=== PATIENT | male | born 1960 | race Caucasian/White ===

== ENCOUNTER 2024-06-03 08:18 | Outpatient (CLI) | payer OTHER, SELFPAY ==
--- NOTE | ~2024-06-03 | CT_ITS ---
EXAMINATION: CT chest abdomen pelvis w con DATE: 06/03/2024 09:04 INDICATION: Abdominal pain. Suspicion for possible lung cancer and prior outside imaging. TECHNIQUE: Computed tomography (CT) of the chest, abdomen, and pelvis was performed with 100 mL Omnip aque-350 intravenous contrast. Automated exposure control and iterative reconstruction technique were employed. The dose-length product was 509.39 mGy-cm. COMPARISON: None FINDINGS: CHEST CT: Moderate emphysema. Mild discoid atelectasis right middle and left lower lobes. There is a cluster of three, 3-4 mm nodules in the left lower lobe. There are multiple bilateral predominantly tiny keira f issural nodules with a larger 5 mm para fissural nodule along the right minor fissure., Pulmonary jodee ma or pleural effusion. Heart size is normal. Small amount of atherosclerotic coronary artery calcifi cation. No pericardial effusion. Thoracic aorta is normal in caliber with no dissection. There are mu ltiple normal-sized mediastinal lymph nodes which are more notable for number than size. No pathologi priya enlarged thoracic lymphadenopathy. There are however 3 enlarged left jugular chain lymph nodes, the largest measuring 1.9 x 1.8 cm. There are a few healing right-sided rib fractures. There is a di ffuse mottled appearance to the bones which appears to result from a combination of innumerable small lytic and blastic bone lesions suspicious for metastatic disease. ABDOMEN/PELVIS CT: 1.2 cm hypodense lesion along the ligamentum teres which given the classic location is most consisten t with focal fat. No other hepatic lesions identified. The gallbladder, pancreas, bilateral adrenal g lands and kidneys are normal. A few splenic calcifications consistent with old granulomatous disease. There are few scattered clonic diverticula without adjacent inflammatory stranding to suggest divert iculitis. Small bowel and appendix are normal. Bladder is normal. Prostatomegaly measuring 4.1 x 3.8 cm. Small amount of nonspecific ascites in the deep pelvis. There is scattered lymphadenopathy throug hout the abdomen, pelvis and left groin suspicious for metastatic disease or lymphoma. Additional ext ensive mixed lytic and sclerotic bone lesions throughout the lumbar spine, pelvis and proximal femurs . IMPRESSION: 1. Lymphadenopathy left neck, abdomen, pelvis and left groin suspicious for metastatic disease or lym phoma. Would recommend ultrasound-guided biopsy of the left inguinal lymph node. 2. Diffuse mottled appearance to the bones consistent with innumerable mixed lytic and sclerotic bone lesions also suspicious for metastatic disease. 3. A few scattered small pulmonary nodules and numerous keira fissural nodules, the largest measuring up to 5 mm which can be either infectious/inflammatory in etiology or metastatic. No dominant lesion more suspicious for a primary lung cancer. 4. Moderate emphysema. Reviewed, dictated and finalized at location A. CAD OPERATOR IMPRESSION: 1. Lymphadenopathy left neck, abdomen, pelvis and left groin suspicious for met astatic disease or lymphoma. Would recommend ultrasound-guided biopsy of the le ft inguinal lymph node. 2. Diffuse mottled appearance to the bones consistent with innumerable mixed ly tic and sclerotic bone lesions also suspicious for metastatic disease. 3. A few scattered small pulmonary nodules and numerous keira fissural nodules, the largest measuring up to 5 mm which can be either infectious/inflammatory in etiology or metastatic. No dominant lesion more suspicious for a primary lung cancer. 4. Moderate emphysema.
[2024-06-03 09:00] LABS: Estimated Glomerular Filt Rate > 60
--- NOTE | 2024-06-03 14:40 | WPDPFTINT ---
PFT Procedure Performed PFT Procedure Performed Plethysmography (Lung Vol) Diffusing Cap (DLCO) Flow Vol Loop Spirometry w/o Bronchodil PFT Interpretation This is a pulmonary function test with spirometry, plethysmography and diffusing capacity. The test was performed and results interpreted in accordance with the 2019 and 2005 ATS/ERS Task Force guidelines respectively using the Global Lung Function Initiative-2012 reference equations. Patient demonstrated good effort and cooperation. Reproducibility criteria were met. The quality of the spirometry maneuver was Grade A. Findings: Spirometry: There is decreased maximal expiratory airflow at all lung volumes with concave expiratory flow tracing. The contour the inspiratory flow tracing is normal. The FVC is 2.88 L, 66% predicted. The FEV1 is 1.31 L, 39% predicted. The FEV1: FVC ratio is 46%. Plethysmography: The total lung capacity is 6.75 L, 100% predicted. The functional residual capacity is 5.35 L, 152% predicted. The residual volume is 3.87 L, 174% predicted. The residual volume: Total lung capacity ratio is 57%. Diffusing capacity: The diffusing capacity unadjusted for hemoglobin and carboxyhemoglobin is 7.3, 27% predicted. The diffusing capacity adjusted for alveolar volume is 1.71, 40% predicted. Impression: There is a severe obstructive abnormality. The increase in residual volume to total lung volume ratio is consistent with hyperinflation from an obstructive abnormality. The diffusing capacity unadjusted for hemoglobin and carboxyhemoglobin is severely decreased and remains moderately decreased when adjusted for alveolar volume. There are no prior studies for comparison
--- OUTSIDE RECORDS SUMMARY | 2024-06-10 17:28 | XMS_ITS | Data Portability ---
Author Organization [facility] Johnie [facility] [place] Address [address] [place] [address] Care Team Providers Care Hemp Fiber Taker Off Name Role Phone TATYANA CROWELL Primary Care Provider Assessment Encounter Date Assessment Date Assessment LastModified by Organization Details LastModified Time 08/27/2023 08/27/2023 We will obtain some blood work incomplete database we need his old records. He had a large cardiac workup a year or so ago with I believe even a right and a left heart cath did see cardiology there may have been some pulmonary hypertension as well he was supposed I think to have a sleep study again we need old records to get this all figured out and we will request those from previous clinic see me in 3 months he is not interested in any immunizations at this time. He thinks he may have had a Cologuard we will see an old records [email or web address] Not available 08/27/2023 21:05:08 12/08/2023 12/08/2023 he continues to smoke warned of the ill effects of tobacco which were included but not limited to increase tumors of the aerodigestive tract increase incidence of heart attack stroke and cancer that can lead to sudden or chronic medical illness. I would have him try the breasts tree because he does not feel that the trilogy helps him all that much. Needs to follow up with Pulmonary for breathing issues as well as his possible lesion spiculated seen on recent CT scan at the hospital continue with his folic acid and B12 continue with all smoking cessation strategies if he is agreeable continue to follow up with Cardiology by some diastolic dysfunction and diastolic heart failure see me in a month I have told him he needs to finish following up with the urologist I have told him in layman's terms that he had blood in his urine he is a smoker and it is cancer until proven otherwise and he voiced understanding [email or web address] Not available 12/27/2023 16:01:25 03/15/2024 03/15/2024 smoking cessatio n discussed in detail and he is not interested on any pharmacological measures for that he will restart the metoprolol get a blood pressure check in a couple of weeks refuses flu shot and COVID shot I will see him back in a month. He was advised to get the additional testing that was ordered by Pulmonary. He will see me back in a month. Told him I could refer to Dermatology for alopecia he declined. [email or web address] Not available 03/15/2024 22:00:53 05/03/2024 05/03/2024 the leg pain he called the office about his gone we will continue current therapy CT chest abdomen and pelvis his involuntary weight loss is worrisome I told him that he needs to see Urology for blood in his urine. He continues to follow with cardiology he saw the track repair worker in December but has not been back then at that time it looks like he was referred to Interventional Pulmonary and slough patient denies any knowledge of this. further recommendations once I get the results of his test he was advised to stay up-to-date on immunizations. Obtain PFTs. again recommended to get colonoscopies [email or web address] Not available 05/07/2024 16:13:59 Plan of Treatment Reminders Order Date Submit Date Provider Last Modified By Organization Details Last Modified Time Details Appointments ANY 15 2024 02:30P Ligia Crowell MD Not available Not available Not available Lab lipid panel, serum 2023 024 CRISTINE Pandey, [address], [place], [address], 10/01/2023 08:29:33 CMP, serum or plasma 2023 024 CRISTINE Pandey, [address], [place], [address], 10/01/2023 08:29:34 CBC w/ auto diff 2023 024 CRISTINE Pandey, [address], [place], [address], 10/01/2023 08:29:35 pro BNP (pro B-type natriuret ic peptide), serum or plasma 2023 [facility], [address], [place], [address], 01/06/2024 18:04:30 urinalysi s, complete 2023 [facility], [address], [place], [address], 05/04/2024 08:31:03 HbA1c (hemoglob in A1c), blood 2023 [facility], [address], [place], [address], 05/04/2024 08:31:02 lipid panel, serum 2023 [facility], [address], [place], [address], 05/04/2024 08:30:58 CBC w/ auto diff 2023 [facility], [address], [place], [address], 05/04/2024 08:31:05 CMP, serum or plasma 2023 [facility], [address], [place], [address], 05/04/2024 08:31:00 Referral None recorded. Procedures None recorded. Surgeries None recorded. Imaging CT, abdomen + pelvis, w/ contrast - Authoriza tion code #[id number] 12 2023 [facility] (Imaging), [address], [place], [address], 06/05/2024 08:41:14 PFT, complete 2023 [facility] (Cardiology [facility] Em[facility]), [address], [place], [address], 06/03/2024 15:46:10 CT, chest, w/ contrast 2023 [facility] (Im[facility]), [address], [place], [address], 06/10/2024 10:10:09 Medication Orders losartan 25 mg tablet [address] [id number], [address] [place], [place], [id number], 12/08/2023 11:14:27 metoprolo l tartrate 25 mg tablet [address] [facility], [address] [place], [place], [id number], 12/08/2023 11:14:27 folic acid 1 mg tablet [address] [facility]72, [address] [place], [place], [id number], 12/08/2023 11:14:27 Trelegy Ellipta 100 mcg-62.5 mcg-25 mcg powder for inhalatio n 2023 024 [facility]697, [address] [place], [place], [id number], 12/25/2023 12:50:21 cyanocoba winnie (vit B-12) 100 mcg tablet [address] [facility]29, [address] [place], [place], [id number], 12/08/2023 11:14:27 Patient TargetsNo targets recorded. Patient Instructions Encounter Date Encounter Id Patient Instructions Last Modified By Organization Details Last Modified Time 12/08/2023 [id number] A healthy lifestyle: care instructions [email or web address] Not available 12/08/2023 11:14:27 Reason for Referral None Reported. Results Created Date Observation Date Name Description Value Unit Range Abnormal Flag Note LastModifiedBy Organization Detail LastModifiedTime 09/30/19 24 10/01/2023 LIPID PANEL cholesterol, total 151 mg/dL 100-19 9 Not Available [facility] ([facility]) [address] [place], [address], 10/01/2023 08:29:33 09/30/1910/01/2023 LIPID PANEL triglyceride s 53 mg/dL 0-149 Not Available [facility] ([facility]) [address] [place], [address], 10/01/2023 08:29:33 09/30/1910/01/2023 LIPID PANEL HDL cholesterol 65 mg/dL >39 Not Available [facility] ([facility]) [address] [place], [address], 10/01/2023 08:29:33 09/30/1910/01/2023 LIPID PANEL VLDL cholesterol manpreet 11 mg/dL 5-40 Not Available [facility] ([facility]) [address] [place], [address], 10/01/2023 08:29:33 09/30/1910/01/2023 LIPID PANEL LDL chol calc ([facility]) 75 mg/dL 0-99 Not Available [facility] ([facility]) [address] [place], [address], 10/01/2023 08:29:33 09/30/1910/01/2023 CMP14 glucose 89 mg/dL 70-99 Not Availabl e [facility] ([facility]) [address] [place], [address], 10/01/2023 08:29:34 09/30/19 24 10/01/2023 CMP14 BUN 19 mg/dL 8-27 Not Available [facility] ([facility]) [address] [place], [address], 10/01/2023 08:29:34 09/30/19 24 10/01/2023 CMP14 creatinine 0.91 mg/dL 0.76-1 .27 Not Available [facility] ([facility]) [address] [place], [address], 10/01/2023 08:29:34 09/30/19 24 10/01/2023 CMP14 eGFR 96 mL/mi n/1.7 3 >59 Not Available [facility] ([facility]) [address] [place], [address], 10/01/2023 08:29:34 09/30/19 24 10/01/2023 CMP14 sodium 137 mmol/ L 134-14 4 Not Available [facility] ([facility]) [address] [place], [address], 10/01/2023 08:29:34 09/30/19 24 10/01/2023 CMP14 potassium 5.6 mmol/ L 3.5-5. 2 above high normal Not Available [facility] ([facility]) [address] [place], [address], 10/01/2023 08:29:34 09/30/1910/01/2023 CMP14 chloride 98 mmol/ L 96-106 Not Available [facility] ([facility]) [address] [place], [address], 10/01/2023 08:29:34 09/30/19 24 10/01/2023 CMP14 carbon dioxide, total 29 mmol/ L 20-29 Not Available [facility] ([facility]) [address] [place], [address], 10/01/2023 08:29:34 09/30/19 24 10/01/2023 CMP14 calcium 8.8 mg/dL 8.6-10 .2 Not Available [facility] ([facility]) [address] [facility] [place], [address], 10/01/2023 08:29:34 09/30/19 24 10/01/2023 CMP14 protein, total 6.1 g/dL 6.0-8. 5 Not Available [facility] ([facility]) [address] [facility] [place], [address], 10/01/2023 08:29:34 09/30/19 24 10/01/2023 CMP14 albumin 3.2 g/dL 3.9-4. 9 below low normal Not Available [facility] ([facility]) [address] [facility] [place], [address], 10/01/2023 08:29:34 09/30/19 24 10/01/2023 CMP14 globulin, total 2.9 g/dL 1.5-4. 5 Not Available [facility] ([facility]) [address] [facility] [place], [address], 10/01/2023 08:29:34 09/30/19 24 10/01/2023 CMP14 A/G ratio 1.1 1.2-2. 2 below low normal Not Available [facility] ([facility]) [address] [facility] [place], [address], 10/01/2023 08:29:34 09/30/19 24 10/01/2023 CMP14 bilirubin, total 0.4 mg/dL 0.0-1. 2 Not Available [facility] ([facility]) [address] [place], [address], 10/01/2023 08:29:34 09/30/19 24 10/01/2023 CMP14 alkaline phosphatase 130 IU/L 44-121 above high normal Not Available [facility] ([facility]) [address] [place], [address], 10/01/2023 08:29:34 09/30/1910/01/2023 CMP14 AST (SGOT) 18 IU/L 0-40 Not Avail able [facility] ([facility]) [address] [place], [address], 10/01/2023 08:29:34 09/30/19 24 10/01/2023 CMP14 ALT (SGPT) 18 IU/L 0-44 Not Avail able [facility] ([facility]) [address] [place], [address], 10/01/2023 08:29:34 09/30/1910/01/2023 CBC WITH DIFFE RENTI AL/PL ATELE T WBC 7.6 x10e3 /uL 3.4-10 .8 Not Available [facility] ([facility]) [address] [place], [address], 10/01/2023 08:29:35 09/30/1910/01/2023 CBC WITH DIFFE RENTI AL/PL ATELE T RBC 5.19 x10e6 /uL 4.14-5 .80 Not Available [facility] ([facility]) [address] [place], [address], 10/01/2023 08:29:35 09/30/1910/01/2023 CBC WITH DIFFE RENTI AL/PL ATELE T hemoglobin 17.9 g/dL 13.0-1 7.7 above high normal Not Available [facility] ([facility]) [address] [place], [address], 10/01/2023 08:29:35 09/30/1910/01/2023 CBC WITH DIFFE RENTI AL/PL ATELE T hematocrit 52.0 % 37.5-5 1.0 above high normal Not Available [facility] ([facility]) [address] [facility] [place], [address], 10/01/2023 08:29:35 09/30/1910/01/2023 CBC WITH DIFFE RENTI AL/PL ATELE T MCV 100 fL 79-97 above high normal Not Available [facility] ([facility]) [address] [facility], [place], [address], 10/01/2023 08:29:35 09/30/1910/01/2023 CBC WITH DIFFE RENTI AL/PL ATELE T MCH 34.5 pg 26.6-3 3.0 above high normal Not Available [facility] ([facility]) [address] [facility], [place], [address], 10/01/2023 08:29:35 09/30/19 24 10/01/2023 CBC WITH DIFFE RENTI AL/PL ATELE T MCHC 34.4 g/dL 31.5-3 5.7 Not Available [facility] ([facility]) [address] [facility], [place], [address], 10/01/2023 08:29:35 09/30/1910/01/2023 CBC WITH DIFFE RENTI AL/PL ATELE T RDW 12.1 % 11.6-1 5.4 Not Available [facility] ([facility]) [address] [place], [address], 10/01/2023 08:29:35 09/30/1910/01/2023 CBC WITH DIFFE RENTI AL/PL ATELE T platelets 263 x10e3 /uL 150-45 0 Not Available [facility] ([facility]) [address] [place], [address], 10/01/2023 08:29:35 09/30/19 24 10/01/2023 CBC WITH DIFFE RENTI AL/PL ATELE T neutrophils 68 % notest ab. Not Available [facility] ([facility]) [address] [place], [address], 10/01/2023 08:29:35 09/30/19 24 10/01/2023 CBC WITH DIFFE RENTI AL/PL ATELE T lymphs 20 % notest ab. Not Available [facility] ([facility]) [address] [place], [address], 10/01/2023 08:29:35 09/30/19 24 10/01/2023 CBC WITH DIFFE RENTI AL/PL ATELE T monocytes 10 % notest ab. Not Available [facility] ([facility]) [address] [place], [address], 10/01/2023 08:29:35 09/30/19 24 10/01/2023 CBC WITH DIFFE RENTI AL/PL ATELE T eos 1 % notest ab. Not Available [facility] ([facility]) [address] [facility], [place], [address], 10/01/2023 08:29:35 09/30/19 24 10/01/2023 CBC WITH DIFFE RENTI AL/PL ATELE T basos 1 % notest ab. Not Available [facility] ([facility]) [address] [place], [address], 10/01/2023 08:29:35 09/30/19 24 10/01/2023 CBC WITH DIFFE RENTI AL/PL ATELE T neutrophils (absolute) 5.1 x10e3 /uL 1.4-7. 0 Not Available [facility] ([facility]) [address] [place], [address], 10/01/2023 08:29:35 09/30/19 24 10/01/2023 CBC WITH DIFFE RENTI AL/PL ATELE T lymphs (absolute) 1.5 x10e3 /uL 0.7-3. 1 Not Available [facility] ([facility]) [address] [place], [address], 10/01/2023 08:29:35 09/30/19 24 10/01/2023 CBC WITH DIFFE RENTI AL/PL ATELE T monocytes(ab solute) 0.8 x10e3 /uL 0.1-0. 9 Not Available [facility] ([facility]) [address] [facility], [place], [address], 10/01/2023 08:29:35 09/30/19 24 10/01/2023 CBC WITH DIFFE RENTI AL/PL ATELE T eos (absolute) 0.1 x10e3 /uL 0.0-0. 4 Not Available [facility] ([facility]) [address] [facility], [place], [address], 10/01/2023 08:29:35 09/30/19 24 10/01/2023 CBC WITH DIFFE RENTI AL/PL ATELE T baso (absolute) 0.1 x10e3 /uL 0.0-0. 2 Not Available [facility] ([facility]) [address] [facility], [place], [address], 10/01/2023 08:29:35 09/30/19 24 10/01/2023 CBC WITH DIFFE RENTI AL/PL ATELE T immature granulocytes 0 % notest ab. Not Available [facility] ([facility]) [address] [facility], [place], [address], 10/01/2023 08:29:35 09/30/19 24 10/01/2023 CBC WITH DIFFE RENTI AL/PL ATELE T immature grans (abs) 0.0 x10e3 /uL 0.0-0. 1 Not Available [facility] ([facility]) [address] [place], [address], 10/01/2023 08:29:35 05/03/20 24 05/04/2024 LIPID PANEL cholesterol, total 185 mg/dL 100-19 9 Not Available [facility] ([facility]) [address] [place], [address], 05/04/2024 08:30:58 05/03/20 24 05/04/2024 LIPID PANEL triglyceride s 64 mg/dL 0-149 Not Available [facility] ([facility]) [address] [place], [address], 05/04/2024 08:30:58 05/03/20 24 05/04/2024 LIPID PANEL HDL cholesterol 100 mg/dL >39 Not Available [facility] ([facility]) [address] [place], [address], 05/04/2024 08:30:58 05/03/20 24 05/04/2024 LIPID PANEL VLDL cholesterol manpreet 12 mg/dL 5-40 Not Available [facility] ([facility]) [address] [place], [address], 05/04/2024 08:30:58 05/03/20 24 05/04/2024 LIPID PANEL LDL chol calc ([facility]) 73 mg/dL 0-99 Not Available [facility] ([facility]) [address] [place], [address], 05/04/2024 08:30:58 05/03/20 24 05/04/2024 COMP. METAB OLIC PANEL (14) glucose 90 mg/dL 70-99 Not Available [facility] ([facility]) [address] [place], [address], 05/04/2024 08:31:00 05/03/20 24 05/04/2024 COMP. METAB OLIC PANEL (14) BUN 13 mg/dL 8-27 Not Available [facility] ([facility]) [address] [place], [address], 05/04/2024 08:31:00 05/03/20 24 05/04/2024 COMP. METAB OLIC PANEL (14) creatinine 0.73 mg/dL 0.76-1 .27 below low normal Not Available [facility] ([facility]) [address] [facility], [place], [address], 05/04/2024 08:31:00 05/03/20 24 05/04/2024 COMP. METAB OLIC PANEL (14) eGFR 103 mL/mi n/1.7 3 >59 Not Available [facility] ([facility]) [address] [facility], [place], [address], 05/04/2024 08:31:00 05/03/20 24 05/04/2024 COMP. METAB OLIC PANEL (14) BUN/creatini ne ratio 18 10-24 Not Available [facility] ([facility]) [address] [facility], [place], [address], 05/04/2024 08:31:00 05/03/20 24 05/04/2024 COMP. METAB OLIC PANEL (14) sodium 129 mmol/ L 134-14 4 below low normal Not Available [facility] ([facility]) [address] [facility], [place], [address], 05/04/2024 08:31:00 05/03/20 24 05/04/2024 COMP. METAB OLIC PANEL (14) potassium 4.4 mmol/ L 3.5-5. 2 Not Available [facility] ([facility]) [address] [facility], [place], [address], 05/04/2024 08:31:00 05/03/20 24 05/04/2024 COMP. METAB OLIC PANEL (14) chloride 88 mmol/ L 96-106 below low normal Not Available [facility] ([facility]) [address] [facility] [place], [address], 05/04/2024 08:31:00 05/03/20 24 05/04/2024 COMP. METAB OLIC PANEL (14) carbon dioxide, total 27 mmol/ L 20-29 Not Available [facility] ([facility]) [address] [facility] [place], [address], 05/04/2024 08:31:00 05/03/20 24 05/04/2024 COMP. METAB OLIC PANEL (14) calcium 8.9 mg/dL 8.6-10 .2 Not Available [facility] ([facility]) [address] [facility], [place], [address], 05/04/2024 08:31:00 05/03/20 24 05/04/2024 COMP. METAB OLIC PANEL (14) protein, total 6.3 g/dL 6.0-8. 5 Not Available [facility] ([facility]) [address] [facility] [place], [address], 05/04/2024 08:31:00 05/03/20 24 05/04/2024 COMP. METAB OLIC PANEL (14) albumin 4.1 g/dL 3.9-4. 9 Not Available [facility] ([facility]) [address] [facility] [place], [address], 05/04/2024 08:31:00 05/03/20 24 05/04/2024 COMP. METAB OLIC PANEL (14) globulin, total 2.2 g/dL 1.5-4. 5 Not Available [facility] ([facility]) [address] [facility] [place], [address], 05/04/2024 08:31:00 05/03/20 24 05/04/2024 COMP. METAB OLIC PANEL (14) bilirubin, total 0.8 mg/dL 0.0-1. 2 Not Available [facility] ([facility]) [address] [facility] [place], [address], 05/04/2024 08:31:00 05/03/20 24 05/04/2024 COMP. METAB OLIC PANEL (14) alkaline phosphatase 244 IU/L 44-121 above high normal Not Available [facility] ([facility]) [address] [facility] [place], [address], 05/04/2024 08:31:00 05/03/20 24 05/04/2024 COMP. METAB OLIC PANEL (14) AST (SGOT) 28 IU/L 0-40 Not Available [facility] ([facility]) [address] [facility], [place], [address], 05/04/2024 08:31:00 05/03/20 24 05/04/2024 COMP. METAB OLIC PANEL (14) ALT (SGPT) 23 IU/L 0-44 Not Available [facility] ([facility]) [address] [facility], [place], [address], 05/04/2024 08:31:00 05/03/20 24 05/04/2024 MICRO SCOPI C EXAMI NATIO N WBC None seen /hpf 0-5 Not Available [facility] ([facility]) [address] [facility], [place], [address], 05/04/2024 08:31:01 05/03/20 24 05/04/2024 MICRO SCOPI C EXAMI NATIO N RBC 11-30 /hpf 0-2 abnormal Not Available [facility] ([facility]) [address] [facility], [place], [address], 05/04/2024 08:31:01 05/03/20 24 05/04/2024 MICRO SCOPI C EXAMI NATIO N epithelial cells (non renal) 0-10 /hpf 0-10 Not Available [facility] ([facility]) [address] [facility], [place], [address], 05/04/2024 08:31:01 05/03/20 24 05/04/2024 MICRO SCOPI C EXAMI NATIO N casts None seen /lpf nonese en Not Available [facility] ([facility]) [address] [facility], [place], [address], 05/04/2024 08:31:01 05/03/20 24 05/04/2024 MICRO SCOPI C EXAMI NATIO N bacteria None seen nonese en/few Not Available [facility] ([facility]) [address] [facility], [place], [address], 05/04/2024 08:31:01 05/03/2005/04/2024 HEMOG LOBIN A1C hemoglobin A1C 6.3 % 4.8-5. 6 above high normal Predi abete s: 5.7 - 6.4 Diabe jason: >6.4 Glyce reji contr ol for adult s with diabe jason: <7.0 Not Available [facility] ([facility]) [address] [facility], [place], [address], 05/04/2024 08:31:02 05/03/2005/04/2024 URINA LYSIS , COMPL ETE specific gravity 1.017 1.005- 1.030 Not Available [facility] ([facility]) [address] [facility], [place], [address], 05/04/2024 08:31:03 05/03/2005/04/2024 URINA LYSIS , COMPL ETE pH 6.5 5.0-7. 5 Not Available [facility] ([facility]) [address] [facility], [place], [address], 05/04/2024 08:31:03 05/03/20 24 05/04/2024 URINA LYSIS , COMPL ETE urine-color YELLOW yellow Not Available [facility] ([facility]) [address] [place], [address], 05/04/2024 08:31:03 05/03/2005/04/2024 URINA LYSIS , COMPL ETE appearance CLEAR clear Not Available [facility] ([facility]) [address] [place], [address], 05/04/2024 08:31:03 05/03/20 24 05/04/2024 URINA LYSIS , COMPL ETE WBC esterase TRACE negati ve abnormal Not Available [facility] ([facility]) [address] [place], [address], 05/04/2024 08:31:03 05/03/2005/04/2024 URINA LYSIS , COMPL ETE protein 3+ negati ve/tra ce abnormal Not Available [facility] ([facility]) [address] [facility], [place], [address], 05/04/2024 08:31:03 05/03/2005/04/2024 URINA LYSIS , COMPL ETE glucose NEGATI VE negati ve Not Available [facility] ([facility]) [address] [facility], [place], [address], 05/04/2024 08:31:03 05/03/2005/04/2024 URINA LYSIS , COMPL ETE ketones NEGATI VE negati ve Not Available [facility] ([facility]) [address] [place], [address], 05/04/2024 08:31:03 05/03/2005/04/2024 URINA LYSIS , COMPL ETE occult blood 2+ negati ve abnormal Not Available [facility] ([facility]) [address] [place], [address], 05/04/2024 08:31:03 05/03/20 24 05/04/2024 URINA LYSIS , COMPL ETE bilirubin NEGATI VE negati ve Not Available [facility] ([facility]) [address] [place], [address], 05/04/2024 08:31:03 05/03/2005/04/2024 URINA LYSIS , COMPL ETE urobilinogen ,semi-qn 1.0 mg/dL 0.2-1. 0 Not Available [facility] ([facility]) [address] [place], [address], 05/04/2024 08:31:03 05/03/20 24 05/04/2024 URINA LYSIS , COMPL ETE nitrite, urine NEGATI VE negati ve Not Available [facility] ([facility]) [address] [facility], [place], [address], 05/04/2024 08:31:03 05/03/20 24 05/04/2024 URINA LYSIS , COMPL ETE microscopic examination SEE BELOW: Micro scopi c was indic ated and was perfo rmed. Not Available [facility] ([facility]) [address] [facility], [place], [address], 05/04/2024 08:31:03 05/03/20 24 05/04/2024 CBC WITH DIFFE RENTI AL/PL ATELE T WBC 7.3 x10e3 /uL 3.4-10 .8 Eff ectiv e Decem matias 2023 profi arun [id number] WBC will be made* * non-o rdera ble as a stand -adelita e order code. Not Available [facility] ([facility]) [address] [facility], [place], [address], 05/04/2024 08:31:05 05/03/20 24 05/04/2024 CBC WITH DIFFE RENTI AL/PL ATELE T RBC 4.25 x10e6 /uL 4.14-5 .80 Not Available [facility] ([facility]) [address] [facility], [place], [address], 05/04/2024 08:31:05 05/03/20 24 05/04/2024 CBC WITH DIFFE RENTI AL/PL ATELE T hemoglobin 14.7 g/dL 13.0-1 7.7 Not Available [facility] ([facility]) [address] [place], [address], 05/04/2024 08:31:05 05/03/20 24 05/04/2024 CBC WITH DIFFE RENTI AL/PL ATELE T hematocrit 42.7 % 37.5-5 1.0 Not Available [facility] ([facility]) [address] [place], [address], 05/04/2024 08:31:05 05/03/20 24 05/04/2024 CBC WITH DIFFE RENTI AL/PL ATELE T MCV 101 fL 79-97 above high normal Not Available [facility] ([facility]) [address] [facility], [place], [address], 05/04/2024 08:31:05 05/03/20 24 05/04/2024 CBC WITH DIFFE RENTI AL/PL ATELE T MCH 34.6 pg 26.6-3 3.0 above high normal Not Available [facility] ([facility]) [address] [place], [address], 05/04/2024 08:31:05 05/03/20 24 05/04/2024 CBC WITH DIFFE RENTI AL/PL ATELE T MCHC 34.4 g/dL 31.5-3 5.7 Not Available [facility] ([facility]) [address] [place], [address], 05/04/2024 08:31:05 05/03/20 24 05/04/2024 CBC WITH DIFFE RENTI AL/PL ATELE T RDW 13.3 % 11.6-1 5.4 Not Available [facility] ([facility]) [address] [place], [address], 05/04/2024 08:31:05 05/03/20 24 05/04/2024 CBC WITH DIFFE RENTI AL/PL ATELE T platelets 151 x10e3 /uL 150-45 0 Not Available [facility] ([facility]) [address] [place], [address], 05/04/2024 08:31:05 05/03/20 24 05/04/2024 CBC WITH DIFFE RENTI AL/PL ATELE T neutrophils 57 % notest ab. Not Available [facility] ([facility]) [address] [place], [address], 05/04/2024 08:31:05 05/03/20 24 05/04/2024 CBC WITH DIFFE RENTI AL/PL ATELE T lymphs 26 % notest ab. Not Available [facility] ([facility]) [address] [facility], [place], [address], 05/04/2024 08:31:05 05/03/20 24 05/04/2024 CBC WITH DIFFE RENTI AL/PL ATELE T monocytes 9 % notest ab. Not Available [facility] ([facility]) [address] [facility], [place], [address], 05/04/2024 08:31:05 05/03/20 24 05/04/2024 CBC WITH DIFFE RENTI AL/PL ATELE T eos 3 % notest ab. Not Available [facility] ([facility]) [address] [facility], [place], [address], 05/04/2024 08:31:05 05/03/20 24 05/04/2024 CBC WITH DIFFE RENTI AL/PL ATELE T basos 1 % notest ab. Not Available [facility] ([facility]) [address] [facility], [place], [address], 05/04/2024 08:31:05 05/03/20 24 05/04/2024 CBC WITH DIFFE RENTI AL/PL ATELE T neutrophils (absolute) 4.2 x10e3 /uL 1.4-7. 0 Not Available [facility] ([facility]) [address] [facility], [place], [address], 05/04/2024 08:31:05 05/03/20 24 05/04/2024 CBC WITH DIFFE RENTI AL/PL ATELE T lymphs (absolute) 1.9 x10e3 /uL 0.7-3. 1 Not Available [facility] ([facility]) [address] [facility], [place], [address], 05/04/2024 08:31:05 05/03/20 24 05/04/2024 CBC WITH DIFFE RENTI AL/PL ATELE T monocytes(ab solute) 0.7 x10e3 /uL 0.1-0. 9 Not Available [facility] ([facility]) [address] [facility], [place], [address], 05/04/2024 08:31:05 05/03/20 24 05/04/2024 CBC WITH DIFFE RENTI AL/PL ATELE T eos (absolute) 0.2 x10e3 /uL 0.0-0. 4 Not Available [facility] ([facility]) [address] [place], [address], 05/04/2024 08:31:05 05/03/20 24 05/04/2024 CBC WITH DIFFE RENTI AL/PL ATELE T baso (absolute) 0.1 x10e3 /uL 0.0-0. 2 Not Available [facility] ([facility]) [address] [facility], [place], [address], 05/04/2024 08:31:05 05/03/20 24 05/04/2024 CBC WITH DIFFE RENTI AL/PL ATELE T immature granulocytes 4 % notest ab. Not Available [facility] ([facility]) [address] [place], [address], 05/04/2024 08:31:05 05/03/20 24 05/04/2024 CBC WITH DIFFE RENTI AL/PL ATELE T immature grans (abs) 0.3 x10e3 /uL 0.0-0. 1 above high normal (An eleva aaron perce ntage of Immat ure Granu locyt es has not been found to be clini priya signi fican t as a sole clini manpreet predi ctor of disea se. Does NOT inclu de bands or blast cells . Pregn snehal assoc iated physi ologi manpreet leuko cytos is may also show incre ased immat ure granu locyt es witho ut clini manpreet signi fican ce.) Not Available [facility] ([facility]) [address] [facility], [place], [address], 05/04/2024 08:31:05 05/03/20 24 05/04/2024 CBC WITH DIFFE RENTI AL/PL ATELE T NRBC 1 % 0-0 above high normal Not Available [facility] ([facility]) [address] [facility], [place], [address], 05/04/2024 08:31:05 05/18/20 24 05/20/2024 SPECI MEN STATU S REPOR T specimen status report TNP Test not perfo rmed. No urine speci men recei shirin. TEST: [id number] 0 Na U+Cl U+K U [id number] 2 Osmol ality , Urine Not Available [facility] ([facility]) [address] [facility], [place], [address], 05/20/2024 13:10:21 05/18/20 24 05/19/2024 BASIC METAB OLIC PANEL (7) glucose 94 mg/dL 70-99 Not Available [facility] ([facility]) [address] [facility], [place], [address], 05/20/2024 13:10:22 05/18/20 24 05/19/2024 BASIC METAB OLIC PANEL (7) BUN 19 mg/dL 8-27 Not Available [facility] ([facility]) [address] [facility], [place], [address], 05/20/2024 13:10:22 05/18/20 24 05/19/2024 BASIC METAB OLIC PANEL (7) creatinine 1.39 mg/dL 0.76-1 .27 above high normal Not Available [facility] ([facility]) [address] [facility], [place], [address], 05/20/2024 13:10:22 05/18/20 24 05/19/2024 BASIC METAB OLIC PANEL (7) eGFR 57 mL/mi n/1.7 3 >59 below low normal Not Available [facility] ([facility]) [address] [facility], [place], [address], 05/20/2024 13:10:22 05/18/20 24 05/19/2024 BASIC METAB OLIC PANEL (7) BUN/creatini ne ratio 14 -24 Not Available [facility] ([facility]) [address] [facility] [place], [address], 05/20/2024 13:10:22 05/18/20 24 05/19/2024 BASIC METAB OLIC PANEL (7) sodium 133 mmol/ L 134-14 4 below low normal Not Available [facility] ([facility]) [address] [facility] [place], [address], 05/20/2024 13:10:22 05/18/20 24 05/19/2024 BASIC METAB OLIC PANEL (7) potassium 4.4 mmol/ L 3.5-5. 2 Not Available [facility] ([facility]) [address] [facility], [place], [address], 05/20/2024 13:10:22 05/18/20 24 05/19/2024 BASIC METAB OLIC PANEL (7) chloride 92 mmol/ L 96-106 below low normal Not Available [facility] ([facility]) [address] [facility] [place], [address], 05/20/2024 13:10:22 05/18/20 24 05/19/2024 BASIC METAB OLIC PANEL (7) carbon dioxide, total 25 mmol/ L 20-29 Not Available [facility] ([facility]) [address] [facility] [place], [address], 05/20/2024 13:10:22 05/18/20 24 05/19/2024 T4, FREE T4,free(dire ct) 1.54 NG/dL 0.82-1 .77 Not Available [facility] ([facility]) [address] [facility] [place], [address], 05/20/2024 13:10:23 05/18/20 24 05/18/2024 UNABL E TO VOID unable to void Commen t Patie nt unabl e to void. Urine to be colle cted at a later date. Not Available [facility] ([facility]) [address] [place], [address], 05/20/2024 13:10:24 05/18/20 24 05/19/2024 CORTI KRISTEN cortisol 9.2 ug/dL 6.2-19 .4 Pleas e Note: The refer ence inter randa and vale ing for this test is for an AM colle ction . If this is a PM colle ction pleas e use: Corti kristen PM: 2.3-1 1.9 Not Available [facility] ([facility]) [address] [place], [address], 05/20/2024 13:10:25 05/18/20 24 05/19/2024 TSH TSH 5.640 uIU/m L 0.450- 4.500 above high normal Not Available [facility] ([facility]) [address] [place], [address], 05/20/2024 13:10:26 05/18/20 24 05/19/2024 TRIIO DOTHY JACQUES E (T3), FREE triiodothyro nine (T3), free 3.0 pg/mL 2.0-4. 4 Not Available [facility] ([facility]) [address] [place], [address], 05/20/2024 13:10:27 10/22/19 24 10/22/2023 XR, chest No observ ation record ed[facility] [address] [place], [address], 10/26/2023 13:16:21 10/22/19 24 10/22/2023 CT, angio gram, chest , w/ contr ast No observ ation [facility] ed. [facility] [address] [place], [address], 12/08/2023 10:58:10 10/23/19 24 10/23/2023 XR, chest No observ [facility]ion [facility] [address] [place], [address], 10/26/2023 13:23:49 10/26/19 24 10/26/2023 NM, myoca rdial perfu gonzalo scan No observ ation record ed. [facility] [address] [place], [address], 10/26/2023 13:32:59 06/03/20 24 06/03/2024 PFT, compl ete No observ ation record ed. [address] [facility], [place], [address], 06/10/2024 16:43:42 06/05/20 24 06/03/2024 CT, abdom en + pelvi s, w/ contr ast No observ ation record ed. [address], [place], [address], 06/10/2024 17:05:51 06/10/[address], chest , w/ contr ast No observ ation record ed. [address], [place], [address], 06/10/2024 17:05:50 Result Notes None recorded. Problems Name Problem SNOMED Code Status Onset Date Resolution Date Notes Provider Name and Address Organization Details Recorded Time Chronic obstructive pulmonary disease 42545996 Active 2023 COREEN Chan, [place] - [facility] 4 09:18:24 Essential hypertension 61482976 Active 2023 COREEN Chan, [place] - [facility] 4 11:12:58 Serum vitamin B12 below reference range 549066495 Active 2023 COREEN Chan, [place] - [facility] 4 11:12:59 Obesity 455291706 Active 2023 Melony Patterson MA null, [place] - [facility] 4 11:13:01 SARS-CoV-2 vaccination declined 8175531143 Active 2023 Tatyana Crowell MD Attn: Jean garcia,[address] [facility], [place], [address], [facility] - [facility] 4 22:00:35 Administratio n of influenza vaccine Active 2023 Tatyana Crowell MD Attn: Jean g,[address] [facility], [place], [address], [facility] - [facility] 22:00:36 Problem Notes None recorded. Procedures Surgical History Date Name Laterality Status Provider Name and Address Organization Details Recorded Time Tonsillectomy completed Stefanie Penn MA [place] - [facility] 08/27/2023 16:42:41 Imaging Results Imaging Date Name Status [facility]Modified by [facility] Details LastModified Time 10/22/2023 XR, chest completed [facility] [address] [place], [address], 10/26/2023 13:16:21 10/22/2023 CT, angiogram, chest, w/ contrast completed [facility] [address] [place], [address], 12/08/2023 10:58:10 10/23/2023 XR, chest completed [facility] [address] [place], [address], 10/26/2023 13:23:49 10/26/2023 NM, myocardial perfusion scan completed [facility] [address] [place], [address], 10/26/2023 13:32:59 06/03/2024 PFT, complete completed [address], [place], [address], 06/10/2024 16:43:42 06/03/2024 CT, abdomen + pelvis, w/ contrast completed [address], [place], [address], 06/10/2024 17:05:51 06/10/2024 CT, chest, w/ contrast completed [address], [place], [address], 06/10/2024 17:05:50 Procedure Notes None recorded. Medical Equipment None Reported. Allergies No known drug allergies Medications Name Sig Start Date Stop Date Status Note LastModified by Organization Details LastModified Time nicotine 14 mg/24 hr daily transdermal patch APPLY 1 PATCH TOPICALLY TO THE SKIN EVERY DAY active Not Available Not Available No t Available cyanocobala min (vit B-12) 100 mcg tablet TAKE 1 TABLET BY MOUTH ONCE DAILY active Not Available Not Available No t Available tramadol 50 mg tablet TAKE 2 TABLET BY MOUTH BID as needed for severe pain 2023 active Not Available Not Available Not Avai lable levothyroxi ne 25 mcg tablet TAKE 1 TABLET BY MOUTH EVERY DAY 2023 active Not Available Not Available Not Avai lable losartan 25 mg tablet TAKE 1 TABLET BY MOUTH ONCE DAILY active Not Available Not Available No t Available nicotine 21 mg/24 hr daily transdermal patch APPLY 1 PATCH TOPICALLY TO THE SKIN DAILY active Not Available Not Available No t Available folic acid 1 mg tablet TAKE 1 TABLET BY MOUTH EVERY DAY active Not Available Not Available No t Available furosemide 20 mg tablet TAKE 1 TABLET BY MOUTH DAILY 2023 active Not Available Not Available Not Avai lable albuterol sulfate HFA 90 mcg/actuati on aerosol inhaler INHALE 2 PUFFS BY MOUTH EVERY 4 HOURS NEEDED 2024 active Not Available Not Available Not Avai lable nicotine 7 mg/24 hr daily transdermal patch APPLY 1 PATCH TOPICALLY TO THE SKIN EVERY DAY active Not Available Not Available No t Available metoprolol tartrate 25 mg tablet TAKE 1 TABLET BY MOUTH TWICE DAILY active Not Available Not Available No t Available Trelegy Ellipta 100 mcg-62.5 mcg-25 mcg powder for inhalation INHALE 1 PUFF BY MOUTH EVERY DAY 07/19 /2024 completed Not Available Not Available Not Available tramadol 100 mg tablet Take 1 tablet 3 times a day by oral route as needed. 2023 active Not Available Not Available Not Mik kaufman Breztri Aerosphere 160 mcg-9mcg-4. 8mcg/actuat ion HFA aerosol inhaler INHALE 2 PUFFS BY MOUTH TWICE DAILY 2024 active Not Available Not Available Not Mik labarun Vitals Date Recorded Body height Body mass index (BMI) Body weight Heart rate Oxygen saturation Oxygen saturation in Arterial blood by Pulse oximetry Systolic blood pressure Diastolic blood pressure Provider Name and Address Organization Details Last Updated DateTime 4 175.26 cm 28.1 kg/m2 24815.5 5 g 87 /min 84 % 84 % 122 mm[Hg] 78 mm[Hg] Stefanie Penn [place] - [facility] 4 16:44:15 Date Recorded Body height Body mass index (BMI) Body weight Oxygen saturation Oxygen saturation in Arterial blood by Pulse oximetry Heart rate Provider Name and Address Organization Details Last Updated DateTime 4 175.26 cm 27.1 kg/m2 26189.5 6 g 87 % 87 % 81 /min Love Morrison MA [place] - [facility] 4 10:27:51 Date Recorded Body height Body mass index (BMI) Body weight Heart rate Oxygen saturation Oxygen saturation in Arterial blood by Pulse oximetry Systolic blood pressure Diastolic blood pressure Provider Name and Address Organization Details Last Updated DateTime 4 175.26 cm 25.4 kg/m2 38618.1 8 g 87 /min 90 % 90 % 128 mm[Hg] 66 mm[Hg] Alesia Caldwell [place] - [facility] 4 15:57:47 Date Recorded Body height Heart rate Oxygen saturation Oxygen saturation in Arterial blood by Pulse oximetry Systolic blood pressure Diastolic blood pressure Provider Name and Address Organization Details Last Updated DateTime 4 175.26 cm 82 /min 89 % 89 % 104 mm[Hg] 72 mm[Hg] Sofia Hinson MA [place] - [facility] 4 15:46:49 Date Recorded Body height Body mass index (BMI) Body weight Heart rate Oxygen saturation Oxygen saturation in Arterial blood by Pulse oximetry Systolic blood pressure Diastolic blood pressure Provider Name and Address Organization Details Last Updated DateTime 175.26 cm 24.8 kg/m2 68240.8 8 g 92 /min 92 % 92 % 130 mm[Hg] 78 mm[Hg] Sofia Hinson MA [place] - [facility] 15:06:58 Social History Question Answer Notes LastModified by Organizat ion Details LastModified Time Tobacco Smoking Status Current Every Day Smoker Stefanie Penn MA null, [place] - [facility] 08/27/2023 16:42:26 Do You Have An Advance Directive? No Information not available 12/08/2023 What Is Your Level Of Alcohol Consumption? Moderate Information not available 08/27/2023 Are You Blind Or Do You Have Difficulty Seeing? Yes Reading Glasses Information not available 12/08/2023 In The 14 Days Before Symptom Onset, Have You Had Close Contact With A Laboratory-confir med COVID-19 While That Case Was Ill? No Information not available 12/08/2023 In The 14 Days Before Symptom Onset, Have You Had Close Contact With A Person Who Is Under Investigation For COVID-19 While That Person Was Ill? No Information not available 12/08/2023 Have You Been To An Area Known To Be High Risk For COVID-19? No Information not available 12/08/2023 Are You Currently Employed? Yes Information not available 12/08/2023 Are You Deaf Or Do You Have Serious Difficulty Hearing? No Information not available 12/08/2023 What Type Of Diet Are You Following? 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 No Information not available 12/08/2023 What Was The Date Of Your Most Recent Tobacco Screening? 05/03/2024 Information not available 05/03/2024 What Is Your Relationship Status? Single Information not available 12/08/2023 Do You Use Your Seat Belt Or Car Seat Routinely? Yes Information not available 05/03/2024 Do You Have Smoke And Carbon Monoxide Detectors In Your Home? Yes Information not available 12/08/2023 Do You Feel Stressed (tense, Restless, Nervous, Or Anxious, Or Unable To Sleep At Night)? [id number] Not Sleeping At Night. Information not available 12/08/2023 Do You Use Any Illicit Or Recreational Drugs? No Information not available 08/27/2023 Do You Use Sunscreen Routinely? Yes Information not available 12/08/2023 Has Tobacco Cessation Counseling Been Provided? No Information not available 08/27/2023 Sex: Male Functional Status Question Answer Note LastModified by Organization D etails LastModified Time Are you able to care for yourself? Yes Information n ot available 12/08/2023 What is your exercise level? None Information not available 12/08/2023 Mental Status None recorded. Family History Relationship Description Onset Age of this Age Resolved Age Notes LastModified by Organization Details LastModified Time Father Alcohol abuse [email or web address] Not available 2023 16:41:31 Father Heart disease [email or web address] Not available 2023 16:41:42 Medical History Condition Response Coronary Artery Disease N Other N Atrial Fibrillation N High Blood Pressure N Thyroid Problems N Kidney or Bladder Problems N Depression N COPD Y Blood Clots N GI Problems N Skin Problems N Anemia N Heart Attack (MN) N Diabetes N Anxiety Disorder N Muscle, Joint, or Bone Problems N Seizures/Epilepsy N Acid Reflux (GERD) N Cancer N Stroke N Allergies N Asthma N High Cholesterol N Hepatitis N Liver Disease N Headaches N Osteoporosis N Heart Failure N Immunizations Vaccine Type Date Status Note Provider Nam e and Address Organization Details Recorded Time Influenza, MDCK, quadrivalent, PF 0 completed COREEN Chan, [place] - [facility] 12/08/2023 10:42:54 Influenza, split virus, trivalent, preservative 4 completed COREEN Chan, [place] - [facility] 12/08/2023 10:42:54 Influenza, split virus, quadrivalent, PF 1 completed COREEN Chan, [place] - [facility] 12/08/2023 10:42:54 Past Encounters Encounter ID Performer Location Encounter Start Date Encounter Closed Date Diagnosis/Indication Diagnosis SNOMED-CT Code Diagnosis ICD10 Code [id number] MD Holger Choi (Adult Med) [address] [place] [phone] 08/27/2023 16:26:37 08/27/2023 17:28:57 Chronic obstructive pulmonary disease 84560679 J44.9 Screening for cardiovascular system disease 344588570 Z13.6 Long-term drug therapy 106361064 Z79.899 Erythrocytosis 940140784 D75.1 [id number] MD Holger Choi (Adult Med) [address] [place] [phone] 12/08/2023 10:12:56 12/08/2023 11:16:29 Obesity 184436967 E66.8 Chronic ob structive pulmonary disease 63822590 J44.9 Essential hypertension 37839607 I10 Serum marky min B12 below reference range 934108404 R79.89 Dyspnea 588343183 R06.01 [id number] MD Holger Choi (Adult Med) [address] [place] [phone] 03/15/2024 15:25:17 03/15/2024 17:20:29 Chronic obstructive pulmonary disease 13933945 J44.9 Essential hypertension 74770349 I10 Serum marky min B12 below reference range 741661827 R79.89 Administra tion of influenza vaccine 33862637 Z23 SARS-CoV-2 vaccination declined 0057523085 Z28.21 [id number] MD Holger Choi (Adult Med) [address] [place] [phone] 04/05/2024 15:42:28 04/05/2024 16:22:35 [id number] MD Holger Choi (Adult Med) [address] [place] [phone] 05/03/2024 14:46:52 05/03/2024 15:45:45 Body mass index 20-24 - normal 100015951 Z68.24 Essential hypertension 04698949 I10 Prediabetes 783515841 R7 3.03 Abdominal pain 98071111 R10.9 CT of chest abnormal 913 6712968 6766376 R93.89 Chronic ob structive pulmonary disease 22147501 J44.9 Health Concerns Section Related Observation LastModified by Organization Detai ls LastModified Time None Recorded Concern Status LastModified by Organization Details LastModified Time None Recorded Advance Directives Directive N: Payers Encounter Date Sequence Insurance Name Policy Number Policy Spann Covered Member ID Spann Member ID Guarantor Name 08/27/2023 1 [facility] [id number] Robert Maloney [id number] Robert Maloney 12/08/2023 1 [facility] [id number] Robert Maloney [id number] Robert Maloney 03/15/2024 1 [facility] [id number] Robert Mendozaue [id number] Robert Masenaman 04/05/2024 1 [facility] [id number] Robert Masenue [id number] Robert Masenaman 05/03/2024 1 [facility] [id number] Robert Maloney [id number] Robert Maloney Notes Date Note Type Note Provider Name and Address Organization Details Recorded Time 08/27/2023 text/html Breathing is abo ut the same. He still smokes 1 to 2 packs of cigarettes a day other than that nothing new he was supposed to see urology for some blood in his urine he saw him 1 time never went back for follow-up and he is not sure he is going to even though and he understands it could represent cancer Tatyana Crowell MD Attn: Accounting,[address] [place], [address], [facility] 08/27/2023 21:05:29 12/08/2023 text/html obesity needs to lose some weight COPD he is not sure if the Trelegy of the breast who helps him the most hypertension no headache or dizziness low B12 supplementation dyspnea multifactorial recently hospitalized they worked on the premise of some diastolic heart failure and COPD exacerbation there was a question of a spiculated lung nodule hematuria it is not sure if that is ever been fully evaluated Tatyana Crowell MD Attn: [address] [place], [address], [facility] 12/27/2023 16:01:50 03/15/2024 text/html 1. COPD he still struggles with some shortness of breath and continues to smoke a pack of cigarettes a day. 2. Hypertension he has had no headache or dizziness. Blood pressure 128/66 he has stopped his metoprolol in his losartan because he thinks that is contributing to some pain he has been having in his legs at night and some alopecia. 3. Low B12 level he is taking his supplementation. Tatyana Crowell MD Attn: Accounting[address], [place], [address], [facility] 03/15/2024 22:01:12 05/03/2024 text/html several things w shiraz Richey 1. He quit taking a lot of his medications. Just says he feels better off of them he never followed up with Urology for the blood in his urine he needs to get some blood work done states that he has had been having a little bit of abdominal pain but can not be specific and needs a follow up chest CT for some abnormalities continues to smoke a pack of cigarettes a day he is losing weight Tatyana Crowell MD Attn: Accounting, [address], [place], [address], [facility] 05/07/2024 16:14:29
--- OUTSIDE RECORDS SUMMARY | 2024-06-10 17:28 | XMS_ITS | Clinical Summary ---
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 Gender Identity Not on file Sexual Orientation Not on file Plan of Treatment Health Maintenance Due Date Last Done Comments Hepatitis C Virus (HCV) Screening 1962 TdaP Immunization 1962 Colonoscopy 2007 Colorectal Cancer Screening 2007 Cologuard 2012 Immunochemical Fecal Occult Blood 2012 Zoster Immunization (1 of 2) 2012 PSA Discussion 2017 SARS-COV-2 Immunization ( season) 2023 Influenza Immunization (Seas on Ended) 2024 Hepatitis B Immunization Aged Out No longer eligible based on patient's age to complete this topic Meningococcal Immunization (ACWY) Aged Out No longer eligible based on patient's age to complete this topic Pneumococcal Immunization Combined Aged Out No longer eligible based on patient's age to complete this topic Rotavirus Immunization Aged Out No lo nger eligible based on patient's age to complete this topic
--- OUTSIDE RECORDS SUMMARY | 2024-06-10 17:28 | XMS_ITS | Patient Health Summary ---
Author Organization [facility] Address [address] [place] [address] Care Team Providers Care Garbage Pick Up Worker Name Role Phone Unavailable Primary Care Provider Unavailabl e Note from [facility][note 3],non-owned Affiliates and Associated Physician Practices is amultiple site organization consisting of ambulatory clinics and hospital sitesin [place], [place], [place] and [place]. This disclosure is being madepursuant to the Care Everywhere program and may not contain all information available regarding this patient. 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 GROSS DESCRIPTION: Received is one formalin filled container labeled with the patient's name and designated right 3rd metacarpal head. The specimen consists of a shave biopsy measuring 31t4h1we ??10x5x3 mm. Jar 0. 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 ??The base of the lesion is not visualized. Final Diagnosis performed by Paige Beltrán M.D. Electronically signed 09/14/2012 12:14:34PM [facility] Comment: Performed at: Dermatopathology Laboratory [facility] - Department of Dermatology [address] [place] [address], [address] [place] [address] Phone number: [phone] Toll Free: [phone] FAX: [phone] 09/10/2012 09/13/2012 [facility] - PATHOLOGY/CYTO LOGY ORDERABLES Performing Organization Address City/State/[facility] Co de Phone Number [facility] [facility]. [address] [place] [address], [facility] [phone]
--- OUTSIDE RECORDS SUMMARY | 2024-06-10 17:28 | XMS_ITS | Continuity of Care Document ---
Author Organization [facility] Holger FERNANDEZ (Adult Med) Address [address] [place] [address] Care Team Providers Care Hood Maker Name Role Phone JAXON CROWELL Primary Care Provider Assessment Encounter Date Assessment Date Assessment LastModified by Organization Details LastModified Time 03/15/2024 03/15/2024 smoking cessatio n discussed in [...] refer to Dermatology for alopecia he declined. [email or web address] Not available 03/15/2024 22:00:53 Plan of Treatment Reminders Order Date Submit Date Provider Last Modified By Organization Details Last Modified Time Details Appointments ANY 15 025 02:30PM Jaxon Crowell MD Not available Not available Not available Lab None record ed. Referral None record ed. Procedures None record ed. Surgeries None record ed. Imaging None record ed. Medication Orders None record ed. Patient TargetsNo targets recorded. Patient InstructionsNo instructions recorded. Reason for Referral None Reported. Results Created Date Observation Date Name Description Value Unit Range Abnormal Flag Note LastModifiedBy Organization Detail LastModifiedTime 06/03/20 24 06/03/2024 PFT, compl ete No observ ation record ed. [place] [id number] [facility] [address], [place], [address], 06/10/2024 16:43:42 06/05/20 24 06/03/2024 CT, abdom en + pelvi s, w/ contr ast No observ ation record ed. [facility] [address] [facility] [address], [place], [address], 06/10/2024 17:05:51 06/10/[address], chest , w/ contr ast No observ ation record ed. [facility] [address] [facility] [address], [place], [address], 06/10/2024 17:05:50 Result Notes None recorded. Problems Name Problem SNOMED Code Status Onset Date Resolution Date Notes Provider Name and Address Organization Details Recorded Time Chronic obstructive pulmonary disease 84946340 Active 2023 Melony Patterson MA null, [place] - [facility] 4 09:18:24 Essential hypertension 80093550 Active 2023 Melony [place], [place] [facility] 4 11:12:58 Serum vitamin B12 below reference range 777272557 Active 2023 Melony Patterson [place], [place] [facility] 4 11:12:59 Obesity 500391463 Active 2023 Melony Patterson [place], [place] [facility] 4 11:13:01 SARS-CoV-2 vaccination declined 7376845662 Active 2023 Jaxon Crowell MD Attn: Jean garcia,[address] [place], [address], [place] - [facility] 4 22:00:35 Administratio n of influenza vaccine Active 2023 Jaxon Crowell MD Attn: Jean garcia,[address] [place], [address], [place] [facility] 4 22:00:36 Problem Notes None recorded. Procedures Surgical History Date Name Laterality Status Provider Name and Address Organization Details Recorded Time Tonsillectomy completed Stefanie Penn MA [place] - [facility] 08/27/2023 16:42:41 Imaging Results None recorded. Procedure Notes None recorded. Medical Equipment None [...] INHALE 1 PUFF BY MOUTH EVERY DAY 12/24 completed Not Available Not Available Not Available tramadol 100 mg tablet Take 1 tablet 3 times a day by oral route as needed. 2023 active Not Available Not Available Not Avai lable Breztri Aerosphere 160 mcg-9mcg-4. 8mcg/actuat ion HFA aerosol inhaler INHALE 2 PUFFS BY MOUTH TWICE DAILY 2024 active Not Available Not Available Not Avai lable Vitals Date Recorded Body height Body mass index (BMI) Body weight Heart rate Oxygen saturation Oxygen saturation in Arterial blood by Pulse oximetry Systolic blood pressure Diastolic blood pressure Provider Name and Address Organization Details Last Updated DateTime 4 175.26 cm 25.4 kg/m2 21565.1 8 g 87 /min 90 % 90 % 128 mm[Hg] 66 mm[Hg] Alesia Caldwell MA [place] - [facility] 15:57:47 Social History Question Answer Notes LastModified by Organizat ion Details LastModified Time Tobacco Smoking Status Current Every Day Smoker Stefanie COREEN Penn, [place] - [facility] 08/27/2023 16:42:26 Do You Have [...] not available 12/08/2023 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 [id number] Not Sleeping At Night. Information not available [...] Response Coronary Artery Disease N Other N High Blood Pressure N Atrial Fibrillation N Kidney or Bladder Problems N Thyroid Problems N GI Problems N Depression N COPD Y Blood Clots N Skin Problems N Anemia N Heart Attack (TN) N Anxiety Disorder N Diabetes N Muscle, Joint, or Bone Problems N Seizures/Epilepsy N Acid Reflux (GERD) N Cancer N Stroke N Asthma N Allergies N High Cholesterol N Hepatitis N Liver Disease N Headaches N Heart Failure N Osteoporosis N Immunizations Vaccine Type Date Status Note Provider Nam e and Address Organization Details Recorded Time Influenza, MDCK, quadrivalent, PF 0 completed COREEN Chan, [facility] 12/08/2023 10:42:54 Influenza, split virus, trivalent, preservative 4 completed COREEN Chan, [place] [facility] 12/08/2023 10:42:54 Influenza, split virus, quadrivalent, PF 1 completed COREEN Chan, [facility] 12/08/2023 10:42:54 Past Encounters Encounter ID Performer Location Encounter Start Date Encounter Closed Date Diagnosis/Indication Diagnosis SNOMED-CT Code Diagnosis ICD10 Code [id number] Jaxon Crowell MD [facility] (Adult Med) [address] [place] [phone] 03/15/2024 15:25:17 03/15/2024 17:20:29 Chronic obstructive pulmonary disease 91370412 J44.9 Essential hypertension 09048062 I10 Serum marky min B12 below reference range 738488915 R79.89 Administra tion of influenza vaccine 45590451 Z23 SARS-CoV-2 vaccination declined 7314704164 Z28.21 Health Concerns Section Related Observation LastModified by Organization Detai ls LastModified Time None Recorded Concern Status LastModified by Organization Details LastModified Time None Recorded Payers Encounter Date Sequence Insurance Name Policy Number Policy Spann Covered Member ID Spann Member ID Guarantor Name 03/15/2024 1 [facility] [id number] Robert Mendozaaman [id number] Robert Maloney Notes Date Note Type Note Provider Name and Address Organization Details Recorded Time 03/15/2024 text/html 1. COPD he still struggles [...] B12 level he is taking his supplementation. Jaxon Crowell MD Attn: Accounting,[address] [facility], [place], [address], [facility] 03/15/2024 22:01:12
--- OUTSIDE RECORDS SUMMARY | 2024-06-10 17:28 | XMS_ITS | Clinical Summary ---
Author Organization [facility] Address [address] [place] [address] Care Team Providers Care Key Worker Name Role Phone Unavailable Primary Care Provider Unavailabl e Source Comments [facility],non-owned Affiliates and Associated Physician Practices is amultiple site organization consisting of ambulatory clinics and hospital sitesin [place], [place], [place] and [place]. This disclosure is being madepursuant to the Care Everywhere program and may not contain all information available regarding this patient. Last updated 18.[facility] Social History Tobacco Use Types Packs/Day Years Used Date Smoking Tobacco: Never Assessed Sex and Gender Information Value Date Recorded Sex Assigned at Not on file Gender Identity Not on file Sexual Orientation Not on file Plan of Treatment Health Maintenance Due Date Last Done Comments COLOGUARD (AGES 45-75) - COL ON CA SCREENING 1962 COLON MONITORING 1962 COLONOSCOPY - COLON CA SCREENING 1962 CT COLONOGRAPHY - COLON CA SCREENING 1962 Colorectal Cancer Screening 1962 FIT - COLON CA SCREENING 1962 FLEX SIG - COLON CA SCREENING 1962 LIPID TESTING 1962 HIV SCREENING 1977 HEPATITIS C SCREENING 03/15/1980 DTAP/TDAP/TD VACCINES (1 - Tdap) 1981 ZOSTER VACCINE (1 of 2) 2012 DEPRESSION SCREENING 06/08/2023 COVID-19 VACCINE ( - 2023-2 5 season) 2024 INFLUENZA VACCINE (#1) 2024 , 04/26/2014 Respiratory Syncytial Virus (RSV) Vaccine Pt: or over 60 yrs (1 - 1-dose 75+ series) 2037 HEPATITIS B VACCINE Aged Out No longe r eligible based on patient's age to complete this topic HIB VACCINE Aged Out No longer eligi ble based on patient's age to complete this topic HPV VACCINE Aged Out No longer eligi ble based on patient's age to complete this topic MENINGOCOCCAL VACCINE Aged Out No mendez dolores eligible based on patient's age to complete this topic PNEUMOCOCCAL VACCINE Aged Out No long er eligible based on patient's age to complete this topic
--- OUTSIDE RECORDS SUMMARY | 2024-06-10 17:28 | XMS_ITS | Data Portability ---
Author Organization [facility] [employer], Main Office Address [address] [place] [address] Assessment Encounter Date Assessment Date Assessment LastModified by Organization Details LastModified Time 01/19/2023 01/19/2023 Podiatry probabl e ganesh brown because of some insurance issues he is not get any a testing done that I recommended I still recommend that he get everything done he has some insurance issues he will not allow me to test for anything right now he will not schedule follow-up appointment because I may be out of network [email or web address] Not available 01/19/2023 22:49:07 03/16/2023 03/16/2023 Urology for bloo d in urine Blood work Smoking cessation CT chest abdomen pelvis Follow-up 1 month [email or web address] Not available 03/16/2023 21:35:28 04/13/2023 04/13/2023 Advised strongly to quit smoking Urology for elevated PSA Pulmonary for spiculated lung lesion will need PET Hematology for elevated hemoglobin and hematocrit Return to clinic 1 month [email or web address] Not available 04/13/2023 20:33:17 12/08/2023 12/08/2023 Assessment: Nicotine smoke: 1 ppd 1991-present = 32 pack years Mod ACO RLL nodule Mediastinal and hilar lymphadenopathy Pulm hypertension Right CHF Plan: The following were reviewed and explained to the patient: primary care/referral note Chest CT 03/25/23 12 mm right lung base spiculated nodule Chest CT 10/22/23 right effusion may be obscuring RLL nodule, mediastinal and matted hilar lymphadenopathy Myocardial perfusion stress test 10/26/23 no ischemia, EF 61% PASP 64 mmHg [facility] hospitalization 10/23/23 - 10/27/23 right CHF, 3 Lpm exertional O2 PFT 09/13/08 FEV1 2.37 L (63%), BD 250 mL = 12%, TLC 6.21 L (94%), RV 2.92 L (142%) Nicotine cessation counseling provided for 4 minutes. [place] for quitting nicotine include getting ready, getting support and encouragement, learning new skills and behaviors and being prepared to handle slips. Tips for dealing with cravings provided. Prevention of subsequent illnesses from nicotine addiction discussed. Comorbidities include but are not limited to hypertension, cerebrovascular disease, coronary heart disease, congestive heart failure, hyperlipidemia, COPD/asthma, peptic ulcer disease, esophagitis/gastri tis, and osteoporosis. Therapy options offered include: Quitting by total abstinence Receiving nicotine replacement therapy Undergoing hypnosis Filling a bupropion or varenicline prescription Enrolling in Quit For Life program Registering at [email or web address] Making a call to 8-569-GDMP-NOW ( ). A strong, clear, personalized message was given to the patient to quit smoking. The patient was urged to set a quit date. We discussed patient's barriers to quitting and I will be of assistance when patient is ready to quit. I encouraged patient to inform friends and family of plans to quit with a request for support. I encouraged the patient to remove all cigarettes from the environment. We reviewed any previous quit attempts and lessons learned from them. I encouraged total abstinence from smoking and advised the patient that drinking alcohol and/or associating with other smokers are associated with failure or relapse. Patient can enroll in [facility]'s smoking cessation class through Nicki Fernando RN at . Enrollment is free and classes are held every thursday of the month from 1:30 pm to 2:30 pm at the conference room next to the cafeteria on the ground floor. He quit smoking for 3 weeks by nicotine patch this year. He will try again. Cough/Dyspnea/Pulm nodule/Mediastinal & hilar lymphadenopathy workup will be done as follows: Respiratory allergen panel for [facility] Serum IgE Serum total IgG, IgG1, IgG2, IgG3, IgG4 Hboyg-4-kzijkwsjib n phenotype and level TB stimulated gamma interferon B-type natriuretic peptide (BNP) Eosinophil count Complete pulmonary function testing (PFT) Chest CT Patient will be referred to Dr. Dimas Enamorado , for advanced diagnostic and therapeutic bronchoscopy. Albuterol HFA as needed since 2020 Discontinue Trelegy 100/62.5/25 mcg 1 puff daily after supply is finished. Resume Breztri 160/9/4.8 mcg 2 puffs BID after Trelegy is finished. The patient does not know how to accurately administer the inhalers. Today, the patient was shown how to take these medications. The proper technique for delivering these medications was instructed. The patient expressed a clear understanding and demonstrated back how to use these medications. Without the proper technique, the patient will not reap the benefits of these medications as the contents will not reach the lower airways as intended to be. Adherence to therapy is advocated. Nonadherence may lead to treatment failure, further progression of the condition, and other complications. Hospitals admissions are often the result of individuals not taking prescription medications accurately. Alternatively, greater adherence to medication regimens have shown to lower rates of hospitalization and decrease total medical costs in patients with chronic medical conditions. Advocated influenza vaccination annually and pneumonia vaccination RUY. Advocated weight loss through diet and exercise. Patient's ideal body weight according to height and gender is up to 155 lbs. Encouraged patient to adjust caloric intake to maintain/achieve ideal body weight, emphasizing on fruits, vegetables, whole grains, and fat-free or low-fat products. These include lean meats, poultry, fish, beans, eggs, and nuts and foods that are low in saturated fats, trans-fats, cholesterol, salt (sodium), and glycemic index. Stressed the importance of regular exercise up to the patient's capacity limits. In this case, we recommend regular (4 x a week or more) walking or other light activity. Patient to monitor BP daily and bring records to PCP for further management. Follow-up: 1 week after PFT and chest CT [email or web address] Not available 12/08/2023 16:53:17 Plan of Treatment Reminders Order Date Submit Date Provider Last Modified By Organization Details Last Modified Time Details Appointments None recorded. Lab PSA, total, serum or plasma 2022 023 [facility] (Lab), [address] [place], [address], 19:05:45 CBC w/ auto diff 2022 023 [facility] (Lab), [address] [place], [address], 3 17:31:25 CMP, serum or plasma 2022 023 [facility] (Lab), [address] [place], [address], 3 18:31:36 lipid panel, serum 2022 023 [facility] (Lab), [address] [place], [address], 3 18:31:41 alpha-1-ant itrypsin (aat) phenotype, serum 2023 024 [facility] (Lab), [address] [place], [address], 4 00:18:54 BNP (B-type natriuretic peptide), serum or plasma 2023 024 [facility] (Lab), [address] [place], [address], 4 18:03:44 ige, total, serum 2023 024 [email or web address] 82 [facility] (Lab), [address] [place], [address], 4 12:35:58 tb (M tuberculosi s), ifn-gamma hyacinth, blood 2023 024 [email or web address] 82 [facility] (Lab), [address] [place], [address], 4 12:35:58 eosinophil count, manual, blood (OBS) 2023 024 [email or web address] 82 [facility] (Lab), [address] [place], [address], 4 12:35:59 igg subclasses 1+2+3+4, serum 2023 024 [email or web address] 82 [facility] (Lab), [address] [place], [address], 4 12:35:59 respiratory allergen panel - [facility] a 2023 024 [email or web address] 82 [facility] (Lab), [address] [place], [address], 4 12:35:59 respiratory allergen panel - [facility] b 2023 024 [email or web address] 82 [facility] (Lab), [address] [place], [address], 4 12:35:59 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, [address] [facility], [address], [place], [address], 3 16:47:03 pulmonologi referral - Chest CT 03/25/23 12 mm RLL spiculated noduleChest CT 10/22/23 right effusion may be obscuring RLL nodule, (+) mediastinal and matted hilar lymphadenop athy 2023 024 [email or web address] 82 Dimas Enamorado MD, [address] [place], [address], 4 15:44:34 Procedures None recorded. Surgeries None recorded. Imaging CT, chest + abdomen + pelvis, w/ contrast - approved [id number]/ [id number] 03/16/23-2022 023 [facility] (Imaging), [address] [place], [address], 18:46:25 CT, chest, w/o contrast - Approved # [id number] 12/14/2023 -01/28/20242023 024 [email or web address] [facility], [address], [address] [address], [place], [address], 16:25:32 Medication Orders None recorded. Patient TargetsNo targets recorded. Patient Instructions Encounter Date Encounter Id Patient Instructions Last Modified By Organization Details Last Modified Time 04/13/2023 [id number] dementia rating scale-2* [email or web address] Not available 04/14/2023 09:45:49 multi-dimensiona l health assessment questionnaire* cyahl Not available 04/14/2023 09:45:52 care plan* [email or web address] Not available 04/14 09:45:44 advance care planning: care instructions [email or web address] Not available 04/13/2023 20:33:40 advance directiv es: care instructions Not available 04/13/2023 20:33:39 [place] Advance Directives Not available 04/13/2023 20:33:40 Personalized [facility] lt Plan and Screening Recommendations Advance Directives - Do you have one? Advance Directives - Do we have your advance directive on file in your health record? Primary Prevention/Interven tion (prevents or decreases the chance of common diseases from occurring) Smoking Risk: Alcohol Misuse Screening: Weight: Physical activity: Nutrition: Fall Risk (screened today): Vaccines Pneumococcal: Influenza: Chronic Disease Risks Stroke: I have no recommendations Active diagnosis, Continue current treatment plan Heart Attack: I have no recommendations Act diana diagnosis, Continue current treatment plan Clogging of the Arteries: I have no recommendations Act diana diagnosis, Continue current treatment plan Diabetes: Secondary Prevention/Interven tion (detects treatable diseases before they may cause symptoms, disability, or ) Prostate Cancer Screening: Colon Cancer Screening: Date Screening Last Performed: Eye Disease Screening: Dementia Risk: Depression Screening: Not available 04/13/2023 16:09:03 12/08/2023 [id number] complete PFT w/ post bronchodilator spirometry* - No auth needed [email or web address] Not available 12/16/2023 08:09:24 Reason for Referral 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 Plan tar fasciitis of right foot Referring Physician: Jaxon Crowell, Internal Medicine, Encounter Date: 01/19/2023 Urologist 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 Blood in urine Referring Physician: Jaxon Crowell, Internal Medicine, Encounter Date: 03/16/2023 Candy Separator Hard 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 S olitary nodule of lung Chest CT 03/25/23 12 mm RLL spiculated noduleChest CT 10/22/23 right effusion may be obscuring RLL nodule, (+) mediastinal and matted hilar lymphadenopathy Referring Physician: Julián uFnes, Pulmonary Disease, Encounter Date: 12/08/2023 Results Created Date Observation Date Name Description Value Unit Range Abnormal Flag Note LastModifiedBy Organization Detail LastModifiedTime 03/25/2003/25/2023 CREAT ININE , I-STA T creatinine 0.9 mg/dL 0.6-1. 3 Not Available [facility] (Lab) [address] [place], [address], 03/26/2023 10:11:18 04/08/20 23 04/09/2023 CBC/C OMPLE TE BLD COUNT W/DIF F white blood cells 8.9 x10'3 /uL 4.2-10 .8 Not Available [facility] (Lab) [address] [place], [address], 04/09/2023 10:50:13 04/08/20 23 04/09/2023 CBC/C OMPLE TE BLD COUNT W/DIF F red blood cells 5.49 x10'6 /uL 4.10-5 .80 Not Available [facility] (Lab) [address] [place], [address], 04/09/2023 10:50:13 04/08/20 23 04/09/2023 CBC/C OMPLE TE BLD COUNT W/DIF F hemoglobin 19.3 g/dL 13.2-1 7.0 high Not Available [facility] (Lab) [address] [place], [address], 04/09/2023 10:50:13 04/08/20 23 04/09/2023 CBC/C OMPLE TE BLD COUNT W/DIF F hematocrit 58.2 % 39.3-5 0.0 high Not Available [facility] (Lab) [address] [place], [address], 04/09/2023 10:50:13 04/08/20 23 04/09/2023 CBC/C OMPLE TE BLD COUNT W/DIF F mean red cell volume 106.0 fL 80.0-9 7.0 high Not Available [facility] (Lab) [address] [place], [address], 04/09/2023 10:50:13 04/08/20 23 04/09/2023 CBC/C OMPLE TE BLD COUNT W/DIF F mean red cell hemoglobin 35.2 pg 27.0-3 3.0 high Not Available [facility] (Lab) [address] [place], [address], 04/09/2023 10:50:13 04/08/20 23 04/09/2023 CBC/C OMPLE TE BLD COUNT W/DIF F mean RBC HGB concentratio n 33.2 g/dL 31.0-3 6.0 Not Available [facility] (Lab) [address] [place], [address], 04/09/2023 10:50:13 04/08/20 23 04/09/2023 CBC/C OMPLE TE BLD COUNT W/DIF F red cell distribution width 13.6 % 11.8-1 5.5 Not Available [facility] (Lab) [address] [place], [address], 04/09/2023 10:50:13 04/08/2004/09/2023 CBC/C OMPLE TE BLD COUNT W/DIF F platelets 217 x10'3 /uL 150-40 0 Not Available [facility] (Lab) [address] [facility] [place], [address], 04/09/2023 10:50:13 04/08/20 23 04/09/2023 CBC/C OMPLE TE BLD COUNT W/DIF F mean platelet volume 10.5 fL 9.0-12 .4 Not Available [facility] (Lab) [address] [place], [address], 04/09/2023 10:50:13 04/08/2004/09/2023 CBC/C OMPLE TE BLD COUNT W/DIF F neutrophils 58.7 % 39.0-7 2.0 Not Available [facility] (Lab) [address] [place], [address], 04/09/2023 10:50:13 04/08/20 23 04/09/2023 CBC/C OMPLE TE BLD COUNT W/DIF F lymphocytes 26.3 % 16.0-4 7.0 Not Available [facility] (Lab) [address] [place], [address], 04/09/2023 10:50:13 04/08/2004/09/2023 CBC/C OMPLE TE BLD COUNT W/DIF F monocytes 11.4 % 5.0-12 .0 Not Available [facility] (Lab) [address] [place], [address], 04/09/2023 10:50:13 04/08/20 23 04/09/2023 CBC/C OMPLE TE BLD COUNT W/DIF F eosinophils 2.0 % 1.0-7. 0 Not Available [facility] (Lab) [address] [place], [address], 04/09/2023 10:50:13 04/08/2004/09/2023 CBC/C OMPLE TE BLD COUNT W/DIF F basophils 1.2 % 0.0-2. 0 Not Available [facility] (Lab) [address] [place], [address], 04/09/2023 10:50:13 04/08/2004/09/2023 CBC/C OMPLE TE BLD COUNT W/DIF F immature granulocytes 0.4 % 0.00-0 .50 Not Available [facility] (Lab) [address] [place], [address], 04/09/2023 10:50:13 04/08/2004/09/2023 CBC/C OMPLE TE BLD COUNT W/DIF F neutrophils, absolute count 5.23 x10'3 /uL 1.5-8. 0 Not Available [facility] (Lab) [address] [place], [address], 04/09/2023 10:50:13 04/08/20 23 04/09/2023 CBC/C OMPLE TE BLD COUNT W/DIF F lymphocytes, absolute count 2.35 x10'3 /uL 1.07-3 .43 Not Available [facility] (Lab) [address] [place], [address], 04/09/2023 10:50:13 04/08/20 23 04/09/2023 CBC/C OMPLE TE BLD COUNT W/DIF F monocytes, absolute count 1.02 x10'3 /uL 0.29-0 .99 high Not Available [facility] (Lab) [address] [place], [address], 04/09/2023 10:50:13 04/08/20 23 04/09/2023 CBC/C OMPLE TE BLD COUNT W/DIF F eosinophils, absolute count 0.18 x10'3 /uL 0.02-0 .53 Not Available [facility] (Lab) [address] [place], [address], 04/09/2023 10:50:13 04/08/20 23 04/09/2023 CBC/C OMPLE TE BLD COUNT W/DIF F basophils, absolute count 0.11 x10'3 /uL 0.01-0 .08 high Not Available [facility] (Lab) [address] [place], [address], 04/09/2023 10:50:13 04/08/2004/09/2023 CBC/C OMPLE TE BLD COUNT W/DIF F immature granulocytes ,absolute 0.04 x10'3 /uL 0.00-0 .05 Not Available [facility] (Lab) [address] [place], [address], 04/09/2023 10:50:13 04/08/2004/09/2023 CBC/C OMPLE TE BLD COUNT W/DIF F nucleated red blood cells 0.0 % -0 Not Available [facility] (Lab) [address] [place], [address], 04/09/2023 10:50:13 04/08/20 23 04/09/2023 CBC/C OMPLE TE BLD COUNT W/DIF F NRBC# 0.00 x10'3 /uL Not Available [facility] (Lab) [address] [place], [address], 04/09/2023 10:50:13 04/08/2004/09/2023 CBC/C OMPLE TE BLD COUNT W/DIF F macro OCCASI ONAL Not Available [facility] (Lab) [address] [place], [address], 04/09/2023 10:50:13 04/08/20 23 04/08/2023 COMPR EHENS DIANA METAB OLIC PANEL sodium 131 mmol/ L 137-14 5 low Not Available [facility] (Lab) [address] [facility] [place], [address], 04/08/2023 18:31:36 04/08/20 23 04/08/2023 COMPR EHENS DIANA METAB OLIC PANEL potassium 4.8 mmol/ L 3.5-5. 1 Not Available [facility] (Lab) [address] [place], [address], 04/08/2023 18:31:36 04/08/20 23 04/08/2023 COMPR EHENS DIANA METAB OLIC PANEL chloride 97 mmol/ L 98-107 low Not Available [facility] (Lab) [address] [place], [address], 04/08/2023 18:31:36 04/08/20 23 04/08/2023 COMPR EHENS DIANA METAB OLIC PANEL carbon dioxide 36 mmol/ L 22-30 high Not Available [facility] (Lab) [address] [place], [address], 04/08/2023 18:31:36 04/08/20 23 04/08/2023 COMPR EHENS DIANA METAB OLIC PANEL anion gap 2.8 mmol/ L 14-22 low Not Available [facility] (Lab) [address] [place], [address], 04/08/2023 18:31:36 04/08/20 23 04/08/2023 COMPR EHENS DIANA METAB OLIC PANEL glucose 81 mg/dL 70-99 Not Available [facility] (Lab) [address] [place], [address], 04/08/2023 18:31:36 04/08/20 23 04/08/2023 COMPR EHENS DIANA METAB OLIC PANEL BUN 28 mg/dL 8-19 high Not Available [facility] (Lab) [address] [place], [address], 04/08/2023 18:31:36 04/08/20 23 04/08/2023 COMPR EHENS DIANA METAB OLIC PANEL creatinine 1.02 mg/dL 0.66-1 .25 Not Available [facility] (Lab) [address] [place], [address], 04/08/2023 18:31:36 04/08/20 23 04/08/2023 COMPR EHENS DIANA METAB OLIC PANEL GFR >60 Refer ence Range : [place] ge GFR Healt hy Adult : >60 mL/mi n/1.7 3 m2 Chron ic Kidne y Disea se: 15-60 mL/mi n/1.7 3 m2 Kidne y Failu re: <15/m L/min /1.73 m2 www.n iddk. nih.g ov The MDRD study equat ion has not been valid ated in child leatha <18 years of age; pregn ant women ; the elder ly >85 years of age; or in some racia l or ethni c subgr oups, such as Hisky nics. Outsi de the valid ated love eters , estim ated GFR is less accur ate, requi ring clini manpreet judgm ent on a case- by-ca se basis . Clini manpreet inter preta tion for other races and ages must be made by the clini bolivar. The MDRD study equat ion has not been valid ated for the evalu ation of serum creat inine relat ed to nutri davide l statu s or medic ation usage . For perso ns <18 years of age, a pedia tric GFR calcu lator is avail able on the F websi te: https ://chantal w.isabelle freedman.o luis m/pr ofess ional s/kdo qi/gf r_cal culat or Not Available [facility] (Lab) [address] [place], [address], 04/08/2023 18:31:36 04/08/20 23 04/08/2023 COMPR EHENS DIANA METAB OLIC PANEL alkaline phosphatase 91 U/L 38-126 Not Available [facility] (Lab) [address] [place], [address], 04/08/2023 18:31:36 04/08/20 23 04/08/2023 COMPR EHENS DIANA METAB OLIC PANEL alanine aminotransfe rase 32 U/L 0-50 Not Available [facility] (Lab) [address] [place], [address], 04/08/2023 18:31:36 04/08/20 23 04/08/2023 COMPR EHENS DIANA METAB OLIC PANEL aspartate aminotransfe rase 27 U/L 15-46 Not Available [facility] (Lab) [address] [place], [address], 04/08/2023 18:31:36 04/08/20 23 04/08/2023 COMPR EHENS DIANA METAB OLIC PANEL bilirubin, total 0.70 mg/dL 0.20-1 .30 Not Available [facility] (Lab) [address] [place], [address], 04/08/2023 18:31:36 04/08/20 23 04/08/2023 COMPR EHENS DIANA METAB OLIC PANEL calcium 9.1 mg/dL 8.4-10 .2 Not Available [facility] (Lab) [address] [place], [address], 04/08/2023 18:31:36 04/08/20 23 04/08/2023 COMPR EHENS DIANA METAB OLIC PANEL total protein 6.7 g/dL 6.3-8. 2 Not Available [facility] (Lab) [address] [place], [address], 04/08/2023 18:31:36 04/08/20 23 04/08/2023 COMPR EHENS DIANA METAB OLIC PANEL albumin 3.5 g/dL 3.4-5. 0 Not Available [facility] (Lab) [address] [place], [address], 04/08/2023 18:31:36 04/08/20 23 04/08/2023 COMPR EHENS DIANA METAB OLIC PANEL globulin 3.2 g/dL 2.6-4. 2 Not Available [facility] (Lab) [address] [place], [address], 04/08/2023 18:31:36 04/08/20 23 04/08/2023 COMPR EHENS DIANA METAB OLIC PANEL A/G ratio 1.1 ratio 1.0-2. 0 Not Available [facility] (Lab) [address] [place], [address], 04/08/2023 18:31:36 04/08/20 23 04/08/2023 LIPID PANEL cholesterol 192 mg/dL 140-19 9 NIH SHY NSUS RECOM MENDA TION FOR CHIKI STERO L: ADULT CHILD LOW RISK: <200 <170 BORDE RLINE : <200- 239 ----- HIGH RISK: >240 >200 Not Available [facility] (Lab) [address] [place], [address], 04/08/2023 18:31:40 04/08/20 23 04/08/2023 LIPID PANEL triglyceride s 55 mg/dL 0-150 NIH SHY NSUS REPOR T RECOM MENDA TION FOR TRIGL YCERI CRISTIN: ADULT CHILD LOW RISK: <150 ----- BODER LINE: 150-1 99 ----- HIGH RISK: >200 ----- Not Available [facility] (Lab) [address] [place], [address], 04/08/2023 18:31:40 04/08/20 23 04/08/2023 LIPID PANEL HDL cholesterol 108 mg/dL 40- Not Available [facility] (Lab) [address] [place], [address], 04/08/2023 18:31:40 04/08/20 23 04/08/2023 LIPID PANEL LDL cholesterol, calculated 73 mg/dL 0-130 NIH SHY NSUS REPOR T RECOM MENDA TIONS FOR LDL: ADULT CHILD LOW RISK <130 <110 (OPTI MAL LDL) <100 ----- BORDE RLINE : 130-1 59 ----- HIGH RISK: >160 >130 A TRIGL YCERI DE RESUL T >400 INVAL IDATE S THE CALCU LATIO N FOR LDL FRACT IONAT ION - THE LDL RESUL T WILL NOT BE REPOR KAYLAN. Not Available [facility] (Lab) [address] [place], [address], 04/08/2023 18:31:40 04/08/2004/08/2023 PSA SCREE N PSA medicare screen 31.10 NG/mL 0.00-4 .00 high Not Available [facility] (Lab) [address] [place], [address], 04/08/2023 19:05:45 03/25/2003/25/2023 CT, chest + abdom en + pelvi s, w/ contr ast [facility] [address] [place], [place] [id number] Patien t Name: NIRMALA MONTALVO Access ion #: [id number] Sex: M : 1959 4 Dictat ed By: Alonzo Villalobos Attend ing Physic danielle: SUHAS CROWELL Orderi Physic danielle: SUHAS CROWELL Exam Date: 2022 15:07 PM Exam Name: CT CHEST ABDOME N PELVIS W Admitt ing Diagno sis(es ): Exam: CT chest, abdome n and pelvis with contra st Histor y: 63 years old Male with hemopt ysis. Compar celina Study: None availa ble at time of dictat ion. Techni que: Multid etecto r spiral CT of the chest, abdome n and pelvis was perfor med from lower neck to pubic symphy sis. Intrav enous contra st was admini stered during this examin ation. Portal venous imagin g was obtain ed. Axial, gonzalez l and sagitt al multip lanar reform ats were perfor med by the techno logist on a [facility]. Radiat ion Dose : 1. Chest/ Abdome n/Pelv is: CTDIvo l 13 mGy, DLP 681 mGy*cm . Findin gs: Lower neck: Small volume fluid in the distal esopha blaise. Lungs: Modera te emphys reed. Depend ent atelec tasis. Spicul ated nodule in the right lung base measur es 1.2 cm. Heart/ Vascul ar Struct ures: Cardio megaly . Gonzalez ry artery calcif icatio ns. Vascul ar cavita tions of the aorta. Lymph Nodes: No adenop athy Pleura : No pleura l effusi on or pneumo thorax . Page 1 [facility] [address] [address] Patien t Name: NIRMALA MONTALVO Access ion #: [id number] Sex: M : 1959 4 Dictat ed By: Alonzo Villalobos Attend ing Physic danielle: LÓPEZ MEJIAun[facility] Physic danielle: SUHAS CROWELL Exam Date: 2022 15:07 PM Exam Name: CT CHEST ABDOME N PELVIS W Admitt ing Diagno sis(es ): Liver: The liver is normal in size. No focal lesion s. Normal hepati c vascul ar enhanc ement. Gallbl adder and Biliar y Tree: Unrema rkable Spleen : Unrema rkable Pancre as: The pancre as is normal in appear ance withou t focal lesion s or abnorm al enhanc ement. Adrena l Glands : Unrema rkable Kidney s: Kidney s demons trate normal symmet torres enhanc ement withou t focal lesion s, calcul i or hydron ephros is. Bladde r: Unrema rkable Bowel: The stomac h is grossl y normal in appear ance. Small bowel and colon are normal in calibe r and distri bution . The append ix is not visual ized; howeve r, no second demetris findin gs of acute append icitis identi fied. Ascite s: Absent Lympha denopa thy: No mesent yovany, retrop eriton eal or peripo rtal lympha denopa thy. Abdomi nal Wall and Mesent katarina: Unrema rkable . Vascul ature: The visual ized abdomi nal aorta is normal in size and calibe r. Abdomi nal and pelvic vessel s demons trate normal enhanc ement. Pelvic Organs : Unrema rkable Muscul oskele joel: No aggres sive focal bony lesion s, acute fractu res or disloc ation. IMPRES MACARENA: Spicul ated nodule in the right lung base measur es 1.2 cm and is suspic ious for neopla sm. Modera te emphys reed. Nonspe cific small volume fluid in the distal esopha blaise. Electr onical ly Signed by: Alonzo Villalobos at 2022 17:45: 13 PM Page 3 [email or web address] [facility] (Imaging) [address] [place], [address], 04/29/2023 13:10:15 12/08/19 24 10/26/2023 NM, myoca rdial perfu macarena scan, w/ stres s No observ ation record ed. BARCODE Not Available 2023 09:55:20 12/08/19 24 10/23/2023 XR, chest , 1 view No observ ation record ed. BARCODE Not Available 2023 09:55:20 12/08/19 24 09/13/2008 compl ete PFT w/ post [facility] hodil ator ruth metry * No observ ation record ed. BARCODE Not Available 2023 18:29:04 12/09/19 24 10/22/2023 CT, angio gram, chest , w/ contr ast No observ ation record ed. BARCODE Not Available 2023 14:13:34 12/09/19 24 11/25/2019 CT, abdom en + pelvi s, w/ contr ast No observ ation record ed. BARCODE Not Available 2023 16:50:40 Result Notes None recorded. Problems Name Problem SNOMED Code Status Onset Date Resolution Date Notes Provider Name and Address Organization Details Recorded Time Oren mendiola 541434409 Active 2019 Not Available [facility] 3 06:54:21 Chronic obstructi ve pulmonary disease 87672634 Active 2021 Not Available [facility] 3 06:54:21 Echocardi ogram abnormal 197318940 Active 2020 EF 45% global hypo. Moderate pulmonary hypertens ion Not Available [facility] 3 06:54:21 Depressiv e disorder 32746267 Active Not Available [facility] 3 06:54:21 Severe pulmonary hypertens ion 908927578 Active 2021 right and left heart catheteri zation 2020 normal coronarie s normal LV pulmonary artery 70/25 Not Available [facility] 3 06:54:21 Hyponatre deng 16252805 Active 2021 Not Available [facility] 3 06:54:21 Plantar fasciitis of right foot 19874848824 926748 Active 2022 Not Available [facility] 3 06:54:21 Prostate specific antigen above reference range 993345922 Active 2022 Mandy deutsch, [place] [employer] 3 16:47:53 Nodule of lung 582024000 Active 2022 Jaxon Crowell MD [address], [place], [address] , [employer] 3 20:31:16 Solitary nodule of lung 174069973 Active 2023 Julián Funes MD [address], [place], [address] , [employer] 4 12:47:09 Smoker 23259510 Active 2023 Julián Funes MD [address], [place], [address] , [employer] 4 16:52:15 Notes:Medical History: Depre ssion/Anxiety Rhinitis with postnasal drip Eosinophils 140/uL Erythrocytosis Nicotine use Mod ACO RLL nodule Mediastinal and hilar lymphadenopathy Dependent atelectasis Obesity PASP 64 mmHg Mod TR Severe ZAINAB Severe RVE EF 45% Fatty liver BPH Urge urinary incontinence Right plantar fasciitis Procedure History: Right/Left cardiac catheterization 2018 Occupational History: [employer] Problem Notes None recorded. Procedures Surgical History Date Name Laterality Status Provider Name and Address Organization Details Recorded Time 04/13/20 Medicare Wellness CPT Code, subsequent completed Jayshree Mojica RN [place] [email or web address] [facility] 04/13/2023 16:09:03 Tonsillectomy completed Not Available [facility] 08/06/2022 12:53:21 Imaging Results Imaging Date Name Status LastModified by Organization Details LastModified Time 03/25/2023 CT, chest + abdomen + pelvis, w/ contrast completed [email or web address] [facility] (Imaging) [address] [place], [address], 04/29/2023 13:10:15 10/26/2023 NM, myocardial perfusion scan, w/ stress completed [facility] Information not available 12/08/2023 09:55:20 10/23/2023 XR, chest, 1 view completed [facility]CODE Informa tion not available 12/08/2023 09:55:20 09/13/2008 complete PFT w/ post bronchodilator spirometry* completed [facility] Information not available 12/08/2023 18:29:04 10/22/2023 CT, angiogram, chest, w/ contrast completed [facility] Information not available 12/09/2023 14:13:34 11/25/2019 CT, abdomen + pelvis, w/ contrast completed [facility] Information not available 12/09/2023 16:50:40 Procedure Notes None recorded. Medical Equipment None [...] Not Available Not Available No t Available oxybutynin chloride ER 10 mg tablet,exte nded release 24 hr TAKE 1 TABLET BY MOUTH EVERY DAY 07/14 completed Not Available Not Available Not Available azithromyci n 250 mg tablet TAKE 1 TABLET BY MOUTH DAILY 12/07 completed Not Available Not Available Not Available Flonase 50 mcg/actuati on nasal spray,suspe nsion Inhale 2 sprays every day by intranasa l route for 30 days. 01/20 completed Not Available Not Available Not Available Lamisil 250 mg tablet Take 1 tablet every day by oral route. 01/20 completed Not Available Not Available Not Available tamsulosin 0.4 mg capsule TK 1 C PO QHS 10/08 completed Not Available Not Available Not Available Kenalog 10 mg/mL suspension for injection In office injection administe red by the provider 04/19 completed NDC: 0003- 0494- 20 Not Available Not Available Not Available Xanax 0.25 mg tablet Take 1 tablet(s) q hs as needed for sleep 11/15 completed Not Available Not Available Not Available losartan 25 mg tablet TAKE 1 TABLET BY MOUTH DAILY active Not Available Not Available No t Available nicotine 21 mg/24 hr daily transdermal patch APPLY 1 PATCH TOPICALLY TO THE SKIN DAILY active Not Available Not Available No t Available folic acid 1 mg tablet TAKE 1 TABLET BY MOUTH DAILY active Not Available Not Available No t Available furosemide 20 mg tablet TAKE 1 TABLET BY MOUTH DAILY active Not Available Not Available No t Available Cipro HC 0.2 %-1 % ear drops,suspe nsion Instill 3 drops every 12 hours by otic route. 01/20 completed Not Available Not Available Not Available albuterol sulfate HFA 90 mcg/actuati on aerosol inhaler INHALE 2 PUFFS BY MOUTH EVERY 4 HOURS NEEDED active Not Available Not Available No t Available nicotine 7 mg/24 hr daily transdermal patch APPLY 1 PATCH TOPICALLY TO THE SKIN EVERY DAY active Not Available Not Available No t Available metoprolol tartrate 25 mg tablet TAKE 1 TABLET BY MOUTH TWICE DAILY active Not Available Not Available No t Available lidocaine (PF) 10 mg/mL (1 %) injection solution In office injection administe red by the provider 04/19 completed NDC: 0409- 4276- 17 Not Available Not Available Not Available Chantix Continuing Month Box 1 mg tablet Take 1 tablet twice a day by oral route. active Not Available Not Available No t Available Chantix Starting Month Box 0.5 mg (11)-1 mg (42) tablets in dose pack Take 1 startr pk by oral route as directed. active Not Available Not Available No t Available Jamallerasheeda Ellipta 100 mcg-62.5 mcg-25 mcg powder for inhalation INHALE 1 PUFF BY MOUTH DAILY active Not Available Not Available No t Available Papa Aerosphere 160 mcg-9mcg-4. 8mcg/actuat ion HFA aerosol inhaler INHALE 2 PUFFS BY MOUTH TWICE DAILY active Not Available Not Available No t Available Vitals Date Recorded Body mass index (BMI) Body height Heart rate Body temperature Body weight Systolic blood pressure Diastolic blood pressure Provider Name and Address Organization Details Last Updated DateTime 3 30.8 kg/m2 167.64 cm 88 /min 97.2 [degF] 24050.1 4 g 120 mm[Hg] 70 mm[Hg] Not Available [facility] 3 12:53:27 Date Recorded Body height Body mass index (BMI) Body weight Body temperature Heart rate Systolic blood pressure Diastolic blood pressure Provider Name and Address Organization Details Last Updated DateTime 3 167.64 cm 29.5 kg/m2 20045.4 g 97.3 [degF] 98 /min 120 mm[Hg] 82 mm[Hg] AMELIA Montes De Oca [employer] 3 14:08:38 Date Recorded Body height Body mass index (BMI) Body weight Body temperature Heart rate Systolic blood pressure Diastolic blood pressure Provider Name and Address Organization Details Last Updated DateTime 3 167.64 cm 29.4 kg/m2 79774.8 1 g 98.1 [degF] 84 /min 124 mm[Hg] 78 mm[Hg] Jayshree monahan RN [facility] [employer] 3 15:32:16 Date Recorded Body height Body mass index (BMI) Body weight Body temperature Heart rate Systolic blood pressure Diastolic blood pressure Provider Name and Address Organization Details Last Updated DateTime 3 167.64 cm 29.5 kg/m2 65591.4 g 98.7 [degF] 83 /min 120 mm[Hg] 70 mm[Hg] Jayshree monahan RN [employer] 3 16:12:10 Date Recorded Body height Body mass index (BMI) Body weight Body temperature Heart rate Systolic blood pressure Diastolic blood pressure Provider Name and Address Organization Details Last Updated DateTime 4 167.64 cm 29.6 kg/m2 11972.5 6 g 98.5 [degF] 85 /min 108 mm[Hg] 74 mm[Hg] Daysi Harrison MA [employer] 4 11:41:36 Date Recorded Oxygen saturation Oxygen saturation in Arterial blood by Pulse oximetry Heart rate Respiratory rate Provider Name and Address Organization Details Last Updated DateTime 12/08/2023 90 % 90 % 85 /min 15 /min Julián Funes MD [address] [facility], [facility] [address], [place], [address], [employer] 4 12:31:57 Social History Question Answer Notes LastModified by Organization Details LastModified Time Tobacco Smoking Status Current Every Day Smoker Not Available [employer] 08/06/2022 12:52:56 Do You Have An Advance Directive? No MIGRATION.0301 [id number] Information not available 08/06/2022 What Is Your Level Of Alcohol Consumption? Heavy MIGRATION.0301 953821 Information not available 08/06/2022 What Is Your Level Of Caffeine Consumption? Moderate MIGRATION.0301 [id number] Information not available 08/06/2022 In The 14 Days Before Symptom Onset, Have You Had Close Contact With A Laboratory-confi rmed COVID-19 While That Case Was Ill? No MIGRATION.0301 019543 Information not available 08/06/2022 In The 14 Days Before Symptom Onset, Have You Had Close Contact With A Person Who Is Under Investigation For COVID-19 While That Person Was Ill? No MIGRATION.0301 [id number] Information not available 08/06/2022 Are You Currently Employed? Yes Information not available 04/13/2023 What Type Of Diet Are You Following? REGULAR MIGRATION.0301 939763 Information not available 08/06/2022 What Is The Highest Grade Or Level Of School You Have Completed Or The Highest Degree You Have Received? [id number] MIGRATION.030 [id number] Information not available 08/06/2022 Do You Have An Electrostatic Air Filter? 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 No MIGRATION.0301 925308 Information not available 08/06/2022 What Is The Fluoride Status Of Your Home? Unknown MIGRATION.0301 647371 Information not available 08/06/2022 Are There Any Guns Present In Your Home? No MIGRATION.0301 334105 Information not available 08/06/2022 Do You Have A Humidifier? No Information not available 12/08/2023 Do You Use Insect Repellent Routinely? No MIGRATION.0301 [id number] Information not available 08/06/2022 Where Do You Live? [facility] MIGRATION.0301 036501 Information not available 08/06/2022 Are You Able To Care For Yourself? Yes Information not available 04/13/2023 Are You Blind Or Do Yo Have Difficulty Seeing? Yes Information not available 04/13/2023 Are You Deaf Or Do You Have Serious Difficulty Hearing? Yes Information not available 04/13/2023 Do You Have A Medical Power Of Material Combiner? No MIGRATION.0301 394995 Information not available 08/06/2022 Do You Have Moisture Problems In Your Home? No Information not available 12/08/2023 What Was The Date Of Your Most Recent Tobacco Screening? 12/08/2023 Information not available 12/08/2023 Have You Ever Been Counseled For Unhealthy Alcohol Use? No MIGRATION.0301 367668 Information not available 08/06/2022 Do You Have Any Pets? No MIGRATION.0301 951708 Information not available 08/06/2022 What Is Your Relationship Status? MIGRATION.0301 701915 Information not available 08/06/2022 Do You Use Your Seat Belt Or Car Seat Routinely? Yes MIGRATION.0301 097406 Information not available 08/06/2022 Do You Have Smoke And Carbon Monoxide Detectors In Your Home? Yes MIGRATION.0301 758949 Information not available 08/06/2022 At What Age Did You Start Smoking Tobacco? 15 MIGRATION.0301 573097 Information not available 08/06/2022 Are You Passively Exposed To Smoke? Yes MIGRATION.0301 601838 Information not available 08/06/2022 Are There Any Smokers In Your House? Yes Pt Smokes MIGRATION.030 788344 Information not available 08/06/2022 How Much Tobacco Do You Smoke? 1 PPD Down From 2ppd MIGRATION.0301 282280 Information not available 08/06/2022 What Types Of Sporting Activities Do You Participate In? None MIGRATION.030 677617 Information not available 08/06/2022 Do You Feel Stressed (tense, Restless, Nervous, Or Anxious, Or Unable To Sleep At Night)? [id number] MIGRATION.030 321145 Information not available 08/06/2022 Do You Use Any Illicit Or Recreational Drugs? No MIGRATION.0301 421281 Information not available 08/06/2022 Do You Use Sunscreen Routinely? No MIGRATION.0301 638828 Information not available 08/06/2022 Have You Recently Traveled Abroad? No MIGRATION.030 832910 Information not available 08/06/2022 Do You Have Any Dietary Restrictions? No MIGRATION.030 076569 Information not available 08/06/2022 Do You Or Have You Ever Used Any Other Forms Of Tobacco Or Nicotine? No MIGRATION.0301 294903 Information not available 08/06/2022 Sex: Male Functional Status Question Answer Note LastModified by Organizat ion Details LastModified Time What is your exercise level? None MIGRATION.[id number] Information not available 08/06/2022 Mental Status None recorded. Family History Relationship Description Onset Age of this Age Resolved Age Notes LastModified by Organization Details LastModified Time Brother Rheumatoid arthritis MIGRATION.111 [id number] Not available 08/06/2022 12:53:21 Maternal Grandfather Diabetes mellitus [email or web address] Not available 2023 12:53:42 Father Myocardial infarction [email or web address] Not available 12/07 12:54:17 Medical History Condition Response NERVE DISEASE N BLINDNESS N RHEUMATIC FEVER N KIDNEY STONES N BLADDER PROBLEMS N MRSA N CARPAL TUNNEL SYNDROME N OTHER # 1 N POLIO N LUNG DISEASE/DISORDER N HISTORY OF DRUG ABUSE N RADIATION / CHEMOTHERAPY N COPD N Other # 2 N SPORTS INJURY N ANKLE PAIN N BLOOD DISEASES Y EAR OR HEARING PROBLEMS N MUMPS N SCHIZOPHRENIA N SHINGLES N SHOULDER PAIN N DEPRESSION (INCLUDING POST ) N BOWEL PROBLEMS N STROKE/TIA Y KNEE PAIN N ULCERS N BENIGN PROSTATIC HYPERPLASIA N MEASLES N HYPOTENSION N MYOCARDIAL INFARCTION N OBESITY N GERD/NAUSEA N ANEURYSM N URINARY/BLADDER/KIDNEY PROBLEMS N CORONARY ARTERY DISEASE (CAD) N ADDICTION CONCERNS N ENDOMETRIOSIS N Impotence N USE OF BLOOD THINNERS N SKIN PROBLEMS N EMPHYSEMA N GASTROINTESTINAL DISORDER N PERIPHERAL VASCULAR DISEASE N MUSCLE,JOINT OR BONE PROBLEMS N DVT N STOMACH ULCERS N GASTROINTESTINAL BLEEDING N BLOOD CLOTS N ASTHMA N CATARACTS N USE OF NSAIDS N CONCUSSION OR SPINAL TRAUMA N ERECTILE DYSFUNCTION N VARICOSITIES N GI PROBLEMS N Low Testosterone N NEUROPATHY N INFERTILITY N AIDS/HIV N FRACTURES N CHEMOTHERAPY / RADIATION N LIVER DISEASE N MALE HYPOGONADISM N ELBOW PAIN N HYPERTENSION N Deficiency N TOURETTE'S N ANXIETY DISORDER N Metal allergy N BLOOD TRANSFUSION N ANEMIA/BLOOD DISORDER N CHRONIC EAR INFECTIONS N BIPOLAR DISORDER N BRONCHITIS N OSTEOARTHRITIS N TUBERCULOSIS N GLAUCOMA N FOOT PROBLEM N HEART VALVE DISORDERS N DIVERTICULITIS N CHICKENPOX N SLEEP APNEA N SOFT TISSUE INJURY N ALLERGIES/HAYFEVER N INFECTIOUS DISEASE N PROSTATE N HEART ARRHYTHMIA N INSOMNIA N RHEUMATOID ARTHRITIS N HIGH CHOLESTEROL / HYPERLIPIDEMIA Y EYE PROBLEMS N HYPERTHYROIDISM N EDEMA N CHRONIC PAIN SYNDROME N HYPOTHYROIDISM N CAROTID BLOCKAGE N CONSTIPATION N BACK / NECK PROBLEMS N HAVE YOU BEEN HOSPITALIZED OR SEEN IN [facility] ER IN THE PAST YEAR ? N ATHEROSCLEROSIS N BURSITIS N BREAST PROBLEMS N HERNIATED DISC N DIALYSIS N ECZEMA N FIBROMYALGIA N OSTEOPOROSIS N ARTHRITIS N PERIPHERAL NEUROPATHY N APPENDICITIS N DIABETES, TYPE N BAD TEETH N ENT N HEARTBURN / REFLUX N AUTISM SPECTRUM DISORDER (ASD) N HEPATITIS / LIVER DISEASE N GOUT N SLEEP DISORDER N ALZHEIMER'S DISEASE N Brain Problems N HERPES N DEMENTIA N HEADACHES/MIGRAINES N SEIZURES/EPILEPSY N VASCULAR DISEASE N PACEMAKER N Blood Disorder N HIP PAIN N DIZZINESS N HEAD TRAUMA OR INJURY N HEART DISEASE/HEART PROBLEMS N KIDNEY DISEASE N MULTIPLE SCLEROSIS N CARDIAC ARRHYTHMIA N CANCER: SPECIFY N ANESTHESIA COMPLICATIONS N ATRIAL FIBRILLATION N Gall Stones N PULMONARY EMBOLISM N AUTOIMMUNE DISEASE N Immunizations Vaccine Type Date Status Note Provider Nam e and Address Organization Details Recorded Time Influenza, split virus, trivalent, preservative 4 completed Not Available [facility] 04/10/2023 06:54:21 Influenza, split virus, quadrivalent, PF 1 completed Not Available [facility] 04/10/2023 06:54:21 Past Encounters Encounter ID Performer Location Encounter Start Date Encounter Closed Date Diagnosis/Indication Diagnosis SNOMED-CT Code Diagnosis ICD10 Code [id number] [facility] [address] [address] 03/11/2021 00:00:00 03/11/2021 22:33:12 [id number] [facility] [address] [place] [address] 03/21/2021 00:00:00 03/21/2021 10:56:32 [id number] [facility] [address] [place], [place] [address]., [address] [address] 03/22/2021 00:00:00 03/23/2021 14:17:40 [id number] [facility] [address] [place], [place] [address] [address] [address] 04/09/2021 00:00:00 04/09/2021 22:36:59 [id number] [facility] [place] [address] [facility], [facility] [address] [place] [address] 04/19/2021 00:00:00 04/19/2021 17:24:30 [id number] [facility] Internal Med [facility] [address] [place], [place] [address] [address] [address] 06/11/2021 00:00:00 06/11/2021 21:50:09 [id number] [facility] [address] [place], [place] [address]., [address] [address] 10/08/2021 00:00:00 10/27/2021 18:26:50 [id number] [facility] [address] [place], [place] [address] [address] [address] 02/11/2022 00:00:00 03/01/2022 16:59:43 [id number] [facility] [address] [place], [place] [address]., [address] [address] 07/14/2022 00:00:00 07/14/2022 20:45:06 [id number] Jaxon Crowell MD [facility] [address] [place] [address] 01/19/2023 13:47:41 01/19/2023 14:36:07 Plantar fasciitis of right foot 0987252564 3486013 M72.2 [id number] Jaxon Crowell MD [facility] Internal Med [facility] [address] [place] [address] 03/16/2023 15:10:19 03/16/2023 16:33:40 Blood in urine 19145372 R31.9 Pure hypercholesterolemia 176278244 E78.00 Screening for malignant neoplasm of prostate 095916227 Z12.5 Hemoptysis 31182483 R04. 2 Chronic ob structive pulmonary disease 56380506 J44.9 Cardiomyopathy 32858467 I42.9 Pulmonary hypertension 53449582 I27.20 Erythrocytosis 254204347 D75.1 [id number] Jaxon Crowell MD [facility] Internal [facility] [address] [address] 04/13/2023 15:22:03 04/13/2023 16:45:28 Adult health examination 736347863 Z00.00 Screening for disorder 451474669 Z13.9 Lesion of lung 206424067 R91.8 Chronic ob structive pulmonary disease 91969933 J44.9 Erythrocytosis 799339746 D75.1 [id number] Julián Funes MD [facility] Pulmonolo gy [place] [address] [place] [address] 0 12/08/2023 11:29:58 12/09/2023 08:41:30 Dyspnea on exertion 32426138 R06.09 R05.3 T78.40XA D89.9 Solitary n odule of lung 932249673 R91.1 J98.59 Smoker 24282087 F17.218 Z87.891 F17.219 Health Concerns Section Related Observation LastModified by Organization Detai ls LastModified Time None Recorded Concern Status LastModified by Organization Details LastModified Time None Recorded Advance Directives Directive N: Payers Encounter Date Sequence Insurance Name Policy Number Policy Spann Covered Member ID Spann Member ID Guarantor Name 01/19/2023 1 [facility] [id number] Nirmala Maloney [id number] Nirmala Maloney 03/16/2023 1 [facility] [id number] Nirmala Maloney [id number] Nirmala Maloney 04/13/2023 1 [facility] [id number] Nirmala Maloney [id number] Nirmala Maloney 12/08/2023 1 [facility] [id number] Nirmala Maloney [id number] Nirmala Maloney Notes Date Note Type Note Provider Name and Address Organization Details Recorded Time 01/20/20 23 text/htm l Pain in right foot for unspecified amount of time Jaxon Crowell MD [address] [facility], [place], [address], [employer] 01/19/2023 22:49:26 03/16/20 23 text/htm l Hematuria needs to see Urology. Dyslipidemia needs blood work a needs to follow low-fat diet he has had some blood in did sputum in the past COPD stable on inhaler Jaxon Crowell MD [address] [facility], [address], [place], [address], [employer] 03/16/2023 21:36:22 04/13/20 23 text/htm l PSA 33Spiculated 1.2 cm lung lesionErythrocytosisContinues to smoke Jaxon Crowell MD [address] [facility], [address], [place], [address], [employer] 04/13/2023 20:33:44 12/08/19 24 text/htm l Primary care/Referring provider: Jaxon Crowell MD CC: I was discharged on Trelegy although I already have Breztri. I still have 13 doses of Trelegy. I don't know the DME that's charging my oxygen use but I'm returning it because I couldn't afford the bill Patient is here to go over shortness of breath evaluation/management. Initial development of shortness of breath: 2018 Duration of shortness of breath: 6 years Condition of shortness of breath: worsening Timing of shortness of breath: none Frequency: every other hour Limits activities: yes Aggravating factors: walking, going upstairs Alleviating factors: rest Modified Medical [employer] Dewitt (mMRC) Dyspnea Scale - Grade 2 Grade 0 ? I only get breathless with strenuous exercise? . Grade 1 ? I get short of breath when hurrying on the level or walking up a slight hill? . Grade 2 ? I walk slower than people of the same age on the level because of breathlessness or have to stop for breath when walking at my own pace on the level? . Grade 3 ? I stop for breath after walking about 100 yards or after a few minutes on the level? . Grade 4 ? I am too breathless to leave the house? or ? I am breathless when dressing? . Treatment history: Albuterol HFA as needed since 2020 Papa 160/4.8 mcg 2 puffs BID since 2020 Other symptoms: Drooling: no Dysarthria: no Neck pain: no Odynophagia: no Dysphagia: no Weak mastication: no Facial weakness: no Nasal speech: no Protruding tongue: no Productive cough: thick, rodgers Wheezing: no Chest tightness: yes Orthopnea: no Frequent throat clearing or swallowing: yes Palpitations: no Heartburn: no Edema: yes Environmental exposures: Nicotine smoke: 1 ppd 1991-present = 32 pack years [place]: no Dye: no Dust mites: yes Mold: no Damp basement: no Wood burning stove: no Animal dander: no Cockroaches: no Pollen: yes Arsenic: no Asbestos: no Beryllium: no Cadmium: yes Chromium: yes [place] smoke: no Diesel fumes: no Nickel: no Silica: yes Soot: no EPWORTH SLEEPINESS SCALE (ESS) CHANCE OF DOZING SCORE 0 = would never doze 1 = slight chance of dozing 2 = moderate chance of dozing 3 = high chance of dozing SITUATION AND CHANCE OF DOZING Sitting and reading - 2 Watching television - 1 Sitting inactive in a public place (e.g. a theater or meeting) - 2 As a passenger in a car for an hour without a break - 2 Lying down to rest in the afternoon when circumstances permit - 1 Sitting and talking to someone - 0 Sitting quietly after lunch without alcohol - 0 In a car, while stopped for a few minutes in the traffic - 0 TOTAL SCORE 8 Subjectively, patient has a slight chance of dozing. Julián Funes MD [address] [facility], [facility] [address], [place], [address], [place] - [facility] 12/08/2023 16:53:29
--- OUTSIDE RECORDS SUMMARY | 2024-06-10 17:28 | XMS_ITS | Encounter Summary ---
Author Organization [facility] Address [address] [facility] 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
--- OUTSIDE RECORDS SUMMARY | 2024-06-10 17:28 | XMS_ITS | Encounter Summary ---
Author Organization [facility] Address [address] [facility] 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
--- OUTSIDE RECORDS SUMMARY | 2024-06-10 17:28 | XMS_ITS | Encounter Summary ---
Author Organization [facility] Address [address] [place] [address] Care Team Providers Care Sandwich Board Carrier Name Role Phone Unavailable Primary Care Provider Unavailabl e Encounter Details Date Type Department Care Team (Latest Contact Info) Description 01/12/2024 Travel Social History Tobacco Use Types Packs/Day Years Used Date Smoking Tobacco: Never Assessed Sex and Gender Information Value Date Recorded Sex Assigned at Not on file Gender Identity Not on file Sexual Orientation Not on file documented as of this encounter Plan of Treatment Not on file documented as of this encounter Visit Diagnoses Not on filedocumented in this encounter
--- OUTSIDE RECORDS SUMMARY | 2024-06-10 17:28 | XMS_ITS | Continuity of Care Document ---
Author Organization [facility] Holger FERNANDEZ (Adult Med) Address [address] [place] [address] Care Team Providers Care Personal Security Specialist Name Role Phone TATYANA CROWELL Primary Care Provider Assessment Encounter Date Assessment Date Assessment LastModified by Organization Details LastModified Time 05/03/2024 05/03/2024 the leg pain he called the office about his gone we will continue current therapy CT chest abdomen and pelvis his involuntary weight loss is worrisome I told him that he needs to see Urology for blood in his urine. He continues to follow with cardiology he saw the snake charmer in December but has not been back then at that time it looks like he was referred to Interventional Pulmonary and slough patient denies any knowledge of this. further recommendations once I get the results of his test he was advised to stay up-to-date on immunizations. Obtain PFTs. again recommended to get colonoscopies [id number] Not available 05/07/2024 16:13:59 Plan of Treatment Reminders Order Date Submit Date Provider Last Modified By Organization Details Last Modified Time Details Appointments ANY 15 2024 02:30P Ligia Crowell MD Not available Not available Not available Lab urinalysi s, complete 2023 024 [facility], [address], [place], [address], 05/04/2024 08:31:03 HbA1c (hemoglob in A1c), blood 2023 024 [facility], [address], [place], [address], 05/04/2024 08:31:02 lipid panel, serum 2023 [facility], [address], [place], [address], 05/04/2024 08:30:58 CBC w/ auto diff 2023 [facility], [address], [place], [address], 05/04/2024 08:31:05 CMP, serum or plasma 2023 024 [facility], [address], [place], [address], 05/04/2024 08:31:00 Referral None recorded. Procedures None recorded. Surgeries None recorded. Imaging CT, abdomen + pelvis, w/ contrast - Authoriza tion code #[id number] 12 2023 024 [facility] (Imaging), [address] [place] [address] [place] [address], [phone], 06/05/2024 08:41:14 PFT, complete 2023 024 [facility] (Cardiology & Emg), [address] [place] [address] [place] [address], [phone], 06/03/2024 15:46:10 CT, chest, w/ contrast 2023 024 [facility] (Imaging), [address] [place] [address] [place] [address], [phone], 06/10/2024 10:10:09 Medication Orders None recorded. Patient TargetsNo targets recorded. Patient InstructionsNo instructions recorded. Reason for Referral None Reported. Results Created Date Observation Date Name Description Value Unit Range Abnormal Flag Note LastModifiedBy Organization Detail LastModifiedTime 06/03/20 24 06/03/2024 PFT, compl ete No observ ation record ed. [address] [place] [address], [id number], 06/10/2024 16:43:42 06/05/20 24 06/03/2024 CT, abdom en + pelvi s, w/ contr ast No observ ation record ed. [address], [place], [address], 06/10/2024 17:05:51 06/10/[address], chest , w/ contr ast No observ ation record ed. [place] [id number] [facility] [address], [place], [address], 06/10/2024 17:05:50 Result Notes None recorded. Problems Name Problem SNOMED Code Status Onset Date Resolution Date Notes Provider Name and Address Organization Details Recorded Time Chronic obstructive pulmonary disease 20386213 Active 2023 Melony Patterson MA null, [place] - [facility] 4 09:18:24 Essential hypertension 31458147 Active 2023 Melony Patterson [place], [place] [facility] 4 11:12:58 Serum vitamin B12 below reference range 026572984 Active 2023 Melony Patterson [place] null, [place] - [facility] 4 11:12:59 Obesity 465916224 Active 2023 Melony Patterson [place] null, [place] - [facility] 4 11:13:01 SARS-CoV-2 vaccination declined 5555135036 Active 2023 Tatyana Crowell MD Attn: Jean garcia,[address] [place], [address], [place] - [facility] 4 22:00:35 Administratio n of influenza vaccine Active 2023 Tatyana Crowell MD Attn: Jean garcia,[address] [place], [address], [place] - [facility] 4 22:00:36 Problem Notes None recorded. Procedures Surgical History Date Name Laterality Status Provider Name and Address Organization Details Recorded Time Tonsillectomy completed Stefanie Penn MA [place] - [facility] 08/27/2023 16:42:41 Imaging Results None recorded. Procedure [...] Last Updated DateTime 175.26 cm 24.8 kg/m2 44584.8 8 g 92 /min 92 % 92 % 130 mm[Hg] 78 mm[Hg] Sofia Hinson MA [facility] 15:06:58 Social History Question Answer Notes LastModified by Organizat ion Details LastModified Time Tobacco Smoking Status Current Every Day Smoker Stefanie Penn MA [facility], 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 [id number] Not Sleeping At Night. Information not available [...] Skin Problems N Anemia N Heart Attack ([place]) N Anxiety Disorder N Diabetes N Muscle, [...] MDCK, quadrivalent, PF 0 completed COREEN Chan, [place] - [facility] 12/08/2023 10:42:54 Influenza, split virus, trivalent, preservative 4 completed COREEN [place] 12/08/2023 10:42:54 Influenza, split virus, quadrivalent, PF 1 completed COREEN Chan[place] [facility] 12/08/2023 10:42:54 Past Encounters Encounter ID Performer Location Encounter Start Date Encounter Closed Date Diagnosis/Indication Diagnosis SNOMED-CT Code Diagnosis ICD10 Code [id number] MD Holger Choi (Adult Med) [address] [place] [address] 04/05/2024 15:42:28 04/05/2024 16:22:35 [id number] MD Holger Choi (Adult Med) [address] [place] [address] 05/03/2024 14:46:52 05/03/2024 15:45:45 Body mass index 20-24 - normal 808558017 Z68.24 Essential hypertension 99127431 I10 Prediabetes 246575773 R7 3.03 Abdominal pain 53783889 R10.9 CT of chest abnormal 045 3194178 3627778 R93.89 Chronic ob structive pulmonary disease 54799702 J44.9 Health Concerns Section Related Observation LastModified by Organization Detai ls LastModified Time None Recorded Concern Status LastModified by Organization Details LastModified Time None Recorded Payers Encounter Date Sequence Insurance Name Policy Number Policy Spann Covered Member ID Spann Member ID Guarantor Name 05/03/2024 1 [facility] [id number] Robert Maloney [id number] Robert Maloney Notes Date Note Type Note Provider Name and Address Organization Details Recorded Time 05/03/2024 text/html several things w shiraz Richey [...] is losing weight Tatyana Crowell MD Attn: Accounting[address] [facility], [place], [address], [facility] - [facility] 05/07/2024 16:14:29
--- OUTSIDE RECORDS SUMMARY | 2024-06-10 17:28 | XMS_ITS | Referral Summary ---
Author Organization [facility] Address [address] [place] [address] Care Team Providers Care Trailer Tank Truck Driver Name Role Phone Unavailable Primary Care Provider Unavailabl e Source Comments [facility],non-owned Affiliates and Associated Physician Practices is amultiple site organization consisting of ambulatory clinics and hospital sitesin [place], [place], [place] and [place]. This disclosure is being madepursuant to the Care Everywhere program and may not contain all information available regarding this patient. Last updated 18.[facility] mobile mum Social History Tobacco Use Types Packs/Day Years Used Date Smoking Tobacco: Never Assessed Sex and Gender Information Value Date Recorded Sex Assigned at Not on file Gender Identity Not on file Sexual Orientation Not on file Plan of Treatment Not on file
--- OUTSIDE RECORDS SUMMARY | 2024-06-10 17:28 | XMS_ITS | Continuity of Care Document ---
Author Organization [facility] SAVAGEHolger (Adult Med) Address [address] [place] [address] Care Team Providers Care Nut Packer Name Role Phone JAXON CROWELL Primary Care Provider Assessment No assessment recorded. Plan of Treatment Reminders Order Date Submit [...] compl ete No observ ation record ed. [address], [address], 06/10/2024 16:43:42 06/05/20 24 06/03/2024 CT, abdom en + pelvi s, w/ contr ast No observ ation record ed. [address], [address], 06/10/2024 17:05:51 06/10/19 CT, chest , w/ contr ast No observ ation record ed. [address], [address], 06/10/2024 17:05:50 Result Notes None recorded. Problems Name Problem SNOMED Code Status Onset Date Resolution Date Notes Provider Name and Address Organization Details Recorded Time Chronic obstructive pulmonary disease 74790717 Active 2023 Melony Patterson MA null, [place] - [facility] 4 09:18:24 Essential hypertension 87270440 Active 2023 Melony Patterson MA null, [place] - [facility] 4 11:12:58 Serum vitamin B12 below reference range 431932068 Active 2023 Melony Patterson MA null, [place] - [facility] 4 11:12:59 Obesity 294455015 Active 2023 Melony Patterson MA null, [place] - [facility] 4 11:13:01 SARS-CoV-2 vaccination declined 2158387308 Active 2023 Jaxon Crowell MD Attn: Jean garcia,[address] [place], [address], [facility] - [facility] 4 22:00:35 Administratio n of influenza vaccine Active 2023 Jaxon Crowell MD Attn: Jean garcia,[address] [place], [address], [facility] - [facility] 4 22:00:36 Problem Notes None recorded. Procedures Surgical History Date Name Laterality Status Provider Name and Address Organization Details Recorded Time Tonsillectomy completed Stefanie Penn MA [place] - [facility] 08/27/2023 16:42:41 Imaging Results None [...] active Not Available Not Available Not Avai labarun Breztri Aerosphere 160 mcg-9mcg-4. 8mcg/actuat ion HFA aerosol inhaler INHALE 2 PUFFS BY MOUTH TWICE DAILY 2024 active Not Available Not Available Not Avai labarun Vitals Date Recorded Body height Heart rate Oxygen saturation Oxygen saturation in Arterial blood by Pulse oximetry Systolic blood pressure Diastolic blood pressure Provider Name and Address Organization Details Last Updated DateTime 175.26 cm 82 /min 89 % 89 % 104 mm[Hg] 72 mm[Hg] Sofia Hinson MA [place] - [facility] 4 15:46:49 Social History Question Answer Notes LastModified by Organizat ion Details LastModified Time Tobacco Smoking Status Current Every Day Smoker Stefanie Penn MA [facility], [place] - [facility] 08/27/2023 16:42:26 Do You Have An Advance [...] not available 12/08/2023 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 [id number] Not Sleeping At Night. Information not available [...] Atrial Fibrillation N High Blood Pressure N Kidney or Bladder Problems N Thyroid Problems N GI Problems N Depression N COPD Y Blood Clots N Skin Problems N Anemia N Heart Attack ([place]) N Anxiety Disorder N Diabetes N Muscle, [...] MDCK, quadrivalent, PF 0 completed COREEN Chan, [place] [facility] 12/08/2023 10:42:54 Influenza, split virus, trivalent, preservative 4 completed COREEN Chan, [place] [facility] 12/08/2023 10:42:54 Influenza, split virus, quadrivalent, PF 1 completed COREEN Chan, [place] [facility] 12/08/2023 10:42:54 Past Encounters Encounter ID Performer Location Encounter Start Date Encounter Closed Date Diagnosis/Indication Diagnosis SNOMED-CT Code Diagnosis ICD10 Code [id number] [facility] [address] [place] [address] 03/15/2024 15:25:17 03/15/2024 17:20:29 Chronic obstructive pulmonary disease 05059426 J44.9 Essential hypertension 26037035 I10 Serum marky min B12 below reference range 466015788 R79.89 Administra tion of influenza vaccine 67377598 Z23 SARS-CoV-2 vaccination declined 8551407029 Z28.21 [id number] MD Holger Choi (Adult Med) [address] [place] [address] 04/05/2024 15:42:28 04/05/2024 16:22:35 Health Concerns Section Related Observation LastModified by Organization Detai ls LastModified Time None Recorded Concern Status LastModified by Organization Details LastModified Time None Recorded Payers Encounter Date Sequence Insurance Name Policy Number Policy Spann Covered Member ID Spann Member ID Guarantor Name 04/05/2024 1 [facility] [id number] Robert Maloney [id number] Robert Maloney
--- OUTSIDE RECORDS SUMMARY | 2024-06-10 17:29 | XMS_ITS | CONTINUITY OF CARE DOCUMENT ---
Author Name ruel lipscomb Address Unknown Organization [facility] Address [address] [facility] [address] [place] [address] Phone [phone] Care Team Providers Care Ore Smelter Name Role Phone Robert Freeman MD Unavailable [phone] TATYANA DAWN MD Unavailable [phone] TATYANA DAWN MD Unavailable [phone] PROBLEMS Condition Status Date Provider Notes Shortness of breath (SOB) active Jesse jha per PCP LÓPEZ Orthopnea active Robert Freeman MD Leg edema active Robert Freeman MD Tobacco abuse active Robert Freeman MD ENCOUNTERS Date Type Provider Location Encounter Diag nosis - In-person encounter Office Visit Robert Freeman MD [facility] - In-person encounter Office Visit Robert Freeman MD [facility] Tobacco abuseLeg edemaOrthopnea VITAL SIGNS Date Observation Value Provider Body Mass Index (Ratio) 27.37 kg/m2 Miguel Angel Lopez oxygen saturation, oximetry 90 % pulse rate 87 /min Raphael janee blood pressure, diastolic 79 mm[Hg] Ja rret blood pressure, systolic 133 mm[Hg] Jar ret respiratory rate E&M 14 /min Raphael blood pressure, cuff size regular Ja rret weight E&M 180 [lb_av] Raphael Duong y height E&M 68 [in_i] Raphael Duong y Body Mass Index (Ratio) 29.89 kg/m2 Diana Sherwoodkarmen blood pressure, diastolic 88 mm[Hg] Amanda nkLogic blood pressure, systolic 140 mm[Hg] Sania kLog blood pressure, cuff size regular Tr janeefrank Graves blood pressure, diastolic 88 mm[Hg] Tr janeefrank Graves blood pressure, systolic 140 mm[Hg] Try frank Graves oxygen saturation, oximetry 93 % Januszfrank Graves respiratory rate E&M 16 /min Januszfrank Graves pulse rate 95 /min Januszfrank Graves height E&M 68 [in_i] Ion Graves weight E&M 196.6 [lb_av] Ion carrasco ALLERGIES No Known Drug Allergies HISTORY OF MEDICATION USE Medication Status Instructions Dates Provider Indications Com ments Kaidentrisiah Aerosphere 160-9-4.8 mcg/actuation HFA aerosol inhaler active Robert Freeman MD furosemide 20 mg tablet active TAKE 1 TABLET BY MOUTH EVERY DAY Robert Freeman MD oxybutynin chloride 10 mg tablet extended release 24hr active Robert Freeman MD albuterol sulfate 90 mcg/actuation HFA aerosol inhaler active INHALE 2 PUFFS BY MOUTH EVERY 4 HOURS Robert Freeman MD SOCIAL HISTORY Date Observation Value Provider smoking history, tot al pack/day 2 pks Robert Freeman MD cigarette use yes Robert Freeman MD smoking status Current every day smoker G mathew Freeman MD social history E&M S moking History: P atient currently smokes every day. Robert Freeman MD social history reviewed E&M revi ewed - no changes required Robert Freeman MD smoking history, tot al pack/day 2 pks Ion Graves cigarette use yes Ion carrasco smoking status Current every day smoker T david [employer] INSURANCE PROVIDERS Payer name Policy type / Coverage type Candie red green party ID [facility] Other [id number] ADVANCE DIRECTIVES Name Date DISCUSSED - NO DECISION MADE TREATMENT PLAN Date Name Performer [id number],C,T he Patient was reencouraged to stop smoking. Emilia Amos [id number],C,P t complained of SOB with minimal exertion, orthopnea, heavy smoker. Also had leg swelling which improved with Lasix. Echo showed EF 45%. Marked RV dilation with PA pressure 64 and mmHg. I recommend R/L cardiac cath, chest CT with contrast, venous duplex of the LE, PFTs, and will check BNP levels. I advised him to stop smoking. Kaiden's test was normal. Emilia Amos [id number],C,P t complained of SOB with minimal exertion, orthopnea, heavy smoker. Also had leg swelling which improved with Lasix. Echo showed EF 45%. Marked RV dilation with PA pressure 64 and mmHg. I recommend R/L cardiac cath, chest CT with contrast, venous duplex of the LE, PFTs, and will check BNP levels. I advised him to stop smoking. Kaiden's test was normal. Emilia Amos [id number],C,P t complained of SOB with minimal exertion, orthopnea, heavy smoker. Also had leg swelling which improved with Lasix. Echo showed EF 45%. Marked RV dilation with PA pressure 64 and mmHg. I recommend R/L cardiac cath, chest CT with contrast, venous duplex of the LE, PFTs, and will check BNP levels. I advised him to stop smoking. Kaiden's test was normal. H is updated medication list for this problem includes: Furosemide 20 Mg Tablet (Furosemide) ..... Take 1 tablet by mouth every day Emilia Amos Cardiology: T he Patient was reencouraged to stop smoking. Dimas Lopez Cardiology:Pt with a recent admission to [facility] for SOB and leg swelling. His cardiac cath was performed 3 yrs ago and showed no CAD, normal LVEDP and severe Pulmonary hypertension. We will obtain report of chest CT and obtain a V/Q scan to rule out CTEP. Will obtain PFT's to assess for lung disease. We will obtain NT-PRoBNP. Once results are available we will consider cardiace cath versus starting treatment for pulmonary hypertension. Dimas Lopez Cardiology:Pt with a recent admission to [facility] for SOB and leg swelling. His cardiac cath was performed 3 yrs ago and showed no CAD, normal LVEDP and severe Pulmonary hypertension. He has not followed up with us since then. BNP in the hospital was 380. He improved with IV lasix. Dimas Lopez Cardiology:The Patie nt was reencouraged to stop smoking. Emilia Amos Cardiology:Pt compla ined of SOB with minimal exertion, orthopnea, heavy smoker. Also had leg swelling which improved with Lasix. Echo showed EF 45%. Marked RV dilation with PA pressure 64 and mmHg. I recommend R/L cardiac cath, chest CT with contrast, venous duplex of the LE, PFTs, and will check BNP levels. I advised him to stop smoking. Kaiden's test was normal. Emilia Amos Cardiology:Pt compla ined of SOB with minimal exertion, orthopnea, heavy smoker. Also had leg swelling which improved with Lasix. Echo showed EF 45%. Marked RV dilation with PA pressure 64 and mmHg. I recommend R/L cardiac cath, chest CT with contrast, venous duplex of the LE, PFTs, and will check BNP levels. I advised him to stop smoking. Kaiden's test was normal. Emilia Amos Cardiology:Pt compla ined of SOB with minimal exertion, orthopnea, heavy smoker. Also had leg swelling which improved with Lasix. Echo showed EF 45%. Marked RV dilation with PA pressure 64 and mmHg. I recommend R/L cardiac cath, chest CT with contrast, venous duplex of the LE, PFTs, and will check BNP levels. I advised him to stop smoking. Kaiden's test was normal. H is updated medication list for this problem includes: Furosemide 20 Mg Tablet (Furosemide) ..... Take 1 tablet by mouth every day Emilia Dandre Date Name Sleep Study Home PROBNP, N TERMINAL DLCO - 13796 FRC - 59770 FVC - 75656 PROTHROMBIN TIME WIT H INR LIPID PANEL CBC (INCLUDES DIFF/P LT) BASIC METABOLIC PANE L W/EGFR DLCO - 45162 FRC - 39680 FVC - 93500 Venous Doppler Bilat eral LE - Reflux Cardiac Cath - L/R- [facility] B TYPE NATRIURETIC P EPTIDE (BNP) CT Chest with contra st Complete Echo HISTORY OF PROCEDURES Procedure Date Procedure Name Provider Procedure Notes S tatus Complex e/m visit add on Robert Freeman MD completed EKG Robert Freeman MD completed
--- OUTSIDE RECORDS SUMMARY | 2024-06-10 17:30 | XMS_ITS | Continuity of Care Document ---
Author Organization [facility] Address [address] [place] [address] [address] [place] [address] Phone Care Team Providers Care Engineering Leader Name Role Phone Darcy Mishra Unavailable Unavailable Advance Directives Directive Yes / No Effective Date File Name No Information Encounters Encounter Description Practice Location Reason(s) For Visit Diagnoses Date Provider Providers Copied on Encounter [facility], [id number] [place] [address] [address], [place], [place], [id number], [place] tel:[phone] SEC [facility] No Information Apr-0 7-200 5 Danica Taveras. [address] [facility] , [address], [place], [address], [place]. tel:[phone] Family History Family Member Type Diagnosis Age At Onset No Information Payers Payer name Insurance type Covered constitution party ID Authoriza [id number](s) [employer] [id number] Social History Type Description Quantity Date Captured Comments Sex Male Smoking Status No Information Chief Complaint And Reason For Visit No Information Reason For Referral Reason For Referral No Information History Of Present Illness Encounter Date Complaint History Of Prese nt Illness No Information Functional Status Date Functional Assessmen t No Information Instructions Date Instruction Additional Infor mation No Information Assessments Type Assessment Date No Information Patient Care Teams Name Effective Dates (start - stop) Status Members No Information
== END 2024-06-03 08:19 | disposition home or self-care (01) ==
PROVIDERS: Visit Provider Internal Medicine
DX: R94.2 Abnormal results of pulmonary function studies (principal); R59.0 Localized enlarged lymph nodes; R93.89 Abnormal findings on diagnostic imaging of other specified body structures; J44.9 Chronic obstructive pulmonary disease, unspecified; R91.8 Other nonspecific abnormal finding of lung field; J43.9 Emphysema, unspecified
CPT/HCPCS: 71260; 74177; 94375; 94726; 94729; Q9967

== ENCOUNTER 2024-08-11 10:17 | Outpatient (CLI) | payer OTHER, SELFPAY ==
--- NOTE | ~2024-08-11 | US_ITS ---
EXAMINATION: US biopsy lymph node DATE: 08/11/2024 11:30 INDICATION: Left inguinal lymphadenopathy. TECHNIQUE: The procedure including the risks, benefits, and alternatives was discussed with the patie nt. Risks discussed included bleeding and infection. The patient understood the risks and agreed to p roceed. The skin overlying the left inguinal region was prepped and draped in usual sterile fashion. Anesthetic was administered with 1% lidocaine subcutaneously. An 18 gauge core biopsy needle was th en used to obtain 6 core biopsy specimens under continuous sonographic guidance. The entry site was c leaned and dressed. There were no immediate complications. FINDINGS: Ultrasound images demonstrate the needle in a 2.3 x 1.7 cm left inguinal lymph node. IMPRESSION: 1. Ultrasound-guided core needle biopsy of an enlarged left inguinal lymph node. Reviewed, dictated and finalized at location A. RECOVERY OPERATOR IMPRESSION: 1. Ultrasound-guided core needle biopsy of an enlarged left inguinal lymph node .
--- OUTSIDE RECORDS SUMMARY | 2024-08-11 11:47 | XMS_ITS | Clinical Summary ---
Author Organization [facility] Address [address] [place] [address] Phone Care Team Providers Care Packing And Final Assembly Supervisor Name Role Phone Unavailable Primary Care Provider Unavailabl e Social History Tobacco Use Types Packs/Day Years Used Date Smoking Tobacco: Never Assessed Sex and Gender Information Value Date Recorded Sex Assigned at Not on file Legal Sex Male 2:24 PM [employer]ENT[employer] Gender Identity Not on file Sexual Orientation Not on file Plan of Treatment Health Maintenance Due Date Last Done Comments Hepatitis C Virus (HCV) Screening 1962 TdaP Immunization 1962 Colonoscopy 2007 Colorectal Cancer Screening 2007 Cologuard 2012 Immunochemical Fecal Occult Blood 2012 Pneumococcal Immunization (5 0+ years) (1 of 1 - PCV) 2012 Zoster Immunization (1 of 2) 2012 PSA Discussion 2017 Influenza Immunization (#1) 2024 SARS-COV-2 Immunization ( - season) 2024 Respiratory Syncytial Virus (RSV) Immunization (Adult) (1 - 1-dose 75+ series) 2037 Hepatitis B Immunization Aged Out No longer [...]
--- OUTSIDE RECORDS SUMMARY | 2024-08-11 11:47 | XMS_ITS | Data Portability ---
Author Organization [place] [facility] [employer], Main Office Address [address] [place] [address] Assessment Encounter Date Assessment Date Assessment LastModified [...] because I may be out of network Not available 01/19/2023 22:49:07 03/16/2023 03/16/2023 Urology for bloo d in urine Blood work Smoking cessation CT chest abdomen pelvis Follow-up 1 month [email or web address] Not available 03/16/2023 21:35:28 04/13/2023 04/13/2023 Advised strongly to quit smoking Urology for elevated PSA Pulmonary for spiculated lung lesion will need PET Hematology for elevated hemoglobin and hematocrit Return to clinic 1 month Not available 04/13/2023 20:33:17 12/08/2023 12/08/2023 Assessment: [...] no ischemia, EF 61% PASP 64 mmHg [facility] hospitalization 10/23/23 - 10/27/23 right CHF, 3 Lpm exertional O2 PFT 09/13/08 FEV1 2.37 L (63%), BD 250 mL = 12%, TLC 6.21 L (94%), RV 2.92 L (142%) Nicotine cessation counseling provided for 4 minutes. [place] for quitting nicotine include getting ready, getting [...] in Quit For Life program Registering at [email or web address] [employer] Making a call to 6-194-XRYZ-NOW ( ). A strong, clear, personalized message [...] failure or relapse. Patient can enroll in [facility]'s smoking cessation class through Nicki Fernando [...] done as follows: Respiratory allergen panel for [facility] Serum IgE Serum total IgG, IgG1, IgG2, IgG3, IgG4 Jqgvs-[id number] n phenotype and level TB stimulated gamma [...] Modified Time Details Appointments None recorded. Lab alpha-1-ant itrypsin (aat) phenotype, serum 2023 024 [facility] (Lab), [address] [place], [address], 00:18:54 BNP (B-type natriuretic peptide), serum or plasma 2023 024 CRISTINE [facility] (Lab), [address] [place], [address], 4 18:03:44 ige, total, serum [address] (Lab), [address] [place], [address], 4 12:35:58 tb (M tuberculosi s), ifn-gamma hyacinth, blood [address] (Lab), [address] [place], [address], 4 12:35:58 eosinophil count, manual, blood (OBS) [address] (Lab), [address] [place], [address], 4 12:35:59 igg subclasses 1+2+3+4, serum [address] (Lab), [address] [place], [address], 4 12:35:59 respiratory allergen panel - [facility] a [address] (Lab), [address] [place], [address], 4 12:35:59 respiratory allergen panel - [facility] b [address] (Lab), [address] [place], [address], 4 12:35:59 PSA, total, serum or plasma 2022 023 [facility] (Lab), [address] [place], [address], 3 19:05:45 CBC w/ auto diff 2022 023 [facility] (Lab), [address] [place], [address], 3 17:31:25 CMP, serum or plasma 2022 023 [facility] (Lab), [address] [place], [address], 3 18:31:36 lipid panel, serum 2022 023 [facility] (Lab), [address] [place], [address], 3 18:31:[address] referral - Chest CT 03/25/23 12 mm RLL spiculated noduleChest CT 10/22/23 right effusion may be obscuring RLL nodule, (+) mediastinal and matted hilar lymphadenop athy 2023 024 [email or web address] 82 Dimas Enamorado MD, [address] [place], [address], 5 08:53:28 urologist referral 2022 023 [email or web address] [facility], [address] [place] [address], [facility] [address], [place], [address], 3 16:47:03 auto detailer referral 2022 023 [email or web address] Vick Metz DPM, [address] [facility], [facility] [address], [place], [address], 4 18:08:55 Procedures None recorded. Surgeries None recorded. Imaging CT, chest, w/o contrast - Approved # [id number] 12/14/2023 -01/28/20242023 024 [facility], [address], [address] [address], [place], [address], 16:25:32 CT, chest + abdomen + pelvis, w/ contrast - approved [id number]/ [id number] 03/16/23-2022 023 [facility] (Imaging), [address] [place], [address], 18:46:25 Medication Orders None recorded. Patient TargetsNo targets recorded. Patient Instructions Encounter Date Encounter Id Patient Instructions Last Modified By Organization Details Last Modified Time 04/13/2023 [id number] dementia rating scale-2* cyahl Not available 04/14/2023 09:45:49 multi-dimensiona l health assessment questionnaire* cyahl Not available 04/14/2023 09:45:52 care plan* cyahl Not available 04/14 09:45:44 advance care planning: care instructions [email or web address] Not available 04/13/2023 20:33:40 advance directiv es: care instructions Not available 04/13/2023 20:33:39 [place] Advance Directives [email or web address] Not available 04/13/2023 20:33:40 [facility] Plan and Screening Recommendations Advance Directives - [...] diana diagnosis, Continue current treatment plan Diabetes: Active diagnosis, Continue current treatment plan Secondary Prevention/Interven tion (detects treatable diseases before they may cause symptoms, disability, or ) Prostate Cancer Screening: Colon Cancer Screening: Date Screening Last Performed: Eye Disease Screening: Dementia Risk: Depression Screening: Active diagnosis, Continue current treatment plan Not available 04/13/2023 16:09:03 12/08/2023 [id number] complete PFT w/ post bronchodilator spirometry* - No auth needed [email or web address] Not available 07/26/2024 12:45:07 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 Plan tar fasciitis of right foot Referring Physician: Jaxon Crowell, Internal Medicine, Encounter Date: 01/19/2023 Urologist 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 Blood in urine Referring Physician: Jaxon Crowell, Internal Medicine, Encounter Date: 03/16/2023 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 3 Not Available [facility] (Lab) [address] [place], [address], 03/26/2023 10:11:18 04/08/20 23 04/09/2023 CBC/C OMPLE TE BLD COUNT W/DIF F white blood cells 8.9 x10'3 /uL 4.2-10 .8 Not Available [facility] (Lab) [address] [place], [address], 04/09/2023 10:50:13 04/08/20 23 04/09/2023 CBC/C OMPLE TE BLD COUNT W/DIF F red blood cells 5.49 x10'6 /uL 4.10-5 .80 Not Available [facility] (Lab) [address] [place], [address], 04/09/2023 10:50:13 04/08/20 23 04/09/2023 CBC/C OMPLE TE BLD COUNT W/DIF F hemoglobin 19.3 g/dL 13.2-1 7.0 high Not Available [facility] (Lab) [address] [place], [address], 04/09/2023 10:50:13 04/08/20 23 04/09/2023 CBC/C OMPLE TE BLD COUNT W/DIF F hematocrit 58.2 % 39.3-5 0.0 high Not Available [facility] (Lab) [address] [place], [address], 04/09/2023 10:50:13 04/08/20 23 04/09/2023 CBC/C OMPLE TE BLD COUNT W/DIF F mean red cell volume 106.0 fL 80.0-9 7.0 high Not Available [facility] (Lab) [address] [place], [address], 04/09/2023 10:50:13 04/08/20 23 04/09/2023 CBC/C OMPLE TE BLD COUNT W/DIF F mean red cell hemoglobin 35.2 pg 27.0-3 3.0 high Not Available [facility] (Lab) [address] [place], [address], 04/09/2023 10:50:13 04/08/20 23 04/09/2023 CBC/C OMPLE TE BLD COUNT W/DIF F mean RBC HGB concentratio n 33.2 g/dL 31.0-3 6.0 Not Available [facility] (Lab) [address] [place], [address], 04/09/2023 10:50:13 04/08/20 23 04/09/2023 CBC/C OMPLE TE BLD COUNT W/DIF F red cell distribution width 13.6 % 11.8-1 5.5 Not Available [facility] (Lab) [address] [place], [address], 04/09/2023 10:50:13 04/08/20 23 04/09/2023 CBC/C OMPLE TE BLD COUNT W/DIF F platelets 217 x10'3 /uL 150-40 0 Not Available [facility] (Lab) [address] [place], [address], 04/09/2023 10:50:13 04/08/2004/09/2023 CBC/C OMPLE TE BLD COUNT W/DIF F mean platelet volume 10.5 fL 9.0-12 .4 Not Available [facility] (Lab) [address] [place], [address], 04/09/2023 10:50:13 04/08/2004/09/2023 CBC/C OMPLE TE BLD COUNT W/DIF F neutrophils 58.7 % 39.0-7 2.0 Not Available [facility] (Lab) [address] [place], [address], 04/09/2023 10:50:13 04/08/2004/09/2023 CBC/C OMPLE TE BLD COUNT W/DIF F lymphocytes 26.3 % 16.0-4 7.0 Not Available [facility] (Lab) [address] [place], [address], 04/09/2023 10:50:13 04/08/20 23 04/09/2023 CBC/C OMPLE TE BLD COUNT W/DIF F monocytes 11.4 % 5.0-12 .0 Not Available [facility] (Lab) [address] [place], [address], 04/09/2023 10:50:13 04/08/20 23 04/09/2023 CBC/C OMPLE TE BLD COUNT W/DIF F eosinophils 2.0 % 1.0-7. 0 Not Available [facility] (Lab) [address] [place], [address], 04/09/2023 10:50:13 04/08/2004/09/2023 CBC/C OMPLE TE BLD COUNT W/DIF F basophils 1.2 % 0.0-2. 0 Not Available [facility] (Lab) [address] [place], [address], 04/09/2023 10:50:13 04/08/2004/09/2023 CBC/C OMPLE TE BLD COUNT W/DIF F immature granulocytes 0.4 % 0.00-0 .50 Not Available [facility] (Lab) [address] [place], [address], 04/09/2023 10:50:13 04/08/2004/09/2023 CBC/C OMPLE TE BLD COUNT W/DIF F neutrophils, absolute count 5.23 x10'3 /uL 1.5-8. 0 Not Available [facility] (Lab) [address] [place], [address], 04/09/2023 10:50:13 04/08/2004/09/2023 CBC/C OMPLE TE BLD COUNT W/DIF F lymphocytes, absolute count 2.35 x10'3 /uL 1.07-3 .43 Not Available [facility] (Lab) [address] [place], [address], 04/09/2023 10:50:13 04/08/2004/09/2023 CBC/C OMPLE TE BLD COUNT W/DIF F monocytes, absolute count 1.02 x10'3 /uL 0.29-0 .99 high Not Available [facility] (Lab) [address] [place], [address], 04/09/2023 10:50:13 04/08/2004/09/2023 CBC/C OMPLE TE BLD COUNT W/DIF F eosinophils, absolute count 0.18 x10'3 /uL 0.02-0 .53 Not Available [facility] (Lab) [address] [place], [address], 04/09/2023 10:50:13 04/08/20 23 04/09/2023 CBC/C OMPLE TE BLD COUNT W/DIF F basophils, absolute count 0.11 x10'3 /uL 0.01-0 .08 high Not Available [facility] (Lab) [address] [place], [address], 04/09/2023 10:50:13 04/08/20 23 04/09/2023 CBC/C OMPLE TE BLD COUNT W/DIF F immature granulocytes ,absolute 0.04 x10'3 /uL 0.00-0 .05 Not Available [facility] (Lab) [address] [place], [address], 04/09/2023 10:50:13 04/08/20 23 04/09/2023 CBC/C OMPLE TE BLD COUNT W/DIF F nucleated red blood cells 0.0 % -0 Not Available [facility] (Lab) [address] [place], [address], 04/09/2023 10:50:13 04/08/20 23 04/09/2023 CBC/C OMPLE TE BLD COUNT W/DIF F NRBC# 0.00 x10'3 /uL Not Available [facility] (Lab) [address] [place], [address], 04/09/2023 10:50:13 04/08/20 23 04/09/2023 CBC/C OMPLE TE BLD COUNT W/DIF F macro OCCASI ONAL Not Available [facility] (Lab) [address] [place], [address], 04/09/2023 10:50:13 04/08/20 23 04/08/2023 COMPR EHENS DIANA METAB OLIC PANEL sodium 131 mmol/ L 137-14 5 low Not Available [facility] (Lab) [address] [place], [address], 04/08/2023 18:31:36 04/08/20 23 04/08/2023 COMPR EHENS DIANA METAB OLIC PANEL potassium 4.8 mmol/ L 3.5-5. 1 Not Available [facility] (Lab) [address] [place], [address], 04/08/2023 18:31:36 04/08/20 23 04/08/2023 COMPR EHENS DIANA METAB OLIC PANEL chloride 97 mmol/ L 98-107 low Not Available [facility] (Lab) [address] [place], [address], 04/08/2023 18:31:36 04/08/20 23 04/08/2023 COMPR EHENS DIANA METAB OLIC PANEL carbon dioxide 36 mmol/ L 22-30 high Not Available [facility] (Lab) [address] [place], [address], 04/08/2023 18:31:36 04/08/20 23 04/08/2023 COMPR EHENS DIANA METAB OLIC PANEL anion gap 2.8 mmol/ L 14-22 low Not Available [facility] (Lab) [address] [place], [address], 04/08/2023 18:31:36 04/08/20 23 04/08/2023 COMPR EHENS DIANA METAB OLIC PANEL glucose 81 mg/dL 70-99 Not Available [facility] (Lab) [address] [place], [address], 04/08/2023 18:31:36 04/08/20 23 04/08/2023 COMPR EHENS DIANA METAB OLIC PANEL BUN 28 mg/dL 8-19 high Not Available [facility] (Lab) [address] [place], [address], 04/08/2023 18:31:36 04/08/2004/08/2023 COMPR EHENS DIANA METAB OLIC PANEL creatinine 1.02 mg/dL 0.66-1 .25 Not Available [facility] (Lab) [address] [place], [address], 04/08/2023 18:31:36 04/08/20 23 04/08/2023 COMPR EHENS DIANA METAB OLIC PANEL GFR >60 Refer ence Range : [place] ge GFR Healt hy Adult : >60 [...] or ethni c subgr oups, such as [facility] nics. Outsi de the valid ated love [...] calcu lator is avail able on the NKF websi te: https ://chantal warren.isabelle freedman.o luis m/pr ofess ional s/kdo qi/gf r_cal culat or Not Available [facility] (Lab) [address] [place], [address], 04/08/2023 18:31:36 04/08/20 23 04/08/2023 COMPR EHENS DIANA METAB OLIC PANEL alkaline phosphatase 91 U/L 38-126 Not Available [facility] (Lab) [address] [place], [address], 04/08/2023 18:31:36 04/08/20 23 04/08/2023 COMPR EHENS DIANA METAB OLIC PANEL alanine aminotransfe rase 32 U/L 0-50 Not Available [facility] (Lab) [address] [place], [address], 04/08/2023 18:31:36 04/08/20 23 04/08/2023 COMPR EHENS DIANA METAB OLIC PANEL aspartate aminotransfe rase 27 U/L 15-46 Not Available [facility] (Lab) [address] [place], [address], 04/08/2023 18:31:36 04/08/20 23 04/08/2023 COMPR EHENS DIANA METAB OLIC PANEL bilirubin, total 0.70 mg/dL 0.20-1 .30 Not Available [facility] (Lab) [address] [place], [address], 04/08/2023 18:31:36 04/08/20 23 04/08/2023 COMPR EHENS DIANA METAB OLIC PANEL calcium 9.1 mg/dL 8.4-10 .2 Not Available [facility] (Lab) [address] [place], [address], 04/08/2023 18:31:36 04/08/20 23 04/08/2023 COMPR EHENS DIANA METAB OLIC PANEL total protein 6.7 g/dL 6.3-8. 2 Not Available [facility] (Lab) [address] [place], [address], 04/08/2023 18:31:36 04/08/20 23 04/08/2023 COMPR EHENS DIANA METAB OLIC PANEL albumin 3.5 g/dL 3.4-5. 0 Not Available [facility] (Lab) [address] [place], [address], 04/08/2023 18:31:36 04/08/20 23 04/08/2023 COMPR EHENS DIANA METAB OLIC PANEL globulin 3.2 g/dL 2.6-4. 2 Not Available [facility] (Lab) [address] [place], [address], 04/08/2023 18:31:36 04/08/20 23 04/08/2023 COMPR EHENS DIANA METAB OLIC PANEL A/G ratio 1.1 ratio 1.0-2. 0 Not Available [facility] (Lab) [address] [place], [address], 04/08/2023 18:31:36 04/08/20 23 04/08/2023 LIPID PANEL cholesterol 192 mg/dL 140-19 9 NIH SHY NSUS RECOM MENDA TION FOR CHIKI STERO L: ADULT CHILD LOW RISK: <200 <170 BORDE RLINE : <200- 239 ----- HIGH RISK: >240 >200 Not Available [facility] (Lab) [address] [place], [address], 04/08/2023 18:31:40 04/08/20 23 04/08/2023 LIPID PANEL triglyceride s 55 mg/dL 0-150 NIH SHY NSUS REPOR T RECOM MENDA TION FOR TRIGL YCERI CRISTIN: ADULT CHILD LOW RISK: <150 ----- BODER LINE: 150-1 99 ----- HIGH RISK: >200 ----- Not Available [facility] (Lab) [address] [place], [address], 04/08/2023 18:31:40 04/08/20 23 04/08/2023 LIPID PANEL HDL cholesterol 108 mg/dL 40- Not Available [facility] (Lab) [address] [place], [address], 04/08/2023 18:31:40 04/08/2004/08/2023 LIPID PANEL LDL cholesterol, calculated 73 mg/dL [...] WILL NOT BE REPOR KAYLAN. Not Available [facility] (Lab) [address] [place], [address], 04/08/2023 18:31:40 04/08/2004/08/2023 PSA SCREE N PSA medicare screen 31.10 NG/mL 0.00-4 .00 high Not Available [facility] (Lab) [address] [place], [address], 04/08/2023 19:05:45 03/25/2003/25/2023 CT, chest + abdom en + pelvi s, w/ contr ast [facility] [address] [place], [place] [id number] Patien t Name: NIRMALA MONTALVO Access ion #: [id number] Sex: M : 1959 4 Dict[address] [...] st was admini stered during this examin [facility]. Portal venous imagin g was obtain ed. Axial, gonzalez l and sagitt al multip lanar reform ats were perfor med by the techno logist on a [employer] te workst [facility]. Radiat ion Dose : 1. Chest/ Abdome [...] on or pneumo thorax . Page 1 [facility] [place] [address] [place] [address] Patien t Name: NIRMALA MONTALVO Access ion #: [id number] Sex: M : 1959 4 Dictat ed By: Alonzo Villalobos Attend ing Physic danielle: [facility]Z [facility] Physic danielle: SUHAS CROWELL Exam Date: 2022 [...] at 2022 17:45: 13 PM Page 3 [email or web address] [facility] (Imaging) [address] [place], [address], 04/29/2023 13:10:15 12/08/19 24 10/26/2023 NM, myoca rdial perfu macarena scan, w/ stres s No observ ation record ed. BARCODE Not Available 2023 09:55:20 12/08/19 24 10/23/2023 XR, chest , 1 view No observ ation record ed. BARCODE Not Available 2023 09:55:20 12/08/19 24 09/13/2008 compl ete PFT w/ post [facility] hodil ator ruth metry * No observ [...] Address Organization Details Recorded Time Oren mendiola 060568296 Active 2019 Not Available [facility] 3 06:54:21 Chronic obstructi ve pulmonary disease 75979241 Active 2021 Not Available [facility] 3 06:54:21 Echocardi ogram abnormal 910742608 Active 2020 EF 45% global hypo. Moderate pulmonary hypertens ion Not Available [facility] 3 06:54:21 Depressiv e disorder 28786793 Active Not Available [facility] 3 06:54:21 Severe pulmonary hypertens ion 789504446 Active 2021 right and left heart catheteri zation 2020 normal coronarie s normal LV pulmonary artery 70/25 Not Available [facility] 3 06:54:21 Hyponatre deng 38803780 Active 2021 Not Available [facility] 3 06:54:21 Plantar fasciitis of right foot 03920272279 739446 Active 2022 Not Available [facility] 3 06:54:21 Prostate specific antigen above reference range 973011975 Active 2022 Mandy deutsch, [place] [employer] [facility] [employer] [facility] 3 16:47:53 Nodule of lung 247190170 Active 2022 Jaxon Crowell MD [address], [place], [address] , [facility] [employer] [facility] 3 20:31:16 Solitary nodule of lung 254536527 Active 2023 Julián Funes MD [address], [place], [address] , Contrib 4 12:47:09 Smoker 96269667 Active 2023 Julián Funes MD [address], [place], [address] , [facility] [employer] [facility] 4 16:52:15 Notes:Medical History: Depre ssion/Anxiety Rhinitis with postnasal drip Eosinophils 140/uL Erythrocytosis Nicotine use Mod ACO RLL nodule Mediastinal and hilar lymphadenopathy Dependent atelectasis Obesity PASP 64 mmHg Mod TR Severe ZAINAB Severe RVE EF 45% Fatty liver BPH Urge urinary incontinence Right plantar fasciitis Procedure History: Right/Left cardiac catheterization 2018 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 Procedures Surgical History Date Name Laterality Status Provider Name and Address Organization Details Recorded Time 04/13/20 Medicare Wellness CPT Code, subsequent completed Jayshree Mojica RN [place] [facility] 04/13/2023 16:09:03 Tonsillectomy completed Not Available [facility] 08/06/2022 12:53:21 Imaging Results Imaging Date Name Status LastModified by Organization Details LastModified Time 03/25/2023 CT, chest + abdomen + pelvis, w/ contrast completed [facility] (Imaging) [address] [place], [address], 04/29/2023 13:10:15 10/26/2023 NM, myocardial perfusion scan, [...] Not Available Not Available No t Available [employer] 160 mcg-9mcg-4. 8mcg/actuat ion HFA aerosol inhaler INHALE 2 PUFFS BY MOUTH TWICE DAILY active Not Available Not Available No t Available Vitals Date Recorded Body mass index (BMI) Body height Heart rate Body temperature Body weight Systolic blood pressure Diastolic blood pressure Provider Name and Address Organization Details Last Updated DateTime 3 30.8 kg/m2 167.64 cm 88 /min 97.2 [degF] 67365.1 4 g 120 mm[Hg] 70 mm[Hg] Not Available [facility] 3 12:53:27 Date Recorded Body height Body mass index (BMI) Body weight Body temperature Heart rate Systolic blood pressure Diastolic blood pressure Provider Name and Address Organization Details Last Updated DateTime 3 167.64 cm 29.5 kg/m2 20520.4 g 97.3 [degF] 98 /min 120 mm[Hg] 82 mm[Hg] AMELIA Montes De Oca [facility] [employer] 3 14:08:38 Date Recorded Body height Body mass index (BMI) Body weight Body temperature Heart rate Systolic blood pressure Diastolic blood pressure Provider Name and Address Organization Details Last Updated DateTime 3 167.64 cm 29.4 kg/m2 35881.8 1 g 98.1 [degF] 84 /min 124 mm[Hg] 78 mm[Hg] Jayshree monahan RN [employer] 3 15:32:16 Date Recorded Body height Body mass index (BMI) Body weight Body temperature Heart rate Systolic blood pressure Diastolic blood pressure Provider Name and Address Organization Details Last Updated DateTime 3 167.64 cm 29.5 kg/m2 84113.4 g 98.7 [degF] 83 /min 120 mm[Hg] 70 mm[Hg] Jayshree monahan RN [employer] 3 16:12:10 Date Recorded Body height Body mass index (BMI) Body weight Body temperature Heart rate Systolic blood pressure Diastolic blood pressure Provider Name and Address Organization Details Last Updated DateTime 4 167.64 cm 29.6 kg/m2 23066.5 6 g 98.5 [degF] 85 /min 108 mm[Hg] 74 mm[Hg] Daysi Harrison MA [facility] [employer] [facility] 4 11:41:36 Date Recorded Oxygen saturation Oxygen saturation in Arterial blood by Pulse oximetry Heart rate Respiratory rate Provider Name and Address Organization Details Last Updated DateTime 12/08/2023 90 % 90 % 85 /min 15 /min Julián Funes MD [address] [facility] [address], [place], [address], [facility] [employer] 4 12:31:57 Social History Question Answer Notes LastModified by Organization Details LastModified Time Tobacco Smoking Status Current Every Day Smoker Not Available [facility] 08/06/2022 12:52:56 Do You Have An Advance Directive? No [id number] Information not available 08/06/2022 What Is Your Level Of Alcohol Consumption? Heavy [email or web address].030 [id number] Information not available 08/06/2022 What Is Your Level Of Caffeine Consumption? Moderate [email or web address].030 [id number] Information not available 08/06/2022 In The 14 Days Before Symptom Onset, Have You Had Close Contact With A Laboratory-confi rmed COVID-19 While That Case Was Ill? No [email or web address].030 [id number] Information not available 08/06/2022 In The 14 Days Before Symptom Onset, Have You Had Close Contact With A Person Who Is Under Investigation For COVID-19 While That Person Was Ill? No [email or web address].[id number] Information not available 08/06/2022 Are You Currently Employed? Yes Information not available 04/13/2023 What Type Of Diet Are You Following? REGULAR MIGRATION.030 [id number] Information not available 08/06/2022 What Is The Highest Grade Or Level Of School You Have Completed Or The Highest Degree You Have Received? [id number] MIGRATION.030 [id number] Information not available 08/06/2022 Do You Have An Electrostatic Air Filter? 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 No MIGRATION.[id number] [id number] Information not available 08/06/2022 What Is The Fluoride Status Of Your Home? Unknown [id number].[id number] [id number] Information not available 08/06/2022 Are There Any Guns Present In Your Home? No MIGRATION.[id number] [id number] Information not available 08/06/2022 Do You Have A Humidifier? No Information not available 12/08/2023 Do You Use Insect Repellent Routinely? No MIGRATION.0301 [id number] Information not available 08/06/2022 Where Do You Live? [facility] MIGRATION.030 [id number] Information not available 08/06/2022 Are You Able To Care For Yourself? Yes Information not available 04/13/2023 Are You Blind Or Do Yo Have Difficulty Seeing? Yes Information not available 04/13/2023 Are You Deaf Or Do You Have Serious Difficulty Hearing? Yes Information not available 04/13/2023 Do You Have A Medical Power Of Antenna Specialist? No MIGRATION.0301 [id number] Information not available 08/06/2022 Do You Have Moisture Problems In Your Home? No Information not available 12/08/2023 What Was The Date Of Your Most Recent Tobacco Screening? 12/08/2023 Information not available 12/08/2023 Have You Ever Been Counseled For Unhealthy Alcohol Use? No MIGRATION.0301 [id number] Information not available 08/06/2022 Do You Have Any Pets? No MIGRATION.0301 197650 Information not available 08/06/2022 What Is Your Relationship Status? MIGRATION.0301 [id number] Information not available 08/06/2022 Do You Use Your Seat Belt Or Car Seat Routinely? Yes MIGRATION.0301 [id number] Information not available 08/06/2022 Do You Have Smoke And Carbon Monoxide Detectors In Your Home? Yes MIGRATION.0301 149459 Information not available 08/06/2022 At What Age Did You Start Smoking Tobacco? 15 MIGRATION.0301 865806 Information not available 08/06/2022 Are You Passively Exposed To Smoke? Yes MIGRATION.0301 236158 Information not available 08/06/2022 Are There Any Smokers In Your House? Yes Pt Smokes MIGRATION.030 986859 Information not available 08/06/2022 How Much Tobacco Do You Smoke? 1 PPD Down From 2ppd MIGRATION.0301 108730 Information not available 08/06/2022 What Types Of Sporting Activities Do You Participate In? None MIGRATION.030 492170 Information not available 08/06/2022 Do You Feel Stressed (tense, Restless, Nervous, Or Anxious, Or Unable To Sleep At Night)? [id number] MIGRATION.030 606245 Information not available 08/06/2022 Do You Use Any Illicit Or Recreational Drugs? No MIGRATION.0301 411963 Information not available 08/06/2022 Do You Use Sunscreen Routinely? No MIGRATION.0301 157917 Information not available 08/06/2022 Have You Recently Traveled Abroad? No MIGRATION.030 377951 Information not available 08/06/2022 Do You Have Any Dietary Restrictions? No MIGRATION.0301 383970 Information not available 08/06/2022 Do You Or Have You Ever Used Any Other Forms Of Tobacco Or Nicotine? No MIGRATION.0301 627221 Information not available 08/06/2022 Sex: Male Functional Status Question Answer Note LastModified by Organizat ion Details LastModified Time What is your exercise level? None [id number] Information not available 08/06/2022 Mental Status None recorded. Family History Relationship Description Onset Age of this Age Resolved Age Notes LastModified by Organization Details LastModified Time Brother Rheumatoid arthritis MIGRATION.473 [id number] Not available 08/06/2022 12:53:21 Maternal Grandfather Diabetes [...] HAVE YOU BEEN HOSPITALIZED OR SEEN IN [facility] IN THE PAST YEAR ? N [...] virus, trivalent, preservative 4 completed Not Available [facility] 04/10/2023 06:54:21 Influenza, split virus, quadrivalent, PF 1 completed Not Available [facility] 04/10/2023 06:54:21 Past Encounters Encounter ID Performer Location Encounter Start Date Encounter Closed Date Diagnosis/Indication Diagnosis SNOMED-CT Code Diagnosis ICD10 Code Diagnosis Note [id number] [facility] [address] [address] 03/11/2021 00:00:00 03/11/2021 22:33:12 [id number] [facility] [place] [address] [place] [address] 03/21/2021 00:00:00 03/21/2021 10:56:32 [id number] [facility] [address] [place] [address] [address] [address] 03/22/2021 00:00:00 03/23/2021 14:17:40 [id number] [facility] [address] [place] [address] [address] [address] 04/09/2021 00:00:00 04/09/2021 22:36:59 [id number] [facility] [place] [address] [facility] [address] [place] [address] 04/19/2021 00:00:00 04/19/2021 17:24:30 [id number] [facility] [address] [place] [address] [address] [address] 06/11/2021 00:00:00 06/11/2021 21:50:09 [id number] [facility] [address] [place] [address] [address] [address] 10/08/2021 00:00:00 10/27/2021 18:26:50 [id number] [facility] [address] [place] [address] [address] [address] 02/11/2022 00:00:00 03/01/2022 16:59:43 [id number] [facility] [address] [place], [place] [address]e., [address] [address] 07/14/2022 00:00:00 07/14/2022 20:45:06 [id number] Jaxon Crowell MD [facility] Internal Med [facility] [address] [place] [address] 1 01/19/2023 13:47:41 01/19/2023 14:36:07 Plantar fasciitis of right foot [id number] M72.2 Probable plantar work [id number] Jaxon Crowell MD [facility] Internal Med [facility] [address] [place] [address] 1 03/16/2023 15:10:19 03/16/2023 16:33:40 Blood in urine 76841895 R31.9 Pure hypercholesterolemia 680569969 E78.00 Screening for malignant neoplasm of prostate 536765508 Z12.5 Hemoptysis 13846933 R04. 2 Chronic ob structive pulmonary disease 33495008 J44.9 Cardiomyopathy 31648237 I42.9 Pulmonary hypertension 48286135 I27.20 Erythrocytosis 896516402 D75.1 [id number] Jaxon Crowell MD [facility] Internal Med [facility] [address] [address] 1 04/13/2023 15:22:03 04/13/2023 16:45:28 Adult health examination 469299783 Z00.00 Screening for disorder 711739624 Z13.9 Lesion of lung 501064514 R91.8 Chronic ob structive pulmonary disease 17329097 J44.9 Erythrocytosis 463438754 D75.1 [id number] Julián Funes MD [facility] [place] [address] [place] [address] 0 12/08/2023 11:29:58 12/09/2023 08:41:30 Dyspnea on exertion 07139865 R06.09 R05.3 T78.40XA D89.9 Solitary n odule of lung 925742609 R91.1 J98.59 Smoker 18217824 F17.218 Z87.891 F17.219 Health Concerns Section Related Observation LastModified by Organization Detai ls LastModified Time None Recorded Concern Status LastModified by Organization Details LastModified Time None Recorded Advance Directives Directive N: Payers Encounter Date Sequence Insurance Name Policy Number Policy Spann Covered Member ID Spann Member ID Guarantor Name 01/19/2023 1 [facility] [id number] Nirmala Maloney [id number] Nirmala Maloney 03/16/2023 1 [facility] [id number] Nirmala Maloney [id number] Nirmala Maloney 04/13/2023 1 [facility] [id number] Nirmala Maloney [id number] Nirmala Botello Luizjunienue 12/08/2023 1 [facility] [id number] Nirmala Maloney [id number] Nirmala Maloney Notes Date Note Type Note Provider Name and Address Organization Details Recorded Time 01/20/20 23 text/htm l Pain in right foot for unspecified amount of time Jaxon Crowell MD [address], [place], [address], [employer] 01/19/2023 22:49:26 03/16/20 23 text/htm l Hematuria needs to see Urology. Dyslipidemia needs blood work a needs to follow low-fat diet he has had some blood in did sputum in the past COPD stable on inhaler Jaxon Crowell MD [address], [place], [address], [employer] 03/16/2023 21:36:22 04/13/20 23 text/htm l PSA 33Spiculated 1.2 cm lung lesionErythrocytosisContinues to smoke Jaxon Crowell MD [address], [place], [address], [employer] 04/13/2023 20:33:44 12/08/19 24 text/htm l Primary [...] upstairs Alleviating factors: rest Modified [employer] ([employer]C) Dyspnea Scale - Grade 2 Grade 0 I only get breathless with strenuous exercise . Grade 1 I get short of breath when hurrying on the level or walking up a slight hill . Grade 2 I walk slower than people of the same age on the level because of breathlessness or have to stop for breath when walking at my own pace on the level . Grade 3 I stop for breath after walking about 100 yards or after a few minutes on the level . Grade 4 I am too breathless to leave the house or I am breathless when dressing . Treatment history: Albuterol HFA as needed since 2020 Papa 160/9/4.8 mcg 2 puffs BID since 2020 Other [...] 1 ppd 1991-present = 32 pack years Jakin: no Dye: no Dust mites: yes Mold: no Damp basement: no Wood burning stove: no Animal dander: no Cockroaches: no Pollen: yes Arsenic: no Asbestos: no Beryllium: no Cadmium: yes Chromium: yes [place] smoke: no Diesel fumes: no Nickel: no [...] chance of dozing. Julián Funes MD [address] [facility], [facility] [address], [place], [address], [place] [facility] 12/08/2023 16:53:29
--- OUTSIDE RECORDS SUMMARY | 2024-08-11 11:48 | XMS_ITS | Clinical Summary ---
Author Organization [facility] Address [address] [place] [address] Care Team Providers Care Power Lineman Name Role Phone Unavailable Primary Care Provider Unavailabl e Source Comments [facility],non-owned Affiliates and Associated Physician Practices is amultiple site organization consisting of ambulatory clinics and hospital sitesin [place], [place], [place] and [place]. This disclosure is being madepursuant to the Care Everywhere program and may not contain all information available regarding this patient. Last updated 18.[facility] Social History Tobacco Use Types Packs/Day Years [...] 03/15/1980 DTAP/TDAP/TD VACCINES (1 - Tdap) 1981 PNEUMOCOCCAL VACCINE 50+ (1 of 1 - PCV) 2012 ZOSTER VACCINE (1 of 2) 2012 COVID-19 VACCINE ( - 2023-2 5 season) 2024 INFLUENZA VACCINE (#1) 2024 , 04/26/2014 DEPRESSION SCREENING 06/08/2024 Respiratory Syncytial Virus (RSV) Vaccine Pt: or [...] patient's age to complete this topic MENINGOCOCCAL (Group B) VACCINE Aged Out No longer eligible b ased on patient's age to complete this topic MENINGOCOCCAL VACCINE Aged Out No mendez dolores eligible based on patient's age to complete this topic PNEUMOCOCCAL VACCINE Aged Out No long er eligible based on patient's age to complete this topic
--- OUTSIDE RECORDS SUMMARY | 2024-08-11 11:48 | XMS_ITS | Patient Health Summary ---
Author Organization [facility] Address [address] [place] [address] Care Team Providers Care Metal Reed Tuner Name Role Phone Unavailable Primary Care Provider Unavailabl e Note from [facility],non-owned Affiliates and Associated Physician Practices is amultiple site organization consisting of ambulatory clinics and hospital sitesin [place], [place], [place] and [place]. This disclosure is being madepursuant to the Care Everywhere program and may not contain all information available regarding this patient. 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 GROSS DESCRIPTION: Received is one formalin filled container labeled with the patient's name and designated right 3rd metacarpal head. The specimen consists of a shave biopsy measuring [id number] 10x5x3 mm. Jar 0. 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 The base of the lesion is not visualized. Final Diagnosis performed by Paige Beltrán M.D. Electronically signed 09/14/2012 12:14:34PM [facility] Comment: Performed at: Dermatopathology Laboratory [facility] - Department of Dermatology [address] [place] [address] Phone number: [phone] Toll Free: [phone] FAX: [phone] 09/10/2012 09/13/2012 [facility] - PATHOLOGY/CYTO LOGY ORDERABLES Performing Organization Address City/State/[facility] Co de Phone Number [facility] [address] [place] [address], [facility] [phone]
--- OUTSIDE RECORDS SUMMARY | 2024-08-11 11:48 | XMS_ITS | Continuity of Care Document ---
Author Organization [facility] Address [address] [place] [address] [address] [place] [address] Phone Care Team Providers Care Heating Operators Engineer Name Role Phone Darcy Mishra Unavailable Unavailable Advance Directives Directive Yes / No Effective Date File Name No Information Encounters Encounter Description Practice Location Reason(s) For Visit Diagnoses Date Provider Providers Copied on Encounter [facility], [id number] [place] [address] [address], [place], [place], [id number], [place] tel:[phone] [facility] No Information Apr-0 7-200 5 Danica Taveras. [address] , [address], [place], [address], [place]. tel:[phone] Family History Family Member Type Diagnosis Age At Onset No Information Payers Payer name Insurance type Covered republican ID Authoriza [id number](s) [employer] [id number] Social History Type Description Quantity Date Captured [...]
--- OUTSIDE RECORDS SUMMARY | 2024-08-11 11:48 | XMS_ITS | CONTINUITY OF CARE DOCUMENT ---
Author Name ruel lipscomb Address Unknown Organization [facility] Address [address] [place] [address] Phone [phone] Care Team Providers Care Java Portal Developer Name Role Phone Robert Freeman MD Unavailable [phone] TATYANA DAWN MD Unavailable TATYANA DAWN MD Unavailable [phone] PROBLEMS Condition Status Date Provider Notes Shortness of breath (SOB) active Jesse jha per PCP LÓPEZ Orthopnea active Robert Freeman MD Leg edema active Robert Freeman MD Tobacco abuse active Robert Freeman MD ENCOUNTERS Date Type Provider Location Encounter Diag nosis - In-person encounter Office Visit Robert Freeman MD [facility] - In-person encounter Office Visit Robert Freeman MD [facility] Tobacco abuseLeg edemaOrthopnea VITAL SIGNS Date [...] Policy type / Coverage type Candie red alliance party ID [id number] Other [id number] ADVANCE DIRECTIVES Name Date DISCUSSED - NO DECISION MADE TREATMENT PLAN Date Name Performer [id number],C,T he Patient was reencouraged to stop smoking. Emilia Amos [id number],C,P t complained of SOB with minimal exertion, orthopnea, heavy smoker. Also had leg swelling which improved with Lasix. Echo showed EF 45%. Marked RV dilation with PA pressure 64 and mmHg. I recommend R/L cardiac cath, chest CT with contrast, venous duplex of the LE, PFTs, and will check BNP levels. I advised him to stop smoking. Kaiden's test was normal. Emilia Amos [id number],C,P t complained of SOB with minimal exertion, orthopnea, heavy smoker. Also had leg swelling which improved with Lasix. Echo showed EF 45%. Marked RV dilation with PA pressure 64 and mmHg. I recommend R/L cardiac cath, chest CT with contrast, venous duplex of the LE, PFTs, and will check BNP levels. I advised him to stop smoking. Kaiden's test was normal. Emilia Amos [id number],C,P t complained of SOB with minimal exertion, [...] [facility]:Pt with a recent admission to [facility] for SOB and leg swelling. His cardiac [...] [facility] Cardiology:Pt with a recent admission to [facility] for SOB and leg swelling. His cardiac [...] Study Home PROBNP, N TERMINAL DLCO - 02201 FRC - 02075 FVC - 91055 PROTHROMBIN TIME WIT H INR LIPID PANEL CBC (INCLUDES DIFF/P LT) BASIC METABOLIC PANE L W/EGFR DLCO - 43947 FRC - 87823 FVC - 72531 Venous Doppler Bilat eral LE - Reflux Cardiac Cath - L/R- [facility] B TYPE NATRIURETIC P EPTIDE (BNP) CT Chest with contra st Complete Echo HISTORY OF PROCEDURES Procedure Date Procedure Name Provider Procedure Notes S tatus Complex e/m visit add on Robert Freeman MD completed EKG Robert Freeman MD completed
--- OUTSIDE RECORDS SUMMARY | 2024-08-11 11:48 | XMS_ITS | Data Portability ---
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 [email or web address] Not available 03/15/2024 22:00:53 05/03/2024 05/03/2024 the leg pain he called the office about his gone we will continue current therapy CT chest abdomen and pelvis his involuntary weight loss is worrisome I told him that he needs to see Urology for blood in his urine. He continues to follow with cardiology he saw the operations and maintenance technician in December but has not been back then at that time it looks like he was referred to Interventional Pulmonary and slough patient denies any knowledge of this. further recommendations once I get the results of his test he was advised to stay up-to-date on immunizations. Obtain PFTs. again recommended to get colonoscopies [email or web address] Not available 05/07/2024 16:13:59 Plan of Treatment Reminders Order Date Submit Date Provider Last Modified By Organization Details Last Modified Time Details Appointments ANY 15 2024 02:30P M Tatyana Crowell MD Not available Not available Not available Lab urinalysi s, complete 2023 CRISTINE Pandey, [address], [place], [address], 05/04/2024 08:31:03 HbA1c (hemoglob in A1c), blood 2023 CRISTINEBUCK Pandey, [address], [place], [address], 05/04/2024 08:31:02 lipid panel, serum 2023 CRISTINE Pandey, [address], [place], [address], 05/04/2024 08:30:58 CBC w/ auto diff 2023 CRISTINE Pandey, [address], [place], [address], 05/04/2024 08:31:05 CMP, serum or plasma 2023 CRISTINE Pandey, [address], [place], [address], 05/04/2024 08:31:00 pro BNP (pro B-type natriuret ic peptide), serum or plasma 2023 MORGANZA [facility], [address] [address], [place], [address], 01/06/2024 18:04:30 Referral None recorded. Procedures None recorded. Surgeries None recorded. Imaging CT, abdomen + pelvis, w/ contrast - Authoriza tion code #[id number] 12 2023 [facility] (Imaging), [facility] [address] [place] [address], [phone], 06/05/2024 08:41:14 PFT, complete 2023 024 [facility] (Cardiology & Emg), [address] [facility] [address], [place], [address], 06/03/2024 15:46:10 CT, chest, w/ contrast 2023 024 [facility] (Imaging), [facility] [address] [place] [address], [phone], 06/10/2024 10:10:09 Medication Orders losartan 25 mg tablet 2023 024 [email or web address] [facility] [employer], [address] [place], [place], [id number], 12/08/2023 11:14:27 metoprolo l tartrate 25 mg tablet 2023 024 [email or web address] [facility], [address], [place], [id number], 12/08/2023 11:14:27 folic acid 1 mg tablet 2023 024 [email or web address] [address] [facility], [address], [place], [id number], 12/08/2023 11:14:27 Trelegy Ellipta 100 mcg-62.5 mcg-25 mcg powder for inhalatio n 2023 024 CRISTINE [facility] #18279, [address], [place], [id number], 12/25/2023 12:50:21 cyanocoba winnie (vit B-12) 100 mcg tablet 2023 024 [email or web address] [facility] #24554, [address], [place], [id number], 12/08/2023 11:14:27 Patient TargetsNo targets recorded. Patient Instructions Encounter Date Encounter Id Patient Instructions Last Modified By Organization Details Last Modified Time 12/08/2023 [id number] A healthy lifestyle: care instructions Not available 12/08/2023 11:14:27 Reason for Referral None Reported. Results Created Date Observation Date Name Description Value Unit Range Abnormal Flag Note LastModifiedBy Organization Detail LastModifiedTime 05/03/2005/04/2024 LIPID PANEL cholesterol, total 185 mg/dL 100-19 9 Not Available [facility] ([facility]) [address] [facility], [place], [address], 05/04/2024 08:30:58 05/03/20 24 05/04/2024 LIPID PANEL triglyceride s 64 mg/dL 0-149 Not Available [facility] ([facility]) [address] [place], [address], 05/04/2024 08:30:58 05/03/20 24 05/04/2024 LIPID PANEL HDL cholesterol 100 mg/dL >39 Not Available [facility] ([facility]) [address] [place], [address], 05/04/2024 08:30:58 05/03/20 24 05/04/2024 LIPID PANEL VLDL cholesterol manpreet 12 mg/dL 5-40 Not Available [facility] ([facility]) [address] [place], [address], 05/04/2024 08:30:58 05/03/2005/04/2024 LIPID PANEL LDL chol calc ([facility]) 73 mg/dL 0-99 Not Available [facility] ([facility]) [address] [place], [address], 05/04/2024 08:30:58 05/03/2005/04/2024 COMP. METAB OLIC PANEL (14) glucose 90 mg/dL 70-99 Not Available [facility] ([facility]) [address] [place], [address], 05/04/2024 08:31:00 05/03/2005/04/2024 COMP. METAB OLIC PANEL (14) BUN 13 mg/dL 8-27 Not Available [facility] ([facility]) [address] [place], [address], 05/04/2024 08:31:00 05/03/2005/04/2024 COMP. METAB OLIC PANEL (14) creatinine 0.73 mg/dL 0.76-1 .27 below low normal Not Available [facility] ([facility]) [address] [place], [address], 05/04/2024 08:31:00 05/03/2005/04/2024 COMP. METAB OLIC PANEL (14) eGFR 103 mL/mi n/1.7 3 >59 Not Available [facility] ([facility]) [address] [place], [address], 05/04/2024 08:31:00 05/03/2005/04/2024 COMP. METAB OLIC PANEL (14) BUN/creatini ne ratio 18 10-24 Not Available [facility] ([facility]) [address] [place], [address], 05/04/2024 08:31:00 05/03/20 24 05/04/2024 COMP. METAB OLIC PANEL (14) sodium 129 mmol/ L 134-14 4 below low normal Not Available [facility] ([facility]) [address] [place], [address], 05/04/2024 08:31:00 05/03/20 24 05/04/2024 COMP. METAB OLIC PANEL (14) potassium 4.4 mmol/ L 3.5-5. 2 Not Available [facility] ([facility]) [address] [place], [address], 05/04/2024 08:31:00 05/03/2005/04/2024 COMP. METAB OLIC PANEL (14) chloride 88 mmol/ L 96-106 below low normal Not Available [facility] ([facility]) [address] [place], [address], 05/04/2024 08:31:00 05/03/20 24 05/04/2024 COMP. METAB OLIC PANEL (14) carbon dioxide, total 27 mmol/ L 20-29 Not Available [facility] ([facility]) [address] [place], [address], 05/04/2024 08:31:00 05/03/20 24 05/04/2024 COMP. METAB OLIC PANEL (14) calcium 8.9 mg/dL 8.6-10 .2 Not Available [facility] ([facility]) [address] [place], [address], 05/04/2024 08:31:00 05/03/20 24 05/04/2024 COMP. METAB OLIC PANEL (14) protein, total 6.3 g/dL 6.0-8. 5 Not Available [facility] ([facility]) [address] [place], [address], 05/04/2024 08:31:00 05/03/20 24 05/04/2024 COMP. METAB OLIC PANEL (14) albumin 4.1 g/dL 3.9-4. 9 Not Available [facility] ([facility]) [address] [place], [address], 05/04/2024 08:31:00 05/03/20 24 05/04/2024 COMP. METAB OLIC PANEL (14) globulin, total 2.2 g/dL 1.5-4. 5 Not Available [facility] ([facility]) [address] [place], [address], 05/04/2024 08:31:00 05/03/20 24 05/04/2024 COMP. METAB OLIC PANEL (14) bilirubin, total 0.8 mg/dL 0.0-1. 2 Not Available [facility] ([facility]) [address] [place], [address], 05/04/2024 08:31:00 05/03/20 24 05/04/2024 COMP. METAB OLIC PANEL (14) alkaline phosphatase 244 IU/L 44-121 above high normal Not Available [facility] ([facility]) [address] [place], [address], 05/04/2024 08:31:00 05/03/20 24 05/04/2024 COMP. METAB OLIC PANEL (14) AST (SGOT) 28 IU/L 0-40 Not Available [facility] ([facility]) [address] [place], [address], 05/04/2024 08:31:00 05/03/20 24 05/04/2024 COMP. METAB OLIC PANEL (14) ALT (SGPT) 23 IU/L 0-44 Not Available [facility] ([facility]) [address] [place], [address], 05/04/2024 08:31:00 05/03/20 24 05/04/2024 MICRO SCOPI C EXAMI NATIO N WBC None seen /hpf 0-5 Not Available [facility] ([facility]) [address] [facility], [place], [address], 05/04/2024 08:31:01 05/03/2005/04/2024 MICRO SCOPI C EXAMI NATIO N RBC 11-30 /hpf 0-2 abnormal Not Available [facility] ([facility]) [address] [facility], [place], [address], 05/04/2024 08:31:01 05/03/2005/04/2024 MICRO SCOPI C EXAMI NATIO N epithelial cells (non renal) 0-10 /hpf 0-10 Not Available [facility] ([facility]) [address] [facility], [place], [address], 05/04/2024 08:31:01 05/03/20 24 05/04/2024 MICRO SCOPI C EXAMI NATIO N casts None seen /lpf nonese en Not Available [facility] ([facility]) [address] [facility], [place], [address], 05/04/2024 08:31:01 05/03/2005/04/2024 MICRO SCOPI C EXAMI NATIO N bacteria None seen nonese en/few Not Available [facility] ([facility]) [address] [facility], [place], [address], 05/04/2024 08:31:01 05/03/2005/04/2024 HEMOG LOBIN A1C hemoglobin A1C 6.3 % 4.8-5. 6 above high normal Predi abete s: 5.7 - 6.4 Diabe jason: >6.4 Glyce reji contr ol for adult s with diabe jason: <7.0 Not Available [facility] ([facility]) [address] [facility], [place], [address], 05/04/2024 08:31:02 05/03/20 24 05/04/2024 URINA LYSIS , COMPL ETE specific gravity 1.017 1.005- 1.030 Not Available [facility] ([facility]) [address] [facility], [place], [address], 05/04/2024 08:31:03 05/03/20 24 05/04/2024 URINA LYSIS , COMPL ETE pH 6.5 5.0-7. 5 Not Available [facility] ([facility]) [address] [facility] [facility], [place], [address], 05/04/2024 08:31:03 05/03/2005/04/2024 URINA LYSIS , COMPL ETE urine-color YELLOW yellow Not Available [facility] ([facility]) [address] [place], [address], 05/04/2024 08:31:03 05/03/20 24 05/04/2024 URINA LYSIS , COMPL ETE appearance CLEAR clear Not Available [facility] ([facility]) [address] [place], [address], 05/04/2024 08:31:03 05/03/20 24 05/04/2024 URINA LYSIS , COMPL ETE WBC esterase TRACE negati ve abnormal Not Available [facility] ([facility]) [address] [place], [address], 05/04/2024 08:31:03 05/03/20 24 05/04/2024 URINA LYSIS , COMPL ETE protein 3+ negati ve/tra ce abnormal Not Available [facility] ([facility]) [address] [place], [address], 05/04/2024 08:31:03 05/03/20 24 05/04/2024 URINA LYSIS , COMPL ETE glucose NEGATI VE negati ve Not Available [facility] ([facility]) [address] [place], [address], 05/04/2024 08:31:03 05/03/20 24 05/04/2024 URINA LYSIS , COMPL ETE ketones NEGATI VE negati ve Not Available [facility] ([facility]) [address] [facility], [place], [address], 05/04/2024 08:31:03 05/03/20 24 05/04/2024 URINA LYSIS , COMPL ETE occult blood 2+ negati ve abnormal Not Available [facility] ([facility]) [address] [facility], [place], [address], 05/04/2024 08:31:03 05/03/20 24 05/04/2024 URINA LYSIS , COMPL ETE bilirubin NEGATI VE negati ve Not Available [facility] ([facility]) [address] [facility], [place], [address], 05/04/2024 08:31:03 05/03/20 24 05/04/2024 URINA LYSIS , COMPL ETE urobilinogen ,semi-qn 1.0 mg/dL 0.2-1. 0 Not Available [facility] ([facility]) [address] [facility], [place], [address], 05/04/2024 08:31:03 05/03/20 24 05/04/2024 URINA LYSIS , COMPL ETE nitrite, urine NEGATI VE negati ve Not Available [facility] ([facility]) [address] [facility], [place], [address], 05/04/2024 08:31:03 05/03/20 24 05/04/2024 URINA LYSIS , COMPL ETE microscopic examination SEE BELOW: Micro scopi c was indic ated and was perfo rmed. Not Available [facility] ([facility]) [address] [place], [address], 05/04/2024 08:31:03 05/03/20 24 05/04/2024 CBC WITH DIFFE RENTI AL/PL ATELE T WBC 7.3 x10e3 /uL 3.4-10 .8 Eff ectiv e Decem matias 2023 [place] [id number] 5 WBC will be made* * non-o rdera ble as a stand -adelita e order code. Not Available [facility] ([facility]) [address] [place], [address], 05/04/2024 08:31:05 05/03/20 24 05/04/2024 CBC WITH DIFFE RENTI AL/PL ATELE T RBC 4.25 x10e6 /uL 4.14-5 .80 Not Available [facility] ([facility]) [address] [place], [address], 05/04/2024 08:31:05 05/03/2005/04/2024 CBC WITH DIFFE RENTI AL/PL ATELE T hemoglobin 14.7 g/dL 13.0-1 7.7 Not Available [facility] ([facility]) [address] [place], [address], 05/04/2024 08:31:05 05/03/20 24 05/04/2024 CBC WITH DIFFE RENTI AL/PL ATELE T hematocrit 42.7 % 37.5-5 1.0 Not Available [facility] ([facility]) [address] [place], [address], 05/04/2024 08:31:05 05/03/20 24 05/04/2024 CBC WITH DIFFE RENTI AL/PL ATELE T MCV 101 fL 79-97 above high normal Not Available [facility] ([facility]) [address] [place], [address], 05/04/2024 08:31:05 05/03/20 24 05/04/2024 CBC WITH DIFFE RENTI AL/PL ATELE T MCH 34.6 pg 26.6-3 3.0 above high normal Not Available [facility] ([facility]) [address] [place], [address], 05/04/2024 08:31:05 05/03/20 24 05/04/2024 CBC WITH DIFFE RENTI AL/PL ATELE T MCHC 34.4 g/dL 31.5-3 5.7 Not Available [facility] ([facility]) [address] [facility], [place], [address], 05/04/2024 08:31:05 05/03/20 24 05/04/2024 CBC WITH DIFFE RENTI AL/PL ATELE T RDW 13.3 % 11.6-1 5.4 Not Available [facility] ([facility]) [address] [facility], [place], [address], 05/04/2024 08:31:05 05/03/20 24 05/04/2024 CBC WITH DIFFE RENTI AL/PL ATELE T platelets 151 x10e3 /uL 150-45 0 Not Available [facility] ([facility]) [address] [facility] [facility], [place], [address], 05/04/2024 08:31:05 05/03/20 24 05/04/2024 CBC WITH DIFFE RENTI AL/PL ATELE T neutrophils 57 % notest ab. Not Available [facility] ([facility]) [address] [facility], [place], [address], 05/04/2024 08:31:05 05/03/20 24 05/04/2024 CBC WITH DIFFE RENTI AL/PL ATELE T lymphs 26 % notest ab. Not Available [facility] ([facility]) [address] [facility], [place], [address], 05/04/2024 08:31:05 05/03/20 24 05/04/2024 CBC WITH DIFFE RENTI AL/PL ATELE T monocytes 9 % notest ab. Not Available [facility] ([facility]) [address] [facility], [place], [address], 05/04/2024 08:31:05 05/03/20 24 05/04/2024 CBC WITH DIFFE RENTI AL/PL ATELE T eos 3 % notest ab. Not Available [facility] ([facility]) [address] [facility] [facility], [place], [address], 05/04/2024 08:31:05 05/03/20 24 05/04/2024 CBC WITH DIFFE RENTI AL/PL ATELE T basos 1 % notest ab. Not Available [facility] ([facility]) [address] [facility] [facility], [place], [address], 05/04/2024 08:31:05 05/03/20 24 05/04/2024 CBC WITH DIFFE RENTI AL/PL ATELE T neutrophils (absolute) 4.2 x10e3 /uL 1.4-7. 0 Not Available [facility] ([facility]) [address] [facility], [place], [address], 05/04/2024 08:31:05 05/03/20 24 05/04/2024 CBC WITH DIFFE RENTI AL/PL ATELE T lymphs (absolute) 1.9 x10e3 /uL 0.7-3. 1 Not Available [facility] ([facility]) [address] [facility] [facility], [place], [address], 05/04/2024 08:31:05 05/03/20 24 05/04/2024 CBC WITH DIFFE RENTI AL/PL ATELE T monocytes(ab solute) 0.7 x10e3 /uL 0.1-0. 9 Not Available [facility] ([facility]) [address] [facility] [facility], [place], [address], 05/04/2024 08:31:05 05/03/20 24 05/04/2024 CBC WITH DIFFE RENTI AL/PL ATELE T eos (absolute) 0.2 x10e3 /uL 0.0-0. 4 Not Available [facility] ([facility]) [address] [facility], [place], [address], 05/04/2024 08:31:05 05/03/20 24 05/04/2024 CBC WITH DIFFE RENTI AL/PL ATELE T baso (absolute) 0.1 x10e3 /uL 0.0-0. 2 Not Available [facility] ([facility]) [address] [facility] [facility], [place], [address], 05/04/2024 08:31:05 05/03/20 24 05/04/2024 CBC WITH DIFFE RENTI AL/PL ATELE T immature granulocytes 4 % notest ab. Not Available [facility] ([facility]) [address] [facility], [place], [address], 05/04/2024 08:31:05 05/03/20 24 05/04/2024 CBC WITH [...] manpreet signi fican ce.) Not Available [facility] ([facility]) [address] [facility], [place], [address], 05/04/2024 08:31:05 05/03/20 24 05/04/2024 CBC WITH DIFFE RENTI AL/PL ATELE T NRBC 1 % 0-0 above high normal Not Available [facility] ([facility]) [address] [facility], [place], [address], 05/04/2024 08:31:05 05/18/20 24 05/20/2024 SPECI MEN STATU S REPOR T specimen status report TNP Test not perfo rmed. No urine speci men recei shirin. TEST: [id number] [id number] Na U+[place] [address] 2 Osmol ality , Urine Not Available [facility] ([facility]) [address] [place], [address], 05/20/2024 13:10:21 05/18/20 24 05/19/2024 BASIC METAB OLIC PANEL (7) glucose 94 mg/dL 70-99 Not Available [facility] ([facility]) [address] [place], [address], 05/20/2024 13:10:22 05/18/20 24 05/19/2024 BASIC METAB OLIC PANEL (7) BUN 19 mg/dL 8-27 Not Available [facility] ([facility]) [address] [place], [address], 05/20/2024 13:10:22 05/18/20 24 05/19/2024 BASIC METAB OLIC PANEL (7) creatinine 1.39 mg/dL 0.76-1 .27 above high normal Not Available [facility] ([facility]) [address] [place], [address], 05/20/2024 13:10:22 05/18/20 24 05/19/2024 BASIC METAB OLIC PANEL (7) eGFR 57 mL/mi n/1.7 3 >59 below low normal Not Available [facility] ([facility]) [address] [place], [address], 05/20/2024 13:10:22 05/18/20 24 05/19/2024 BASIC METAB OLIC PANEL (7) BUN/creatini ne ratio 14 10-24 Not Available [facility] ([facility]) [address] [place], [address], 05/20/2024 13:10:22 05/18/20 24 05/19/2024 BASIC METAB OLIC PANEL (7) sodium 133 mmol/ L 134-14 4 below low normal Not Available [facility] ([facility]) [address] [place], [address], 05/20/2024 13:10:22 05/18/20 24 05/19/2024 BASIC METAB OLIC PANEL (7) potassium 4.4 mmol/ L 3.5-5. 2 Not Available [facility] ([facility]) [address] [place], [address], 05/20/2024 13:10:22 05/18/20 24 05/19/2024 BASIC METAB OLIC PANEL (7) chloride 92 mmol/ L 96-106 below low normal Not Available [facility] ([facility]) [address] [place], [address], 05/20/2024 13:10:22 05/18/20 24 05/19/2024 BASIC METAB OLIC PANEL (7) carbon dioxide, total 25 mmol/ L 20-29 Not Available [facility] ([facility]) [address] [place], [address], 05/20/2024 13:10:22 05/18/20 24 05/19/2024 T4, FREE T4,free(dire ct) 1.54 NG/dL 0.82-1 .77 Not Available [facility] ([facility]) [address] [place], [address], 05/20/2024 13:10:23 05/18/20 24 05/18/2024 UNABL E TO VOID unable to void Commen t Patie nt unabl e to void. Urine to be colle cted at a later date. Not Available [facility] ([facility]) [address] [place], [address], 05/20/2024 13:10:24 05/18/20 24 05/19/2024 CORTI KRISTEN cortisol 9.2 ug/dL 6.2-19 .4 Pleas e Note: The refer ence inter randa and vale ing for this test is for an AM colle ction . If this is a PM colle ction pleas e use: Corti kristen PM: 2.3-1 1.9 Not Available [facility] ([facility]) [address] [facility] [facility], [place], [address], 05/20/2024 13:10:25 05/18/20 24 05/19/2024 TSH TSH 5.640 uIU/m L 0.450- 4.500 above high normal Not Available [facility] ([facility]) [address] [place], [address], 05/20/2024 13:10:26 05/18/20 24 05/19/2024 TRIIO DOTHY JACQUES E (T3), FREE triiodothyro nine (T3), free 3.0 pg/mL 2.0-4. 4 Not Available [facility] ([facility]) [address] [facility], [place], [address], 05/20/2024 13:10:27 07/26/19 25 07/27/2024 SPECI MEN STATU S REPOR T specimen status report TNP [facility] was unabl e to colle ct suffi cient speci men to perfo rm the follo wing test( s), and is provi ding the patie nt with re-co llect ion instr uctio ns. TEST: [id number] CBC With Diffe renti al/Pl atele t Not Available [facility] ([facility]) [address] [place], [address], 08/01/2024 17:09:55 07/26/19 25 07/26/2024 MULTI PLE MYELO MA CASCA DE please note: COMMEN T Prote in elect ropho resis scan will follo w via compu ter, mail, or couri er audie bray. Not Available [facility] ([facility]) [address] [place], [address], 08/01/2024 17:09:56 07/26/19 25 07/27/2024 MULTI PLE MYELO MA CASCA DE albumin 3.7 g/dL 2.9-4. 4 Not Available [facility] ([facility]) [address] [place], [address], 08/01/2024 17:09:56 07/26/19 25 07/27/2024 MULTI PLE MYELO MA CASCA DE mogsy-5-pcux ulin 0.5 g/dL 0.0-0. 4 above high normal Not Available [facility] ([facility]) [address] [facility], [place], [address], 08/01/2024 17:09:56 07/26/19 25 07/27/2024 MULTI PLE MYELO MA CASCA DE tshiu-0-smqp ulin 0.5 g/dL 0.4-1. 0 Not Available [facility] ([facility]) [address] [place], [address], 08/01/2024 17:09:56 07/26/19 25 07/27/2024 MULTI PLE MYELO MA CASCA DE beta globulin 1.0 g/dL 0.7-1. 3 Not Available [facility] ([facility]) [address] [facility], [place], [address], 08/01/2024 17:09:56 07/26/19 25 07/27/2024 MULTI PLE MYELO MA CASCA DE gamma globulin 0.9 g/dL 0.4-1. 8 Not Available [facility] ([facility]) [address] [place], [address], 08/01/2024 17:09:56 07/26/19 25 07/27/2024 MULTI PLE MYELO MA CASCA DE M-spike NOT OBSERV ED g/dL notobs erved Not Available [facility] ([facility]) [address] [place], [address], 08/01/2024 17:09:56 07/26/19 25 07/27/2024 MULTI PLE MYELO MA CASCA DE globulin, total 2.8 g/dL 2.2-3. 9 Not Available [facility] ([facility]) [address] [place], [address], 08/01/2024 17:09:56 07/26/19 25 07/27/2024 MULTI PLE MYELO MA CASCA DE A/G ratio 1.3 0.7-1. 7 Not Available [facility] ([facility]) [address] [place], [address], 08/01/2024 17:09:56 07/26/19 25 07/27/2024 MULTI PLE MYELO MA CASCA DE reflex testing . Not Available [facility] ([facility]) [address] [place], [address], 08/01/2024 17:09:56 07/26/19 25 07/27/2024 MULTI PLE MYELO MA CASCA DE pdf . Not Available [facility] ([facility]) [address] [place], [address], 08/01/2024 17:09:56 07/26/19 25 08/01/2024 FREE K+L LT CHAIN S,QN, S free kappa lt chains,S 31.7 mg/L 3.3-19 .4 above high normal Not Available [facility] ([facility]) [address] [place], [address], 08/01/2024 17:09:57 07/26/19 25 08/01/2024 FREE K+L LT CHAIN S,QN, S free lambda lt chains,S 21.0 mg/L 5.7-26 .3 Not Available [facility] ([facility]) [address] [place], [address], 08/01/2024 17:09:57 07/26/19 25 08/01/2024 FREE K+L LT CHAIN S,QN, S kappa/lambda ratio,S 1.51 0.26-1 .65 Not Available [facility] ([facility]) [address] [place], [address], 08/01/2024 17:09:57 07/26/19 25 08/01/2024 COMME NT: comment: Commen t Consi nory order ing urine immun ofixa tion (uIFE ) to rule out Amylo idosi s (AL). Not Available [facility] ([facility]) [address] [place], [address], 08/01/2024 17:09:58 07/26/19 25 07/27/2024 LIPID PANEL cholesterol, total 189 mg/dL 100-19 9 Not Available [facility] ([facility]) [address] [place], [address], 08/01/2024 17:09:58 07/26/19 25 07/27/2024 LIPID PANEL triglyceride s 67 mg/dL 0-149 Not Available [facility] ([facility]) [address] [place], [address], 08/01/2024 17:09:58 07/26/19 25 07/27/2024 LIPID PANEL HDL cholesterol 106 mg/dL >39 Not Available [facility] ([facility]) [address] [place], [address], 08/01/2024 17:09:58 07/26/19 25 07/27/2024 LIPID PANEL VLDL cholesterol manpreet 12 mg/dL 5-40 Not Available [facility] ([facility]) [address] [place], [address], 08/01/2024 17:09:58 07/26/19 25 07/27/2024 LIPID PANEL LDL chol calc ([facility]) 71 mg/dL 0-99 Not Available [facility] ([facility]) [address] [place], [address], 08/01/2024 17:09:58 07/26/19 25 07/27/2024 T4, FREE T4,free(dire ct) 1.75 NG/dL 0.82-1 .77 Not Available [facility] ([facility]) [address] [place], [address], 08/01/2024 17:09:59 07/26/19 25 07/27/2024 COMP. METAB OLIC PANEL (14) glucose 87 mg/dL 70-99 Not Available [facility] ([facility]) [address] [place], [address], 08/01/2024 17:10:00 07/26/19 25 07/27/2024 COMP. METAB OLIC PANEL (14) BUN 26 mg/dL 8-27 Not Available [facility] ([facility]) [address] [place], [address], 08/01/2024 17:10:00 07/26/19 25 07/27/2024 COMP. METAB OLIC PANEL (14) creatinine 1.41 mg/dL 0.76-1 .27 above high normal Not Available [facility] ([facility]) [address] [place], [address], 08/01/2024 17:10:00 07/26/19 25 07/27/2024 COMP. METAB OLIC PANEL (14) eGFR 56 mL/mi n/1.7 3 >59 below low normal Not Available [facility] ([facility]) [address] [place], [address], 08/01/2024 17:10:00 07/26/19 25 07/27/2024 COMP. METAB OLIC PANEL (14) BUN/creatini ne ratio 18 -24 Not Available [facility] ([facility]) [address] [place], [address], 08/01/2024 17:10:00 07/26/19 25 07/27/2024 COMP. METAB OLIC PANEL (14) sodium 134 mmol/ L 134-14 4 Not Available [facility] ([facility]) [address] [place], [address], 08/01/2024 17:10:00 07/26/19 25 07/27/2024 COMP. METAB OLIC PANEL (14) potassium 4.6 mmol/ L 3.5-5. 2 Not Available [facility] ([facility]) [address] [facility], [place], [address], 08/01/2024 17:10:00 07/26/19 25 07/27/2024 COMP. METAB OLIC PANEL (14) chloride 93 mmol/ L 96-106 below low normal Not Available [facility] ([facility]) [address] [facility], [place], [address], 08/01/2024 17:10:00 07/26/19 25 07/27/2024 COMP. METAB OLIC PANEL (14) carbon dioxide, total 26 mmol/ L 20-29 Not Available [facility] ([facility]) [address] [place], [address], 08/01/2024 17:10:00 07/26/19 25 07/27/2024 COMP. METAB OLIC PANEL (14) calcium 8.5 mg/dL 8.6-10 .2 below low normal Not Available [facility] ([facility]) [address] [place], [address], 08/01/2024 17:10:00 07/26/19 25 07/27/2024 COMP. METAB OLIC PANEL (14) protein, total 6.5 g/dL 6.0-8. 5 Not Available [facility] ([facility]) [address] [place], [address], 08/01/2024 17:10:00 07/26/19 25 07/27/2024 COMP. METAB OLIC PANEL (14) albumin 3.9 g/dL 3.9-4. 9 Not Available [facility] ([facility]) [address] [place], [address], 08/01/2024 17:10:00 07/26/19 25 07/27/2024 COMP. METAB OLIC PANEL (14) globulin, total 2.6 g/dL 1.5-4. 5 Not Available [facility] ([facility]) [address] [place], [address], 08/01/2024 17:10:00 07/26/19 25 07/27/2024 COMP. METAB OLIC PANEL (14) bilirubin, total 0.9 mg/dL 0.0-1. 2 Not Available [facility] ([facility]) [address] [facility], [place], [address], 08/01/2024 17:10:00 07/26/19 25 07/27/2024 COMP. METAB OLIC PANEL (14) alkaline phosphatase 353 IU/L 44-121 above high normal Not Available [facility] ([facility]) [address] [place], [address], 08/01/2024 17:10:00 07/26/19 25 07/27/2024 COMP. METAB OLIC PANEL (14) AST (SGOT) 32 IU/L 0-40 Not Available [facility] ([facility]) [address] [place], [address], 08/01/2024 17:10:00 07/26/19 25 07/27/2024 COMP. METAB OLIC PANEL (14) ALT (SGPT) 22 IU/L 0-44 Not Available [facility] ([facility]) [address] [facility], [place], [address], 08/01/2024 17:10:00 07/26/19 25 07/27/2024 TSH TSH 3.830 uIU/m L 0.450- 4.500 Not Available [facility] ([facility]) [address] [facility], [place], [address], 08/01/2024 17:10:02 07/26/19 25 07/27/2024 CBC WITH DIFFE RENTI AL/PL ATELE T WBC - x10e3 /uL [facility] was unabl e to colle ct suffi cient speci men to perfo rm the follo wing test( s), and is provi ding the patie nt with re-co llect ion instr uctio ns. Not Available [facility] ([facility]) [address] [place], [address], 08/01/2024 17:10:03 07/26/19 25 07/27/2024 CBC WITH DIFFE RENTI AL/PL ATELE T RBC - Test not perfo rmed Not Available [facility] ([facility]) [address] [place], [address], 08/01/2024 17:10:03 07/26/19 25 07/27/2024 CBC WITH DIFFE RENTI AL/PL ATELE T hemoglobin - Test not perfo rmed Not Available [facility] ([facility]) [address] [place], [address], 08/01/2024 17:10:03 07/26/19 25 07/27/2024 CBC WITH DIFFE RENTI AL/PL ATELE T hematocrit - Test not perfo rmed Not Available [facility] ([facility]) [address] [place], [address], 08/01/2024 17:10:03 07/26/19 25 07/27/2024 CBC WITH DIFFE RENTI AL/PL ATELE T platelets - Test not perfo rmed Not Available [facility] ([facility]) [address] [place], [address], 08/01/2024 17:10:03 07/26/19 25 07/27/2024 CBC WITH DIFFE RENTI AL/PL ATELE T neutrophils - Test not perfo rmed Not Available [facility] ([facility]) [address] [place], [address], 08/01/2024 17:10:03 07/26/19 25 07/27/2024 CBC WITH DIFFE RENTI AL/PL ATELE T lymphs - Test not perfo rmed Not Available [facility] ([facility]) [address] [place], [address], 08/01/2024 17:10:03 07/26/19 25 07/27/2024 CBC WITH DIFFE RENTI AL/PL ATELE T monocytes - Test not perfo rmed Not Available [facility] ([facility]) [address] [place], [address], 08/01/2024 17:10:03 07/26/19 25 07/27/2024 CBC WITH DIFFE RENTI AL/PL ATELE T eos - Test not perfo rmed Not Available [facility] ([facility]) [address] [place], [address], 08/01/2024 17:10:03 07/26/19 25 07/27/2024 CBC WITH DIFFE RENTI AL/PL ATELE T lymphs (absolute) - Test not perfo rmed Not Available [facility] ([facility]) [address] [place], [address], 08/01/2024 17:10:03 07/26/19 25 07/27/2024 CBC WITH DIFFE RENTI AL/PL ATELE T eos (absolute) - Test not perfo rmed Not Available [facility] ([facility]) [address] [place], [address], 08/01/2024 17:10:03 07/26/19 25 07/27/2024 CBC WITH DIFFE RENTI AL/PL ATELE T baso (absolute) - Test not perfo rmed Not Available [facility] ([facility]) [address] [place], [address], 08/01/2024 17:10:03 07/26/19 25 07/27/2024 PROST ATE-S PECIF IC AG prostate specific Ag 1387.0 NG/mL 0.0-4. 0 above high normal Resul ts confi rmed on dilut ion. [place] ECLIA metho dolog y. Accor [place] to the Ameri can [employer] g[employer] iatio n, Serum PSA shoul d decre ase and remai n at undet ectab le level s after radic al prost atect tona. The AUA defin es bioch emica l recur rence as an initi al PSA value 0.2 ng/mL or great er follo wed by a subse quent confi rmato ry PSA value 0.2 ng/mL or great er. Value s obtai milagro with diffe rent assay metho ds or kits canno t be used inter centeno eably . Resul ts canno t be inter prete d as absol [place] evide nce of the prese nce or absen ce of carson garcia se. Not Available [facility] ([facility]) [address] [facility], [place], [address], 08/01/2024 17:10:05 07/26/19 25 07/27/2024 TRIIO DOTHY JACQUES E (T3), FREE triiodothyro nine (T3), free 2.5 pg/mL 2.0-4. 4 Not Available [facility] ([facility]) [address] [facility], [place], [address], 08/01/2024 17:10:06 06/03/20 24 06/03/2024 PFT, compl ete No observ ation record ed. [address] [facility] [place], [address], 06/10/2024 16:43:42 06/05/20 24 06/03/2024 CT, abdom en + pelvi s, w/ contr ast No observ ation record ed. [address], [place], [address], 06/10/2024 17:05:51 06/10/[address], chest , w/ contr ast No observ ation record ed. [address], [place], [address], 06/10/2024 17:05:50 Result Notes None recorded. Problems Name Problem SNOMED Code Status Onset Date Resolution Date Notes Provider Name and Address Organization Details Recorded Time Chronic obstructive pulmonary disease 49229322 Active 2023 COREEN Chan, [place] - [facility] 4 09:18:24 Essential hypertension 62608734 Active 2023 Melony Patterson MA null, [place] - [facility] 4 11:12:58 Serum vitamin B12 below reference range 642188585 Active 2023 CORE[place] [facility] 4 11:12:59 Obesity 966167645 Active 2023 COREEN [place] - [facility] 4 11:13:01 SARS-CoV-2 vaccination declined 9385811749 Active 2023 Tatyana Crowell MD Attn: Jean garcia,[address] [place], [address], [place] - [facility] 4 22:00:35 Administratio n of influenza vaccine Active 2023 Tatyana Crowell MD Attn: Jean garcia,[address] [place], [address], [place] [facility] 4 22:00:36 Inguinal lymphadenopat hy 652201051 Active 2024 COREEN [place] [facility] 5 16:15:41 Body mass index 20-24 - normal 611943764 Active 2024 COREEN [place] [facility] 5 16:15:42 Screening for malignant neoplasm of prostate Active 2024 Melony Patterson [place], [place] - [facility] 5 16:15:45 Lesion of bone 506513968 Active 2024 COREEN [place] [facility] 5 16:15:46 Problem Notes None recorded. Procedures Surgical History Date Name Laterality Status Provider Name and Address Organization Details Recorded Time Tonsillectomy completed Stefanie Penn [place] - [facility] 08/27/2023 16:42:41 Imaging Results Imaging Date Name Status LastModified by Organiz ation Details LastModified Time 06/03/2024 PFT, complete completed [address], [place], [address], 06/10/2024 16:43:42 06/03/2024 CT, abdomen + pelvis, w/ contrast completed [address], [place], [address], 06/10/2024 17:05:51 06/10/2024 CT, chest, w/ contrast completed [address], [place], [address], 06/10/2024 17:05:50 Procedure Notes None recorded. Medical Equipment None Reported. Allergies No known drug allergies Medications Name Sig Start Date Stop Date Status Note LastModified by Organization Details LastModified Time nicotine 14 mg/24 hr daily transdermal patch APPLY 1 PATCH TOPICALLY TO THE SKIN EVERY DAY 07/26 completed Not Available Not Available Not Available cyanocobala min (vit B-12) 100 mcg [...] Not Available Not Available No t Available hydrocodone 7.5 mg-acetamin ophen 325 mg tablet TAKE 1 TABLET BY MOUTH TWICE DAILY NEEDED FOR PAIN active Not Available Not Available No t Available losartan 25 mg tablet TAKE 1 TABLET BY MOUTH ONCE DAILY active Not Available Not Available No t Available nicotine 21 mg/24 hr daily transdermal patch APPLY 1 PATCH TOPICALLY TO THE SKIN DAILY 07/26 completed Not Available Not Available Not Available folic acid 1 mg tablet TAKE 1 TABLET BY MOUTH EVERY DAY active Not Available Not Available No t Available furosemide 20 mg tablet TAKE 1 TABLET BY MOUTH DAILY active Not Available Not Available No t Available albuterol sulfate HFA 90 mcg/actuati on aerosol inhaler INHALE 2 PUFFS BY MOUTH EVERY 4 HOURS NEEDED active Not Available Not Available No t Available nicotine 7 mg/24 hr daily transdermal patch APPLY 1 PATCH TOPICALLY TO THE SKIN EVERY DAY 07/26 completed Not Available Not Available Not Available metoprolol tartrate 25 mg tablet TAKE 1 TABLET BY MOUTH TWICE DAILY active Not Available Not Available No t Available Trelegy Ellipta 100 mcg-62.5 mcg-25 mcg powder for inhalation INHALE 1 PUFF BY MOUTH EVERY DAY 12/24 completed Not Available Not Available Not Available tramadol 100 mg tablet Take 1 tablet 3 times a day by oral route as needed. 07/26 completed Not Available Not Available Not Available Breztri Aerosphere 160 mcg-9mcg-4. 8mcg/actuat ion HFA aerosol inhaler INHALE 2 PUFFS BY MOUTH TWICE DAILY 2024 active Not Available Not Available Not Avai lable Vitals Date Recorded Body height Body mass index (BMI) Body weight Oxygen saturation Oxygen saturation in Arterial blood by Pulse oximetry Heart rate Provider Name and Address Organization Details Last Updated DateTime 4 175.26 cm 27.1 kg/m2 41783.5 6 g 87 % 87 % 81 /min Love Morrison MA [facility] 4 10:27:51 Date Recorded Body height Body mass index (BMI) Body weight Heart rate Oxygen saturation Oxygen saturation in Arterial blood by Pulse oximetry Systolic blood pressure Diastolic blood pressure Provider Name and Address Organization Details Last Updated DateTime 4 175.26 cm 25.4 kg/m2 81149.1 8 g 87 /min 90 % 90 % 128 mm[Hg] 66 mm[Hg] Alesia Caldwell MA [place] - [facility] 4 15:57:47 Date Recorded Body height Heart rate Oxygen saturation Oxygen saturation in Arterial blood by Pulse oximetry Systolic blood pressure Diastolic blood pressure Provider Name and Address Organization Details Last Updated DateTime 4 175.26 cm 82 /min 89 % 89 % 104 mm[Hg] 72 mm[Hg] Sofia Hinson [place] - [facility] 4 15:46:49 Date Recorded Body height Body mass index (BMI) Body weight Heart rate Oxygen saturation Oxygen saturation in Arterial blood by Pulse oximetry Systolic blood pressure Diastolic blood pressure Provider Name and Address Organization Details Last Updated DateTime 4 175.26 cm 24.8 kg/m2 02112.8 8 g 92 /min 92 % 92 % 130 mm[Hg] 78 mm[Hg] Sofia Hinson MA [facility] 4 15:06:58 Date Recorded Body height Body mass index (BMI) Body weight Heart rate Oxygen saturation Oxygen saturation in Arterial blood by Pulse oximetry Systolic blood pressure Diastolic blood pressure Provider Name and Address Organization Details Last Updated DateTime 5 175.26 cm 23 kg/m2 60128.4 1 g 96 /min 83 % 83 % 106 mm[Hg] 60 mm[Hg] Sofianithya Hinson MA [facility] 5 15:29:39 Social History Question Answer Notes LastModified by Organizat ion Details LastModified Time Tobacco Smoking Status Current Every Day Smoker Stefanie Penn MA [facility] 08/27/2023 16:42:26 Do You Have An Advance [...] not available 12/08/2023 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 No Information not available 12/08/2023 What Was The Date Of Your Most Recent Tobacco Screening? 07/26/2024 Information not available 07/26/2024 What Is Your Relationship Status? Single Information not available 12/08/2023 Do You Use Your Seat Belt Or Car Seat Routinely? Yes Information not available 05/03/2024 Do You Have Smoke And Carbon Monoxide Detectors In Your Home? Yes Information not available 12/08/2023 Do You Feel Stressed (tense, Restless, Nervous, Or Anxious, Or Unable To Sleep At Night)? [id number] Not Sleeping At Night. Information not available 12/08/2023 Do You Use Any Illicit Or Recreational Drugs? No Information not available 08/27/2023 Do You Use Sunscreen Routinely? Yes Information not available 12/08/2023 Has Tobacco Cessation Counseling Been Provided? Yes Information not available 07/26/2024 On What Date Was Tobacco Cessation Counseling Provided? 07/26/2024 Information not available 07/26/2024 Sex: Male Functional Status Question Answer Note [...] Disease N Other N High Blood Pressure Y Atrial Fibrillation N Kidney or Bladder Problems N Thyroid Problems N GI Problems N Depression N COPD Y Blood Clots N Skin Problems N Anemia N Heart Attack ([place]) N Anxiety Disorder N Diabetes N Muscle, [...] MDCK, quadrivalent, PF 0 completed COREEN Chan, [place] - [facility] 12/08/2023 10:42:54 Influenza, split virus, trivalent, preservative 4 completed COREEN Chan, [place] - [facility] 12/08/2023 10:42:54 Influenza, split virus, quadrivalent, PF 1 completed COREEN Chan, [place] [facility] 12/08/2023 10:42:54 Past Encounters Encounter ID Performer Location Encounter Start Date Encounter Closed Date Diagnosis/Indication Diagnosis SNOMED-CT Code Diagnosis ICD10 Code Diagnosis Note [id number] MD Holger Choi (Adult Med) [address] [place] [phone] 08/27/2023 16:26:37 08/27/2023 17:28:57 Chronic obstructive pulmonary disease 45809617 J44.9 Screening for cardiovascular system disease 851857553 Z13.6 Long-term drug therapy 698027786 Z79.899 Erythrocytosis 403456640 D75.1 [id number] MD Holger Choi (Adult Med) [address] [place] [phone] 12/08/2023 10:12:56 12/08/2023 11:16:29 Obesity 429695807 E66.8 Chronic ob structive pulmonary disease 40677722 J44.9 Essential hypertension 06041122 I10 Serum marky min B12 below reference range 091304753 R79.89 Dyspnea 879406009 R06.01 [id number] MD Holger Choi (Adult Med) [address] [place] [phone] 03/15/2024 15:25:17 03/15/2024 17:20:29 Chronic obstructive pulmonary disease 85353079 J44.9 Essential hypertension 18274725 I10 Serum marky min B12 below reference range 673063092 R79.89 Administra tion of influenza vaccine 81492850 Z23 SARS-CoV-2 vaccination declined 6413869356 Z28.21 [id number] MD Holger Choi (Adult Med) [address] [place] [phone] 04/05/2024 15:42:28 04/05/2024 16:22:35 [id number] MD Holger Choi (Adult Med) [address] [place] [address] 05/03/2024 14:46:52 05/03/2024 15:45:45 Body mass index 20-24 - normal 827717221 Z68.24 Essential hypertension 67178703 I10 Prediabetes 773623637 R7 3.03 Abdominal pain 96918463 R10.9 CT of chest abnormal 430 9910604 6960703 R93.89 Chronic ob structive pulmonary disease 99074164 J44.9 [id number] COREEN Chan (Adult Med) [address] [place] [address] 07/26/2024 15:12:54 07/26/2024 16:17:16 Body mass index 20-24 - normal 273703621 Z68.24 Inguinal lymphadenopathy 833790833 R59.0 Essential hypertension 36783068 I10 Screening for malignant neoplasm of prostate 207561164 Z12.5 Lesion of bone 313716697 M89.9 Health Concerns Section Related Observation LastModified by Organization Detai ls LastModified Time None Recorded Concern Status LastModified by Organization Details LastModified Time None Recorded Advance Directives Directive N: Payers Encounter Date Sequence Insurance Name Policy Number Policy Spann Covered Member ID Spann Member ID Guarantor Name 12/08/2023 1 [facility] [id number] Robert Maloney [id number] Robert Maloney 03/15/2024 1 [facility] [id number] Robert Maloney [id number] Robert Maloney 04/05/2024 1 [facility] [id number] Robert Deeevenaman [id number] Robert Masenaman 05/03/2024 1 [facility] [id number] Robert Deeevenaman [id number] Robert Maloney Notes Date Note Type Note Provider Name and Address Organization Details Recorded Time 12/08/2023 text/html obesity needs to lose some [...] been fully evaluated Tatyana Crowell MD Attn: Accounting, [address] [facility], [place], [address], [facility] 12/27/2023 16:01:50 03/15/2024 text/html 1. COPD he [...] Tatyana Crowell MD Attn: Accounting, [address] [facility], [place], [address], [facility] 03/15/2024 22:01:12 05/03/2024 text/html several things w [...] Crowell MD Attn: Accounting, [address] , [place], [address], [facility] 05/07/2024 16:14:29
--- OUTSIDE RECORDS SUMMARY | 2024-08-11 11:48 | XMS_ITS | Referral Summary ---
Author Organization [facility] Address [address] [place] [address] Care Team Providers Care Surveillance Dual Rate Officer Name Role Phone Unavailable Primary Care Provider Unavailabl e Source Comments [facility],non-owned Affiliates and Associated Physician Practices is amultiple site organization consisting of ambulatory clinics and hospital sitesin [place], [place], [place] and [place]. This disclosure is being madepursuant to the Care Everywhere program and may not contain all information available regarding this patient. Last updated 18.[facility] [employer] Social History Tobacco Use Types Packs/Day Years Used Date Smoking Tobacco: Never Assessed Sex and Gender Information Value Date Recorded Sex Assigned at Not on file Gender Identity Not on file Sexual Orientation Not on file Plan of Treatment Not on file
== END 2024-08-11 10:18 | disposition home or self-care (01) ==
PROVIDERS: PCP Internal Medicine; Visit Provider Internal Medicine
DX: C61 Malignant neoplasm of prostate (principal)
CPT/HCPCS: 38505; 76942; 88305; 88342

== ENCOUNTER 2024-09-21 11:36 | Outpatient (CLI) | payer OTHER, SELFPAY ==
[2024-09-21 11:51] LABS: Basophils Absolute Auto 0.1 K/mm3 (0.0-0.1); Basophils Percent Auto 1.6 % (0.2-1.2); Eosinophils Absolute Auto 0.2 K/mm3 (0-0.3); Eosinophils Percent Auto 3.4 % (0-4.4); Hematocrit 24.2 % (42.0-52.0); Hemoglobin 7.9 g/dL (14.0-18.0); Immature Granulocyte Absolute 0.59 K/mm3 (0.00-0.031); Immature Granulocyte Percent A 9.5 % (0-0.5); Lymphocytes Absolute Auto 1.93 K/mm3 (0.9-3.2); Mean Corpuscular HGB Conc 32.6 g/dl (32-36); Mean Corpuscular Hemoglobin 34.8 pg (26-34); Mean Corpuscular Volume 106.6 fl (80-100); Monocytes Absolute Auto 1.1 K/mm3 (0.1-0.6); Monocytes Percent Auto 17.2 % (2.6-8.5); Neutrophils Absolute Auto 2.3 K/mm3 (1.3-6.7); Neutrophils Percent Auto 37.3 % (45.5-73.1); Nucleated Red Blood Cells Perc 11.4 % (0.0-0.2); Platelet Count Result 71 k/mm3 (150-375); Red Blood Count 2.27 M/mm3 (4.6-6.20); Red Cell Distribution Width 16.9 % (11.5-14.5); White Blood Count 6.2 K/mm3 (4.5-10.0)
[2024-09-21 11:55] LABS: Platelet Estimate Decreased (Adequate); Schistocytes None Seen
[2024-09-21 11:59] LABS: Atypical Lymphocytes Present
[2024-09-21 12:00] LABS: Anisocytosis 1+
--- OUTSIDE RECORDS SUMMARY | 2024-09-21 12:59 | XMS_ITS | Data Portability ---
Author Organization [facility] Johnie Barahona Address [address] [place] [address] Care Team Providers Care Performance Instructor Name Role Phone TATYANA CROWELL Primary Care Provider [phone] Assessment Encounter Date Assessment Date Assessment LastModified [...] refer to Dermatology for alopecia he declined. [email or web address] Not available 03/15/2024 22:00:53 05/03/2024 05/03/2024 the leg pain he called the office about his gone we will continue current therapy CT chest abdomen and pelvis his involuntary weight loss is worrisome I told him that he needs to see Urology for blood in his urine. He continues to follow with cardiology he saw the equine dentist in December but has not been back then at that time it looks like he was referred to Interventional Pulmonary and slough patient denies any knowledge of this. further recommendations once I get the results of his test he was advised to stay up-to-date on immunizations. Obtain PFTs. again recommended to get colonoscopies [email or web address] Not available 05/07/2024 16:13:59 07/26/2024 07/26/2024 CBC CMP PSA T3-T 4 TSH SPEP UPEP with immunofixation. Hydrocodone 7.5 /3251 b.i.d. p.r.n. pain number 40 follow up in 1 month. And I have told him he needs to get the biopsy of the inguinal node as recommended by Radiology and also just so that we can get a definitive diagnosis hopefully on what is going on with him. Multiple lytic lesions ribs pelvis femur spine worrisome for either lymphoma or metastatic disease adenopathy seen in the abdominal cavity worrisome for the same [email or web address] Not available 08/14/2024 21:40:01 08/30/2024 08/30/2024 metastatic prostate cancer he needs to be seen by medical oncology his pain is not controlled we will switch to oxycodone 10 mg t.i.d. b.i.d. p.r.n. for pain get him to medical oncology I am getting my community development aide involved because his transportation issues functional status is declining boost ensure see me in a month. His COPD is stable [email or web address] Not available 09/02/2024 21:46:59 Plan of Treatment Reminders Order Date Submit Date Provider Last Modified By Organization Details Last Modified Time Details Appointments ANY 15 2024 10:00A M Tatyana Crowell MD Not available Not available Not available Lab PSA, total, serum or plasma 2024 025 [facility] [address], [place], [address], 08/01/2024 17:10:05 unlisted lab - T4, free 2024 025 [facility] [address], [place], [address], 08/01/2024 17:09:59 TSH, ultra-sen sitive, serum 2024 025 [facility], [address], [place], [address], 08/01/2024 17:10:02 T3, free, serum or plasma 2024 025 [facility], [address], [place], [address], 08/01/2024 17:10:06 lipid panel, serum 2024 025 [facility], [address], [place], [address], 08/01/2024 17:09:58 CBC w/ auto diff 2024 025 [facility]RISTINE Pandey, [address], [place], [address], 08/01/2024 17:10:03 CMP, serum or plasma 2024 025 CRIST[facility] Pandey, [address], [place], [address], 08/01/2024 17:10:00 spep, serum, reflex immunofix ation 2024 025 CRISTINE Pandey, [address], [place], [address], 08/01/2024 17:09:56 urinalysi s, complete 2023 024 [facility]ST[facility] Pandey, [address], [place], [address], 05/04/2024 08:31:03 HbA1c (hemoglob in A1c), blood 2023 024 [facility] Pandey, [address], [place], [address], 05/04/2024 08:31:02 lipid panel, serum 2023 024 [facility]ST[facility] Pandey, [address], [place], [address], 05/04/2024 08:30:58 CBC w/ auto diff 2023 024 [facility] Pandey, [address], [place], [address], 05/04/2024 08:31:05 CMP, serum or plasma 2023 024 [facility], [address], [place], [address], 05/04/2024 08:31:00 Referral None recorded. Procedures biopsy, lymph node, ultrasoun d guidance (PROC) [address] [facility] (Imaging), [facility] [address], [place], [address], 08/11/2024 13:11:46 Surgeries None recorded. Imaging CT, abdomen + pelvis, w/ contrast - Authoriza tion code #[id number] [address] [facility] (Imaging), [facility] [address], [place], [address], 06/05/2024 08:41:14 PFT, complete [address] [facility] (Cardiology & Emg), [address] [facility] [address], [place], [address], 06/03/2024 15:46:10 CT, chest, w/ contrast [address] [facility] (Imaging), [facility] [address], [place], [address], 06/10/2024 10:10:09 Medication Orders None recorded. Patient TargetsNo targets recorded. Patient Instructions Encounter Date Encounter Id Patient Instructions Last Modified By Organization Details Last Modified Time 08/30/2024 [id number] A healthy lifestyle: care instructions [email or web address] Not available 08/30/2024 20:43:49 Reason for Referral None Reported. Results Created Date Observation Date Name Description Value Unit Range Abnormal Flag Note LastModifiedBy Organization Detail LastModifiedTime 05/03/20 24 05/04/2024 LIPID PANEL cholesterol, total 185 mg/dL 100-19 9 Not Available [facility] ([facility]) [address] [place], [place], [address], 05/04/2024 08:30:58 05/03/20 24 05/04/2024 LIPID PANEL triglyceride s 64 mg/dL 0-149 Not Available [facility] ([facility]) [address] [place], [address], 05/04/2024 08:30:58 05/03/20 24 05/04/2024 LIPID PANEL HDL cholesterol 100 mg/dL >39 Not Available [facility] ([facility]) [address] [place], [address], 05/04/2024 08:30:58 05/03/2005/04/2024 LIPID PANEL VLDL cholesterol manpreet 12 mg/dL 5-40 Not Available [facility] ([facility]) [address] [place], [address], 05/04/2024 08:30:58 05/03/20 24 05/04/2024 LIPID PANEL LDL chol calc (rust) 73 mg/dL 0-99 Not Available [facility] ([facility]) [address] [place], [address], 05/04/2024 08:30:58 05/03/20 24 05/04/2024 COMP. METAB OLIC PANEL (14) glucose 90 mg/dL 70-99 Not Available [facility] ([facility]) [address] [place], [address], 05/04/2024 08:31:00 05/03/20 24 05/04/2024 COMP. METAB OLIC PANEL (14) BUN 13 mg/dL 8-27 Not Available [facility] ([facility]) [address] [place], [address], 05/04/2024 08:31:00 05/03/20 24 05/04/2024 COMP. METAB OLIC PANEL (14) creatinine 0.73 mg/dL 0.76-1 .27 below low normal Not Available [facility] ([facility]) [address] [place], [address], 05/04/2024 08:31:00 05/03/20 24 05/04/2024 COMP. METAB OLIC PANEL (14) eGFR 103 mL/mi n/1.7 3 >59 Not Available [facility] ([facility]) [address] [place], [address], 05/04/2024 08:31:00 05/03/20 24 05/04/2024 COMP. METAB OLIC PANEL (14) BUN/creatini ne ratio 18 10-24 Not Available [facility] ([facility]) [address], [place], [address], 05/04/2024 08:31:00 05/03/20 24 05/04/2024 COMP. METAB OLIC PANEL (14) sodium 129 mmol/ L 134-14 4 below low normal Not Available [facility] ([facility]) [address] [place], [address], 05/04/2024 08:31:00 05/03/20 24 05/04/2024 COMP. METAB OLIC PANEL (14) potassium 4.4 mmol/ L 3.5-5. 2 Not Available [facility] ([facility]) [address], [place], [address], 05/04/2024 08:31:00 05/03/20 24 05/04/2024 COMP. METAB OLIC PANEL (14) chloride 88 mmol/ L 96-106 below low normal Not Available [facility] ([facility]) [address], [place], [address], 05/04/2024 08:31:00 05/03/20 24 05/04/2024 COMP. METAB OLIC PANEL (14) carbon dioxide, total 27 mmol/ L 20-29 Not Available [facility] ([facility]) [address], [place], [address], 05/04/2024 08:31:00 05/03/20 24 05/04/2024 COMP. METAB OLIC PANEL (14) calcium 8.9 mg/dL 8.6-10 .2 Not Available [facility] ([facility]) [address] [place], [address], 05/04/2024 08:31:00 05/03/20 24 05/04/2024 COMP. METAB OLIC PANEL (14) protein, total 6.3 g/dL 6.0-8. 5 Not Available [facility] ([facility]) [address] [place], [address], 05/04/2024 08:31:00 05/03/20 24 05/04/2024 COMP. METAB OLIC PANEL (14) albumin 4.1 g/dL 3.9-4. 9 Not Available [facility] ([facility]) [address], [place], [address], 05/04/2024 08:31:00 05/03/2005/04/2024 COMP. METAB OLIC PANEL (14) globulin, total 2.2 g/dL 1.5-4. 5 Not Available [facility] ([facility]) [address], [place], [address], 05/04/2024 08:31:00 05/03/2005/04/2024 COMP. METAB OLIC PANEL (14) bilirubin, total 0.8 mg/dL 0.0-1. 2 Not Available [facility] ([facility]) [address] [place], [address], 05/04/2024 08:31:00 05/03/20 24 05/04/2024 COMP. METAB OLIC PANEL (14) alkaline phosphatase 244 IU/L 44-121 above high normal Not Available [facility] ([facility]) [address], [place], [address], 05/04/2024 08:31:00 05/03/20 24 05/04/2024 COMP. METAB OLIC PANEL (14) AST (SGOT) 28 IU/L 0-40 Not Available [facility] ([facility]) [address], [place], [place], [address], 05/04/2024 08:31:00 05/03/20 24 05/04/2024 COMP. METAB OLIC PANEL (14) ALT (SGPT) 23 IU/L 0-44 Not Available [facility] ([facility]) [address], [place], [place], [address], 05/04/2024 08:31:00 05/03/20 24 05/04/2024 MICRO SCOPI C EXAMI NATIO N WBC None seen /hpf 0-5 Not Available [facility] ([facility]) [address], [place], [place], [address], 05/04/2024 08:31:01 05/03/20 24 05/04/2024 MICRO SCOPI C EXAMI NATIO N RBC 11-30 /hpf 0-2 abnormal Not Available [facility] ([facility]) [address], [place], [place], [address], 05/04/2024 08:31:01 05/03/20 24 05/04/2024 MICRO SCOPI C EXAMI NATIO N epithelial cells (non renal) 0-10 /hpf 0-10 Not Available [facility] ([facility]) [address], [place], [place], [address], 05/04/2024 08:31:01 05/03/20 24 05/04/2024 MICRO SCOPI C EXAMI NATIO N casts None seen /lpf nonese en Not Available [facility] ([facility]) [address], [place], [place], [address], 05/04/2024 08:31:01 05/03/20 24 05/04/2024 MICRO SCOPI C EXAMI NATIO N bacteria None seen nonese en/few Not Available [facility] ([facility]) [address], [place], [place], [address], 05/04/2024 08:31:01 05/03/20 24 05/04/2024 HEMOG LOBIN A1C hemoglobin A1C 6.3 % 4.8-5. 6 above high normal Predi abete s: 5.7 - 6.4 Diabe jason: >6.4 Glyce reji contr ol for adult s with diabe jason: <7.0 Not Available [facility] ([facility]) [address], [place], [place], [address], 05/04/2024 08:31:02 05/03/2005/04/2024 URINA LYSIS , COMPL ETE specific gravity 1.017 1.005- 1.030 Not Available [facility] ([facility]) [address] [place], [address], 05/04/2024 08:31:03 05/03/20 24 05/04/2024 URINA LYSIS , COMPL ETE pH 6.5 5.0-7. 5 Not Available [facility] ([facility]) [address], [place], [place], [address], 05/04/2024 08:31:03 05/03/20 24 05/04/2024 URINA LYSIS , COMPL ETE urine-color YELLOW yellow Not Available [facility] ([facility]) [address] [place], [address], 05/04/2024 08:31:03 05/03/2005/04/2024 URINA LYSIS , COMPL ETE appearance CLEAR clear Not Available [facility] ([facility]) [address] [place], [address], 05/04/2024 08:31:03 05/03/20 24 05/04/2024 URINA LYSIS , COMPL ETE WBC esterase TRACE negati ve abnormal Not Available [facility] ([facility]) [address], [place], [place], [address], 05/04/2024 08:31:03 05/03/2005/04/2024 URINA LYSIS , COMPL ETE protein 3+ negati ve/tra ce abnormal Not Available [facility] ([facility]) [address], [place], [place], [address], 05/04/2024 08:31:03 05/03/2005/04/2024 URINA LYSIS , COMPL ETE glucose NEGATI VE negati ve Not Available [facility] ([facility]) [address] [place], [address], 05/04/2024 08:31:03 05/03/2005/04/2024 URINA LYSIS , COMPL ETE ketones NEGATI VE negati ve Not Available [facility] ([facility]) [address] [place], [address], 05/04/2024 08:31:03 05/03/2005/04/2024 URINA LYSIS , COMPL ETE occult blood 2+ negati ve abnormal Not Available [facility] ([facility]) [address], [place], [place], [address], 05/04/2024 08:31:03 05/03/2005/04/2024 URINA LYSIS , COMPL ETE bilirubin NEGATI VE negati ve Not Available [facility] ([facility]) [address] [place], [address], 05/04/2024 08:31:03 05/03/2005/04/2024 URINA LYSIS , COMPL ETE urobilinogen ,semi-qn 1.0 mg/dL 0.2-1. 0 Not Available [facility] ([facility]) [address] [place], [address], 05/04/2024 08:31:03 05/03/2005/04/2024 URINA LYSIS , COMPL ETE nitrite, urine NEGATI VE negati ve Not Available [facility] ([facility]) [address] [place], [address], 05/04/2024 08:31:03 05/03/20 24 05/04/2024 URINA LYSIS , COMPL ETE microscopic examination SEE BELOW: Micro scopi c was indic ated and was perfo rmed. Not Available [facility] ([facility]) [address], [place], [place], [address], 05/04/2024 08:31:03 05/03/2005/04/2024 CBC WITH DIFFE RENTI AL/PL ATELE T WBC 7.3 x10e3 /uL 3.4-10 .8 Eff ectiv e Decem matias 2023 [place]i [place] 29751 5 WBC will be made* * non-o rdera ble as a stand -adelita e order code. Not Available [facility] ([facility]) [address], [place], [place], [address], 05/04/2024 08:31:05 05/03/20 24 05/04/2024 CBC WITH DIFFE RENTI AL/PL ATELE T RBC 4.25 x10e6 /uL 4.14-5 .80 Not Available [facility] ([facility]) [address] [place], [address], 05/04/2024 08:31:05 05/03/20 24 05/04/2024 CBC WITH DIFFE RENTI AL/PL ATELE T hemoglobin 14.7 g/dL 13.0-1 7.7 Not Available [facility] ([facility]) [address] [place], [address], 05/04/2024 08:31:05 05/03/20 24 05/04/2024 CBC WITH DIFFE RENTI AL/PL ATELE T hematocrit 42.7 % 37.5-5 1.0 Not Available [facility] ([facility]) [address] [place], [address], 05/04/2024 08:31:05 05/03/20 24 05/04/2024 CBC WITH DIFFE RENTI AL/PL ATELE T MCV 101 fL 79-97 above high normal Not Available [facility] ([facility]) [address], [place], [place], [address], 05/04/2024 08:31:05 05/03/20 24 05/04/2024 CBC WITH DIFFE RENTI AL/PL ATELE T MCH 34.6 pg 26.6-3 3.0 above high normal Not Available [facility] ([facility]) [address], [place], [place], [address], 05/04/2024 08:31:05 05/03/20 24 05/04/2024 CBC WITH DIFFE RENTI AL/PL ATELE T MCHC 34.4 g/dL 31.5-3 5.7 Not Available [facility] ([facility]) [address], [place], [place], [address], 05/04/2024 08:31:05 05/03/20 24 05/04/2024 CBC WITH DIFFE RENTI AL/PL ATELE T RDW 13.3 % 11.6-1 5.4 Not Available [facility] ([facility]) [address] [place], [address], 05/04/2024 08:31:05 05/03/20 24 05/04/2024 CBC WITH DIFFE RENTI AL/PL ATELE T platelets 151 x10e3 /uL 150-45 0 Not Available [facility] ([facility]) [address] [place], [address], 05/04/2024 08:31:05 05/03/20 24 05/04/2024 CBC WITH DIFFE RENTI AL/PL ATELE T neutrophils 57 % notest ab. Not Available [facility] ([facility]) [address] [place], [address], 05/04/2024 08:31:05 05/03/20 24 05/04/2024 CBC WITH DIFFE RENTI AL/PL ATELE T lymphs 26 % notest ab. Not Available [facility] ([facility]) [address] [place], [address], 05/04/2024 08:31:05 05/03/20 24 05/04/2024 CBC WITH DIFFE RENTI AL/PL ATELE T monocytes 9 % notest ab. Not Available [facility] ([facility]) [address] [place], [address], 05/04/2024 08:31:05 05/03/20 24 05/04/2024 CBC WITH DIFFE RENTI AL/PL ATELE T eos 3 % notest ab. Not Available [facility] ([facility]) [address] [place], [address], 05/04/2024 08:31:05 05/03/20 24 05/04/2024 CBC WITH DIFFE RENTI AL/PL ATELE T basos 1 % notest ab. Not Available [facility] ([facility]) [address] [place], [address], 05/04/2024 08:31:05 05/03/20 24 05/04/2024 CBC WITH DIFFE RENTI AL/PL ATELE T neutrophils (absolute) 4.2 x10e3 /uL 1.4-7. 0 Not Available [facility] ([facility]) [address] [place], [address], 05/04/2024 08:31:05 05/03/20 24 05/04/2024 CBC WITH DIFFE RENTI AL/PL ATELE T lymphs (absolute) 1.9 x10e3 /uL 0.7-3. 1 Not Available [facility] ([facility]) [address] [place], [address], 05/04/2024 08:31:05 05/03/20 24 05/04/2024 CBC WITH DIFFE RENTI AL/PL ATELE T monocytes(ab solute) 0.7 x10e3 /uL 0.1-0. 9 Not Available [facility] ([facility]) [address] [place], [address], 05/04/2024 08:31:05 05/03/20 24 05/04/2024 CBC WITH DIFFE RENTI AL/PL ATELE T eos (absolute) 0.2 x10e3 /uL 0.0-0. 4 Not Available [facility] ([facility]) [address] [place], [address], 05/04/2024 08:31:05 05/03/20 24 05/04/2024 CBC WITH DIFFE RENTI AL/PL ATELE T baso (absolute) 0.1 x10e3 /uL 0.0-0. 2 Not Available [facility] ([facility]) [address], [place], [place], [address], 05/04/2024 08:31:05 05/03/20 24 05/04/2024 CBC WITH DIFFE RENTI AL/PL ATELE T immature granulocytes 4 % notest ab. Not Available [facility] ([facility]) [address] [place], [address], 05/04/2024 08:31:05 05/03/20 24 05/04/2024 CBC WITH [...] manpreet signi fican ce.) Not Available [facility] ([facility]) [address], [place], [place], [address], 05/04/2024 08:31:05 05/03/20 24 05/04/2024 CBC WITH DIFFE RENTI AL/PL ATELE T NRBC 1 % 0-0 above high normal Not Available [facility] ([facility]) [address], [place], [place], [address], 05/04/2024 08:31:05 05/18/20 24 05/20/2024 SPECI MEN STATU S REPOR T specimen status report TNP Test not perfo rmed. No urine speci men recei shirin. TEST: [id number] 0 Na U+[place] [address] 2 Osmol ality , Urine Not Available [facility] ([facility]) [address], [place], [place], [address], 05/20/2024 13:10:21 05/18/20 24 05/19/2024 BASIC METAB OLIC PANEL (7) glucose 94 mg/dL 70-99 Not Available [facility] ([facility]) [address], [place], [place], [address], 05/20/2024 13:10:22 05/18/20 24 05/19/2024 BASIC METAB OLIC PANEL (7) BUN 19 mg/dL 8-27 Not Available [facility] ([facility]) [address], [place], [place], [address], 05/20/2024 13:10:22 05/18/20 24 05/19/2024 BASIC METAB OLIC PANEL (7) creatinine 1.39 mg/dL 0.76-1 .27 above high normal Not Available [facility] ([facility]) [address], [place], [place], [address], 05/20/2024 13:10:22 05/18/20 24 05/19/2024 BASIC METAB OLIC PANEL (7) eGFR 57 mL/mi n/1.7 3 >59 below low normal Not Available [facility] ([facility]) [address], [place], [address], 05/20/2024 13:10:22 05/18/20 24 05/19/2024 BASIC METAB OLIC PANEL (7) BUN/creatini ne ratio 14 10-24 Not Available [facility] ([facility]) [address], [place], [address], 05/20/2024 13:10:22 05/18/20 24 05/19/2024 BASIC METAB OLIC PANEL (7) sodium 133 mmol/ L 134-14 4 below low normal Not Available [facility] ([facility]) [address], [place], [address], 05/20/2024 13:10:22 05/18/20 24 05/19/2024 BASIC METAB OLIC PANEL (7) potassium 4.4 mmol/ L 3.5-5. 2 Not Available [facility] ([facility]) [address], [place], [address], 05/20/2024 13:10:22 05/18/20 24 05/19/2024 BASIC METAB OLIC PANEL (7) chloride 92 mmol/ L 96-106 below low normal Not Available [facility] ([facility]) [address], [place], [address], 05/20/2024 13:10:22 05/18/20 24 05/19/2024 BASIC METAB OLIC PANEL (7) carbon dioxide, total 25 mmol/ L 20-29 Not Available [facility] ([facility]) [address], [place], [address], 05/20/2024 13:10:22 05/18/20 24 05/19/2024 T4, FREE T4,free(dire ct) 1.54 NG/dL 0.82-1 .77 Not Available [facility] ([facility]) [address] [place], [address], 05/20/2024 13:10:23 05/18/20 24 05/18/2024 UNABL E TO VOID unable to void Commen t Patie nt unabl e to void. Urine to be colle cted at a later date. Not Available [facility] ([facility]) [address], [place], [place], [address], 05/20/2024 13:10:24 05/18/20 24 05/19/2024 CORTI KRISTEN cortisol 9.2 ug/dL 6.2-19 .4 Pleas e Note: The refer ence inter randa and vale ing for this test is for an AM colle ction . If this is a PM colle ction pleas e use: Corti kristen PM: 2.3-1 1.9 Not Available [facility] ([facility]) [address] [place], [address], 05/20/2024 13:10:25 05/18/20 24 05/19/2024 TSH TSH 5.640 uIU/m L 0.450- 4.500 above high normal Not Available [facility] ([facility]) [address] [place], [address], 05/20/2024 13:10:26 05/18/20 24 05/19/2024 TRIIO DOTHY JACQUES E (T3), FREE triiodothyro nine (T3), free 3.0 pg/mL 2.0-4. 4 Not Available [facility] ([facility]) [address] [place], [address], 05/20/2024 13:10:27 07/26/19 25 07/27/2024 SPECI MEN STATU S REPOR T specimen status report TNP [facility] was unabl e to colle ct suffi cient speci men to perfo rm the follo wing test( s), and is provi ding the patie nt with re-co llect ion instr uctio ns. TEST: [id number] CBC With Diffe renti al/Pl atele t Not Available [facility] ([facility]) [address], [place], [place], [address], 08/01/2024 17:09:55 07/26/19 25 07/26/2024 MULTI PLE MYELO MA CASCA DE please note: COMMEN T [facility] will follo w via compu ter, mail, or couri er audie bray. Not Available [facility] ([facility]) [address], [place], [place], [address], 08/01/2024 17:09:56 07/26/19 25 07/27/2024 MULTI PLE MYELO MA CASCA DE albumin 3.7 g/dL 2.9-4. 4 Not Available [facility] ([facility]) [address], [place], [place], [address], 08/01/2024 17:09:56 07/26/19 25 07/27/2024 MULTI PLE MYELO MA CASCA DE kuskv-3-qlbz ulin 0.5 g/dL 0.0-0. 4 above high normal Not Available [facility] ([facility]) [address], [place], [place], [address], 08/01/2024 17:09:56 07/26/19 25 07/27/2024 MULTI PLE MYELO MA CASCA DE xcvmp-3-ywee ulin 0.5 g/dL 0.4-1. 0 Not Available [facility] ([facility]) [address], [place], [place], [address], 08/01/2024 17:09:56 07/26/19 25 07/27/2024 MULTI PLE MYELO MA CASCA DE beta globulin 1.0 g/dL 0.7-1. 3 Not Available [facility] ([facility]) [address], [place], [place], [address], 08/01/2024 17:09:56 07/26/19 25 07/27/2024 MULTI PLE MYELO MA CASCA DE gamma globulin 0.9 g/dL 0.4-1. 8 Not Available [facility] [facility] [address], [place], [place], [address], 08/01/2024 17:09:56 07/26/19 25 07/27/2024 MULTI PLE MYELO MA CASCA DE M-spike NOT OBSERV ED g/dL notobs erved Not Available [facility] ([facility]) [address], [place], [place], [address], 08/01/2024 17:09:56 07/26/19 25 07/27/2024 MULTI PLE MYELO MA CASCA DE globulin, total 2.8 g/dL 2.2-3. 9 Not Available [facility] ([facility]) [address], [place], [place], [address], 08/01/2024 17:09:56 07/26/19 25 07/27/2024 MULTI PLE MYELO MA CASCA DE A/G ratio 1.3 0.7-1. 7 Not Available [facility] ([facility]) [address] [place], [address], 08/01/2024 17:09:56 07/26/19 25 07/27/2024 MULTI PLE MYELO MA CASCA DE reflex testing . Not Available [facility] ([facility]) [address], [place], [place], [address], 08/01/2024 17:09:56 07/26/19 25 07/27/2024 MULTI PLE MYELO MA CASCA DE pdf . Not Available [facility] ([facility]) [address] [place], [address], 08/01/2024 17:09:56 07/26/19 25 08/01/2024 FREE K+L LT CHAIN S,QN, S free kappa lt chains,S 31.7 mg/L 3.3-19 .4 above high normal Not Available [facility] [address], [place], [address], 08/01/2024 17:09:57 07/26/19 25 08/01/2024 FREE K+L LT CHAIN S,QN, S free lambda lt chains,S 21.0 mg/L 5.7-26 .3 Not Available [facility] [address], [place], [address], 08/01/2024 17:09:57 07/26/19 25 08/01/2024 FREE K+L LT CHAIN S,QN, S kappa/lambda ratio,S 1.51 0.26-1 .65 Not Available [facility] [address], [place], [address], 08/01/2024 17:09:57 07/26/19 25 08/01/2024 COMME NT: comment: Commen t Consi nory order ing urine immun ofixa tion (uIFE ) to rule out Amylo idosi s (AL). Not Available [facility] ([facility]) [address] [place], [address], 08/01/2024 17:09:58 07/26/19 25 07/27/2024 LIPID PANEL cholesterol, total 189 mg/dL 100-19 9 Not Available [facility] ([facility]) [address] [place], [address], 08/01/2024 17:09:58 07/26/19 25 07/27/2024 LIPID PANEL triglyceride s 67 mg/dL 0-149 Not Available [facility] ([facility]) [address] [place], [address], 08/01/2024 17:09:58 07/26/19 25 07/27/2024 LIPID PANEL HDL cholesterol 106 mg/dL >39 Not Available [facility] ([facility]) [address] [place], [address], 08/01/2024 17:09:58 07/26/19 25 07/27/2024 LIPID PANEL VLDL cholesterol manpreet 12 mg/dL 5-40 Not Available [facility] ([facility]) [address] [place], [address], 08/01/2024 17:09:58 07/26/19 25 07/27/2024 LIPID PANEL LDL chol calc (rust) 71 mg/dL 0-99 Not Available [facility] ([facility]) [address] [place], [address], 08/01/2024 17:09:58 07/26/19 25 07/27/2024 T4, FREE T4,free(dire ct) 1.75 NG/dL 0.82-1 .77 Not Available [facility] ([facility]) [address] [place], [address], 08/01/2024 17:09:59 07/26/19 25 07/27/2024 COMP. METAB OLIC PANEL (14) glucose 87 mg/dL 70-99 Not Available [facility] ([facility]) [address] [place], [address], 08/01/2024 17:10:00 07/26/19 25 07/27/2024 COMP. METAB OLIC PANEL (14) BUN 26 mg/dL 8-27 Not Available [facility] ([facility]) [address] [place], [address], 08/01/2024 17:10:00 07/26/19 25 07/27/2024 COMP. METAB OLIC PANEL (14) creatinine 1.41 mg/dL 0.76-1 .27 above high normal Not Available [facility] ([facility]) [address] [place], [address], 08/01/2024 17:10:00 07/26/19 25 07/27/2024 COMP. METAB OLIC PANEL (14) eGFR 56 mL/mi n/1.7 3 >59 below low normal Not Available [facility] ([facility]) [address], [place], [address], 08/01/2024 17:10:00 07/26/19 25 07/27/2024 COMP. METAB OLIC PANEL (14) BUN/creatini ne ratio 18 -24 Not Available [facility] ([facility]) [address], [place], [place], [address], 08/01/2024 17:10:00 07/26/19 25 07/27/2024 COMP. METAB OLIC PANEL (14) sodium 134 mmol/ L 134-14 4 Not Available [facility] ([facility]) [address], [place], [address], 08/01/2024 17:10:00 07/26/19 25 07/27/2024 COMP. METAB OLIC PANEL (14) potassium 4.6 mmol/ L 3.5-5. 2 Not Available [facility] ([facility]) [address], [place], [place], [address], 08/01/2024 17:10:00 07/26/19 25 07/27/2024 COMP. METAB OLIC PANEL (14) chloride 93 mmol/ L 96-106 below low normal Not Available [facility] ([facility]) [address], [place], [address], 08/01/2024 17:10:00 07/26/19 25 07/27/2024 COMP. METAB OLIC PANEL (14) carbon dioxide, total 26 mmol/ L 20-29 Not Available [facility] ([facility]) [address], [place], [address], 08/01/2024 17:10:00 07/26/19 25 07/27/2024 COMP. METAB OLIC PANEL (14) calcium 8.5 mg/dL 8.6-10 .2 below low normal Not Available [facility] ([facility]) [address], [place], [address], 08/01/2024 17:10:00 07/26/19 25 07/27/2024 COMP. METAB OLIC PANEL (14) protein, total 6.5 g/dL 6.0-8. 5 Not Available [facility] ([facility]) [address] [place], [address], 08/01/2024 17:10:00 07/26/19 25 07/27/2024 COMP. METAB OLIC PANEL (14) albumin 3.9 g/dL 3.9-4. 9 Not Available [facility] ([facility]) [address] [place], [address], 08/01/2024 17:10:00 07/26/19 25 07/27/2024 COMP. METAB OLIC PANEL (14) globulin, total 2.6 g/dL 1.5-4. 5 Not Available [facility] ([facility]) [address], [place], [address], 08/01/2024 17:10:00 07/26/19 25 07/27/2024 COMP. METAB OLIC PANEL (14) bilirubin, total 0.9 mg/dL 0.0-1. 2 Not Available [facility] ([facility]) [address], [place], [address], 08/01/2024 17:10:00 07/26/19 25 07/27/2024 COMP. METAB OLIC PANEL (14) alkaline phosphatase 353 IU/L 44-121 above high normal Not Available [facility] ([facility]) [address], [place], [address], 08/01/2024 17:10:00 07/26/19 25 07/27/2024 COMP. METAB OLIC PANEL (14) AST (SGOT) 32 IU/L 0-40 Not Available [facility] ([facility]) [address], [place], [address], 08/01/2024 17:10:00 07/26/19 25 07/27/2024 COMP. METAB OLIC PANEL (14) ALT (SGPT) 22 IU/L 0-44 Not Available [facility] ([facility]) [address] [place], [address], 08/01/2024 17:10:00 07/26/19 25 07/27/2024 TSH TSH 3.830 uIU/m L 0.450- 4.500 Not Available [facility] ([facility]) [address], [place], [place], [address], 08/01/2024 17:10:02 07/26/19 25 07/27/2024 CBC WITH DIFFE RENTI AL/PL ATELE T WBC - x10e3 /uL [facility] was unabl e to colle ct suffi cient speci men to perfo rm the follo wing test( s), and is provi ding the patie nt with re-co llect ion instr uctio ns. Not Available [facility] ([facility]) [address] [place], [address], 08/01/2024 17:10:03 07/26/19 25 07/27/2024 CBC WITH DIFFE RENTI AL/PL ATELE T RBC - Test not perfo rmed Not Available [facility] ([facility]) [address] [place], [address], 08/01/2024 17:10:03 07/26/19 25 07/27/2024 CBC WITH DIFFE RENTI AL/PL ATELE T hemoglobin - Test not perfo rmed Not Available [facility] ([facility]) [address] [place], [address], 08/01/2024 17:10:03 07/26/19 25 07/27/2024 CBC WITH DIFFE RENTI AL/PL ATELE T hematocrit - Test not perfo rmed Not Available [facility] ([facility]) [address] [place], [address], 08/01/2024 17:10:03 07/26/19 25 07/27/2024 CBC WITH DIFFE RENTI AL/PL ATELE T platelets - Test not perfo rmed Not Available [facility] ([facility]) [address], [place], [place], [address], 08/01/2024 17:10:03 07/26/19 25 07/27/2024 CBC WITH DIFFE RENTI AL/PL ATELE T neutrophils - Test not perfo rmed Not Available [facility] ([facility]) [address], [place], [place], [address], 08/01/2024 17:10:03 07/26/19 25 07/27/2024 CBC WITH DIFFE RENTI AL/PL ATELE T lymphs - Test not perfo rmed Not Available [facility] ([facility]) [address], [place], [place], [address], 08/01/2024 17:10:03 07/26/19 25 07/27/2024 CBC WITH DIFFE RENTI AL/PL ATELE T monocytes - Test not perfo rmed Not Available [facility] ([facility]) [address], [place], [place], [address], 08/01/2024 17:10:03 07/26/19 25 07/27/2024 CBC WITH DIFFE RENTI AL/PL ATELE T eos - Test not perfo rmed Not Available [facility] ([facility]) [address], [place], [place], [address], 08/01/2024 17:10:03 07/26/19 25 07/27/2024 CBC WITH DIFFE RENTI AL/PL ATELE T lymphs (absolute) - Test not perfo rmed Not Available [facility] ([facility]) [address], [place], [place], [address], 08/01/2024 17:10:03 07/26/19 25 07/27/2024 CBC WITH DIFFE RENTI AL/PL ATELE T eos (absolute) - Test not perfo rmed Not Available [facility] ([facility]) [address] [place], [address], 08/01/2024 17:10:03 07/26/19 25 07/27/2024 CBC WITH DIFFE RENTI AL/PL ATELE T baso (absolute) - Test not perfo rmed Not Available [facility] ([facility]) [address], [place], [place], [address], 08/01/2024 17:10:03 07/26/19 25 07/27/2024 PROST ATE-S PECIF IC AG prostate specific Ag 1387.0 NG/mL 0.0-4. 0 above high normal Resul ts confi rmed on dilut ion. Daxa ECLIA metho dolog y. Accor ding to the [employer]i can [employer] [...] t be inter prete d as absol fe evide nce of the prese nce or absen ce of carson garcia se. Not Available [facility] ([facility]) [address], [place], [place], [address], 08/01/2024 17:10:05 07/26/19 25 07/27/2024 TRIIO DOTHY JACQUES E (T3), FREE triiodothyro nine (T3), free 2.5 pg/mL 2.0-4. 4 Not Available [facility] ([facility]) [address] [place], [address], 08/01/2024 17:10:06 06/03/20 24 06/03/2024 PFT, compl ete No observ ation record ed. [address], [place], [address], 06/10/2024 16:43:42 06/05/20 24 06/03/2024 CT, abdom en + pelvi s, w/ contr ast No observ ation record ed. [address], [place], [address], 06/10/2024 17:05:51 06/10/19 CT, chest , w/ contr ast No observ ation record ed. [address], [place], [address], 06/10/2024 17:05:50 08/12/19 25 08/11/2024 biops y, lymph node, ultra sound gal nce (PROC ) No observ ation record ed. [address], [place], [address], 08/11/2024 21:25:58 08/12/19 25 08/11/2024 biops y, lymph node, ultra sound gal nce (PROC ) No observ ation record ed. [address], [place], [address], 08/11/2024 21:25:59 Result Notes None recorded. Problems Name Problem SNOMED Code Status Onset Date Resolution Date Notes Provider Name and Address Organization Details Recorded Time Chronic obstructive pulmonary disease 50103277 Active 2023 COREEN Chan, [place] - [facility] 4 09:18:24 Essential hypertension 63220089 Active 2023 C[place] [facility] 4 11:12:58 Serum vitamin B12 below reference range 385880529 Active 2023 COREEN [place] [facility] 4 11:12:59 Obesity 636192160 Active 2023 Melony Patterson [place] null, [place] [facility] 4 11:13:01 SARS-CoV-2 vaccination declined 8083223097 Active 2023 Tatyana Crowell MD Attn: Jean garcia,[address] [facility], [place], [address], [place] [facility] 4 22:00:35 Administratio n of influenza vaccine Active 2023 Tatyana Crowell MD Attn: Accountemelina g,[address] [facility], [place], [address], [place] [facility] 4 22:00:36 Inguinal lymphadenopat hy 374881818 Active 2024 Melony Patterson [place] [facility] 5 16:15:41 Body mass index 20-24 - normal 338987759 Active 2024 Melony [place] [facility] 5 16:15:42 Screening for malignant neoplasm of prostate Active 2024 Melony Patterson [place] [facility] 5 16:15:45 Lesion of bone 148214580 Active 2024 Melony Patterson [place] [facility] 5 16:15:46 Problem Notes None recorded. Procedures Surgical History Date Name Laterality Status Provider Name and Address Organization Details Recorded Time Tonsillectomy completed Stefanie Penn [place] - [facility] 08/27/2023 16:42:41 Imaging Results Imaging Date Name Status LastModified by [facility] Details LastModified Time 06/03/2024 PFT, complete completed [address] [place] [address], [address], 06/10/2024 16:43:42 06/03/2024 CT, abdomen + pelvis, w/ contrast completed [address], [place], [address], 06/10/2024 17:05:51 06/10/2024 CT, chest, w/ contrast completed [address], [place], [address], 06/10/2024 17:05:50 08/11/2024 biopsy, lymph node, ultrasound guidance (PROC) completed [address], [place], [address], 08/11/2024 21:25:58 08/11/2024 biopsy, lymph node, ultrasound guidance (PROC) completed [address], [place], [address], 08/11/2024 21:25:59 Procedure Notes None recorded. Medical Equipment None [...] TAKE 1 TABLET BY MOUTH ONCE DAILY 08/30 completed Not Available Not Available Not Available tramadol 50 mg tablet TAKE 2 TABLET BY MOUTH BID as needed for severe pain 08/30 completed Not Available Not Available Not Available levothyroxi ne 25 mcg tablet TAKE 1 TABLET BY MOUTH EVERY DAY active Not Available Not Available No t Available tamsulosin 0.4 mg capsule TAKE 1 CAPSULE BY MOUTH AT BEDTIME active Not Available Not Available No t Available hydrocodone 7.5 mg-acetamin ophen 325 mg tablet TAKE 1 TABLET BY MOUTH TWICE DAILY NEEDED FOR PAIN 09/02 completed Not Available Not Available Not Available losartan 25 mg tablet TAKE 1 TABLET BY MOUTH ONCE DAILY 08/30 completed Not Available Not Available Not Available nicotine 21 mg/24 hr daily transdermal patch APPLY 1 PATCH TOPICALLY TO THE SKIN DAILY 07/26 completed Not Available Not Available Not Available folic acid 1 mg tablet TAKE 1 TABLET BY MOUTH EVERY DAY 08/30 completed Not Available Not Available Not Available furosemide 20 mg tablet TAKE 1 [...] TAKE 1 TABLET BY MOUTH TWICE DAILY 08/30 completed Not Available Not Available Not Available oxycodone 10 mg tablet TAKE 1 TABLET BY MOUTH EVERY 8 HOURS active Not Available Not Available No t Available Trelegy Ellipta 100 mcg-62.5 mcg-25 mcg powder for inhalation INHALE 1 PUFF BY MOUTH EVERY DAY 12/24 completed Not Available Not Available Not Available tramadol 100 mg tablet Take 1 tablet 3 times a day by oral route as needed. 07/26 completed Not Available Not Available Not Available Papa Aerosphere 160 mcg-9mcg-4. 8mcg/actuat ion HFA aerosol inhaler INHALE 2 PUFFS BY MOUTH TWICE DAILY active Not Available Not Available No t Available Vitals Date Recorded Body height Body mass index (BMI) Body weight Heart rate Oxygen saturation Oxygen saturation in Arterial blood by Pulse oximetry Systolic blood pressure Diastolic blood pressure Provider Name and Address Organization Details Last Updated DateTime 4 175.26 cm 25.4 kg/m2 54052.1 8 g 87 /min 90 % 90 % 128 mm[Hg] 66 mm[Hg] [facility] 4 15:57:47 Date Recorded Body height Heart rate Oxygen saturation Oxygen saturation in Arterial blood by Pulse oximetry Systolic blood pressure Diastolic blood pressure Provider Name and Address Organization Details Last Updated DateTime 4 175.26 cm 82 /min 89 % 89 % 104 mm[Hg] 72 mm[Hg] [facility] 4 15:46:49 Date Recorded Body height Body mass index (BMI) Body weight Heart rate Oxygen saturation Oxygen saturation in Arterial blood by Pulse oximetry Systolic blood pressure Diastolic blood pressure Provider Name and Address Organization Details Last Updated DateTime 4 175.26 cm 24.8 kg/m2 33377.8 8 g 92 /min 92 % 92 % 130 mm[Hg] 78 mm[Hg] [facility] 4 15:06:58 Date Recorded Body height Body mass index (BMI) Body weight Heart rate Oxygen saturation Oxygen saturation in Arterial blood by Pulse oximetry Systolic blood pressure Diastolic blood pressure Provider Name and Address Organization Details Last Updated DateTime 5 175.26 cm 23 kg/m2 59342.4 1 g 96 /min 83 % 83 % 106 mm[Hg] 60 mm[Hg] Sofia Hinson MA [facility] 5 15:29:39 Date Recorded Body height Body mass index (BMI) Body weight Heart rate Oxygen saturation Oxygen saturation in Arterial blood by Pulse oximetry Systolic blood pressure Diastolic blood pressure Provider Name and Address Organization Details Last Updated DateTime 5 175.26 cm 20.7 kg/m2 85619.0 1 g 95 /min 96 % 96 % 106 mm[Hg] 64 mm[Hg] Sofia Hinson MA [facility] 5 15:50:02 Social History Question Answer Notes LastModified by Organizat ion Details LastModified Time Tobacco Smoking Status Current Every Day Smoker Stefanie Penn MA [facility], [facility] 08/27/2023 16:42:26 Do You Have An [...] not available 12/08/2023 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 No Information not available 12/08/2023 What Was The Date Of Your Most Recent Tobacco Screening? 08/30/2024 Information not available 08/30/2024 What Is Your Relationship Status? Single Information not available 12/08/2023 Do You Use Your Seat Belt Or Car Seat Routinely? Yes Information not available 05/03/2024 Do You Have Smoke And Carbon Monoxide Detectors In Your Home? Yes Information not available 12/08/2023 Do You Feel Stressed (tense, Restless, Nervous, Or Anxious, Or Unable To Sleep At Night)? [id number] Not Sleeping At Night. Information not available 12/08/2023 Do You Use Any Illicit Or Recreational Drugs? No Information not available 08/27/2023 Do You Use Sunscreen Routinely? Yes Information not available 12/08/2023 Has Tobacco Cessation Counseling Been Provided? Yes Information not available 07/26/2024 On What Date Was Tobacco Cessation Counseling Provided? 08/30/2024 Information not available 08/30/2024 Sex: Male Functional Status Question Answer Note [...] Skin Problems N Anemia N Heart Attack (ME) N Anxiety Disorder N Diabetes N Muscle, [...] SNOMED-CT Code Diagnosis ICD10 Code Diagnosis Note [id number] MD Holger Choi (Adult Med) [address] [place] [phone] 08/27/2023 16:26:37 08/27/2023 17:28:57 Chronic obstructive pulmonary disease 51412270 J44.9 Screening for cardiovascular system disease 206900906 Z13.6 Long-term drug therapy 370904680 Z79.899 Erythrocytosis 679928600 D75.1 [id number] MD Holger Choi (Adult Med) [address] [place] [phone] 12/08/2023 10:12:56 12/08/2023 11:16:29 Obesity 125251871 E66.8 Chronic ob structive pulmonary disease 17975654 J44.9 Essential hypertension 44453372 I10 Serum marky min B12 below reference range 208458454 R79.89 Dyspnea 228903853 R06.01 [id number] MD Holger Choi (Adult Med) [address] [place] [phone] 03/15/2024 15:25:17 03/15/2024 17:20:29 Chronic obstructive pulmonary disease 55537285 J44.9 Essential hypertension 99889232 I10 Serum marky min B12 below reference range 798375455 R79.89 Administra tion of influenza vaccine 32535635 Z23 SARS-CoV-2 vaccination declined 2345993741 Z28.21 [id number] MD Holger Choi (Adult Med) [address] [place] [phone] 04/05/2024 15:42:28 04/05/2024 16:22:35 [id number] MD Holger Choi (Adult Med) [address] [place] [phone] 05/03/2024 14:46:52 05/03/2024 15:45:45 Body mass index 20-24 - normal 608011073 Z68.24 Essential hypertension 54281638 I10 Prediabetes 575734163 R7 3.03 Abdominal pain 74739545 R10.9 CT of chest abnormal 978 8453582 7714937 R93.89 Chronic ob structive pulmonary disease 34930443 J44.9 [id number] MD Holger Choi (Adult Med) [address] [place] [phone] 07/26/2024 15:12:54 07/26/2024 16:17:16 Body mass index 20-24 - normal 494260705 Z68.24 Inguinal lymphadenopathy 685763032 R59.0 Essential hypertension 01205240 I10 Screening for malignant neoplasm of prostate 297748380 Z12.5 Lesion of bone 022602459 M89.9 Chronic ob structive pulmonary disease 30591411 J44.9 Computed t omography result abnormal 833360521 R93.89 [id number] MD Holger Choi (Adult Med) [address] [place] [phone] 08/30/2024 15:28:55 08/30/2024 17:26:22 Body mass index 20-24 - normal 966435520 Z68.24 Overweight 986982490 E66 .3 Metastatic malignant neoplasm to prostate 42493876 C79.82 Chronic ob structive pulmonary disease 67217193 J44.9 Health Concerns Section Related Observation LastModified by Organization Detai ls LastModified Time None Recorded Concern Status LastModified by Organization Details LastModified Time None Recorded Advance Directives Directive N: Payers Encounter Date Sequence Insurance Name Policy Number Policy Spann Covered Member ID Spann Member ID Guarantor Name 03/15/2024 1 [facility] [id number] Robert Maloney [id number] Robert Maloney 04/05/2024 1 [facility] [id number] Robert Maloney [id number] Robert Maloney 05/03/2024 1 [facility] [id number] Robert Maloney [id number] Robert Maloney 07/26/2024 1 [facility] [id number] Robert Maloney [id number] Robert Maloney 08/30/2024 1 [facility] [id number] Robert Maloney [id number] Robert Maloney Notes Date Note Type Note [...] Tatyana Crowell MD Attn: Accounting, [address] [facility], [place], [address], [facility] 03/15/2024 22:01:12 05/03/2024 text/html several things w [...] Tatyana Crowell MD Attn: Accounting, [address] [facility], [place], [address], [facility] 05/07/2024 16:14:29 07/26/2024 text/html he did not get t he biopsy yet he does have some pain in his legs bothers him at night it is fairly severe. CT scan discussed he needs a biopsy had about a 36 lb weight loss over last year Tatyana Crowell MD Attn: Accounting, [address] [facility], [place], [address], [facility] 08/14/2024 21:40:19 08/30/2024 text/html significant amou nt of bone pain he was going through some new shots with Urology still needs to see the medical oncologist. His bone pain does wake him up at night is no longer working. He is down 16 lb from last visit his appetite is poor Tatyana Crowell MD Attn: Accounting,[address] [facility], [place], [address], [facility] 09/02/2024 21:47:16
--- OUTSIDE RECORDS SUMMARY | 2024-09-21 12:59 | XMS_ITS | Clinical Summary ---
Author Organization [facility] Address [address] [place] [address] Phone Care Team Providers Care Field Rep Name Role Phone Unavailable Primary Care Provider Unavailabl e Social History Tobacco Use Types Packs/Day Years Used Date Smoking Tobacco: Never Assessed Sex and Gender Information Value Date Recorded Sex Assigned at Not on file Legal Sex Male 2:24 PM [employer] Gender Identity Not on file Sexual Orientation [...]
--- OUTSIDE RECORDS SUMMARY | 2024-09-21 12:59 | XMS_ITS | Data Portability ---
Author Organization [place] [facility], Main Office Address [address] [place] [address] Assessment Encounter Date Assessment Date Assessment LastModified [...] because I may be out of network [email or web address] Not available 01/19/2023 22:49:07 03/16/2023 03/16/2023 Urology for bloo d in urine Blood work Smoking cessation CT chest abdomen pelvis Follow-up 1 month [email or web address] Not available 03/16/2023 21:35:28 04/13/2023 04/13/2023 Advised strongly to quit smoking Urology for elevated PSA Pulmonary for spiculated lung lesion will need PET Hematology for elevated hemoglobin and hematocrit Return to clinic 1 month [email or web address] Not available 04/13/2023 20:33:17 12/08/2023 12/08/2023 Assessment: [...] no ischemia, EF 61% PASP 64 mmHg [facility] hospitalization 10/23/23 - 10/27/23 right CHF, 3 Lpm exertional O2 PFT 09/13/08 FEV1 2.37 L (63%), BD 250 mL = 12%, TLC 6.21 L (94%), RV 2.92 L (142%) Nicotine cessation counseling provided for 4 minutes. Petty for quitting nicotine include getting ready, getting [...] in Quit For Life program Registering at [email or web address] Making a call to 0-765-FHNR-NOW ( ). A strong, clear, personalized message [...] failure or relapse. Patient can enroll in [facility]'s smoking cessation class through Nicki Fernando RN [...] done as follows: Respiratory allergen panel for [facility] Serum IgE Serum total IgG, IgG1, IgG2, IgG3, IgG4 Chbls-0-ebghwisvhb n phenotype and level TB stimulated gamma [...] alpha-1-ant itrypsin (aat) phenotype, serum 2023 024 [facility] (Lab), [address] [place], [address], 00:18:54 BNP (B-type natriuretic peptide), serum or plasma 2023 024 CRISTINE [facility] (Lab), [address] [place], [address], 4 18:03:44 ige, total, serum [address] (Lab), [address] [place], [address], 4 12:35:58 tb (M tuberculosi s), ifn-gamma hyacinth, blood [address] (Lab), [address] [place], [address], 4 12:35:58 eosinophil count, manual, blood (OBS) [address] (Lab), [address] [place], [address], 4 12:35:59 igg subclasses 1+2+3+4, serum [address] (Lab), [address] [place], [address], 4 12:35:59 respiratory allergen panel - [facility] a [address] (Lab), [address] [place], [address], 4 12:35:59 respiratory allergen panel - [facility] b [address] (Lab), [address] [place], [address], 4 12:35:59 PSA, total, serum or plasma 2022 023 [facility] (Lab), [address] [place], [address], 3 19:05:45 CBC w/ auto diff 2022 023 [facility] (Lab), [address] [place], [address], 3 17:31:25 CMP, serum or plasma 2022 023 [facility] (Lab), [address] [place], [address], 3 18:31:36 lipid panel, serum 2022 023 [facility] (Lab), [address] [place], [address], 3 18:31:[address] referral - Chest CT 03/25/23 12 mm RLL spiculated noduleChest CT 10/22/23 right effusion may be obscuring RLL nodule, (+) mediastinal and matted hilar lymphadenop athy 2023 024 [email or web address] 82 Dimas Enamorado MD, [address] [place], [address], 5 08:53:28 urologist referral 2022 023 [email or web address] [facility], [address] [place] [address], [facility] [address], [place], [address], 3 16:47:03 local area network administrator referral 2022 023 [email or web address] Vick Metz DPM, [address] [facility], [facility] [address], [place], [address], 4 18:08:55 Procedures None recorded. Surgeries None recorded. Imaging CT, chest, w/o contrast - Approved # [id number] 12/14/2023 -01/28/20242023 024 [email or web address] [facility], [address], [address] [address], [place], [address], 16:25:32 CT, chest + abdomen + pelvis, w/ contrast - approved [id number]/ [id number] 03/16/23-2022 023 [facility] (Imaging), [address] [place], [address], 18:46:25 Medication Orders None recorded. Patient TargetsNo targets recorded. Patient Instructions Encounter Date Encounter Id Patient Instructions Last Modified By Organization Details Last Modified Time 04/13/2023 [id number] dementia rating scale-2* cyahl Not available 04/14/2023 09:45:49 multi-dimensiona l health assessment questionnaire* cyahl Not available 04/14/2023 09:45:52 care plan* cyahl Not available 04/14 09:45:44 advance care planning: care instructions [email or web address] Not available 04/13/2023 20:33:40 advance directiv es: care instructions [email or web address] Not available 04/13/2023 20:33:39 [place] Advance Directives Not available 04/13/2023 20:33:40 Personalized [facility] Plan and Screening Recommendations Advance Directives - [...] treatment plan Not available 04/13/2023 16:09:03 12/08/2023 [id number] complete PFT w/ post bronchodilator spirometry* - No auth needed [email or web address] Not available 07/26/2024 12:45:07 Reason for Referral Gift Packer 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 Plan tar fasciitis of right foot Referring Physician: Jaxon Crowell, Internal Medicine, Encounter Date: 01/19/2023 Urologist 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 Blood in urine Referring Physician: Jaxon Crowell, Internal Medicine, Encounter Date: 03/16/2023 Mortgage Processing Manager 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 S olitary nodule of lung [...] creatinine 0.9 mg/dL 0.6-1. 3 Not Available [facility] (Lab) [address] [place], [address], 03/26/2023 10:11:18 04/08/20 23 04/09/2023 CBC/C OMPLE TE BLD COUNT W/DIF F white blood cells 8.9 x10'3 /uL 4.2-10 .8 Not Available [facility] (Lab) [address] [place], [address], 04/09/2023 10:50:13 04/08/20 23 04/09/2023 CBC/C OMPLE TE BLD COUNT W/DIF F red blood cells 5.49 x10'6 /uL 4.10-5 .80 Not Available [facility] (Lab) [address] [facility] [place], [address], 04/09/2023 10:50:13 04/08/20 23 04/09/2023 CBC/C OMPLE TE BLD COUNT W/DIF F hemoglobin 19.3 g/dL 13.2-1 7.0 high Not Available [facility] (Lab) [address] [place], [address], 04/09/2023 10:50:13 04/08/20 23 04/09/2023 CBC/C OMPLE TE BLD COUNT W/DIF F hematocrit 58.2 % 39.3-5 0.0 high Not Available [facility] (Lab) [address] [place], [address], 04/09/2023 10:50:13 04/08/20 23 04/09/2023 CBC/C OMPLE TE BLD COUNT W/DIF F mean red cell volume 106.0 fL 80.0-9 7.0 high Not Available [facility] (Lab) [address] [place], [address], 04/09/2023 10:50:13 04/08/20 23 04/09/2023 CBC/C OMPLE TE BLD COUNT W/DIF F mean red cell hemoglobin 35.2 pg 27.0-3 3.0 high Not Available [facility] (Lab) [address] [place], [address], 04/09/2023 10:50:13 04/08/20 23 04/09/2023 CBC/C OMPLE TE BLD COUNT W/DIF F mean RBC HGB concentratio n 33.2 g/dL 31.0-3 6.0 Not Available [facility] (Lab) [address] [place], [address], 04/09/2023 10:50:13 04/08/20 23 04/09/2023 CBC/C OMPLE TE BLD COUNT W/DIF F red cell distribution width 13.6 % 11.8-1 5.5 Not Available [facility] (Lab) [address] [place], [address], 04/09/2023 10:50:13 04/08/20 23 04/09/2023 CBC/C OMPLE TE BLD COUNT W/DIF F platelets 217 x10'3 /uL 150-40 0 Not Available [facility] (Lab) [address] [place], [address], 04/09/2023 10:50:13 04/08/2004/09/2023 CBC/C OMPLE TE BLD COUNT W/DIF F mean platelet volume 10.5 fL 9.0-12 .4 Not Available [facility] (Lab) [address] [place], [address], 04/09/2023 10:50:13 04/08/2004/09/2023 CBC/C OMPLE TE BLD COUNT W/DIF F neutrophils 58.7 % 39.0-7 2.0 Not Available [facility] (Lab) [address] [place], [address], 04/09/2023 10:50:13 04/08/2004/09/2023 CBC/C OMPLE TE BLD COUNT W/DIF F lymphocytes 26.3 % 16.0-4 7.0 Not Available [facility] (Lab) [address] [place], [address], 04/09/2023 10:50:13 04/08/20 23 04/09/2023 CBC/C OMPLE TE BLD COUNT W/DIF F monocytes 11.4 % 5.0-12 .0 Not Available [facility] (Lab) [address] [place], [address], 04/09/2023 10:50:13 04/08/20 23 04/09/2023 CBC/C OMPLE TE BLD COUNT W/DIF F eosinophils 2.0 % 1.0-7. 0 Not Available [facility] (Lab) [address] [place], [address], 04/09/2023 10:50:13 04/08/2004/09/2023 CBC/C OMPLE TE BLD COUNT W/DIF F basophils 1.2 % 0.0-2. 0 Not Available [facility] (Lab) [address] [place], [address], 04/09/2023 10:50:13 04/08/2004/09/2023 CBC/C OMPLE TE BLD COUNT W/DIF F immature granulocytes 0.4 % 0.00-0 .50 Not Available [facility] (Lab) [address] [place], [address], 04/09/2023 10:50:13 04/08/2004/09/2023 CBC/C OMPLE TE BLD COUNT W/DIF F neutrophils, absolute count 5.23 x10'3 /uL 1.5-8. 0 Not Available [facility] (Lab) [address] [place], [address], 04/09/2023 10:50:13 04/08/2004/09/2023 CBC/C OMPLE TE BLD COUNT W/DIF F lymphocytes, absolute count 2.35 x10'3 /uL 1.07-3 .43 Not Available [facility] (Lab) [address] [place], [address], 04/09/2023 10:50:13 04/08/2004/09/2023 CBC/C OMPLE TE BLD COUNT W/DIF F monocytes, absolute count 1.02 x10'3 /uL 0.29-0 .99 high Not Available [facility] (Lab) [address] [place], [address], 04/09/2023 10:50:13 04/08/2004/09/2023 CBC/C OMPLE TE BLD COUNT W/DIF F eosinophils, absolute count 0.18 x10'3 /uL 0.02-0 .53 Not Available [facility] (Lab) [address] [place], [address], 04/09/2023 10:50:13 04/08/20 23 04/09/2023 CBC/C OMPLE TE BLD COUNT W/DIF F basophils, absolute count 0.11 x10'3 /uL 0.01-0 .08 high Not Available [facility] (Lab) [address] [place], [address], 04/09/2023 10:50:13 04/08/20 23 04/09/2023 CBC/C OMPLE TE BLD COUNT W/DIF F immature granulocytes ,absolute 0.04 x10'3 /uL 0.00-0 .05 Not Available [facility] (Lab) [address] [place], [address], 04/09/2023 10:50:13 04/08/20 23 04/09/2023 CBC/C OMPLE TE BLD COUNT W/DIF F nucleated red blood cells 0.0 % -0 Not Available [facility] (Lab) [address] [place], [address], 04/09/2023 10:50:13 04/08/20 23 04/09/2023 CBC/C OMPLE TE BLD COUNT W/DIF F NRBC# 0.00 x10'3 /uL Not Available [facility] (Lab) [address] [place], [address], 04/09/2023 10:50:13 04/08/20 23 04/09/2023 CBC/C OMPLE TE BLD COUNT W/DIF F macro OCCASI ONAL Not Available [facility] (Lab) [address] [place], [address], 04/09/2023 10:50:13 04/08/20 23 04/08/2023 COMPR EHENS DIANA METAB OLIC PANEL sodium 131 mmol/ L 137-14 5 low Not Available [facility] (Lab) [address] [place], [address], 04/08/2023 18:31:36 04/08/20 23 04/08/2023 COMPR EHENS DIANA METAB OLIC PANEL potassium 4.8 mmol/ L 3.5-5. 1 Not Available [facility] (Lab) [address] [place], [address], 04/08/2023 18:31:36 04/08/20 23 04/08/2023 COMPR EHENS DIANA METAB OLIC PANEL chloride 97 mmol/ L 98-107 low Not Available [facility] (Lab) [address] [place], [address], 04/08/2023 18:31:36 04/08/20 23 04/08/2023 COMPR EHENS DIANA METAB OLIC PANEL carbon dioxide 36 mmol/ L 22-30 high Not Available [facility] (Lab) [address] [place], [address], 04/08/2023 18:31:36 04/08/20 23 04/08/2023 COMPR EHENS DIANA METAB OLIC PANEL anion gap 2.8 mmol/ L 14-22 low Not Available [facility] (Lab) [address] [place], [address], 04/08/2023 18:31:36 04/08/20 23 04/08/2023 COMPR EHENS DIANA METAB OLIC PANEL glucose 81 mg/dL 70-99 Not Available [facility] (Lab) [address] [place], [address], 04/08/2023 18:31:36 04/08/20 23 04/08/2023 COMPR EHENS DIANA METAB OLIC PANEL BUN 28 mg/dL 8-19 high Not Available [facility] (Lab) [address] [place], [address], 04/08/2023 18:31:36 04/08/2004/08/2023 COMPR EHENS DIANA METAB OLIC PANEL creatinine 1.02 mg/dL 0.66-1 .25 Not Available [facility] (Lab) [address] [place], [address], 04/08/2023 18:31:36 04/08/20 23 04/08/2023 COMPR EHENS DIANA METAB OLIC PANEL GFR >60 Refer ence Range : [place] ge GFR Healt hy Adult : >60 [...] or ethni c subgr oups, such as [facility] nics. Outsi de the valid ated love [...] s/kdo qi/gf r_cal culat or Not Available [facility] (Lab) [address] [place], [address], 04/08/2023 18:31:36 04/08/20 23 04/08/2023 COMPR EHENS DIANA METAB OLIC PANEL alkaline phosphatase 91 U/L 38-126 Not Available [facility] (Lab) [address] [place], [address], 04/08/2023 18:31:36 04/08/20 23 04/08/2023 COMPR EHENS DIANA METAB OLIC PANEL alanine aminotransfe rase 32 U/L 0-50 Not Available [facility] (Lab) [address] [place], [address], 04/08/2023 18:31:36 04/08/20 23 04/08/2023 COMPR EHENS DIANA METAB OLIC PANEL aspartate aminotransfe rase 27 U/L 15-46 Not Available [facility] (Lab) [address] [place], [address], 04/08/2023 18:31:36 04/08/20 23 04/08/2023 COMPR EHENS DIANA METAB OLIC PANEL bilirubin, total 0.70 mg/dL 0.20-1 .30 Not Available [facility] (Lab) [address] [place], [address], 04/08/2023 18:31:36 04/08/20 23 04/08/2023 COMPR EHENS DIANA METAB OLIC PANEL calcium 9.1 mg/dL 8.4-10 .2 Not Available [facility] (Lab) [address] [place], [address], 04/08/2023 18:31:36 04/08/20 23 04/08/2023 COMPR EHENS DIANA METAB OLIC PANEL total protein 6.7 g/dL 6.3-8. 2 Not Available [facility] (Lab) [address] [place], [address], 04/08/2023 18:31:36 04/08/20 23 04/08/2023 COMPR EHENS DIANA METAB OLIC PANEL albumin 3.5 g/dL 3.4-5. 0 Not Available [facility] (Lab) [address] [place], [address], 04/08/2023 18:31:36 04/08/20 23 04/08/2023 COMPR EHENS DIANA METAB OLIC PANEL globulin 3.2 g/dL 2.6-4. 2 Not Available [facility] (Lab) [address] [place], [address], 04/08/2023 18:31:36 04/08/20 23 04/08/2023 COMPR EHENS DIANA METAB OLIC PANEL A/G ratio 1.1 ratio 1.0-2. 0 Not Available [facility] (Lab) [address] [place], [address], 04/08/2023 18:31:36 04/08/20 23 04/08/2023 LIPID PANEL cholesterol 192 mg/dL 140-19 9 NIH SHY NSUS RECOM MENDA TION FOR CHIKI STERO L: ADULT CHILD LOW RISK: <200 <170 BORDE RLINE : <200- 239 ----- HIGH RISK: >240 >200 Not Available [facility] (Lab) [address] [place], [address], 04/08/2023 18:31:40 04/08/20 23 04/08/2023 LIPID PANEL triglyceride s 55 mg/dL 0-150 NIH SHY NSUS REPOR T RECOM MENDA TION FOR TRIGL YCERI CRISTIN: ADULT CHILD LOW RISK: <150 ----- BODER LINE: 150-1 99 ----- HIGH RISK: >200 ----- Not Available [facility] (Lab) [address] [place], [address], 04/08/2023 18:31:40 04/08/20 23 04/08/2023 LIPID PANEL HDL cholesterol 108 mg/dL 40- Not Available [facility] (Lab) [address] [place], [address], 04/08/2023 18:31:40 04/08/2004/08/2023 LIPID PANEL LDL cholesterol, [...] WILL NOT BE REPOR KAYLAN. Not Available [facility] (Lab) [address] [place], [address], 04/08/2023 18:31:40 04/08/2004/08/2023 PSA SCREE N PSA medicare screen 31.10 NG/mL 0.00-4 .00 high Not Available [facility] (Lab) [address] [place], [address], 04/08/2023 19:05:45 03/25/2003/25/2023 CT, chest + abdom en + pelvi s, w/ contr ast [facility] [address] [place], [place] [address] Patien t Name: NIRMALA MONTALVO Access ion #: [id number] Sex: M : 1959 4 Dict[address] [...] st was admini st[facility]. Portal venous imagin g was obtain ed. Axial, gonzalez l and sagitt al multip lanar reform ats were perfor med by the techno logist on a [employer] te workst [facility]. Radiat ion Dose : 1. Chest/ Abdome [...] on or pneumo thorax . Page 1 [facility] [address] [place] [address] Patien t Name: NIRMALA MONTALVO Access ion #: [id number] Sex: M : 1959 4 Dictat ed By: Alonzo Villalobos Attend ing Physic danielle: [facility] Physic danielle: SUHAS CROWELL Exam Date: 2022 [...] at 2022 17:45: 13 PM Page 3 [email or web address] [facility] (Imaging) [address] [place], [address], 04/29/2023 13:10:15 12/08/19 24 10/26/2023 NM, myoca rdial perfu macarena scan, w/ stres s No observ ation record ed. [facility] Not Available 2023 09:55:20 12/08/19 24 10/23/2023 XR, chest , 1 view No observ ation record ed. [facility] Not Available 2023 09:55:20 12/08/19 24 09/13/2008 compl ete PFT w/ post [facility] hodil ator ruth metry * No observ ation record ed. [facility] Not Available 2023 18:29:04 12/09/19 24 10/22/2023 CT, angio gram, chest , w/ contr ast No observ ation record ed. [facility] Not Available 2023 14:13:34 12/09/19 24 11/25/2019 CT, abdom en + pelvi s, w/ contr ast No observ ation record ed. [facility] Not Available 2023 16:50:40 08/18/19 25 06/03/2024 compl ete PFT w/ post [facility] hodil ator ruth metry * No observ ation record ed. [facility] (Pulmonary) [address], [place], [address], 08/17/2024 14:03:58 08/18/19 25 06/03/2024 CT, chest , w/o contr ast No observ ation record ed. [facility] [address], [place], [address], 08/17/2024 14:03:59 Result Notes None recorded. Problems Name Problem SNOMED Code Status Onset Date Resolution Date Notes Provider Name and Address Organization Details Recorded Time Oren mendiola 693168420 Active 2019 Not Available [facility] 3 06:54:21 Chronic obstructi ve pulmonary disease 57496045 Active 2021 Not Available [facility] 3 06:54:21 Echocardi ogram abnormal 452850449 Active 2020 EF 45% global hypo. Moderate pulmonary hypertens ion Not Available [facility] 3 06:54:21 Depressiv e disorder 69712375 Active Not Available [facility] 3 06:54:21 Severe pulmonary hypertens ion 011607179 Active 2021 right and left heart catheteri zation 2020 normal coronarie s normal LV pulmonary artery 70/25 Not Available [facility] 3 06:54:21 Hyponatre deng 07235954 Active 2021 Not Available [facility] 3 06:54:21 Plantar fasciitis of right foot 12373215129 201061 Active 2022 Not Available [facility] 3 06:54:21 Prostate specific antigen above reference range 456884544 Active 2022 ERVIN Snyder - Yaya [place] [employer] [facility] 3 16:47:53 Nodule of lung 127048516 Active 2022 Jaxon Crowell MD [address], [address] [address], [place], [address] , [facility] [employer] [facility] [employer] [facility] 3 20:31:16 Solitary nodule of lung 099252086 Active 2023 Julián Funes MD [address], [place], [address] , [facility] [employer] [facility] [employer] [facility] 4 12:47:09 Smoker 14784505 Active 2023 Julián Funes MD [address] [facility] [address], [place], [address] , [facility] [employer] [facility] [employer] [facility] 4 16:52:15 Notes:Lab data 01/06/24 mult iple environmental allergies PFT 06/03/24 1.31 L (39%), TLC 6.75 L (100%), 3.87 L (174%), DLCO 27%, DLCO/VA 40% Chest/Abd/Pelvis CT 06/03/24 left neck, abdomen, pelvis and left inguinal lymphadenopathy Medical History: Depression/Anxiety Rhinitis to multiple environmental allergens with postnasal drip IgE 227 IU/mL Eosinophils 140/uL Erythrocytosis AAT PiMM 197 mg% Nicotine use Severe ACO RLL nodule Mediastinal and hilar lymphadenopathy Dependent atelectasis Obesity PASP 64 mmHg Mod TR Severe ZAINAB Severe RVE EF 45% Fatty liver BPH Urge urinary incontinence Right plantar fasciitis Procedure History: Right/Left cardiac catheterization 2018 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 Procedures Surgical History Date Name Laterality Status Provider Name and Address Organization Details Recorded Time 04/13/20 23 Medicare Wellness CPT Code, subsequent completed Jayshree Mojica RN [facility] [employer] [facility] 04/13/2023 16:09:03 Tonsillectomy completed Not Available [employer] 08/06/2022 12:53:21 Imaging Results Imaging Date Name Status LastModified by Organization Details LastModified Time 03/25/2023 CT, chest + abdomen + pelvis, w/ contrast completed [email or web address] [facility] (Imaging) [address] [place], [address], 04/29/2023 13:10:15 10/26/2023 NM, myocardial perfusion scan, [...] completed [facility] Information not available 12/09/2023 16:50:40 06/03/2024 complete PFT w/ post bronchodilator spirometry* completed [facility] (Pulmonary) [address], [place], [address], 08/17/2024 14:03:58 06/03/2024 CT, chest, w/o contrast completed [facility] [address], [place], [address], 08/17/2024 14:03:59 Procedure Notes None recorded. Medical Equipment None [...] kg/m2 167.64 cm 88 /min 97.2 [degF] 80396.1 4 g 120 mm[Hg] 70 mm[Hg] Not Available [facility] 3 12:53:27 Date Recorded Body height Body mass index (BMI) Body weight Body temperature Heart rate Systolic blood pressure Diastolic blood pressure Provider Name and Address Organization Details Last Updated DateTime 3 167.64 cm 29.5 kg/m2 68224.4 g 97.3 [degF] 98 /min 120 mm[Hg] 82 mm[Hg] AMELIA Montes De Oca SC [employer] 3 14:08:38 Date Recorded Body height Body mass index (BMI) Body weight Body temperature Heart rate Systolic blood pressure Diastolic blood pressure Provider Name and Address Organization Details Last Updated DateTime 3 167.64 cm 29.4 kg/m2 21039.8 1 g 98.1 [degF] 84 /min 124 mm[Hg] 78 mm[Hg] Jayshree monahan RN [employer] 3 15:32:16 Date Recorded Body height Body mass index (BMI) Body weight Body temperature Heart rate Systolic blood pressure Diastolic blood pressure Provider Name and Address Organization Details Last Updated DateTime 3 167.64 cm 29.5 kg/m2 88697.4 g 98.7 [degF] 83 /min 120 mm[Hg] 70 mm[Hg] Jayshree monahan RN [employer] 3 16:12:10 Date Recorded Body height Body mass index (BMI) Body weight Body temperature Heart rate Systolic blood pressure Diastolic blood pressure Provider Name and Address Organization Details Last Updated DateTime 4 167.64 cm 29.6 kg/m2 70044.5 6 g 98.5 [degF] 85 /min 108 mm[Hg] 74 mm[Hg] Daysi Harrison MA [employer] 4 11:41:36 Date Recorded Oxygen saturation Oxygen saturation in Arterial blood by Pulse oximetry Heart rate Respiratory rate Provider Name and Address Organization Details Last Updated DateTime 12/08/2023 90 % 90 % 85 /min 15 /min Julián Funes MD [address], [facility] [address], [place], [address], [facility] 12:31:57 Social History Question Answer Notes LastModified by Organization Details LastModified Time Tobacco Smoking Status Current Every Day Smoker Not Available [employer] 08/06/2022 12:52:56 Do You Have An Advance Directive? No [id number] Information not available 08/06/2022 What Is Your Level Of Alcohol Consumption? Heavy [id number] Information not available 08/06/2022 What Is Your Level Of Caffeine Consumption? Moderate [id number] Information not available 08/06/2022 In The 14 Days Before Symptom Onset, Have You Had Close Contact With A Laboratory-confi rmed COVID-19 While That Case Was Ill? No [id number] Information not available 08/06/2022 In The 14 Days Before Symptom Onset, Have You Had Close Contact With A Person Who Is Under Investigation For COVID-19 While That Person Was Ill? No [id number] Information not available 08/06/2022 Are You Currently Employed? Yes Information not available 04/13/2023 What Type Of Diet Are You Following? REGULAR [id number] Information not available 08/06/2022 What Is The Highest Grade Or Level Of School You Have Completed Or The Highest Degree You Have Received? [id number] MIGRATION.030 [id number] Information not available 08/06/2022 Do You Have An Electrostatic Air Filter? 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 No MIGRATION.0301 [id number] Information not available 08/06/2022 What Is The Fluoride Status Of Your Home? Unknown MIGRATION.0301 103945 Information not available 08/06/2022 Are There Any Guns Present In Your Home? No MIGRATION.0301 [id number] Information not available 08/06/2022 Do You Have A Humidifier? No Information not available 12/08/2023 Do You Use Insect Repellent Routinely? No MIGRATION.0301 165962 Information not available 08/06/2022 Where Do You Live? [facility] MIGRATION.0301 237133 Information not available 08/06/2022 Are You Able To Care For Yourself? Yes Information not available 04/13/2023 Are You Blind Or Do Yo Have Difficulty Seeing? Yes Information not available 04/13/2023 Are You Deaf Or Do You Have Serious Difficulty Hearing? Yes Information not available 04/13/2023 Do You Have A Medical Power Of Rail Washer? No MIGRATION.0301 171051 Information not available 08/06/2022 Do You Have Moisture Problems In Your Home? No Information not available 12/08/2023 What Was The Date Of Your Most Recent Tobacco Screening? 12/08/2023 Information not available 12/08/2023 Have You Ever Been Counseled For Unhealthy Alcohol Use? No MIGRATION.0301 206659 Information not available 08/06/2022 Do You Have Any Pets? No MIGRATION.0301 754774 Information not available 08/06/2022 What Is Your Relationship Status? MIGRATION.0301 237416 Information not available 08/06/2022 Do You Use Your Seat Belt Or Car Seat Routinely? Yes MIGRATION.0301 106059 Information not available 08/06/2022 Do You Have Smoke And Carbon Monoxide Detectors In Your Home? Yes MIGRATION.0301 374675 Information not available 08/06/2022 At What Age Did You Start Smoking Tobacco? 15 MIGRATION.0301 464455 Information not available 08/06/2022 Are You Passively Exposed To Smoke? Yes MIGRATION.0301 496246 Information not available 08/06/2022 Are There Any Smokers In Your House? Yes Pt Smokes MIGRATION.030 021706 Information not available 08/06/2022 How Much Tobacco Do You Smoke? 1 PPD Down From 2ppd MIGRATION.0301 090640 Information not available 08/06/2022 What Types Of Sporting Activities Do You Participate In? None MIGRATION.0301 716494 Information not available 08/06/2022 Do You Feel Stressed (tense, Restless, Nervous, Or Anxious, Or Unable To Sleep At Night)? [id number] MIGRATION.0301 511381 Information not available 08/06/2022 Do You Use Any Illicit Or Recreational Drugs? No MIGRATION.030 754102 Information not available 08/06/2022 Do You Use Sunscreen Routinely? No MIGRATION.030 247472 Information not available 08/06/2022 Have You Recently Traveled Abroad? No MIGRATION.030 639813 Information not available 08/06/2022 Do You Have Any Dietary Restrictions? No MIGRATION.030 270652 Information not available 08/06/2022 Do You Or Have You Ever Used Any Other Forms Of Tobacco Or Nicotine? No MIGRATION.030 115473 Information not available 08/06/2022 Sex: Male Functional Status Question Answer Note LastModified by Organizat ion Details LastModified Time What is your exercise level? None MIGRATION.[id number] Information not available 08/06/2022 Mental Status None recorded. Family History Relationship Description Onset Age of this Age Resolved Age Notes LastModified by Organization Details LastModified Time Brother Rheumatoid arthritis MIGRATION.739 [id number] Not available 08/06/2022 12:53:21 Maternal Grandfather Diabetes [...] ) N BOWEL PROBLEMS N STROKE/TIA Y ULCERS N KNEE PAIN N BENIGN PROSTATIC HYPERPLASIA N MEASLES N HYPOTENSION N MYOCARDIAL INFARCTION N OBESITY N GERD/NAUSEA N ANEURYSM N URINARY/BLADDER/KIDNEY PROBLEMS N CORONARY ARTERY DISEASE (CAD) N ADDICTION CONCERNS N Impotence N ENDOMETRIOSIS N USE OF BLOOD THINNERS N SKIN [...] N LIVER DISEASE N MALE HYPOGONADISM N HYPERTENSION N ELBOW PAIN N Deficiency N TOURETTE'S N Metal allergy N ANXIETY DISORDER N BLOOD TRANSFUSION N ANEMIA/BLOOD DISORDER N CHRONIC EAR INFECTIONS N BIPOLAR DISORDER N BRONCHITIS N OSTEOARTHRITIS N TUBERCULOSIS N GLAUCOMA N FOOT PROBLEM N HEART VALVE DISORDERS N DIVERTICULITIS N SLEEP APNEA N CHICKENPOX N SOFT TISSUE INJURY N ALLERGIES/HAYFEVER N INFECTIOUS DISEASE N PROSTATE N HEART ARRHYTHMIA N INSOMNIA N RHEUMATOID ARTHRITIS N HIGH CHOLESTEROL / HYPERLIPIDEMIA Y EYE PROBLEMS N HYPERTHYROIDISM N EDEMA N CHRONIC PAIN SYNDROME N HYPOTHYROIDISM N CAROTID BLOCKAGE N CONSTIPATION N BACK / NECK PROBLEMS N HAVE YOU BEEN HOSPITALIZED OR SEEN IN [facility] IN THE PAST YEAR ? [...] N ALZHEIMER'S DISEASE N Brain Problems N DEMENTIA N HERPES N SEIZURES/EPILEPSY N HEADACHES/MIGRAINES N VASCULAR DISEASE N PACEMAKER N Blood Disorder N HIP PAIN N DIZZINESS N HEAD TRAUMA OR INJURY N KIDNEY DISEASE N HEART DISEASE/HEART PROBLEMS N MULTIPLE SCLEROSIS N CANCER: SPECIFY N CARDIAC ARRHYTHMIA N ANESTHESIA COMPLICATIONS N ATRIAL FIBRILLATION N Gall Stones N PULMONARY EMBOLISM N AUTOIMMUNE DISEASE N Immunizations Vaccine Type Date Status Note Provider Nam e and Address Organization Details Recorded Time Influenza, split virus, trivalent, preservative 4 completed Not Available [facility] 04/10/2023 06:54:21 Influenza, split virus, quadrivalent, PF 1 completed Not Available [facility] 04/10/2023 06:54:21 Past Encounters Encounter ID Performer Location Encounter Start Date Encounter Closed Date Diagnosis/Indication Diagnosis SNOMED-CT Code Diagnosis ICD10 Code Diagnosis Note [id number] [facility] [address] [facility] 15 [place] [address] 03/11/2021 00:00:00 03/11/2021 22:33:12 [id number] [facility] Ortho [address] [address] 03/21/2021 00:00:00 03/21/2021 10:56:32 [id number] [facility] [address] [facility] [address] [place] [address] 03/22/2021 00:00:00 03/23/2021 14:17:40 [id number] [facility] [address] [facility] [address] [place] [address] 04/09/2021 00:00:00 04/09/2021 22:36:59 [id number] [facility] ENT [place] [place] [address] 04/19/2021 00:00:00 04/19/2021 17:24:30 [id number] [facility] [address] [facility] 15 [place] [address] 06/11/2021 00:00:00 06/11/2021 21:50:09 [id number] [facility] [address] [facility] [address] [place] [address] 10/08/2021 00:00:00 10/27/2021 18:26:50 [id number] [facility] [address] [place] [address]., [facility] 15 [place] [address] 02/11/2022 00:00:00 03/01/2022 16:59:43 [id number] [facility] [address] [facility] [address] [place] [address] 07/14/2022 00:00:00 07/14/2022 20:45:06 [id number] Jaxon Crowell MD [facility] [address] [place] [address]., [facility] 15 [place] [address] 01/19/2023 13:47:41 01/19/2023 14:36:07 Plantar fasciitis of right foot [id number] 8110903 M72.2 Probable plantar work [id number] Jaxon Crowell MD [facility] 15 [address] [facility] [address] [address] 03/16/2023 15:10:19 03/16/2023 16:33:40 Blood in urine 35337790 R31.9 Pure hypercholesterolemia 075758741 E78.00 Screening for malignant neoplasm of prostate 001497167 Z12.5 Hemoptysis 55629266 R04. 2 Chronic ob structive pulmonary disease 29771149 J44.9 Cardiomyopathy 63597804 I42.9 Pulmonary hypertension 70188853 I27.20 Erythrocytosis 637755902 D75.1 [id number] Jaxon Crowell MD [facility] Internal Med [place] [address] [place] [address] 04/13/2023 15:22:03 04/13/2023 16:45:28 Adult health examination 269075382 Z00.00 Screening for disorder 733989922 Z13.9 Lesion of lung 920894842 R91.8 Chronic ob structive pulmonary disease 68717994 J44.9 Erythrocytosis 480510826 D75.1 [id number] Julián Funes MD [facility] Pulmonolo gy [address] [address] 12/08/2023 11:29:58 12/09/2023 08:41:30 Dyspnea on exertion 00254673 R06.09 R05.3 T78.40XA D89.9 Solitary n odule of lung 353180403 R91.1 J98.59 Smoker 44913173 F17.218 Z87.891 F17.219 Health Concerns Section Related Observation LastModified by Organization Detai ls LastModified Time None Recorded Concern Status LastModified by Organization Details LastModified Time None Recorded Advance Directives Directive N: Payers Encounter Date Sequence Insurance Name Policy Number Policy Spann Covered Member ID Spann Member ID Guarantor Name 01/19/2023 1 [facility] [id number] Nirmala Maloney [id number] Nirmala Maloney 03/16/2023 1 [facility] [id number] Nirmala Maloney [id number] Nirmala Maloney 04/13/2023 1 [facility] [id number] Nirmala Maloney [id number] Nirmala Maloney 12/08/2023 1 [facility] [id number] Nirmala Maloney [id number] Nirmala Botello Amara Notes Date Note Type Note Provider Name and Address Organization Details Recorded Time 01/20/20 23 text/htm l Pain in right foot for unspecified amount of time Jaxon Crowell MD [address], [place], [address], [employer] [facility] 01/19/2023 22:49:26 03/16/20 23 text/htm l Hematuria needs to see Urology. Dyslipidemia needs blood work a needs to follow low-fat diet he has had some blood in did sputum in the past COPD stable on inhaler Jaxon Crowell MD [address], [place], [address], [employer] 03/16/2023 21:36:22 04/13/20 23 text/htm l PSA 33Spiculated 1.2 cm lung lesionErythrocytosisContinues to smoke Jaxon Crowell MD [address], [place], [address], [employer] 04/13/2023 20:33:44 12/08/19 24 text/htm l Primary [...] upstairs Alleviating factors: rest Modified [employer] [place] ([facility]) Dyspnea Scale - Grade 2 Grade [...] history: Albuterol HFA as needed since 2020 Kaidenoralia 160/9/4.8 mcg 2 puffs BID since 2020 [...] 1 ppd 1991-present = 32 pack years [place]: no Dye: no Dust mites: yes Mold: no Damp basement: no Wood burning stove: no Animal dander: no Cockroaches: no Pollen: yes Arsenic: no Asbestos: no Beryllium: no Cadmium: yes Chromium: yes Spink smoke: no Diesel fumes: no Nickel: no [...] has a slight chance of dozing. Julián Fnues MD [address] [facility], [facility] [address], [place], [address], [place] [facility] 12/08/2023 16:53:29
--- OUTSIDE RECORDS SUMMARY | 2024-09-21 13:00 | XMS_ITS | Encounter Summary ---
Author Organization [facility] Address [address] [place] [address] Care Team Providers Care Patient Flow Coordinator Name Role Phone Unavailable Primary Care Provider Unavailabl e Encounter Details Date Type Department Care Team (Late st Contact Info) Description 08/16/2024 Lab Requisition [facility] - Pathology Lab [address] [place] [address] Giancarlo Macias MD [address] [place] [address] Illness, unspecified Social History Tobacco Use Types Packs/Day Years Used Date Smoking Tobacco: Never Assessed Sex and Gender Information Value Date Recorded Sex Assigned at Not on file 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
--- OUTSIDE RECORDS SUMMARY | 2024-09-21 13:00 | XMS_ITS | Continuity of Care Document ---
Author Organization [facility] Address [address] [place] [address] [address] [place] [address] Phone Care Team Providers Care Business Account Specialist Name Role Phone Darcy Mishra Unavailable Unavailable Advance Directives Directive Yes / No Effective Date File Name No Information Encounters Encounter Description Practice Location Reason(s) For Visit Diagnoses Date Provider Providers Copied on Encounter [facility], [address] [place] [address] [address], [place], [place], [id number], [place] tel:[phone] [facility] [place] No Information Apr-0 7-200 5 Danica Taveras. [address] [facility] , [address], [place], [address], [place]. tel:[phone] Family History Family Member Type Diagnosis Age At Onset No Information Payers Payer name Insurance type Covered alliance party ID Authoriza [id number](s) Star [employer] [id number] Social History Type Description Quantity Date Captured [...]
--- OUTSIDE RECORDS SUMMARY | 2024-09-21 13:00 | XMS_ITS | Clinical Summary ---
Author Organization [facility] Isac carrasco Deyanira Address [address] [place] [address] Care Team Providers Care Health Advisor Name Role Phone Unavailable Primary Care Provider Unavailabl e Allergies No known active allergies Medications furosemide (LASIX) 20 mg tablet Take 20 mg by mouth daily. Active Erleada 60 mg tablet Take 60 mg by mouth 4 times daily. 08/30/2024 Active levothyroxine 25 mcg tablet Take 1 Tablet by mouth daily. 08/29/2024 Active tamsulosin (FLOMAX) 0.4 mg capsule Take 0.4 mg by mouth daily. 08/11/2024 Active Active Problems No known active problems Encounters Date Type Department Care Team Description 09/21/2024 10:30 AM CDT Office Visit [facility] Oncology and Hematology - [place] [address] [address] Danilo Jerez MD Prostate cancer (CMS/HCC) (Primary Dx); Chronic anemia from Last 3 Months Family History Medical History Relation Name Comments No Known Problems Brother 5 brothers No Known Problems Child Heart Disease Father No Known Problems Mother Relation Name Status Comments Brother 5 brothers Child Alive Father Mother Alive Social History Tobacco Use Types Packs/Day Years Used Date Smoking Tobacco: Every Day Cigarettes 1.5 45 Started: 09/22/1979 Smokeless Tobacco: Never Tobacco Cessation:Ready to Q uit: Not Asked; Counseling Given: Not Answered Alcohol Use Standard Drinks/Week Comments Yes 3 (1 standard drink = 0.6 oz pure alcohol) Drank every day until a couple weeks ago Sex and Gender Information Value Date Recorded Sex Assigned at Not on file Legal Sex Male 4:15 PM CDT Gender Identity Not on file Sexual Orientation Not on file Last Filed Vital Signs Vital Sign Reading Time Taken Comments Blood Pressure 105/59 09/21/2024 10:33 AM CDT Pulse 82 09/21/2024 10:33 AM CDT Temperature 36.5 C (97.7 F) 09/21/2024 10:27 AM CDT Respiratory Rate 17 09/21/2024 10:27 AM CDT Oxygen Saturation - - Inhaled Oxygen Concentration - - Weight 61.2 kg (135 lb) 09/21/2024 10:27 AM CDT Height 172.7 cm (5' 8 ) 09/21/2024 10:27 AM CDT Body Mass Index 20.53 09/21/2024 10:27 AM CDT Plan of Treatment Health Maintenance Due Date Last Done Comments DTAP/TDAP/TD VACCINES (1 - Tdap) 1981 COLORECTAL SCREENING 2007 Colorectal Cancer Screening 2007 FIT-DNA Q 3 years 2007 FIT/FOBT Q 1 year 2007 Flex Sig/CT Colonography Q 5 years 2007 ZOSTER VACCINE (1 of 2) 2012 INFLUENZA VACCINE (#1) 2024 Preventative Visit- Commercial 06/08/2024 RSV VACCINE (60+ or ) (1 - 1-dose 75+ series) 2037 Insurance
--- OUTSIDE RECORDS SUMMARY | 2024-09-21 13:00 | XMS_ITS | CONTINUITY OF CARE DOCUMENT ---
Author Name ruel lipscomb Address Unknown Organization [facility] Address [address] [facility] [address] [place] [address] Phone [phone] Care Team Providers Care Quick Service Technician Name Role Phone Robert Freeman MD Unavailable [phone] TATYANA DAWN MD Unavailable [phone] TATYANA DAWN MD Unavailable PROBLEMS Condition Status Date Provider Notes Shortness of breath (SOB) active Jesse jha per PCP LÓPEZ Orthopnea active Robert Freeman MD Leg edema active Robert Freeman MD Tobacco abuse active Robert Freeman MD ENCOUNTERS Date Type Provider Location Encounter Diag nosis - In-person encounter Office Visit Robert Freeman MD [facility] - In-person encounter Office Visit Robert Freeman MD [facility] Tobacco abuseLeg edemaOrthopnea VITAL SIGNS Date Observation Value Provider Body Mass Index (Ratio) 27.37 kg/m2 Miguel Angel Lopez oxygen saturation, oximetry 90 % pulse rate 87 /min Raphael y blood pressure, diastolic 79 mm[Hg] Ja rret [...] frank Graves oxygen saturation, oximetry 93 % Ion Graves respiratory rate E&M 16 /min Ion Graves pulse rate 95 /min Ion Graves height E&M 68 [in_i] Ion Graves [...] Policy type / Coverage type Candie red republican ID [facility] Other [id number] ADVANCE DIRECTIVES Name Date DISCUSSED - NO DECISION MADE TREATMENT PLAN Date Name Performer [id number],C,T he Patient was reencouraged to stop smoking. Emilia Amos [id number],C,P t complained of SOB with minimal exertion, orthopnea, heavy smoker. Also had leg swelling which improved with Lasix. Echo showed EF 45%. Marked RV dilation with PA pressure 64 and mmHg. I recommend R/L cardiac cath, chest CT with contrast, venous duplex of the LE, PFTs, and will check BNP levels. I advised him to stop smoking. Kaiden's test was normal. Emilia Amos [id number],C,P t complained of SOB with minimal exertion, orthopnea, heavy smoker. Also had leg swelling which improved with Lasix. Echo showed EF 45%. Marked RV dilation with PA pressure 64 and mmHg. I recommend R/L cardiac cath, chest CT with contrast, venous duplex of the LE, PFTs, and will check BNP levels. I advised him to stop smoking. Kaiden's test was normal. Emilia Amos [id number],C,P t complained of SOB with minimal exertion, [...] Lopez Cardiology:Pt with a recent admission to [facility] for SOB and leg swelling. His cardiac [...] Lopez Cardiology:Pt with a recent admission to [facility] for SOB and leg swelling. His cardiac [...] tablet by mouth every day Emilia Amos Date Name Sleep Study Home PROBNP, N TERMINAL DLCO - 91718 FRC - 29968 FVC - 39248 PROTHROMBIN TIME WIT H INR LIPID PANEL CBC (INCLUDES DIFF/P LT) BASIC METABOLIC PANE L W/EGFR DLCO - 75193 FRC - 84307 FVC - 82690 Venous Doppler Bilat eral LE - Reflux Cardiac Cath - L/R- [facility] B TYPE NATRIURETIC P EPTIDE (BNP) CT Chest with contra st Complete Echo HISTORY OF PROCEDURES Procedure Date Procedure Name Provider Procedure Notes S tatus Complex e/m visit add on Robert Freeman MD completed EKG Robert Freeman MD completed
--- OUTSIDE RECORDS SUMMARY | 2024-09-21 13:00 | XMS_ITS | Clinical Summary ---
Author Organization [facility] Address [address] [address] Care Team Providers Care Dry Cell Sealer Name Role Phone Unavailable Primary Care Provider Unavailabl e Source Comments [facility],non-owned Affiliates and Associated Physician Practices is amultiple site organization consisting of ambulatory clinics and hospital sitesin [place], [place], [place] and [place]. This disclosure is being madepursuant to the Care Everywhere program and may not contain all information available regarding this patient. 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 Gender Identity Not on file Sexual Orientation [...] COLON CA SCREENING 1962 LIPID TESTING 1962 COVID-19 VACCINE (#1) 1967 HIV SCREENING 1977 HEPATITIS C SCREENING 03/15/1980 DTAP/TDAP/TD VACCINES (1 - Tdap) 1981 PNEUMOCOCCAL VACCINE 50+ (1 of 2 - PCV) 1981 ZOSTER VACCINE (1 of 2) 1981 Respiratory Syncytial Virus (RSV) Vaccine Pt: or over 60 yrs (1 - Risk 60-74 years 1-dose series) 2022 DEPRESSION SCREENING 06/08/2024 INFLUENZA VACCINE (Season Ended) 2025 03/22/2021, 04/26/2014 HEPATITIS B VACCINE Aged Out No longe r eligible based on patient's age to complete this topic HIB VACCINE Aged Out No longer eligi ble based on patient's age to complete this topic HPV VACCINE Aged Out No longer eligi ble based on patient's age to complete this topic MENINGOCOCCAL (Group B) VACCINE SHARED DECISION-MAKING Aged Out No longer eligible based on patient's age to complete this topic MENINGOCOCCAL GROUPS A/C/Y/W VACCINE Aged Out No longer eligible b ased on patient's age to complete this topic Insurance SELF PAY NO INSURANCE Member Subscriber Plan / Payer (Ef fective for All Dates) Name:Robert Wahl Member ID:Not on file Relation to Subscriber:Not on file Name:ROBERT WAHL Subscriber ID:Not on file (Home) Address: [address] [place] [address] Payer ID:Not on file Group ID:Not on file Type:Self Pay Address: [place], [place]
--- OUTSIDE RECORDS SUMMARY | 2024-09-21 13:00 | XMS_ITS | Encounter Summary ---
Author Organization [facility] Address [address] [place] [address] Care Team Providers Care Shampoo Person Name Role Phone Unavailable Primary Care Provider Unavailabl e Reason for Referral * Eval and Treat (Routine) - Open Specialty Diagnoses / Procedures Referred By Contac t Referred To Contact Surgery Diagnoses Prostate cancer (CMS/HCC) Procedures MI OFFICE/OUTPATIENT ESTABLISHED MOD MDM 30 MIN MI OFFICE/OUTPATIENT NEW MODERATE MDM 45 MINUTES Danilo Jerez MD [address] [facility] [address] [place] [phone] Phone: tel: fax: Jorge A Espinosa, DO [address] [facility] [address] [place] [address] Phone: tel: fax: Referral ID Status Reason Start Date Expiration Date V isits Requested Visits Authorized [id number] Open CRS To Schedule (STL) 09/21/2024 09/21/2025 1 1 * Eval and Treat (Routine) - Open Specialty Diagnoses / Procedures Referred By Contac t Referred To Contact Oncology Diagnoses Prostate cancer (CMS/HCC) Procedures MI OFFICE/OUTPATIENT ESTABLISHED MOD MDM 30 MIN MI OFFICE/OUTPATIENT NEW MODERATE MDM 45 MINUTES Danilo Jerez MD [email or web address] [place] [phone] Phone: tel: fax: Referral ID Status Reason Start Date Expiration Date V isits Requested Visits Authorized [id number] Open [facility] CTS 09/21/2024 09/22/2025 1 1 * PET Scan (Routine) - Pending Review Specialty Diagnoses / Procedures Referred By Joy tripp Referred To Contact Diagnoses Prostate cancer (CMS/HCC) Procedures PET TUMOR GA68 ILLUCIX PSMA IMG W CT SKB MDTH CHG PET IMAGING CT ATTENUATION SKULL BASE MID-THIGH HCHG GALLIUM GA-68 GOZETOTIDE DX ILLUCCIX 1 MCI MI GALLIUM ILLUCCIX 1 MILLICURE Danilo Jerez MD [email or web address] [place] [phone] Phone: tel: fax: [facility] [phone] Referral ID Status Reason Start Date Expiration Date Visits Requested Visits Authorized [id number] Pending Review [facility] CTS 09/21/2024 10/22/2025 1 1 Encounter Details Date Type Department Care Team (Late st Contact Info) Description 09/21/2024 10:30 AM CDT Office Visit [facility] Oncology and Hematology [facility] [address] [place] [address] [address] [place] [address] Danilo Jerez MD [email or web address] [place] [phone] Prostate cancer (CMS/HCC) (Primary Dx); Chronic anemia Social History Tobacco Use Types Packs/Day Years [...] on file documented as of this encounter Last Filed Vital Signs Vital Sign Reading [...] Mass Index 20.53 09/21/2024 10:27 AM CDT documented in this encounter Plan of Treatment Scheduled Orders Name Type Priority Associated Diagnoses Orde r Schedule CBC WITH DIFFERENTIAL Lab Stat Prostate cancer (CMS/HCC) Expected: 09/21/2024, Expires: 09/21/2025 COMPREHENSIVE METABOLIC PANEL Lab Stat Prostate cancer (CMS/HCC) Expected: 09/21/2024, Expires: 09/21/2025 PSA Lab Routine Prostate cancer (CMS/HCC) Expected: 09/21/2024, Expires: 09/21/2025 PET TUMOR GA68 ILLUCIX PSMA IMG W CT SKB MDTH Imaging Routine Prostate cancer (CMS/HCC) 1 Occurrences starting 09/21/2024 until 09/21/2025 FERRITIN Lab Routine Chronic anemia Expected: 09/21/2024, Expires: 09/21/2025 IRON, TIBC, AND PERCENT SATURATION Lab Routine Chronic anemia Expected: 09/21/2024, Expires: 09/21/2025 VITAMIN B12 LEVEL Lab Routine Chronic anemia Expected: 09/21/2024, Expires: 09/21/2025 Scheduled Referrals Name Type Priority Associated Diagnoses Order Schedule AMB REFERRAL TO CHEMO TEACHING Outpatient Referral Routine Prostate cancer (CMS/HCC) Ordered: 09/21/2024 AMB REFERRAL TO COLORECTAL SURGERY Outpatient Referral Routine Prostate cancer (CMS/HCC) Ordered: 09/21/2024 documented as of this encounter Visit Diagnoses Diagnosis Prostate cancer (CMS/HCC)- Primary Malignant neoplasm of prostate Chronic anemia Anemia, unspecified documented in this encounter
[2024-09-21 17:01] LABS: Iron 268 ug/dL (49-181)
[2024-09-21 17:11] LABS: Percent Iron Saturation 91 % (20-50)
[2024-09-21 17:16] LABS: Alanine Aminotransferase 16 U/L (6-50); Albumin Level 3.6 g/dL (3.5-5.1); Alkaline Phosphatase 506 U/L (38-126); Anion Gap 1 mmol/L (4-12); Aspartate Amino Transferase 32 U/L (17-59); Bilirubin,Total 0.8 mg/dL (0.2-1.3); Blood Urea Nitrogen 25 mg/dL (9-20); Calcium 8.3 mg/dL (8.4-10.2); Carbon Dioxide 33 mmol/L (22-30); Chloride 94 mmol/L (98-107); Estimated Glomerular Filt Rate > 60; Glucose 94 mg/dL (65-110); Potassium 4.3 mmol/L (3.4-5.0); Sodium 128 mmol/L (137-145)
[2024-09-21 18:24] LABS: Prostate Specific Antigen 86.2 ng/mL (< OR = 4.0)
== END 2024-09-21 11:37 | disposition home or self-care (01) ==
LOC: ANHLAB 11:37
PROVIDERS: PCP Internal Medicine; Visit Provider Internal Medicine Hematology & Oncology
DX: C61 Malignant neoplasm of prostate (principal); D64.9 Anemia, unspecified
CPT/HCPCS: 36415; 80053; 82607; 82728; 83540; 83550; 84153; 85025

== ENCOUNTER 2024-09-26 12:23 | Outpatient (CLI) | payer OTHER, SELFPAY ==
[2024-09-26 12:57] LABS: Hematocrit 22.6 % (42.0-52.0); Hemoglobin 7.1 g/dL (14.0-18.0); Immature Platelet Fraction Pct 4.3 % (0.9-11.2); Mean Corpuscular HGB Conc 31.4 g/dl (32-36); Mean Corpuscular Hemoglobin 35.1 pg (26-34); Mean Corpuscular Volume 111.9 fl (80-100); Mean Platelet Volume 9.9 fl (7.4-10.4); Platelet Count Result 104 k/mm3 (150-375); Red Blood Count 2.02 M/mm3 (4.6-6.20); White Blood Count 6.6 K/mm3 (4.5-10.0)
[2024-09-26 13:02] LABS: Sodium 133 mmol/L (137-145)
[2024-09-26 13:09] LABS: INR 1.1; Partial Thromboplastin Time 29.2 Seconds (22.3-36.8); Prothrombin Time 14.6 Seconds (11.1-14.7)
--- OUTSIDE RECORDS SUMMARY | 2024-09-26 13:55 | XMS_ITS | Data Portability ---
Author Organization [place] - [facility], Main Office Address [address] [place] [address] Assessment Encounter Date Assessment Date Assessment LastModified [...] because I may be out of network [email or web address] Not available 01/19/2023 22:49:07 03/16/2023 03/16/2023 Urology for bloo d in urine Blood work Smoking cessation CT chest abdomen pelvis Follow-up 1 month [email or web address] Not available 03/16/2023 21:35:28 04/13/2023 04/13/2023 Advised [...] no ischemia, EF 61% PASP 64 mmHg [facility] hospitalization 10/23/23 - 10/27/23 right CHF, 3 Lpm exertional O2 PFT 09/13/08 FEV1 2.37 L (63%), BD 250 mL = 12%, TLC 6.21 L (94%), RV 2.92 L (142%) Nicotine cessation counseling provided for 4 minutes. [place] for quitting nicotine include getting ready, getting [...] in Quit For Life program Registering at [email or web address] Making a call to 2-986-DVJW-NOW ( ). A strong, clear, personalized message [...] failure or relapse. Patient can enroll in [facility]'s smoking cessation class through Nicki Fernando [...] done as follows: Respiratory allergen panel for [facility] Serum IgE Serum total IgG, IgG1, IgG2, IgG3, IgG4 Ndlai-1-dsdslpjtzf n phenotype and level TB stimulated gamma [...] alpha-1-ant itrypsin (aat) phenotype, serum 2023 024 [facility] (Lab), [address] [place], [address], 00:18:54 BNP (B-type natriuretic peptide), serum or plasma 2023 024 CRISTINE [facility] (Lab), [address] [place], [address], 4 18:03:44 ige, total, serum [address] (Lab), [address] [place], [address], 4 12:35:58 tb (M tuberculosi s), ifn-gamma hyacinth, blood [address] (Lab), [address] [place], [address], 4 12:35:58 eosinophil count, manual, blood (OBS) [address] (Lab), [address] [place], [address], 4 12:35:59 igg subclasses 1+2+3+4, serum [address] (Lab), [address] [place], [address], 4 12:35:59 respiratory allergen panel - [facility] a [address] (Lab), [address] [place], [address], 4 12:35:59 respiratory allergen panel - [facility] b [address] (Lab), [address] [place], [address], 4 12:35:59 PSA, total, serum or plasma 2022 023 [facility] (Lab), [address] [place], [address], 3 19:05:45 CBC w/ auto diff 2022 023 [facility] (Lab), [address] [place], [address], 3 17:31:25 CMP, serum or plasma 2022 023 [facility] (Lab), [address] [place], [address], 3 18:31:36 lipid panel, serum 2022 023 [facility] (Lab), [address] [place], [address], 3 18:31:[address] referral - Chest CT 03/25/23 12 mm RLL spiculated noduleChest CT 10/22/23 right effusion may be obscuring RLL nodule, (+) mediastinal and matted hilar lymphadenop athy 2023 024 [email or web address] 82 Dimas Enamorado MD, [address] [place], [address], 5 08:53:28 urologist referral 2022 023 [email or web address] [facility], [address] [place] [address], [facility] [address], [place], [address], 3 16:47:03 mail processing associate referral 2022 023 [email or web address] Vick Metz DPM, [address] [facility], [facility] [address], [place], [address], 4 18:08:55 Procedures None recorded. Surgeries None recorded. Imaging CT, chest, w/o contrast - Approved # [id number] 12/14/2023 -01/28/20242023 024 [email or web address] [facility], [address], [address] [address], [place], [address], 16:25:32 CT, chest + abdomen + pelvis, w/ contrast - approved [id number]/ [id number] 03/16/23-2022 023 [facility] (Imaging), [address] [place], [address], 18:46:25 Medication Orders None recorded. Patient TargetsNo targets recorded. Patient Instructions Encounter Date Encounter Id Patient Instructions Last Modified By Organization Details Last Modified Time 04/13/2023 [id number] dementia rating scale-2* cyahl Not available 04/14/2023 09:45:49 multi-dimensiona l health assessment questionnaire* cyahl Not available 04/14/2023 09:45:52 care plan* cyahl Not available 04/14 09:45:44 advance care planning: care instructions [email or web address] Not available 04/13/2023 20:33:40 advance directiv es: care instructions [email or web address] Not available 04/13/2023 20:33:39 [place] Advance Directives [email or web address] Not available 04/13/2023 20:33:40 Personalized [facility] Plan and Screening Recommendations Advance Directives [...] treatment plan Not available 04/13/2023 16:09:03 12/08/2023 [id number] complete PFT w/ post bronchodilator spirometry* - No auth needed [email or web address] Not available 07/26/2024 12:45:07 Reason for Referral 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 3 Not Available [facility] (Lab) [address] [place], [address], 03/26/2023 10:11:18 04/08/20 23 04/09/2023 CBC/C OMPLE TE BLD COUNT W/DIF F white blood cells 8.9 x10'3 /uL 4.2-10 .8 Not Available [facility] (Lab) [address] [place], [address], 04/09/2023 10:50:13 04/08/20 23 04/09/2023 CBC/C OMPLE TE BLD COUNT W/DIF F red blood cells 5.49 x10'6 /uL 4.10-5 .80 Not Available [facility] (Lab) [address] [place], [address], 04/09/2023 10:50:13 04/08/20 23 04/09/2023 CBC/C OMPLE TE BLD COUNT W/DIF F hemoglobin 19.3 g/dL 13.2-1 7.0 high Not Available [facility] (Lab) [address] [place], [address], 04/09/2023 10:50:13 04/08/20 23 04/09/2023 CBC/C OMPLE TE BLD COUNT W/DIF F hematocrit 58.2 % 39.3-5 0.0 high Not Available [facility] (Lab) [address] [place], [address], 04/09/2023 10:50:13 04/08/20 23 04/09/2023 CBC/C OMPLE TE BLD COUNT W/DIF F mean red cell volume 106.0 fL 80.0-9 7.0 high Not Available [facility] (Lab) [address] [place], [address], 04/09/2023 10:50:13 04/08/20 23 04/09/2023 CBC/C OMPLE TE BLD COUNT W/DIF F mean red cell hemoglobin 35.2 pg 27.0-3 3.0 high Not Available [facility] (Lab) [address] [place], [address], 04/09/2023 10:50:13 04/08/20 23 04/09/2023 CBC/C OMPLE TE BLD COUNT W/DIF F mean RBC HGB concentratio n 33.2 g/dL 31.0-3 6.0 Not Available [facility] (Lab) [address] [place], [address], 04/09/2023 10:50:13 04/08/20 23 04/09/2023 CBC/C OMPLE TE BLD COUNT W/DIF F red cell distribution width 13.6 % 11.8-1 5.5 Not Available [facility] (Lab) [address] [place], [address], 04/09/2023 10:50:13 04/08/20 23 04/09/2023 CBC/C OMPLE TE BLD COUNT W/DIF F platelets 217 x10'3 /uL 150-40 0 Not Available [facility] (Lab) [address] [place], [address], 04/09/2023 10:50:13 04/08/2004/09/2023 CBC/C OMPLE TE BLD COUNT W/DIF F mean platelet volume 10.5 fL 9.0-12 .4 Not Available [facility] (Lab) [address] [place], [address], 04/09/2023 10:50:13 04/08/2004/09/2023 CBC/C OMPLE TE BLD COUNT W/DIF F neutrophils 58.7 % 39.0-7 2.0 Not Available [facility] (Lab) [address] [place], [address], 04/09/2023 10:50:13 04/08/2004/09/2023 CBC/C OMPLE TE BLD COUNT W/DIF F lymphocytes 26.3 % 16.0-4 7.0 Not Available [facility] (Lab) [address] [place], [address], 04/09/2023 10:50:13 04/08/20 23 04/09/2023 CBC/C OMPLE TE BLD COUNT W/DIF F monocytes 11.4 % 5.0-12 .0 Not Available [facility] (Lab) [address] [place], [address], 04/09/2023 10:50:13 04/08/20 23 04/09/2023 CBC/C OMPLE TE BLD COUNT W/DIF F eosinophils 2.0 % 1.0-7. 0 Not Available [facility] (Lab) [address] [place], [address], 04/09/2023 10:50:13 04/08/2004/09/2023 CBC/C OMPLE TE BLD COUNT W/DIF F basophils 1.2 % 0.0-2. 0 Not Available [facility] (Lab) [address] [place], [address], 04/09/2023 10:50:13 04/08/2004/09/2023 CBC/C OMPLE TE BLD COUNT W/DIF F immature granulocytes 0.4 % 0.00-0 .50 Not Available [facility] (Lab) [address] [place], [address], 04/09/2023 10:50:13 04/08/2004/09/2023 CBC/C OMPLE TE BLD COUNT W/DIF F neutrophils, absolute count 5.23 x10'3 /uL 1.5-8. 0 Not Available [facility] (Lab) [address] [place], [address], 04/09/2023 10:50:13 04/08/2004/09/2023 CBC/C OMPLE TE BLD COUNT W/DIF F lymphocytes, absolute count 2.35 x10'3 /uL 1.07-3 .43 Not Available [facility] (Lab) [address] [place], [address], 04/09/2023 10:50:13 04/08/2004/09/2023 CBC/C OMPLE TE BLD COUNT W/DIF F monocytes, absolute count 1.02 x10'3 /uL 0.29-0 .99 high Not Available [facility] (Lab) [address] [place], [address], 04/09/2023 10:50:13 04/08/2004/09/2023 CBC/C OMPLE TE BLD COUNT W/DIF F eosinophils, absolute count 0.18 x10'3 /uL 0.02-0 .53 Not Available [facility] (Lab) [address] [place], [address], 04/09/2023 10:50:13 04/08/20 23 04/09/2023 CBC/C OMPLE TE BLD COUNT W/DIF F basophils, absolute count 0.11 x10'3 /uL 0.01-0 .08 high Not Available [facility] (Lab) [address] [place], [address], 04/09/2023 10:50:13 04/08/20 23 04/09/2023 CBC/C OMPLE TE BLD COUNT W/DIF F immature granulocytes ,absolute 0.04 x10'3 /uL 0.00-0 .05 Not Available [facility] (Lab) [address] [place], [address], 04/09/2023 10:50:13 04/08/20 23 04/09/2023 CBC/C OMPLE TE BLD COUNT W/DIF F nucleated red blood cells 0.0 % -0 Not Available [facility] (Lab) [address] [place], [address], 04/09/2023 10:50:13 04/08/20 23 04/09/2023 CBC/C OMPLE TE BLD COUNT W/DIF F NRBC# 0.00 x10'3 /uL Not Available [facility] (Lab) [address] [place], [address], 04/09/2023 10:50:13 04/08/20 23 04/09/2023 CBC/C OMPLE TE BLD COUNT W/DIF F macro OCCASI ONAL Not Available [facility] (Lab) [address] [place], [address], 04/09/2023 10:50:13 04/08/20 23 04/08/2023 COMPR EHENS DIANA METAB OLIC PANEL sodium 131 mmol/ L 137-14 5 low Not Available [facility] (Lab) [address] [place], [address], 04/08/2023 18:31:36 04/08/20 23 04/08/2023 COMPR EHENS DIANA METAB OLIC PANEL potassium 4.8 mmol/ L 3.5-5. 1 Not Available [facility] (Lab) [address] [place], [address], 04/08/2023 18:31:36 04/08/20 23 04/08/2023 COMPR EHENS DIANA METAB OLIC PANEL chloride 97 mmol/ L 98-107 low Not Available [facility] (Lab) [address] [place], [address], 04/08/2023 18:31:36 04/08/20 23 04/08/2023 COMPR EHENS DIANA METAB OLIC PANEL carbon dioxide 36 mmol/ L 22-30 high Not Available [facility] (Lab) [address] [place], [address], 04/08/2023 18:31:36 04/08/20 23 04/08/2023 COMPR EHENS DIANA METAB OLIC PANEL anion gap 2.8 mmol/ L 14-22 low Not Available [facility] (Lab) [address] [place], [address], 04/08/2023 18:31:36 04/08/20 23 04/08/2023 COMPR EHENS DIANA METAB OLIC PANEL glucose 81 mg/dL 70-99 Not Available [facility] (Lab) [address] [place], [address], 04/08/2023 18:31:36 04/08/20 23 04/08/2023 COMPR EHENS DIANA METAB OLIC PANEL BUN 28 mg/dL 8-19 high Not Available [facility] (Lab) [address] [place], [address], 04/08/2023 18:31:36 04/08/2004/08/2023 COMPR EHENS DIANA METAB OLIC PANEL creatinine 1.02 mg/dL 0.66-1 .25 Not Available [facility] (Lab) [address] [place], [address], 04/08/2023 18:31:36 04/08/20 23 04/08/2023 COMPR EHENS DIANA METAB OLIC PANEL GFR >60 Refer ence Range : [place] ge GFR Healt hy Adult : >60 [...] or ethni c subgr oups, such as [facility] nics. Outsi de the valid ated [...] s/kdo qi/gf r_cal culat or Not Available [facility] (Lab) [address] [place], [address], 04/08/2023 18:31:36 04/08/20 23 04/08/2023 COMPR EHENS DIANA METAB OLIC PANEL alkaline phosphatase 91 U/L 38-126 Not Available [facility] (Lab) [address] [place], [address], 04/08/2023 18:31:36 04/08/20 23 04/08/2023 COMPR EHENS DIANA METAB OLIC PANEL alanine aminotransfe rase 32 U/L 0-50 Not Available [facility] (Lab) [address] [place], [address], 04/08/2023 18:31:36 04/08/20 23 04/08/2023 COMPR EHENS DIANA METAB OLIC PANEL aspartate aminotransfe rase 27 U/L 15-46 Not Available [facility] (Lab) [address] [place], [address], 04/08/2023 18:31:36 04/08/20 23 04/08/2023 COMPR EHENS DIANA METAB OLIC PANEL bilirubin, total 0.70 mg/dL 0.20-1 .30 Not Available [facility] (Lab) [address] [place], [address], 04/08/2023 18:31:36 04/08/20 23 04/08/2023 COMPR EHENS DIANA METAB OLIC PANEL calcium 9.1 mg/dL 8.4-10 .2 Not Available [facility] (Lab) [address] [place], [address], 04/08/2023 18:31:36 04/08/20 23 04/08/2023 COMPR EHENS DIANA METAB OLIC PANEL total protein 6.7 g/dL 6.3-8. 2 Not Available [facility] (Lab) [address] [place], [address], 04/08/2023 18:31:36 04/08/20 23 04/08/2023 COMPR EHENS DIANA METAB OLIC PANEL albumin 3.5 g/dL 3.4-5. 0 Not Available [facility] (Lab) [address] [place], [address], 04/08/2023 18:31:36 04/08/20 23 04/08/2023 COMPR EHENS DIANA METAB OLIC PANEL globulin 3.2 g/dL 2.6-4. 2 Not Available [facility] (Lab) [address] [place], [address], 04/08/2023 18:31:36 04/08/20 23 04/08/2023 COMPR EHENS DIANA METAB OLIC PANEL A/G ratio 1.1 ratio 1.0-2. 0 Not Available [facility] (Lab) [address] [place], [address], 04/08/2023 18:31:36 04/08/20 23 04/08/2023 LIPID PANEL cholesterol 192 mg/dL 140-19 9 NIH SHY NSUS RECOM MENDA TION FOR CHIKI STERO L: ADULT CHILD LOW RISK: <200 <170 BORDE RLINE : <200- 239 ----- HIGH RISK: >240 >200 Not Available [facility] (Lab) [address] [place], [address], 04/08/2023 18:31:40 04/08/20 23 04/08/2023 LIPID PANEL triglyceride s 55 mg/dL 0-150 NIH SHY NSUS REPOR T RECOM MENDA TION FOR TRIGL YCERI CRISTIN: ADULT CHILD LOW RISK: <150 ----- BODER LINE: 150-1 99 ----- HIGH RISK: >200 ----- Not Available [facility] (Lab) [address] [place], [address], 04/08/2023 18:31:40 04/08/20 23 04/08/2023 LIPID PANEL HDL cholesterol 108 mg/dL 40- Not Available [facility] (Lab) [address] [place], [address], 04/08/2023 18:31:40 04/08/2004/08/2023 LIPID PANEL LDL cholesterol, [...] WILL NOT BE REPOR KAYLAN. Not Available [facility] (Lab) [address] [place], [address], 04/08/2023 18:31:40 04/08/2004/08/2023 PSA SCREE N PSA medicare screen 31.10 NG/mL 0.00-4 .00 high Not Available [facility] (Lab) [address] [place], [address], 04/08/2023 19:05:45 03/25/2003/25/2023 CT, chest + abdom en + pelvi s, w/ contr ast [facility] [address] [place], [place] [id number] [phone] Patien t Name: NIRMALA MONTALVO Access ion #: [id number] Sex: M : 1959 4 Dictat [...] st [facility] imagin g was obtain ed. Axial, gonzalez l and sagitt al multip lanar reform ats were perfor med by the techno logist on a TD[facility]. Radiat ion Dose : 1. Chest/ Abdome [...] on or pneumo thorax . Page 1 [facility] [place] [address] [place] [address] Patien t Name: NIRMALA MONTALVO Access ion #: [id number] Sex: M : 1959 4 Dictat ed By: Alonzo Villalobos Attend ing Physic danielle: [facility] Physic danielle: SUHAS CROWELL Exam Date: [...] at 2022 17:45: 13 PM Page 3 [email or web address] [facility] (Imaging) [address] [place], [address], 04/29/2023 13:10:15 12/08/19 24 10/26/2023 NM, myoca rdial perfu macarena scan, w/ stres s No observ ation record ed. [facility] Not Available 2023 09:55:20 12/08/19 24 10/23/2023 XR, chest , 1 view No observ ation record ed. [facility] Not Available 2023 09:55:20 12/08/19 24 09/13/2008 compl ete PFT w/ post [facility] h[facility] ruth metry * No observ [...] 25 06/03/2024 compl ete PFT w/ post [facility] hodil ator ruth metry * No observ ation record ed. [facility] (Pulmonary) [address], [place], [address], 08/17/2024 14:03:58 08/18/19 25 06/03/2024 CT, chest , w/o contr ast No observ ation record ed. [facility] [address], [place], [address], 08/17/2024 14:03:59 Result Notes None recorded. Problems Name Problem SNOMED Code Status Onset Date Resolution Date Notes Provider Name and Address Organization Details Recorded Time Oren mendiola 236693065 Active 2019 Not Available [facility] 3 06:54:21 Chronic obstructi ve pulmonary disease 64283078 Active 2021 Not Available [facility] 3 06:54:21 Echocardi ogram abnormal 853766018 Active 2020 EF 45% global hypo. Moderate pulmonary hypertens ion Not Available [facility] 3 06:54:21 Depressiv e disorder 59088672 Active Not Available [facility] 3 06:54:21 Severe pulmonary hypertens ion 761148708 Active 2021 right and left heart catheteri zation 2020 normal coronarie s normal LV pulmonary artery 70/25 Not Available [facility] 3 06:54:21 Hyponatre deng 83075572 Active 2021 Not Available [facility] 3 06:54:21 Plantar fasciitis of right foot 77633092865 790372 Active 2022 Not Available [facility] 3 06:54:21 Prostate specific antigen above reference range 518071169 Active 2022 ERVIN Snyder - Yaya HI [employer] [facility] 3 16:47:53 Nodule of lung 036910653 Active 2022 Jaxon Crowell MD [address] [place] [address], [place], [address] , [facility] [employer] [facility] [employer] [facility] 3 20:31:16 Solitary nodule of lung 132419478 Active 2023 Julián Funes MD [address], [place], [address] , [facility] [employer] [facility] [employer] [facility] 4 12:47:09 Smoker 67811455 Active 2023 Julián Funes MD [address] [facility] [address], [place], [address] , [facility] [employer] [facility] [employer] [facility] 4 16:52:15 Notes:Lab data 01/06/24 mult iple [...] History: Right/Left cardiac catheterization 2018 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 Procedures Surgical History Date Name Laterality Status Provider Name and Address Organization Details Recorded Time 04/13/20 23 Medicare Wellness CPT Code, subsequent completed Jayshree Mojica RN [facility] [employer] [facility] 04/13/2023 16:09:03 Tonsillectomy completed Not Available [employer] 08/06/2022 12:53:21 Imaging Results Imaging Date Name Status LastModified by Organization Details LastModified Time 03/25/2023 CT, chest + abdomen + pelvis, w/ contrast completed [email or web address] [facility] (Imaging) [address] [place], [address], 04/29/2023 13:10:15 10/26/2023 NM, myocardial perfusion scan, [...] PFT w/ post bronchodilator spirometry* completed [facility] (Pulmonary) [address], [place], [address], 08/17/2024 14:03:58 06/03/2024 CT, chest, w/o contrast completed [facility] [address], [place], [address], 08/17/2024 14:03:59 Procedure Notes None recorded. Medical [...] kg/m2 167.64 cm 88 /min 97.2 [degF] 03771.1 4 g 120 mm[Hg] 70 mm[Hg] Not Available [facility] 3 12:53:27 Date Recorded Body height Body mass index (BMI) Body weight Body temperature Heart rate Systolic blood pressure Diastolic blood pressure Provider Name and Address Organization Details Last Updated DateTime 3 167.64 cm 29.5 kg/m2 77403.4 g 97.3 [degF] 98 /min 120 mm[Hg] 82 mm[Hg] AMELIA Montes De Oca [facility] [employer] 3 14:08:38 Date Recorded Body height Body mass index (BMI) Body weight Body temperature Heart rate Systolic blood pressure Diastolic blood pressure Provider Name and Address Organization Details Last Updated DateTime 3 167.64 cm 29.4 kg/m2 81067.8 1 g 98.1 [degF] 84 /min 124 mm[Hg] 78 mm[Hg] Jayshree monahan RN [employer] 3 15:32:16 Date Recorded Body height Body mass index (BMI) Body weight Body temperature Heart rate Systolic blood pressure Diastolic blood pressure Provider Name and Address Organization Details Last Updated DateTime 3 167.64 cm 29.5 kg/m2 84473.4 g 98.7 [degF] 83 /min 120 mm[Hg] 70 mm[Hg] Jayshree monahan RN [facility] 3 16:12:10 Date Recorded Body height Body mass index (BMI) Body weight Body temperature Heart rate Systolic blood pressure Diastolic blood pressure Provider Name and Address Organization Details Last Updated DateTime 4 167.64 cm 29.6 kg/m2 74424.5 6 g 98.5 [degF] 85 /min 108 mm[Hg] 74 mm[Hg] Daysi Harrison MA [facility] 4 11:41:36 Date Recorded Oxygen saturation Oxygen saturation in Arterial blood by Pulse oximetry Heart rate Respiratory rate Provider Name and Address Organization Details Last Updated DateTime 12/08/2023 90 % 90 % 85 /min 15 /min Julián Funes MD [address], [facility] [address], [place], [address], [facility] 12:31:57 Social History Question Answer Notes LastModified by Organization Details LastModified Time Tobacco Smoking Status Current Every Day Smoker Not Available [employer] 08/06/2022 12:52:56 Do You Have An Advance Directive? No [id number] Information not available 08/06/2022 What Is Your Level Of Alcohol Consumption? Heavy MIGRATION.0301 [id number] Information not available 08/06/2022 What Is Your Level Of Caffeine Consumption? Moderate MIGRATION.030 [id number] Information not available 08/06/2022 In The 14 Days Before Symptom Onset, Have You Had Close Contact With A Laboratory-confi rmed COVID-19 While That Case Was Ill? No MIGRATION.030 [id number] Information not available 08/06/2022 In The 14 Days Before Symptom Onset, Have You Had Close Contact With A Person Who Is Under Investigation For COVID-19 While That Person Was Ill? No MIGRATION.0301 [id number] Information not available 08/06/2022 Are You Currently Employed? Yes Information not available 04/13/2023 What Type Of Diet Are You Following? REGULAR MIGRATION.0301 [id number] Information not available 08/06/2022 What Is The Highest Grade Or Level Of School You Have Completed Or The Highest Degree You Have Received? [id number] MIGRATION.030 [id number] Information not available 08/06/2022 Do You Have An Electrostatic Air Filter? 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 No MIGRATION.0301 [id number] Information not available 08/06/2022 What Is The Fluoride Status Of Your Home? Unknown MIGRATION.0301 [id number] Information not available 08/06/2022 Are There Any Guns Present In Your Home? No MIGRATION.0301 [id number] Information not available 08/06/2022 Do You Have A Humidifier? No Information not available 12/08/2023 Do You Use Insect Repellent Routinely? No MIGRATION.0301 [id number] Information not available 08/06/2022 Where Do You Live? [facility] MIGRATION.0301 [id number] Information not available 08/06/2022 Are You Able To Care For Yourself? Yes Information not available 04/13/2023 Are You Blind Or Do Yo Have Difficulty Seeing? Yes Information not available 04/13/2023 Are You Deaf Or Do You Have Serious Difficulty Hearing? Yes Information not available 04/13/2023 Do You Have A Medical Power Of Sign Shop Supervisor? No MIGRATION.0301 [id number] Information not available 08/06/2022 Do You Have Moisture Problems In Your Home? No Information not available 12/08/2023 What Was The Date Of Your Most Recent Tobacco Screening? 12/08/2023 Information not available 12/08/2023 Have You Ever Been Counseled For Unhealthy Alcohol Use? No MIGRATION.0301 [id number] Information not available 08/06/2022 Do You Have Any Pets? No MIGRATION.0301 [id number] Information not available 08/06/2022 What Is Your Relationship Status? MIGRATION.0301 [id number] Information not available 08/06/2022 Do You Use Your Seat Belt Or Car Seat Routinely? Yes MIGRATION.0301 [id number] Information not available 08/06/2022 Do You Have Smoke And Carbon Monoxide Detectors In Your Home? Yes MIGRATION.0301 [id number] Information not available 08/06/2022 At What Age Did You Start Smoking Tobacco? 15 MIGRATION.0301 092001 Information not available 08/06/2022 Are You Passively Exposed To Smoke? Yes MIGRATION.0301 [id number] Information not available 08/06/2022 Are There Any Smokers In Your House? Yes Pt Smokes MIGRATION.030 636888 Information not available 08/06/2022 How Much Tobacco Do You Smoke? 1 PPD Down From 2ppd MIGRATION.0301 [id number] Information not available 08/06/2022 What Types Of Sporting Activities Do You Participate In? None MIGRATION.0301 024906 Information not available 08/06/2022 Do You Feel Stressed (tense, Restless, Nervous, Or Anxious, Or Unable To Sleep At Night)? [id number] MIGRATION.0301 400841 Information not available 08/06/2022 Do You Use Any Illicit Or Recreational Drugs? No MIGRATION.030 092389 Information not available 08/06/2022 Do You Use Sunscreen Routinely? No MIGRATION.0301 [id number] Information not available 08/06/2022 Have You Recently Traveled Abroad? No MIGRATION.030 479097 Information not available 08/06/2022 Do You Have Any Dietary Restrictions? No MIGRATION.030 675417 Information not available 08/06/2022 Do You Or Have You Ever Used Any Other Forms Of Tobacco Or Nicotine? No MIGRATION.030 395223 Information not available 08/06/2022 Sex: Male Functional Status Question Answer Note LastModified by Organizat ion Details LastModified Time What is your exercise level? None [id number] Information not available 08/06/2022 Mental Status None recorded. Family History Relationship Description Onset Age of this Age Resolved Age Notes LastModified by Organization Details LastModified Time Brother Rheumatoid arthritis MIGRATION.475 [id number] Not available 08/06/2022 12:53:21 Maternal Grandfather Diabetes mellitus [email or web address] Not available 2023 12:53:42 Father Myocardial infarction [email or web address] Not available 12/07 12:54:17 Medical History Condition Response BLINDNESS N NERVE DISEASE N RHEUMATIC FEVER N BLADDER PROBLEMS N KIDNEY STONES N CARPAL TUNNEL SYNDROME N MRSA N OTHER # 1 N POLIO N [...] HAVE YOU BEEN HOSPITALIZED OR SEEN IN [facility] ER IN THE PAST YEAR [...] virus, trivalent, preservative 4 completed Not Available [facility] 04/10/2023 06:54:21 Influenza, split virus, quadrivalent, PF 1 completed Not Available [facility] 04/10/2023 06:54:21 Past Encounters Encounter ID Performer Location Encounter Start Date Encounter Closed Date Diagnosis/Indication Diagnosis SNOMED-CT Code Diagnosis ICD10 Code Diagnosis Note [id number] [facility] [address] [facility] [address] [place] [address] 03/11/2021 00:00:00 03/11/2021 22:33:12 [id number] [facility] Ortho [address] [address] 03/21/2021 00:00:00 03/21/2021 10:56:32 [id number] [facility] [address] [facility] [address] [place] [address] 03/22/2021 00:00:00 03/23/2021 14:17:40 [id number] [facility] [address] [facility] [address] [place] [address] 04/09/2021 00:00:00 04/09/2021 22:36:59 [id number] [facility] ENT [address] [place] [address] 04/19/2021 00:00:00 04/19/2021 17:24:30 [id number] [facility] Internal Med [facility] [address] [facility] 15 [place] [address] 06/11/2021 00:00:00 06/11/2021 21:50:09 [id number] [facility] Internal Med [facility] [address] [facility] [address] [place] [address] 10/08/2021 00:00:00 10/27/2021 18:26:50 [id number] [facility] Internal Med [facility] [address] [place] [address]., [facility] [address] [place] [address] 02/11/2022 00:00:00 03/01/2022 16:59:43 [id number] [facility] Internal Med [facility] [address] [facility] [address] [place] [address] 07/14/2022 00:00:00 07/14/2022 20:45:06 [id number] Jaxon Crowell MD [facility] Internal Med [facility] [address] [place] [address]., [facility] [address] [place] [address] 01/19/2023 13:47:41 01/19/2023 14:36:07 Plantar fasciitis of right foot [id number] 4868777 M72.2 Probable plantar work [id number] Jaxon Crowell MD [facility] Internal Med [facility] [address] [facility] [address] [address] 03/16/2023 15:10:19 03/16/2023 16:33:40 Blood in urine 74352989 R31.9 Pure hypercholesterolemia 032906912 E78.00 Screening for malignant neoplasm of prostate 641440264 Z12.5 Hemoptysis 75018419 R04. 2 Chronic ob structive pulmonary disease 68091898 J44.9 Cardiomyopathy 77129632 I42.9 Pulmonary hypertension 55675575 I27.20 Erythrocytosis 317828271 D75.1 [id number] Jaxon Crowell MD [facility] Internal Med [facility] [address] [place] [address] 04/13/2023 15:22:03 04/13/2023 16:45:28 Adult health examination 313913429 Z00.00 Screening for disorder 501779722 Z13.9 Lesion of lung 147969436 R91.8 Chronic ob structive pulmonary disease 34251307 J44.9 Erythrocytosis 625193836 D75.1 [id number] Julián Funes MD [facility] Pulmonolo gy [address] [address] 12/08/2023 11:29:58 12/09/2023 08:41:30 Dyspnea on exertion 00184227 R06.09 R05.3 T78.40XA D89.9 Solitary n odule of lung 353818417 R91.1 J98.59 Smoker 68281837 F17.218 Z87.891 F17.219 Health Concerns Section Related Observation LastModified by Organization Detai ls LastModified Time None Recorded Concern Status LastModified by Organization Details LastModified Time None Recorded Advance Directives Directive N: Payers Encounter Date Sequence Insurance Name Policy Number Policy Spann Covered Member ID Spann Member ID Guarantor Name 01/19/2023 1 [facility] [id number] Nirmala Maloney [id number] Nirmala Maloney 03/16/2023 1 [facility] [id number] Nirmala Maloney [id number] Nirmala Maloney 04/13/2023 1 [facility] [id number] Nirmala Maloney [id number] Nirmala Maloney 12/08/2023 1 [facility] [id number] Nirmala Maloney [id number] Nirmala Botello Amara Notes Date Note Type Note Provider Name and Address Organization Details Recorded Time 01/20/20 23 text/htm l Pain in right foot for unspecified amount of time Jaxon Crowell MD [address], [place], [address], [facility] 01/19/2023 22:49:26 03/16/20 23 text/htm l Hematuria needs to see Urology. Dyslipidemia needs blood work a needs to follow low-fat diet he has had some blood in did sputum in the past COPD stable on inhaler Jaxon Crowell MD [address], [place], [address], [facility] 03/16/2023 21:36:22 04/13/20 23 text/htm l PSA 33Spiculated 1.2 cm lung lesionErythrocytosisContinues to smoke Jaxon Crowell MD [address], [place], [address], [facility] 04/13/2023 20:33:44 12/08/19 24 text/htm l Primary [...] upstairs Alleviating factors: rest Modified [employer] (mMRC) Dyspnea Scale - Grade 2 Grade [...] 1 ppd 1991-present = 32 pack years [place]: no Dye: no Dust mites: yes Mold: no Damp basement: no Wood burning stove: no Animal dander: no Cockroaches: no Pollen: yes Arsenic: no Asbestos: no Beryllium: no Cadmium: yes Chromium: yes Troup smoke: no Diesel fumes: no Nickel: no [...] chance of dozing. Julián Funes MD [address] [facility], [facility] [address], [place], [address], [place] [facility] 12/08/2023 16:53:29
--- OUTSIDE RECORDS SUMMARY | 2024-09-26 13:55 | XMS_ITS | Clinical Summary ---
Author Organization [facility] Address [address] [place] [address] Care Team Providers Care Police Dispatcher Name Role Phone Unavailable Primary Care Provider Unavailabl e Source Comments [facility],non-owned Affiliates and Associated Physician Practices is amultiple site organization consisting of ambulatory clinics and hospital sitesin [place], [place], [place] and [place]. This disclosure is being madepursuant to the Care Everywhere program and may not contain all information available regarding this patient. 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
--- OUTSIDE RECORDS SUMMARY | 2024-09-26 13:55 | XMS_ITS | Encounter Summary ---
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 Name Role Phone Unavailable Primary Care Provider Unavailabl e Encounter Details Date Type Department Care Team (Late st Contact Info) Description 08/16/2024 Lab Requisition [facility] - Pathology Lab [address] [place] [address] Giancarlo Macias MD [address] [place] [address] Illness, unspecified Social History Tobacco Use Types Packs/Day Years Used Date Smoking Tobacco: Never Assessed Sex and Gender Information Value Date Recorded Sex Assigned at Not on file 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
--- OUTSIDE RECORDS SUMMARY | 2024-09-26 13:55 | XMS_ITS | Data Portability ---
Author Organization [facility] Johnie Barahona Address [address] [place] [address] Care Team Providers Care Radio Frequency Design Engineer Name Role Phone TATYANA CROWELL Primary Care Provider [phone] Assessment Encounter Date Assessment Date Assessment LastModified [...] refer to Dermatology for alopecia he declined. [email or web address] Not available 03/15/2024 22:00:53 05/03/2024 05/03/2024 the leg pain he called the office about his gone we will continue current therapy CT chest abdomen and pelvis his involuntary weight loss is worrisome I told him that he needs to see Urology for blood in his urine. He continues to follow with cardiology he saw the dryer feeder in December but has not been back then at that time it looks like he was referred to Interventional Pulmonary and slough patient denies any knowledge of this. further recommendations once I get the results of his test he was advised to stay up-to-date on immunizations. Obtain PFTs. again recommended to get colonoscopies [email or web address] Not available 05/07/2024 16:13:59 07/26/2024 07/26/2024 CBC [...] the abdominal cavity worrisome for the same [email or web address] Not available 08/14/2024 21:40:01 08/30/2024 08/30/2024 metastatic prostate cancer he needs to be seen by medical oncology his pain is not controlled we will switch to oxycodone 10 mg t.i.d. b.i.d. p.r.n. for pain get him to medical oncology I am getting my community development technician involved because his transportation issues functional status is declining boost ensure see me in a month. His COPD is stable [email or web address] Not available 09/02/2024 21:46:59 Plan of Treatment Reminders Order Date Submit Date Provider Last Modified By Organization Details Last Modified Time Details Appointments ANY 15 2024 10:00A M Tatyana Crowell MD Not available Not available Not available Lab PSA, total, serum or plasma 2024 025 [facility], [address], [place], [address], 08/01/2024 17:10:05 unlisted lab - T4, free 2024 025 [facility], [address], [place], [address], 08/01/2024 17:09:59 TSH, ultra-sen sitive, serum 2024 025 [facility], [address], [place], [address], 08/01/2024 17:10:02 T3, free, serum or plasma 2024 025 [facility], [address], [place], [address], 08/01/2024 17:10:06 lipid panel, serum 2024 025 [facility], [address], [place], [address], 08/01/2024 17:09:58 CBC w/ auto diff 2024 025 [facility], [address], [place], [address], 08/01/2024 17:10:03 CMP, serum or plasma 2024 025 [facility], [address], [place], [address], 08/01/2024 17:10:00 spep, serum, reflex immunofix ation 2024 025 [facility], [address], [place], [address], 08/01/2024 17:09:56 urinalysi s, complete 2023 024 [facility], [address], [place], [address], 05/04/2024 08:31:03 HbA1c (hemoglob in A1c), blood 2023 024 [facility], [address], [place], [address], 05/04/2024 08:31:02 lipid panel, serum 2023 024 [facility] Pandey, [address], [place], [address], 05/04/2024 08:30:58 CBC w/ auto diff 2023 024 [facility] Pandey, [address], [place], [address], 05/04/2024 08:31:05 CMP, serum or plasma 2023 [facility], [address], [place], [address], 05/04/2024 08:31:00 Referral None recorded. Procedures biopsy, lymph node, ultrasoun d guidance (PROC) 2024 [facility] (Imaging), [facility] [address], [place], [address], 08/11/2024 13:11:46 Surgeries None recorded. Imaging CT, abdomen + pelvis, w/ contrast - Authoriza tion code #[id number] 12 2023 024 [facility] (Imaging), [address] [place] [address] [address] [facility], [place], [address], 06/05/2024 08:41:14 PFT, complete 2023 024 [facility] (Cardiology & Emg), [address] [facility] [address], [place], [address], 06/03/2024 15:46:10 CT, chest, w/ contrast 2023 024 [facility] (Imaging), [facility] [address], [place], [address], 06/10/2024 10:10:09 Medication Orders None recorded. Patient TargetsNo targets recorded. Patient Instructions Encounter Date Encounter Id Patient Instructions Last Modified By Organization Details Last Modified Time 08/30/2024 [id number] A healthy lifestyle: care instructions [email or web address] Not available 08/30/2024 20:43:49 Reason for Referral None Reported. Results Created Date Observation Date Name Description Value Unit Range Abnormal Flag Note LastModifiedBy Organization Detail LastModifiedTime 05/03/20 24 05/04/2024 LIPID PANEL cholesterol, total 185 mg/dL 100-19 9 Not Available [facility] ([facility]) [address] [facility], [place], [address], 05/04/2024 08:30:58 05/03/20 24 05/04/2024 LIPID PANEL triglyceride s 64 mg/dL 0-149 Not Available [facility] ([facility]) [address] [facility] [place], [address], 05/04/2024 08:30:58 05/03/20 24 05/04/2024 LIPID PANEL HDL cholesterol 100 mg/dL >39 Not Available [facility] ([facility]) [address] [facility] [place], [address], 05/04/2024 08:30:58 05/03/2005/04/2024 LIPID PANEL VLDL cholesterol manpreet 12 mg/dL 5-40 Not Available [facility] ([facility]) [address] [place], [address], 05/04/2024 08:30:58 05/03/2005/04/2024 LIPID PANEL LDL chol calc ([facility]) 73 mg/dL 0-99 Not Available [facility] ([facility]) [address] [place], [address], 05/04/2024 08:30:58 05/03/20 24 05/04/2024 COMP. METAB OLIC PANEL (14) glucose 90 mg/dL 70-99 Not Available [facility] ([facility]) [address] [place], [address], 05/04/2024 08:31:00 05/03/20 24 05/04/2024 COMP. METAB OLIC PANEL (14) BUN 13 mg/dL 8-27 Not Available [facility] ([facility]) [address] [place], [address], 05/04/2024 08:31:00 05/03/20 24 05/04/2024 COMP. METAB OLIC PANEL (14) creatinine 0.73 mg/dL 0.76-1 .27 below low normal Not Available [facility] ([facility]) [address] [facility] [place], [address], 05/04/2024 08:31:00 05/03/20 24 05/04/2024 COMP. METAB OLIC PANEL (14) eGFR 103 mL/mi n/1.7 3 >59 Not Available [facility] ([facility]) [address], [address], 05/04/2024 08:31:00 05/03/20 24 05/04/2024 COMP. METAB OLIC PANEL (14) BUN/creatini ne ratio 18 10-24 Not Available [facility] ([facility]) [address] [facility] [place], [address], 05/04/2024 08:31:00 05/03/20 24 05/04/2024 COMP. METAB OLIC PANEL (14) sodium 129 mmol/ L 134-14 4 below low normal Not Available [facility] ([facility]) [address] [facility] [place], [address], 05/04/2024 08:31:00 05/03/20 24 05/04/2024 COMP. METAB OLIC PANEL (14) potassium 4.4 mmol/ L 3.5-5. 2 Not Available [facility] ([facility]) [address] [facility] [place], [address], 05/04/2024 08:31:00 05/03/20 24 05/04/2024 COMP. METAB OLIC PANEL (14) chloride 88 mmol/ L 96-106 below low normal Not Available [facility] ([facility]) [address] [facility] [place], [address], 05/04/2024 08:31:00 05/03/20 24 05/04/2024 COMP. METAB OLIC PANEL (14) carbon dioxide, total 27 mmol/ L 20-29 Not Available [facility] ([facility]) [address] [facility] [place], [address], 05/04/2024 08:31:00 05/03/20 24 05/04/2024 COMP. METAB OLIC PANEL (14) calcium 8.9 mg/dL 8.6-10 .2 Not Available [facility] ([facility]) [address] [place], [address], 05/04/2024 08:31:00 05/03/20 24 05/04/2024 COMP. METAB OLIC PANEL (14) protein, total 6.3 g/dL 6.0-8. 5 Not Available [facility] ([facility]) [address] [place], [address], 05/04/2024 08:31:00 05/03/20 24 05/04/2024 COMP. METAB OLIC PANEL (14) albumin 4.1 g/dL 3.9-4. 9 Not Available [facility] ([facility]) [address] [place], [address], 05/04/2024 08:31:00 05/03/20 24 05/04/2024 COMP. METAB OLIC PANEL (14) globulin, total 2.2 g/dL 1.5-4. 5 Not Available [facility] ([facility]) [address] [place], [address], 05/04/2024 08:31:00 05/03/20 24 05/04/2024 COMP. METAB OLIC PANEL (14) bilirubin, total 0.8 mg/dL 0.0-1. 2 Not Available [facility] ([facility]) [address] [place], [address], 05/04/2024 08:31:00 05/03/20 24 05/04/2024 COMP. METAB OLIC PANEL (14) alkaline phosphatase 244 IU/L 44-121 above high normal Not Available [facility] ([facility]) [address] [place], [address], 05/04/2024 08:31:00 05/03/20 24 05/04/2024 COMP. METAB OLIC PANEL (14) AST (SGOT) 28 IU/L 0-40 Not Available [facility] ([facility]) [address] [facility], [place], [address], 05/04/2024 08:31:00 05/03/20 24 05/04/2024 COMP. METAB OLIC PANEL (14) ALT (SGPT) 23 IU/L 0-44 Not Available [facility] ([facility]) [address] [facility], [place], [address], 05/04/2024 08:31:00 05/03/20 24 05/04/2024 MICRO SCOPI C EXAMI NATIO N WBC None seen /hpf 0-5 Not Available [facility] ([facility]) [address] [facility], [place], [address], 05/04/2024 08:31:01 05/03/20 24 05/04/2024 MICRO SCOPI C EXAMI NATIO N RBC 11-30 /hpf 0-2 abnormal Not Available [facility] ([facility]) [address] [facility], [place], [address], 05/04/2024 08:31:01 05/03/20 24 05/04/2024 MICRO SCOPI C EXAMI NATIO N epithelial cells (non renal) 0-10 /hpf 0-10 Not Available [facility] ([facility]) [address] [facility], [place], [address], 05/04/2024 08:31:01 05/03/20 24 05/04/2024 MICRO SCOPI C EXAMI NATIO N casts None seen /lpf nonese en Not Available [facility] ([facility]) [address] [facility], [place], [address], 05/04/2024 08:31:01 05/03/20 24 05/04/2024 MICRO SCOPI C EXAMI NATIO N bacteria None seen nonese en/few Not Available [facility] ([facility]) [address] [facility], [place], [address], 05/04/2024 08:31:01 05/03/2005/04/2024 HEMOG LOBIN A1C hemoglobin A1C 6.3 % 4.8-5. 6 above high normal Predi abete s: 5.7 - 6.4 Diabe jason: >6.4 Glyce reji contr ol for adult s with diabe jason: <7.0 Not Available [facility] ([facility]) [address] [facility], [place], [address], 05/04/2024 08:31:02 05/03/2005/04/2024 URINA LYSIS , COMPL ETE specific gravity 1.017 1.005- 1.030 Not Available [facility] ([facility]) [address] [place], [address], 05/04/2024 08:31:03 05/03/20 24 05/04/2024 URINA LYSIS , COMPL ETE pH 6.5 5.0-7. 5 Not Available [facility] ([facility]) [address] [place], [address], 05/04/2024 08:31:03 05/03/2005/04/2024 URINA LYSIS , COMPL ETE urine-color YELLOW yellow Not Available [facility] ([facility]) [address] [place], [address], 05/04/2024 08:31:03 05/03/2005/04/2024 URINA LYSIS , COMPL ETE appearance CLEAR clear Not Available [facility] ([facility]) [address] [place], [address], 05/04/2024 08:31:03 05/03/2005/04/2024 URINA LYSIS , COMPL ETE WBC esterase TRACE negati ve abnormal Not Available [facility] ([facility]) [address] [facility], [place], [address], 05/04/2024 08:31:03 05/03/2005/04/2024 URINA LYSIS , COMPL ETE protein 3+ negati ve/tra ce abnormal Not Available [facility] ([facility]) [address] [facility], [place], [address], 05/04/2024 08:31:03 05/03/2005/04/2024 URINA LYSIS , COMPL ETE glucose NEGATI VE negati ve Not Available [facility] ([facility]) [address] [facility], [place], [address], 05/04/2024 08:31:03 05/03/2005/04/2024 URINA LYSIS , COMPL ETE ketones NEGATI VE negati ve Not Available [facility] ([facility]) [address] [place], [address], 05/04/2024 08:31:03 05/03/20 24 05/04/2024 URINA LYSIS , COMPL ETE occult blood 2+ negati ve abnormal Not Available [facility] ([facility]) [address] [facility], [place], [address], 05/04/2024 08:31:03 05/03/2005/04/2024 URINA LYSIS , COMPL ETE bilirubin NEGATI VE negati ve Not Available [facility] ([facility]) [address] [place], [address], 05/04/2024 08:31:03 05/03/2005/04/2024 URINA LYSIS , COMPL ETE urobilinogen ,semi-qn 1.0 mg/dL 0.2-1. 0 Not Available [facility] ([facility]) [address] [place], [address], 05/04/2024 08:31:03 05/03/2005/04/2024 URINA LYSIS , COMPL ETE nitrite, urine NEGATI VE negati ve Not Available [facility] ([facility]) [address] [facility], [place], [address], 05/04/2024 08:31:03 05/03/20 24 05/04/2024 URINA LYSIS , COMPL ETE microscopic examination SEE BELOW: Micro scopi c was indic ated and was perfo rmed. Not Available [facility] ([facility]) [address] [facility], [place], [address], 05/04/2024 08:31:03 05/03/2005/04/2024 CBC WITH DIFFE RENTI AL/PL ATELE T WBC 7.3 x10e3 /uL 3.4-10 .8 Eff ectiv e Decem matias 2023 [place] [id number] 5 WBC will be made* * non-o rdera ble as a stand -adelita e order code. Not Available [facility] ([facility]) [address] [facility], [place], [address], 05/04/2024 08:31:05 05/03/20 24 05/04/2024 CBC WITH DIFFE RENTI AL/PL ATELE T RBC 4.25 x10e6 /uL 4.14-5 .80 Not Available [facility] ([facility]) [address] [place], [address], 05/04/2024 08:31:05 05/03/20 24 05/04/2024 CBC WITH DIFFE RENTI AL/PL ATELE T hemoglobin 14.7 g/dL 13.0-1 7.7 Not Available [facility] ([facility]) [address] [place], [address], 05/04/2024 08:31:05 05/03/20 24 05/04/2024 CBC WITH DIFFE RENTI AL/PL ATELE T hematocrit 42.7 % 37.5-5 1.0 Not Available [facility] ([facility]) [address] [facility], [place], [address], 05/04/2024 08:31:05 05/03/20 24 05/04/2024 CBC WITH DIFFE RENTI AL/PL ATELE T MCV 101 fL 79-97 above high normal Not Available [facility] ([facility]) [address] [facility], [place], [address], 05/04/2024 08:31:05 05/03/20 24 05/04/2024 CBC WITH DIFFE RENTI AL/PL ATELE T MCH 34.6 pg 26.6-3 3.0 above high normal Not Available [facility] ([facility]) [address] [facility], [place], [address], 05/04/2024 08:31:05 05/03/20 24 05/04/2024 CBC WITH DIFFE RENTI AL/PL ATELE T MCHC 34.4 g/dL 31.5-3 5.7 Not Available [facility] ([facility]) [address] [facility], [place], [address], 05/04/2024 08:31:05 05/03/20 24 05/04/2024 CBC WITH DIFFE RENTI AL/PL ATELE T RDW 13.3 % 11.6-1 5.4 Not Available [facility] ([facility]) [address] [place], [address], 05/04/2024 08:31:05 05/03/20 24 05/04/2024 CBC WITH DIFFE RENTI AL/PL ATELE T platelets 151 x10e3 /uL 150-45 0 Not Available [facility] ([facility]) [address] [place], [address], 05/04/2024 08:31:05 05/03/20 24 05/04/2024 CBC WITH DIFFE RENTI AL/PL ATELE T neutrophils 57 % notest ab. Not Available [facility] ([facility]) [address] [place], [address], 05/04/2024 08:31:05 05/03/20 24 05/04/2024 CBC WITH DIFFE RENTI AL/PL ATELE T lymphs 26 % notest ab. Not Available [facility] ([facility]) [address] [facility], [place], [address], 05/04/2024 08:31:05 05/03/20 24 05/04/2024 CBC WITH DIFFE RENTI AL/PL ATELE T monocytes 9 % notest ab. Not Available [facility] ([facility]) [address] [facility], [place], [address], 05/04/2024 08:31:05 05/03/20 24 05/04/2024 CBC WITH DIFFE RENTI AL/PL ATELE T eos 3 % notest ab. Not Available [facility] ([facility]) [address] [facility], [place], [address], 05/04/2024 08:31:05 05/03/20 24 05/04/2024 CBC WITH DIFFE RENTI AL/PL ATELE T basos 1 % notest ab. Not Available [facility] ([facility]) [address] [place], [address], 05/04/2024 08:31:05 05/03/20 24 05/04/2024 CBC WITH DIFFE RENTI AL/PL ATELE T neutrophils (absolute) 4.2 x10e3 /uL 1.4-7. 0 Not Available [facility] ([facility]) [address] [facility], [place], [address], 05/04/2024 08:31:05 05/03/20 24 05/04/2024 CBC WITH DIFFE RENTI AL/PL ATELE T lymphs (absolute) 1.9 x10e3 /uL 0.7-3. 1 Not Available [facility] ([facility]) [address] [facility], [place], [address], 05/04/2024 08:31:05 05/03/20 24 05/04/2024 CBC WITH DIFFE RENTI AL/PL ATELE T monocytes(ab solute) 0.7 x10e3 /uL 0.1-0. 9 Not Available [facility] ([facility]) [address] [place], [address], 05/04/2024 08:31:05 05/03/20 24 05/04/2024 CBC WITH DIFFE RENTI AL/PL ATELE T eos (absolute) 0.2 x10e3 /uL 0.0-0. 4 Not Available [facility] ([facility]) [address] [facility], [place], [address], 05/04/2024 08:31:05 05/03/20 24 05/04/2024 CBC WITH DIFFE RENTI AL/PL ATELE T baso (absolute) 0.1 x10e3 /uL 0.0-0. 2 Not Available [facility] ([facility]) [address] [facility], [place], [address], 05/04/2024 08:31:05 05/03/20 24 05/04/2024 CBC WITH DIFFE RENTI AL/PL ATELE T immature granulocytes 4 % notest ab. Not Available [facility] ([facility]) [address] [place], [address], 05/04/2024 08:31:05 05/03/20 24 05/04/2024 CBC WITH [...] locyt es witho ut clini manpreet signi fabian ce.) Not Available [facility] ([facility]) [address] [facility], [place], [address], 05/04/2024 08:31:05 05/03/20 24 05/04/2024 CBC WITH DIFFE RENTI AL/PL ATELE T NRBC 1 % 0-0 above high normal Not Available [facility] ([facility]) [address] [facility], [place], [address], 05/04/2024 08:31:05 05/18/20 24 05/20/2024 SPECI MEN STATU S REPOR T specimen status report TNP Test not perfo rmed. No urine speci men recei shirin. TEST: [id number] 0 Na U+Cl U+[place] U [id number] 2 Osmol ality , Urine Not Available [facility] ([facility]) [address] [facility], [place], [address], 05/20/2024 13:10:21 05/18/20 24 05/19/2024 BASIC METAB OLIC PANEL (7) glucose 94 mg/dL 70-99 Not Available [facility] ([facility]) [address] [facility], [place], [address], 05/20/2024 13:10:22 05/18/20 24 05/19/2024 BASIC METAB OLIC PANEL (7) BUN 19 mg/dL 8-27 Not Available [facility] ([facility]) [address] [facility], [place], [address], 05/20/2024 13:10:22 05/18/20 24 05/19/2024 BASIC METAB OLIC PANEL (7) creatinine 1.39 mg/dL 0.76-1 .27 above high normal Not Available [facility] ([facility]) [address] [facility], [place], [address], 05/20/2024 13:10:22 05/18/20 24 05/19/2024 BASIC METAB OLIC PANEL (7) eGFR 57 mL/mi n/1.7 3 >59 below low normal Not Available [facility] ([facility]) [address] [facility] [place], [address], 05/20/2024 13:10:22 05/18/20 24 05/19/2024 BASIC METAB OLIC PANEL (7) BUN/creatini ne ratio 14 10-24 Not Available [facility] ([facility]) [address] [facility] [place], [address], 05/20/2024 13:10:22 05/18/20 24 05/19/2024 BASIC METAB OLIC PANEL (7) sodium 133 mmol/ L 134-14 4 below low normal Not Available [facility] ([facility]) [address] [facility] [place], [address], 05/20/2024 13:10:22 05/18/20 24 05/19/2024 BASIC METAB OLIC PANEL (7) potassium 4.4 mmol/ L 3.5-5. 2 Not Available [facility] ([facility]) [address] [facility] [place], [address], 05/20/2024 13:10:22 05/18/20 24 05/19/2024 BASIC METAB OLIC PANEL (7) chloride 92 mmol/ L 96-106 below low normal Not Available [facility] ([facility]) [address] [facility] [place], [address], 05/20/2024 13:10:22 05/18/20 24 05/19/2024 BASIC METAB OLIC PANEL (7) carbon dioxide, total 25 mmol/ L 20-29 Not Available [facility] ([facility]) [address] [facility] [place], [address], 05/20/2024 13:10:22 05/18/20 24 05/19/2024 T4, FREE T4,free(dire ct) 1.54 NG/dL 0.82-1 .77 Not Available [facility] ([facility]) [address] [place], [address], 05/20/2024 13:10:23 05/18/20 24 05/18/2024 UNABL E TO VOID unable to void Commen t Patie nt unabl e to void. Urine to be colle cted at a later date. Not Available [facility] ([facility]) [address] [facility], [place], [address], 05/20/2024 13:10:24 05/18/20 24 05/19/2024 CORTI KRISTEN cortisol 9.2 ug/dL 6.2-19 .4 Pleas e Note: The refer ence inter randa and vale ing for this test is for an AM colle ction . If this is a PM colle ction pleas e use: Corti kristen PM: 2.3-1 1.9 Not Available [facility] ([facility]) [address] [place], [address], 05/20/2024 13:10:25 05/18/20 24 05/19/2024 TSH TSH 5.640 uIU/m L 0.450- 4.500 above high normal Not Available [facility] ([facility]) [address] [place], [address], 05/20/2024 13:10:26 05/18/20 24 05/19/2024 TRIIO DOTHY JACQUES E (T3), FREE triiodothyro nine (T3), free 3.0 pg/mL 2.0-4. 4 Not Available [facility] ([facility]) [address] [place], [address], 05/20/2024 13:10:27 07/26/19 25 07/27/2024 SPECI MEN STATU S REPOR T specimen status report TNP [facility] was unabl e to colle ct suffi cient speci men to perfo rm the follo wing test( s), and is provi ding the patie nt with re-co llect ion instr uctio ns. TEST: [id number] CBC With Diffe renti al/Pl atele t Not Available [facility] ([facility]) [address] [facility], [place], [address], 08/01/2024 17:09:55 07/26/19 25 07/26/2024 MULTI PLE MYELO MA CASCA DE please note: COMMEN T Prote in elect [facility] resis scan will follo w via compu ter, mail, or couri kali bray. Not Available [facility] ([facility]) [address] [facility], [place], [address], 08/01/2024 17:09:56 07/26/19 25 07/27/2024 MULTI PLE MYELO MA CASCA DE albumin 3.7 g/dL 2.9-4. 4 Not Available [facility] ([facility]) [address] [facility], [place], [address], 08/01/2024 17:09:56 07/26/19 25 07/27/2024 MULTI PLE MYELO MA CASCA DE zlyif-5-garf ulin 0.5 g/dL 0.0-0. 4 above high normal Not Available [facility] ([facility]) [address] [facility], [place], [address], 08/01/2024 17:09:56 07/26/19 25 07/27/2024 MULTI PLE MYELO MA CASCA DE rfevo-9-lejt ulin 0.5 g/dL 0.4-1. 0 Not Available [facility] ([facility]) [address] [facility], [place], [address], 08/01/2024 17:09:56 07/26/19 25 07/27/2024 MULTI PLE MYELO MA CASCA DE beta globulin 1.0 g/dL 0.7-1. 3 Not Available [facility] Lab) [address] [facility], [place], [address], 08/01/2024 17:09:56 07/26/19 25 07/27/2024 MULTI PLE MYELO MA CASCA DE gamma globulin 0.9 g/dL 0.4-1. 8 Not Available [facility] ([facility]) [address] [facility], [place], [address], 08/01/2024 17:09:56 07/26/19 25 07/27/2024 MULTI PLE MYELO MA CASCA DE M-spike NOT OBSERV ED g/dL notobs erved Not Available [facility] ([facility]) [address] [facility], [place], [address], 08/01/2024 17:09:56 07/26/19 25 07/27/2024 MULTI PLE MYELO MA CASCA DE globulin, total 2.8 g/dL 2.2-3. 9 Not Available [facility] ([facility]) [address] [place], [address], 08/01/2024 17:09:56 07/26/19 25 07/27/2024 MULTI PLE MYELO MA CASCA DE A/G ratio 1.3 0.7-1. 7 Not Available [facility] ([facility]) [address] [place], [address], 08/01/2024 17:09:56 07/26/19 25 07/27/2024 MULTI PLE MYELO MA CASCA DE reflex testing . Not Available [facility] ([facility]) [address] [facility], [place], [address], 08/01/2024 17:09:56 07/26/19 25 07/27/2024 MULTI PLE MYELO MA CASCA DE pdf . Not Available [facility] ([facility]) [address] [place], [address], 08/01/2024 17:09:56 07/26/19 25 08/01/2024 FREE K+L LT CHAIN S,QN, S free kappa lt chains,S 31.7 mg/L 3.3-19 .4 above high normal Not Available [facility] [address], [place], [address], 08/01/2024 17:09:57 07/26/19 25 08/01/2024 FREE K+L LT CHAIN S,QN, S free lambda lt chains,S 21.0 mg/L 5.7-26 .3 Not Available [facility] [address], [place], [address], 08/01/2024 17:09:57 07/26/19 25 08/01/2024 FREE K+L LT CHAIN S,QN, S kappa/lambda ratio,S 1.51 0.26-1 .65 Not Available [facility] [address], [place], [address], 08/01/2024 17:09:57 07/26/19 25 08/01/2024 COMME NT: comment: Glenn t Consi nory order ing urine immun ofixa tion (uIFE ) to rule out Amylo idosi s (AL). Not Available [facility] ([facility]) [address] [facility], [place], [address], 08/01/2024 17:09:58 07/26/19 25 07/27/2024 LIPID PANEL cholesterol, total 189 mg/dL 100-19 9 Not Available [facility] ([facility]) [address] [place], [address], 08/01/2024 17:09:58 07/26/19 25 07/27/2024 LIPID PANEL triglyceride s 67 mg/dL 0-149 Not Available [facility] ([facility]) [address] [place], [address], 08/01/2024 17:09:58 07/26/19 25 07/27/2024 LIPID PANEL HDL cholesterol 106 mg/dL >39 Not Available [facility] ([facility]) [address] [facility], [place], [address], 08/01/2024 17:09:58 07/26/19 25 07/27/2024 LIPID PANEL VLDL cholesterol manpreet 12 mg/dL 5-40 Not Available [facility] ([facility]) [address] [place], [address], 08/01/2024 17:09:58 07/26/19 25 07/27/2024 LIPID PANEL LDL chol calc ([facility]) 71 mg/dL 0-99 Not Available [facility] ([facility]) [address] [place], [address], 08/01/2024 17:09:58 07/26/19 25 07/27/2024 T4, FREE T4,free(dire ct) 1.75 NG/dL 0.82-1 .77 Not Available [facility] ([facility]) [address] [place], [address], 08/01/2024 17:09:59 07/26/19 25 07/27/2024 COMP. METAB OLIC PANEL (14) glucose 87 mg/dL 70-99 Not Available [facility] ([facility]) [address] [place], [address], 08/01/2024 17:10:00 07/26/19 25 07/27/2024 COMP. METAB OLIC PANEL (14) BUN 26 mg/dL 8-27 Not Available [facility] ([facility]) [address] [place], [address], 08/01/2024 17:10:00 07/26/19 25 07/27/2024 COMP. METAB OLIC PANEL (14) creatinine 1.41 mg/dL 0.76-1 .27 above high normal Not Available [facility] ([facility]) [address] [place], [address], 08/01/2024 17:10:00 07/26/19 25 07/27/2024 COMP. METAB OLIC PANEL (14) eGFR 56 mL/mi n/1.7 3 >59 below low normal Not Available [facility] ([facility]) [address], [address], 08/01/2024 17:10:00 07/26/19 25 07/27/2024 COMP. METAB OLIC PANEL (14) BUN/creatini ne ratio 18 - Not Available [facility] ([facility]) [address] [place], [address], 08/01/2024 17:10:00 07/26/19 25 07/27/2024 COMP. METAB OLIC PANEL (14) sodium 134 mmol/ L 134-14 4 Not Available [facility] ([facility]) [address] [place], [address], 08/01/2024 17:10:00 07/26/19 25 07/27/2024 COMP. METAB OLIC PANEL (14) potassium 4.6 mmol/ L 3.5-5. 2 Not Available [facility] ([facility]) [address] [place], [address], 08/01/2024 17:10:00 07/26/19 25 07/27/2024 COMP. METAB OLIC PANEL (14) chloride 93 mmol/ L 96-106 below low normal Not Available [facility] ([facility]) [address] [facility] [place], [address], 08/01/2024 17:10:00 07/26/19 25 07/27/2024 COMP. METAB OLIC PANEL (14) carbon dioxide, total 26 mmol/ L 20-29 Not Available [facility] ([facility]) [address] [facility] [place], [address], 08/01/2024 17:10:00 07/26/19 25 07/27/2024 COMP. METAB OLIC PANEL (14) calcium 8.5 mg/dL 8.6-10 .2 below low normal Not Available [facility] ([place] [facility] [facility]) [address] [facility], [place], [address], 08/01/2024 17:10:00 07/26/19 25 07/27/2024 COMP. METAB OLIC PANEL (14) protein, total 6.5 g/dL 6.0-8. 5 Not Available [facility] ([facility]) [address] [facility] [place], [address], 08/01/2024 17:10:00 07/26/19 25 07/27/2024 COMP. METAB OLIC PANEL (14) albumin 3.9 g/dL 3.9-4. 9 Not Available [facility] ([facility]) [address] [facility] [place], [address], 08/01/2024 17:10:00 07/26/19 25 07/27/2024 COMP. METAB OLIC PANEL (14) globulin, total 2.6 g/dL 1.5-4. 5 Not Available [facility] ([facility]) [address] [facility] [place], [address], 08/01/2024 17:10:00 07/26/19 25 07/27/2024 COMP. METAB OLIC PANEL (14) bilirubin, total 0.9 mg/dL 0.0-1. 2 Not Available [facility] ([facility]) [address] [facility] [place], [address], 08/01/2024 17:10:00 07/26/19 25 07/27/2024 COMP. METAB OLIC PANEL (14) alkaline phosphatase 353 IU/L 44-121 above high normal Not Available [facility] ([facility]) [address] [facility] [place], [address], 08/01/2024 17:10:00 07/26/19 25 07/27/2024 COMP. METAB OLIC PANEL (14) AST (SGOT) 32 IU/L 0-40 Not Available [facility] ([facility]) [address] [place], [address], 08/01/2024 17:10:00 07/26/19 25 07/27/2024 COMP. METAB OLIC PANEL (14) ALT (SGPT) 22 IU/L 0-44 Not Available [facility] ([facility]) [address] [place], [address], 08/01/2024 17:10:00 07/26/19 25 07/27/2024 TSH TSH 3.830 uIU/m L 0.450- 4.500 Not Available [facility] ([facility]) [address] [facility], [place], [address], 08/01/2024 17:10:02 07/26/19 25 07/27/2024 CBC WITH DIFFE RENTI AL/PL ATELE T WBC - x10e3 /uL [facility] was unabl e to colle ct suffi cient speci men to perfo rm the follo wing test( s), and is provi ding the patie nt with re-co llect ion instr uctio ns. Not Available [facility] ([facility]) [address] [place], [address], 08/01/2024 17:10:03 07/26/19 25 07/27/2024 CBC WITH DIFFE RENTI AL/PL ATELE T RBC - Test not perfo rmed Not Available [facility] ([facility]) [address] [place], [address], 08/01/2024 17:10:03 07/26/19 25 07/27/2024 CBC WITH DIFFE RENTI AL/PL ATELE T hemoglobin - Test not perfo rmed Not Available [facility] ([facility]) [address] [place], [address], 08/01/2024 17:10:03 07/26/19 25 07/27/2024 CBC WITH DIFFE RENTI AL/PL ATELE T hematocrit - Test not perfo rmed Not Available [facility] ([facility]) [address] [place], [address], 08/01/2024 17:10:03 07/26/19 25 07/27/2024 CBC WITH DIFFE RENTI AL/PL ATELE T platelets - Test not perfo rmed Not Available [facility] ([facility]) [address] [facility], [place], [address], 08/01/2024 17:10:03 07/26/19 25 07/27/2024 CBC WITH DIFFE RENTI AL/PL ATELE T neutrophils - Test not perfo rmed Not Available [facility] ([facility]) [address] [facility], [place], [address], 08/01/2024 17:10:03 07/26/19 25 07/27/2024 CBC WITH DIFFE RENTI AL/PL ATELE T lymphs - Test not perfo rmed Not Available [facility] ([facility]) [address] [facility], [place], [address], 08/01/2024 17:10:03 07/26/19 25 07/27/2024 CBC WITH DIFFE RENTI AL/PL ATELE T monocytes - Test not perfo rmed Not Available [facility] ([facility]) [address] [facility], [place], [address], 08/01/2024 17:10:03 07/26/19 25 07/27/2024 CBC WITH DIFFE RENTI AL/PL ATELE T eos - Test not perfo rmed Not Available [facility] ([facility]) [address] [facility], [place], [address], 08/01/2024 17:10:03 07/26/19 25 07/27/2024 CBC WITH DIFFE RENTI AL/PL ATELE T lymphs (absolute) - Test not perfo rmed Not Available [facility] ([facility]) [address] [facility], [place], [address], 08/01/2024 17:10:03 07/26/19 25 07/27/2024 CBC WITH DIFFE RENTI AL/PL ATELE T eos (absolute) - Test not perfo rmed Not Available [facility] ([facility]) [address] [place], [address], 08/01/2024 17:10:03 07/26/19 25 07/27/2024 CBC WITH DIFFE RENTI AL/PL ATELE T baso (absolute) - Test not perfo rmed Not Available [facility] ([facility]) [address] [place], [address], 08/01/2024 17:10:03 07/26/19 25 07/27/2024 PROST ATE-S [...] kits canno t be used inter centeno eanamratay . Resul ts canno t be inter prete d as absol fe evide nce of the prese nce or absen ce of carson garcia se. Not Available [facility] ([facility]) [address] [place], [address], 08/01/2024 17:10:05 07/26/19 25 07/27/2024 TRIIO DOTHY JACQUES E (T3), FREE triiodothyro nine (T3), free 2.5 pg/mL 2.0-4. 4 Not Available [facility] ([facility]) [address] [place], [address], 08/01/2024 17:10:06 06/03/20 24 06/03/2024 PFT, compl ete No observ ation record ed. [address], [place], [address], 06/10/2024 16:43:42 06/05/20 24 06/03/2024 CT, abdom en + pelvi s, w/ contr ast No observ ation record ed. [address], [place], [address], 06/10/2024 17:05:51 06/10/19 CT, chest , w/ contr ast No observ ation record ed. [address], [place], [address], 06/10/2024 17:05:50 08/12/19 25 08/11/2024 biops y, lymph node, ultra sound gal nce (PROC ) No observ ation record ed. [address], [place], [address], 08/11/2024 21:25:58 08/12/19 25 08/11/2024 biops y, lymph node, ultra sound gal nce (PROC ) No observ ation record ed. [address], [place], [address], 08/11/2024 21:25:59 Result Notes None recorded. Problems Name Problem SNOMED Code Status Onset Date Resolution Date Notes Provider Name and Address Organization Details Recorded Time Chronic obstructive pulmonary disease 19989293 Active 2023 COREEN Chan, [place] - [facility] 4 09:18:24 Essential hypertension 51673375 Active 2023 COREEN Chan, [place] - [facility] 4 11:12:58 Serum vitamin B12 below reference range 783689765 Active 2023 COREEN [place] - [facility] 4 11:12:59 Obesity 250676780 Active 2023 Melony Patterson [place] null, [place] - [facility] 4 11:13:01 SARS-CoV-2 vaccination declined 4684765168 Active 2023 Tatyana Crowell MD Attn: Accountin g,[address] [facility], [place], [address], [place] - [facility] 4 22:00:35 Administratio n of influenza vaccine Active 2023 Tatyana Crowell MD Attn: Accountin g,[address] [facility], [place], [address], [place] [facility] 4 22:00:36 Inguinal lymphadenopat hy 520536025 Active 2024 Melony Patterson [place], [place] - [facility] 5 16:15:41 Body mass index 20-24 - normal 263128317 Active 2024 Melony Patterson [place] [facility] 5 16:15:42 Screening for malignant neoplasm of prostate Active 2024 Melony Patterson [place] [facility] 5 16:15:45 Lesion of bone 573740093 Active 2024 Melony Patterson [place] [facility] 5 16:15:46 Problem Notes None recorded. Procedures Surgical History Date Name Laterality Status Provider Name and Address Organization Details Recorded Time Tonsillectomy completed Stefanie Penn MA [place] - [facility] 08/27/2023 16:42:41 Imaging Results Imaging Date Name Status LastModified by [facility] Details LastModified Time 06/03/2024 PFT, complete completed [address] [place] [address], [address], 06/10/2024 16:43:42 06/03/2024 CT, abdomen + pelvis, w/ contrast completed [address], [address], 06/10/2024 17:05:51 06/10/2024 CT, chest, w/ contrast completed [address], [place], [address], 06/10/2024 17:05:50 08/11/2024 biopsy, lymph node, ultrasound guidance (PROC) completed [address], [place], [address], 08/11/2024 21:25:58 08/11/2024 biopsy, lymph node, ultrasound guidance (PROC) completed [address], [place], [address], 08/11/2024 21:25:59 Procedure Notes None recorded. Medical [...] completed Not Available Not Available Not Available [employer]osphere 160 mcg-9mcg-4. 8mcg/actuat ion HFA aerosol [...] Updated DateTime 4 175.26 cm 25.4 kg/m2 31421.1 8 g 87 /min 90 % 90 % 128 mm[Hg] 66 mm[Hg] [facility] 4 15:57:47 Date Recorded Body height Heart rate Oxygen saturation Oxygen saturation in Arterial blood by Pulse oximetry Systolic blood pressure Diastolic blood pressure Provider Name and Address Organization Details Last Updated DateTime 4 175.26 cm 82 /min 89 % 89 % 104 mm[Hg] 72 mm[Hg] [facility] 4 15:46:49 Date Recorded Body height Body mass index (BMI) Body weight Heart rate Oxygen saturation Oxygen saturation in Arterial blood by Pulse oximetry Systolic blood pressure Diastolic blood pressure Provider Name and Address Organization Details Last Updated DateTime 4 175.26 cm 24.8 kg/m2 11832.8 8 g 92 /min 92 % 92 % 130 mm[Hg] 78 mm[Hg] [facility] 4 15:06:58 Date Recorded Body height Body mass index (BMI) Body weight Heart rate Oxygen saturation Oxygen saturation in Arterial blood by Pulse oximetry Systolic blood pressure Diastolic blood pressure Provider Name and Address Organization Details Last Updated DateTime 5 175.26 cm 23 kg/m2 32486.4 1 g 96 /min 83 % 83 % 106 mm[Hg] 60 mm[Hg] [facility] 5 15:29:39 Date Recorded Body height Body mass index (BMI) Body weight Heart rate Oxygen saturation Oxygen saturation in Arterial blood by Pulse oximetry Systolic blood pressure Diastolic blood pressure Provider Name and Address Organization Details Last Updated DateTime 5 175.26 cm 20.7 kg/m2 30482.0 1 g 95 /min 96 % 96 % 106 mm[Hg] 64 mm[Hg] [facility] 5 15:50:02 Social History Question Answer Notes LastModified by Organizat ion Details LastModified Time Tobacco Smoking Status Current Every Day Smoker Stefanie Penn MA [facility] 08/27/2023 16:42:26 Do You Have An Advance [...] not available 12/08/2023 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 [id number] Not Sleeping At Night. Information not available [...] N Atrial Fibrillation N High Blood Pressure Y Kidney or Bladder Problems N Thyroid Problems N GI Problems N Depression N COPD Y Blood Clots N Skin Problems N Anemia N Heart Attack ([place]) N Anxiety Disorder N Diabetes N Muscle, [...] MDCK, quadrivalent, PF 0 completed COREEN Chan, [place] - [facility] 12/08/2023 10:42:54 Influenza, split virus, trivalent, preservative 4 completed COREEN [place] [facility] 12/08/2023 10:42:54 Influenza, split virus, quadrivalent, PF 1 completed COREEN Chna, [place] [facility] 12/08/2023 10:42:54 Past Encounters Encounter ID Performer Location Encounter Start Date Encounter Closed Date Diagnosis/Indication Diagnosis SNOMED-CT Code Diagnosis ICD10 Code Diagnosis Note [id number] Tatyana Crowell MD [facility] (Adult Med) [address] [place] [phone] 08/27/2023 16:26:37 08/27/2023 17:28:57 Chronic obstructive pulmonary disease 88698360 J44.9 Screening for cardiovascular system disease 979775343 Z13.6 Long-term drug therapy 139900003 Z79.899 Erythrocytosis 406285217 D75.1 [id number] Tatyana Crowell MD [facility] (Adult Med) [address] [place] [phone] 12/08/2023 10:12:56 12/08/2023 11:16:29 Obesity 189068632 E66.8 Chronic ob structive pulmonary disease 17197538 J44.9 Essential hypertension 91090212 I10 Serum marky min B12 below reference range 749612759 R79.89 Dyspnea 414241699 R06.01 [id number] Tatyana Crowell MD [facility] (Adult Med) [address] [place] [phone] 03/15/2024 15:25:17 03/15/2024 17:20:29 Chronic obstructive pulmonary disease 40040328 J44.9 Essential hypertension 56748739 I10 Serum marky min B12 below reference range 272981793 R79.89 Administra tion of influenza vaccine 71648411 Z23 SARS-CoV-2 vaccination declined 3274139166 Z28.21 [id number] Tatyana Crowell MD [facility] (Adult Med) [address] [place] [phone] 04/05/2024 15:42:28 04/05/2024 16:22:35 [id number] Tatyana Crowell MD [facility] (Adult Med) [address] [place] [phone] 05/03/2024 14:46:52 05/03/2024 15:45:45 Body mass index 20-24 - normal 276428430 Z68.24 Essential hypertension 06739314 I10 Prediabetes 725095525 R7 3.03 Abdominal pain 15507661 R10.9 CT of chest abnormal 620 2563571 6402746 R93.89 Chronic ob structive pulmonary disease 41137450 J44.9 [id number] Tatyana Crowell MD [facility] (Adult Med) [address] [place] [phone] 07/26/2024 15:12:54 07/26/2024 16:17:16 Body mass index 20-24 - normal 727239640 Z68.24 Inguinal lymphadenopathy 199978306 R59.0 Essential hypertension 25957536 I10 Screening for malignant neoplasm of prostate 901805601 Z12.5 Lesion of bone 417845888 M89.9 Chronic ob structive pulmonary disease 26665953 J44.9 Computed t omography result abnormal 475870568 R93.89 [id number] Tatyana Crowell MD [facility] (Adult Med) [address] [place] [phone] 08/30/2024 15:28:55 08/30/2024 17:26:22 Body mass index 20-24 - normal 698317212 Z68.24 Overweight 210777944 E66 .3 Metastatic malignant neoplasm to prostate 33738259 C79.82 Chronic ob structive pulmonary disease 56942291 J44.9 Health Concerns Section Related Observation LastModified by Organization Detai ls LastModified Time None Recorded Concern Status LastModified by Organization Details LastModified Time None Recorded Advance Directives Directive N: Payers Encounter Date Sequence Insurance Name Policy Number Policy Spann Covered Member ID Spann Member ID Guarantor Name 03/15/[address] [place] [address] [id number] Robert Maloney [id number] Robert Maloney 04/05/2024 1 [facility] [id number] Robert Maloney [id number] Robert Maloney 05/03/2024 1 [facility] [id number] Robert Maloney [id number] Robert Maloney 07/26/2024 1 [facility] [id number] Robert Maloney [id number] Robert Maloney 08/30/2024 1 [facility] [id number] Robert Maloney [id number] Robert Maloney Notes Date Note Type Note [...] supplementation. Tatyana Crowell MD Attn: Accounting, [address] [place], [address], [facility] 03/15/2024 22:01:12 05/03/2024 text/html several things w [...] weight Tatyana Crowell MD Attn: Accounting,[address] [place], [address], [facility] 05/07/2024 16:14:29 07/26/2024 text/html he did not get t he biopsy yet he does have some pain in his legs bothers him at night it is fairly severe. CT scan discussed he needs a biopsy had about a 36 lb weight loss over last year Tatyana Crowell MD Attn: Accounting,[address] [place], [address], [facility] 08/14/2024 21:40:19 08/30/2024 text/html significant amou nt of bone pain he was going through some new shots with Urology still needs to see the medical oncologist. His bone pain does wake him up at night is no longer working. He is down 16 lb from last visit his appetite is poor Tatyana Crowell MD Attn: Accounting,[address], [place], [address], [facility] 09/02/2024 21:47:16
--- OUTSIDE RECORDS SUMMARY | 2024-09-26 13:55 | XMS_ITS | Clinical Summary ---
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
--- OUTSIDE RECORDS SUMMARY | 2024-09-26 13:55 | XMS_ITS | Encounter Summary ---
Author Organization [facility] [employer] [facility] Address [address] [place] [address] Care Team Providers Care Industrial Millwright Name Role Phone Unavailable Primary Care Provider Unavailabl e Encounter Details Date Type Department Care Team (Late st Contact Info) Description 09/21/2024 Orders Only [facility] Oncology and Hematology - [place] [address] [facility] [address] [place] [address] Danilo Jerez MD [address] [facility] [address] [place] [address] Social History Tobacco Use Types Packs/Day Years Used Date Smoking Tobacco: Every Day Cigarettes 1.5 45 Started: 09/22/1979 Smokeless Tobacco: Never Alcohol Use Standard Drinks/Week Comments Yes 3 [...] on file documented as of this encounter Procedures Procedure Name Priority Date/Time Associated Diagnosis Comments CBC WITH AUTODIFFERENTIAL Routine 2024 3:31 PM CDT documented in this encounter Results * CBC WITH AUTODIFFERENTIAL (09/21/2024 3:31 PM CDT) Blood Danilo Jerez MD HEMATOLOGY ORDERABLES Final Res ult documented in this encounter Visit Diagnoses Not on filedocumented in this encounter
--- OUTSIDE RECORDS SUMMARY | 2024-09-26 13:55 | XMS_ITS | Encounter Summary ---
Author Organization [facility] [employer] [facility] Address [address] [place] [address] Care Team Providers Care Ict Educator Name Role Phone Unavailable Primary Care Provider Unavailabl e Encounter Details Date Type Department Care Team (Late st Contact Info) Description 09/22/2024 Orders Only [facility] Oncology and Hematology - [place] [address] [facility] [address] [place] [address] Danilo Jerez MD [address] [facility] [address] [place] [address] Social History Tobacco Use Types [...] Procedure Name Priority Date/Time Associated Diagnosis Comments COMPREHENSIVE METABOLIC PANEL Routine 09/21/2024 1:39 PM CDT documented in this encounter Results * COMPREHENSIVE METABOLIC PANEL (09/21/2024 1:39 PM CDT) Blood Danilo Jerez MD CHEMISTRY ORDERABLES Final Resu lt documented in this encounter Visit Diagnoses Not on filedocumented in this encounter
--- OUTSIDE RECORDS SUMMARY | 2024-09-26 13:55 | XMS_ITS | Clinical Summary ---
Author Organization [facility] Isac carrasco Deyanira Address [address] [place] [address] Care Team Providers Care Superintendent Ammunition Storage Name Role Phone Unavailable Primary Care Provider [...] 0.4 mg by mouth daily. 08/11/2024 Active predniSONE (DELTASONE) 5 mg tablet Take 1 Tablet (5 mg) by mouth 2 times daily with meals. 60 Tablet 5 09/21/2024 Active Active Problems No known active problems Encounters Date Type Department Care Team Description 09/22/2024 Orders Only [facility] Oncology and Hematology - [place] [address] [place] [address] Danilo Jerez MD 09/21/2024 10:30 AM CDT Office Visit [facility] Oncology and Hematology - [place] [address] [place] [address] Danilo Jerez MD Prostate cancer (CMS/HCC) (Primary Dx); Chronic anemia 09/21/2024 Orders Only [facility] Oncology and Hematology [place] [address] [place] [address] Danilo Jerez MD from Last 3 Months Family History Medical [...] Flex Sig/CT Colonography Q 5 years 2007 Lung Cancer Screening 2012 ZOSTER VACCINE (1 of 2) 2012 INFLUENZA VACCINE (#1) 2024 RSV VACCINE (60+ or ) (1 - 1-dose 75+ series) 2037 Procedures Procedure Name Priority Date/Time Associated Diagnosis Comments CBC WITH AUTODIFFERENTIAL Routine 2024 3:31 PM CDT COMPREHENSIVE METABOLIC PANEL Routine 09/21/2024 1:39 PM CDT from Last 3 Months Results * CBC WITH AUTODIFFERENTIAL (09/21/2024 3:31 PM CDT) Blood Danilo Jerez MD HEMATOLOGY ORDERABLES Final Res ult * COMPREHENSIVE METABOLIC PANEL (09/21/2024 1:39 PM CDT) Blood Danilo Jerez MD CHEMISTRY ORDERABLES Final Resu lt from Last 3 Months Insurance [employer] [facility] [id number]
--- OUTSIDE RECORDS SUMMARY | 2024-09-26 13:55 | XMS_ITS | CONTINUITY OF CARE DOCUMENT ---
Author Name ruel lipscomb Address Unknown Organization [facility] Address [address] [facility] [address] [place] [address] Phone [phone] Care Team Providers Care Salesforce Trainer Name Role Phone Robert Freeman MD Unavailable [phone] TATYANA DAWN MD Unavailable TATYANA DAWN MD Unavailable [phone] PROBLEMS Condition Status Date Provider Notes Shortness of breath (SOB) active Jesse jha per PCP LÓPEZ Orthopnea active Robert Freeman MD Leg edema active Robert Freeman MD Tobacco abuse active Robert Freeman MD ENCOUNTERS Date Type Provider Location Encounter Diag nosis - In-person encounter Office Visit Robert Freeman MD [facility] - In-person encounter Office Visit Robert Freeman MD [facility] Tobacco abuseLeg edemaOrthopnea VITAL SIGNS Date [...] / Coverage type Candie red republican ID [facility] Other [id number] ADVANCE DIRECTIVES Name Date DISCUSSED - NO DECISION MADE TREATMENT PLAN Date Name Performer [id number],C,T he Patient was reencouraged to stop smoking. Emilia Amos [id number],C,P t complained of SOB with minimal exertion, orthopnea, heavy smoker. Also had leg swelling which improved with Lasix. Echo showed EF 45%. Marked RV dilation with PA pressure 64 and mmHg. I recommend R/L cardiac cath, chest CT with contrast, venous duplex of the LE, PFTs, and will check BNP levels. I advised him to stop smoking. Kaiden's test was normal. Emilia Amos [id number],C,P t complained of SOB with minimal exertion, orthopnea, heavy smoker. Also had leg swelling which improved with Lasix. Echo showed EF 45%. Marked RV dilation with PA pressure 64 and mmHg. I recommend R/L cardiac cath, chest CT with contrast, venous duplex of the LE, PFTs, and will check BNP levels. I advised him to stop smoking. Kaiden's test was normal. Emilia Amos [id number],C,P t complained of SOB with minimal exertion, [...] [facility]:Pt with a recent admission to [facility] for SOB and leg swelling. His [...] [facility]:Pt with a recent admission to [facility] for SOB and leg swelling. His [...] Study Home PROBNP, N TERMINAL DLCO - 32147 FRC - 54289 FVC - 97895 PROTHROMBIN TIME WIT H INR LIPID PANEL CBC (INCLUDES DIFF/P LT) BASIC METABOLIC PANE L W/EGFR DLCO - 58937 FRC - 69626 FVC - 68480 Venous Doppler Bilat eral LE - Reflux Cardiac Cath - L/R- [facility] B TYPE NATRIURETIC P EPTIDE (BNP) CT Chest with contra st Complete Echo HISTORY OF PROCEDURES Procedure Date Procedure Name Provider Procedure Notes S tatus Complex e/m visit add on Robert Freeman MD completed EKG Robert Freeman MD completed
--- OUTSIDE RECORDS SUMMARY | 2024-09-26 13:55 | XMS_ITS | Continuity of Care Document ---
Author Organization [facility] Address [address] [place] [address] [address] [place] [address] Phone Care Team Providers Care Statistical Reporting Analyst Name Role Phone Darcy Mishra Unavailable Unavailable Advance Directives Directive Yes / No Effective Date File Name No Information Encounters Encounter Description Practice Location Reason(s) For Visit Diagnoses Date Provider Providers Copied on Encounter [facility], [id number] [place] [address] [address], [place], [place], [id number], [place] tel:[phone] [facility] [place] No Information Apr-0 7-200 5 Danica Taveras. [address] [facility] , [address], [place], [address], [place]. tel:[phone] Family History Family Member Type Diagnosis Age At Onset No Information Payers Payer name Insurance type Covered alliance party ID Authoriza farrukhwali(s) tSar Pattern [id number] Social History Type Description Quantity Date Captured [...]
== END 2024-09-26 12:24 | disposition home or self-care (01) ==
LOC: ANHSURGERY 12:28
PROVIDERS: Anesthesiology; PCP Internal Medicine; Visit Provider Surgery
DX: C61 Malignant neoplasm of prostate (principal); E87.1 Hypo-osmolality and hyponatremia
CPT/HCPCS: 36415; 84295; 85027; 85055; 85610; 85730

== ENCOUNTER 2024-09-26 13:06 | Outpatient (CLI) | payer OTHER, SELFPAY ==
--- NOTE | ~2024-09-26 | PE_ITS ---
EXAMINATION: PET_PETPSMAST_PT DATE: 09/26/2024 15:08 INDICATION: Prostate cancer TECHNIQUE: 5.589 mCi of Illucix Ga-68([id number]) was administered i.v. Low dose computed devi graphy (CT) images were acquired from the base of the brain to the base of the brain to the proximal thighs for attenuation correction and anatomic localization. Positron emission tomography (PET) image s were acquired in the same distribution beginning 89 minutes after injection. Images including fused PET/CT images were reconstructed in axial, coronal, and sagittal planes. Automated exposure control technique was employed. The dose-length product was 559.99mGy-cm. COMPARISON: CT dated 06/03/2024 FINDINGS: Head/neck: Typical pattern of symmetric physiologic increased activity in the lacrimal, parotid and submandibula r glands as well as along the mucosa of the nasal and oral cavities, pharynx and hypopharynx. No path ologically enlarged cervical lymphadenopathy or other suspicious nonosseous foci of increased uptake in the visualized head or neck. Chest: Moderate emphysema. New dependent consolidation small nodular opacities some with tree-in-bud pattern in the posterior inferior aspect bilateral lower lungs with some associated mucous plugging of the b ilateral lower lobar bronchi suspicious for correlation of atelectasis and pneumonia. 1.3 x 1.0 cm sp iculated left upper lobe nodule which is without correlate on the CT from 4 months prior with the rap id progression favoring infectious/inflammatory or malignant in etiology. No abnormal pulmonary PSMA activity. Heart size is normal. No pericardial effusion. Thoracic aorta is normal in caliber. Multipl e mediastinal lymph nodes more notable for number than size which are likely reactive. No pathologica lly enlarged or PSMA avid thoracic lymphadenopathy. Abdomen/pelvis/proximal thighs: Physiologic renal accumulation and excretion of activity in the kidneys, bladder and along portions o f ureters. There is diffuse wall thickening of the bladder which is decompressed around a Quinn karina ter. Mild prostatomegaly measuring 4.0 x 3.0 cm with mild asymmetric activity with maximal SUV of 3.5 Normal degree and slightly heterogenous pattern of increased uptake throughout the liver and spleen without radiologic correlate or dominant PSMA avid lesion. The gallbladder, pancreas and bilateral ad renal glands are normal. Moderate uptake scattered throughout the bowels with typical duodenal and pr oximal jejunal predominance and without radiologic correlate, also likely physiologic. The previously seen mildly enlarged lymphadenopathy about the abdominal aorta, inferior vena cava, extending along the bilateral iliac chains and in the left inguinal region appears to have resolved with no residual pathologically enlarged or abnormally PSMA avid lymph nodes identified. Per pathology report the prev iously enlarged left inguinal lymph node which was biopsied on 08/11/2024 demonstrated metastatic prost ate cancer. Musculoskeletal: There is extensive increased PSA may activity associated with the numerous mixed lytic and sclerotic bone lesions throughout the axial and appendicular skeleton. For reference the most intense foci of i ncreased FDG uptake including at the left posterior iliac spine with maximal SUV of 11.2 and at the r ight scapula with maximal SUV of 8.9 and the thoracic spine at T8 with maximal SUV of 8.8 consistent with widespread osseous metastatic disease. IMPRESSION: 1. Moderate increased PSA may uptake associated with numerous sclerotic bone lesions scattered throug hout the axial and appendicular skeleton consistent with widespread metastatic prostate cancer. 2. Interval decrease in size of the previously noted lymphadenopathy at the left neck, chest, abdomen and pelvis and left inguinal region which is without abnormal PSA may uptake with biopsy demonstrati ng metastatic prostate cancer which suggests interval response to treatment. 3. Mild increased uptake in the mildly enlarged prostate consistent with primary prostate cancer. 4. New dependent patchy consolidation and opacities in the posterior inferior aspect of the bilateral lower lobes with some the associated mucous plugging in the lower lumbar bronchi suspicious for pneu monia. 5. 13 x 10 mm left upper lobe nodule which is new since CT from 4 months prior which given the rapid development would favor infectious/inflammatory etiology over malignancy. Recommend 8-12 week follow- up low-dose noncontrast chest CT. Reviewed, dictated and finalized at location A. IMPRESSION: 1. Moderate increased PSA may uptake associated with numerous sclerotic bone le sions scattered throughout the axial and appendicular skeleton consistent with widespread metastatic prostate cancer. 2. Interval decrease in size of the previously noted lymphadenopathy at the lef t neck, chest, abdomen and pelvis and left inguinal region which is without abn ormal PSA may uptake with biopsy demonstrating metastatic prostate cancer which suggests interval response to treatment. 3. Mild increased uptake in the mildly enlarged prostate consistent with primar y prostate cancer. 4. New dependent patchy consolidation and opacities in the posterior inferior a spect of the bilateral lower lobes with some the associated mucous plugging in the lower lumbar bronchi suspicious for pneumonia. 5. 13 x 10 mm left upper lobe nodule which is new since CT from 4 months prior which given the rapid development would favor infectious/inflammatory etiology over malignancy. Recommend 8-12 week follow-up low-dose noncontrast chest CT.
--- OUTSIDE RECORDS SUMMARY | 2024-09-26 14:44 | XMS_ITS | Encounter Summary ---
Author Organization [facility] Address [address] [place] [address] Care Team Providers Care Student Support Services Director Name Role Phone Unavailable Primary Care Provider Unavailabl e Encounter Details Date Type Department Care Team (Late st Contact Info) Description 09/22/2024 Orders Only [facility] Oncology and Hematology - [place] [address] [facility] [address] [place] [address] Danilo Jerez MD [address] [facility] [address] [place] [address] Social History Tobacco Use Types [...]
--- OUTSIDE RECORDS SUMMARY | 2024-09-26 14:44 | XMS_ITS | Clinical Summary ---
Author Organization [facility] Isac carrasco Deyanira Address [address] [place] [address] Care Team Providers Care Slater Apprentice Name Role Phone Unavailable Primary Care Provider [...] Department Care Team Description 09/22/2024 Orders Only [facility] Oncology and Hematology - [place] [address] [place] [address] Danilo Jerez MD 09/21/2024 10:30 AM CDT Office Visit [facility] Oncology and Hematology - [place] [address] [place] [address] Danilo Jerez MD Prostate cancer (CMS/HCC) (Primary Dx); Chronic anemia 09/21/2024 Orders Only [facility] Oncology and Hematology [place] [address] [place] [address] Danilo Jerez MD from Last [...] Resu lt from Last 3 Months Insurance [employer] [facility] [id number]
--- OUTSIDE RECORDS SUMMARY | 2024-09-26 14:44 | XMS_ITS | Encounter Summary ---
Author Organization [facility] Address [address] [place] [address] Care Team Providers Care Special Shopper Name Role Phone Unavailable Primary Care Provider Unavailabl e Encounter Details Date Type Department Care Team (Late st Contact Info) Description 08/16/2024 Lab Requisition [facility] - Pathology Lab [address] [place] [address] Giancarlo Macias MD [address] [place] [address] Illness, unspecified Social History Tobacco Use Types Packs/Day Years Used Date Smoking Tobacco: Never Assessed Sex and Gender Information Value Date Recorded Sex Assigned at Not on file 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
--- OUTSIDE RECORDS SUMMARY | 2024-09-26 14:44 | XMS_ITS | Encounter Summary ---
Author Organization [facility] Address [address] [place] [address] Care Team Providers Care Automotive Internet Sales Consultant Name Role Phone Unavailable Primary Care Provider Unavailabl e Encounter Details Date Type Department Care Team (Late st Contact Info) Description 09/21/2024 Orders Only [facility] Oncology and Hematology - [place] [address] [facility] [address] [place] [address] Danilo Jerez MD [address] [facility] [address] [place] [address] Social History Tobacco Use Types [...]
--- OUTSIDE RECORDS SUMMARY | 2024-09-26 14:44 | XMS_ITS | Clinical Summary ---
Author Organization [facility] Address [address] [facility] [place] [address] Care Team Providers Care Studio Artist Name Role Phone Unavailable Primary Care Provider Unavailabl e Source Comments [facility],non-owned Affiliates and Associated Physician Practices is amultiple site organization consisting of ambulatory clinics and hospital sitesin [place], [place], [place] and [place]. This disclosure is being madepursuant to the Care Everywhere program and may not contain all information available regarding this patient. 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
--- OUTSIDE RECORDS SUMMARY | 2024-09-26 14:44 | XMS_ITS | CONTINUITY OF CARE DOCUMENT ---
Author Name ruel lipscomb Address Unknown Organization [facility] Address [address] [place] [address] Phone [phone] Care Team Providers Care Parts Salesperson Name Role Phone Robert Freeman MD Unavailable [phone] TATYANA DAWN MD Unavailable TATYANA DAWN MD Unavailable PROBLEMS Condition Status Date Provider Notes Shortness of breath (SOB) active Jesse jha per PCP LÓPEZ Orthopnea active Robert Freeman MD Leg edema active Robert Freeman MD Tobacco abuse active Robert Freeman MD ENCOUNTERS Date Type Provider Location Encounter Diag nosis - In-person encounter Office Visit Robert Freeman MD [facility] - In-person encounter Office Visit Robert Freeman MD [facility] Tobacco abuseLeg edemaOrthopnea VITAL SIGNS Date [...] Coverage type Candie red green party ID [facility] Other [id number] ADVANCE DIRECTIVES Name Date DISCUSSED - NO DECISION MADE TREATMENT PLAN Date Name Performer [id number],C,T he Patient was reencouraged to stop smoking. Emilia Amos [id number],C,P t complained of SOB with minimal exertion, orthopnea, heavy smoker. Also had leg swelling which improved with Lasix. Echo showed EF 45%. Marked RV dilation with PA pressure 64 and mmHg. I recommend R/L cardiac cath, chest CT with contrast, venous duplex of the LE, PFTs, and will check BNP levels. I advised him to stop smoking. Kaiden's test was normal. Emilia Amos [id number],C,P t complained of SOB with minimal exertion, orthopnea, heavy smoker. Also had leg swelling which improved with Lasix. Echo showed EF 45%. Marked RV dilation with PA pressure 64 and mmHg. I recommend R/L cardiac cath, chest CT with contrast, venous duplex of the LE, PFTs, and will check BNP levels. I advised him to stop smoking. Kaiden's test was normal. Emilia Amos [id number],C,P t complained of SOB with minimal exertion, [...] with a recent admission to [facility] for SOB and leg swelling. His cardiac [...] with a recent admission to [facility] for SOB and leg swelling. His cardiac [...] Study Home PROBNP, N TERMINAL DLCO - 27929 FRC - 12428 FVC - 07696 PROTHROMBIN TIME WIT H INR LIPID PANEL CBC (INCLUDES DIFF/P LT) BASIC METABOLIC PANE L W/EGFR DLCO - 55543 FRC - 29894 FVC - 09541 Venous Doppler Bilat eral LE - Reflux Cardiac Cath - L/R- [facility] B TYPE NATRIURETIC P EPTIDE (BNP) CT Chest with contra st Complete Echo HISTORY OF PROCEDURES Procedure Date Procedure Name Provider Procedure Notes S tatus Complex e/m visit add on Robert Freeman MD completed EKG Robert Freeman MD completed
--- OUTSIDE RECORDS SUMMARY | 2024-09-26 14:44 | XMS_ITS | Clinical Summary ---
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
--- OUTSIDE RECORDS SUMMARY | 2024-09-26 14:44 | XMS_ITS | Continuity of Care Document ---
Author Organization [facility] Address [address] [place] [address] [address] [place] [address] Phone Care Team Providers Care Review Trainer Name Role Phone Darcy Mishra Unavailable Unavailable Advance Directives Directive Yes / No Effective Date File Name No Information Encounters Encounter Description Practice Location Reason(s) For Visit Diagnoses Date Provider Providers Copied on Encounter [facility], [address] [place] [address] [address], [place], [place], [address], [place] tel:[phone] SEC [facility] [place] No Information Apr-0 7-200 5 Danica Taveras. [address] [facility] , [address], [place], [address], [place]. tel:[phone] Family History Family Member Type Diagnosis Age At Onset No Information Payers Payer name Insurance type Covered democrat ID Authoriza farrukhwali(s) Star Pattern [id number] Social History Type Description Quantity Date Captured [...]
== END 2024-09-26 13:07 | disposition home or self-care (01) ==
PROVIDERS: PCP Internal Medicine; Visit Provider Internal Medicine Hematology & Oncology
DX: R93.89 Abnormal findings on diagnostic imaging of other specified body structures (principal); C61 Malignant neoplasm of prostate
CPT/HCPCS: 78815; A9596

== ENCOUNTER 2024-09-30 03:11 | Day surgery (SDC) | payer OTHER, SELFPAY ==
[2024-09-22 16:19] VITALS: BMI 20.5
--- NOTE | 2024-09-22 16:21 | PC.NURSE ---
Report to the Outpatient Waiting Room, entrance under the green pavilion located off [facility], at time ___0900____ on date ___09/30/24____. Planned Procedure Time: ____1100____.? Time changes happen often and if your time is changed the preop area will call you the afternoon before. - You and your visitor will be asked to self-screen and do not enter if you have any COVID symptoms. Please call surgeon if you need to reschedule. - A mask is optional within the hospital at this time. Patients may have clear liquids (water, carbonated beverages, clear teas, apple juice) until 3 hours prior to surgery with a maximum of 20 ounces. - No food from midnight until time of surgery and no smoking, or chewing tobacco (or any form of nicotine). No chewing gum, candy or mints. Take only the following medications with a SIP of water on the morning of surgery: ___levothyroxine, albuterol as needed, Breztri as needed, oxycodone as needed____ DO NOT STOP ANY OF YOUR OTHER PRESCRIPTION MEDICATIONS PRIOR TO SURGERY EXCEPT THE FOLLOWING Hold all vitamins and supplements for 3 days per anesthesiologist. Please no make-up, nail micronesian, hairspray, perfume, deodorant, or body powder the day of surgery.? No jewelry (including any body piercings) or valuables the day of surgery, leave them at home.? Please take a shower or bath the night before, or the morning of, surgery with an antibacterial soap.? Wear comfortable, loose fitting clothing.? - Jewelry must be removed prior to entering the operating room.? Rings and piercings that are not removed may be cut off. - The hospital will not accept responsibility for valuables.? - Please leave all valuables, including medications, at home the day of surgery. If you are going home after surgery, a licensed sales route driver must drive you home.? - NO public transportation without another adult if you receive anesthesia. - We recommend that an adult stay with you for 24 hours following discharge. - We also recommend that you do not drive, make important decision, drink alcoholic beverages, or take any drugs that were not prescribed by your health care provider for at least 24 hours after your discharge time. Follow any additional instructions given to you from your surgeon. Telephone instructions given to Alan and asked if any additional questions and then verbalized understanding. Patient advised to call surgeon office or pre surgery nurse liaison [phone] if any additional questions.
--- OUTSIDE RECORDS SUMMARY | 2024-09-30 03:13 | XMS_ITS | Clinical Summary ---
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
--- OUTSIDE RECORDS SUMMARY | 2024-09-30 03:13 | XMS_ITS | Continuity of Care Document ---
Author Organization [facility] Address [address] [place] [address] [address] [place] [address] Phone Care Team Providers Care Customer Marketing Manager Name Role Phone Darcy Mishra Unavailable Unavailable Advance Directives Directive Yes / No Effective Date File Name No Information Encounters Encounter Description Practice Location Reason(s) For Visit Diagnoses Date Provider Providers Copied on Encounter [facility], [address] [place] [address] [address], [place], [place], [id number], [place] tel:[phone] [facility] [place] No Information Apr-0 7-200 5 Danica Taveras. [address] [facility] , [address], [place], [address], [place]. tel:[phone] Family History Family Member Type Diagnosis Age At Onset No Information Payers Payer name Insurance type Covered republican ID Authoriza farrukhwali(s) Star Pattern [id number] Social History Type Description Quantity Date Captured [...]
--- OUTSIDE RECORDS SUMMARY | 2024-09-30 03:13 | XMS_ITS | Data Portability ---
Author Organization [facility] Johnie Barahona Address [address] [place] [address] Care Team Providers Care Rn Hyperbaric Name Role Phone TATYANA CROWELL Primary Care [...] to follow with cardiology he saw the director of parks and recreation in December but has not been back then at that time it looks like he was referred to Interventional Pulmonary and slough patient denies any knowledge of this. further recommendations once I get the results of his test he was advised to stay up-to-date on immunizations. Obtain PFTs. again recommended to get colonoscopies [email or web address] Not available 05/07/2024 16:13:59 07/26/2024 07/26/2024 CBC [...] the abdominal cavity worrisome for the same [email or web address] Not available 08/14/2024 21:40:01 08/30/2024 08/30/2024 metastatic prostate cancer he needs to be seen by medical oncology his pain is not controlled we will switch to oxycodone 10 mg t.i.d. b.i.d. p.r.n. for pain get him to medical oncology I am getting my community service representative involved because his transportation issues functional status is declining boost ensure see me in a month. His COPD is stable [email or web address] Not available 09/02/2024 21:46:59 Plan of Treatment Reminders Order Date Submit Date Provider Last Modified By Organization Details Last Modified Time Details Appointments ANY 15 2024 10:30A M Tatyana Crowell MD Not available Not available Not available Lab PSA, total, serum or plasma 2024 025 CRISTINE Pandey, [address], [place], [address], 08/01/2024 17:10:05 unlisted lab - T4, free 2024 025 CRISTINE Pandey, [address], [place], [address], 08/01/2024 17:09:59 TSH, ultra-sen sitive, serum 2024 025 CRISTINE Pandey, [address], [place], [address], 08/01/2024 17:10:02 T3, free, serum or plasma 2024 025 CRISTINE Pandey, [address], [place], [address], 08/01/2024 17:10:06 lipid panel, serum 2024 025 CRISTINE Pandey, [address], [place], [address], 08/01/2024 17:09:58 CBC w/ auto diff 2024 025 CRISTINE Pandey, [address], [place], [address], 08/01/2024 17:10:03 CMP, serum or plasma 2024 025 CRISTINE Pandey, [address], [place], [address], 08/01/2024 17:10:00 spep, serum, reflex immunofix ation 2024 025 CRISTINE Pandey, [address], [place], [address], 08/01/2024 17:09:56 urinalysi s, complete 2023 024 CRISTINE Pandey, [address], [place], [address], 05/04/2024 08:31:03 HbA1c (hemoglob in A1c), blood 2023 024 CRISTINE Pandey, [address], [place], [address], 05/04/2024 08:31:02 lipid panel, serum 2023 024 CRISTINE Dannie, [address], [place], [address], 05/04/2024 08:30:58 CBC w/ auto diff 2023 024 CRISTINE Pandey, [address], [place], [address], 05/04/2024 08:31:05 CMP, serum or plasma 2023 024 CRISTINE Pandey [address], [place], [address], 05/04/2024 08:31:00 Referral None recorded. Procedures biopsy, lymph node, ultrasoun d guidance (PROC) 2024 025 [facility] (Imaging), [address] [address], [place], [address], 08/11/2024 13:11:46 Surgeries None recorded. Imaging CT, abdomen + pelvis, w/ contrast - Authormacya tion code #[id number] 12 2023 024 [facility] (Imaging), [address] [place] [address], [place], [address], 06/05/2024 08:41:14 PFT, complete 2023 024 [facility] (Cardiology & Emg), [address] [place] [address], [place], [address], 06/03/2024 15:46:10 CT, chest, w/ contrast 2023 024 [facility] (Imaging), [address] [place] [address], [id number], 06/10/2024 10:10:09 Medication Orders None recorded. Patient TargetsNo targets recorded. Patient Instructions Encounter Date Encounter Id Patient Instructions Last Modified By Organization Details Last Modified Time 08/30/2024 [id number] A healthy lifestyle: care instructions [id number] Not available 08/30/2024 20:43:49 Reason for Referral None Reported. Results Created Date Observation Date Name Description Value Unit Range Abnormal Flag Note LastModifiedBy Organization Detail LastModifiedTime 05/03/2005/04/2024 LIPID PANEL cholesterol, total 185 mg/dL 100-19 9 Not Available [facility] ([facility]) [address] [facility], [place], [address], 05/04/2024 08:30:58 05/03/2005/04/2024 LIPID PANEL triglyceride s 64 mg/dL 0-149 Not Available [facility] ([facility]) [address] [facility], [place], [address], 05/04/2024 08:30:58 05/03/2005/04/2024 LIPID PANEL HDL cholesterol 100 mg/dL >39 Not Available [facility] ([facility]) [address] [facility] [place], [address], 05/04/2024 08:30:58 05/03/20 24 05/04/2024 LIPID PANEL VLDL cholesterol manpreet 12 mg/dL 5-40 Not Available [facility] ([facility]) [address] [facility] [place], [address], 05/04/2024 08:30:58 05/03/2005/04/2024 LIPID PANEL LDL chol calc ([facility]) 73 mg/dL 0-99 Not Available [facility] ([facility]) [address] [facility] [place], [address], 05/04/2024 08:30:58 05/03/20 24 05/04/2024 COMP. METAB OLIC PANEL (14) glucose 90 mg/dL 70-99 Not Available [facility] ([facility]) [address] [place], [address], 05/04/2024 08:31:00 05/03/2005/04/2024 COMP. METAB OLIC PANEL (14) BUN 13 mg/dL 8-27 Not Available [facility] ([facility]) [address] [place], [address], 05/04/2024 08:31:00 05/03/2005/04/2024 COMP. METAB OLIC PANEL (14) creatinine 0.73 mg/dL 0.76-1 .27 below low normal Not Available [facility] ([facility]) [address] [place], [address], 05/04/2024 08:31:00 05/03/20 24 05/04/2024 COMP. METAB OLIC PANEL (14) eGFR 103 mL/mi n/1.7 3 >59 Not Available [facility] ([facility]) [address] [place], [address], 05/04/2024 08:31:00 05/03/20 24 05/04/2024 COMP. METAB OLIC PANEL (14) BUN/creatini ne ratio 18 10-24 Not Available [facility] ([facility]) [address] [facility], [place], [address], 05/04/2024 08:31:00 05/03/20 24 05/04/2024 COMP. METAB OLIC PANEL (14) sodium 129 mmol/ L 134-14 4 below low normal Not Available [facility] ([facility]) [address] [place], [address], 05/04/2024 08:31:00 05/03/2005/04/2024 COMP. METAB OLIC PANEL (14) potassium 4.4 mmol/ L 3.5-5. 2 Not Available [facility] ([facility]) [address] [place], [address], 05/04/2024 08:31:00 05/03/20 24 05/04/2024 COMP. METAB OLIC PANEL (14) chloride 88 mmol/ L 96-106 below low normal Not Available [facility] ([facility]) [address] [place], [address], 05/04/2024 08:31:00 05/03/20 24 05/04/2024 COMP. METAB OLIC PANEL (14) carbon dioxide, total 27 mmol/ L 20-29 Not Available [facility] ([facility]) [address] [place], [address], 05/04/2024 08:31:00 05/03/20 24 05/04/2024 COMP. METAB OLIC PANEL (14) calcium 8.9 mg/dL 8.6-10 .2 Not Available [facility] ([facility]) [address] [place], [address], 05/04/2024 08:31:00 05/03/20 24 05/04/2024 COMP. METAB OLIC PANEL (14) protein, total 6.3 g/dL 6.0-8. 5 Not Available [facility] ([facility]) [address] [place], [address], 05/04/2024 08:31:00 05/03/20 24 05/04/2024 COMP. METAB OLIC PANEL (14) albumin 4.1 g/dL 3.9-4. 9 Not Available [facility] ([facility]) [address] [place], [address], 05/04/2024 08:31:00 05/03/20 24 05/04/2024 COMP. METAB OLIC PANEL (14) globulin, total 2.2 g/dL 1.5-4. 5 Not Available [facility] ([facility]) [address] [place], [address], 05/04/2024 08:31:00 05/03/20 24 05/04/2024 COMP. METAB OLIC PANEL (14) bilirubin, total 0.8 mg/dL 0.0-1. 2 Not Available [facility] ([facility]) [address] [place], [address], 05/04/2024 08:31:00 05/03/20 24 05/04/2024 COMP. METAB OLIC PANEL (14) alkaline phosphatase 244 IU/L 44-121 above high normal Not Available [facility] ([facility]) [address] [place], [address], 05/04/2024 08:31:00 05/03/20 24 05/04/2024 COMP. METAB OLIC PANEL (14) AST (SGOT) 28 IU/L 0-40 Not Available [facility] ([facility]) [address] [place], [address], 05/04/2024 08:31:00 05/03/20 24 05/04/2024 COMP. METAB OLIC PANEL (14) ALT (SGPT) 23 IU/L 0-44 Not Available [facility] ([facility]) [address] [facility], [place], [address], 05/04/2024 08:31:00 05/03/20 24 05/04/2024 MICRO SCOPI C EXAMI NATIO N WBC None seen /hpf 0-5 Not Available [facility] ([facility]) [address] [facility], [place], [address], 05/04/2024 08:31:01 05/03/20 24 05/04/2024 MICRO SCOPI C EXAMI NATIO N RBC 11-30 /hpf 0-2 abnormal Not Available [facility] ([facility]) [address] [facility], [place], [address], 05/04/2024 08:31:01 05/03/20 24 05/04/2024 MICRO SCOPI C EXAMI NATIO N epithelial cells (non renal) 0-10 /hpf 0-10 Not Available [facility] ([facility]) [address] [facility], [place], [address], 05/04/2024 08:31:01 05/03/20 24 05/04/2024 MICRO SCOPI C EXAMI NATIO N casts None seen /lpf nonese en Not Available [facility] ([facility]) [address] [facility], [place], [address], 05/04/2024 08:31:01 05/03/20 24 05/04/2024 MICRO SCOPI C EXAMI NATIO N bacteria None seen nonese en/few Not Available [facility] ([facility]) [address] [facility], [place], [address], 05/04/2024 08:31:01 05/03/20 24 05/04/2024 HEMOG LOBIN A1C hemoglobin A1C 6.3 % 4.8-5. 6 above high normal Predi abete s: 5.7 - 6.4 Diabe jason: >6.4 Glyce reji contr ol for adult s with diabe jason: <7.0 Not Available [facility] ([facility]) [address] [facility] [place], [address], 05/04/2024 08:31:02 05/03/2005/04/2024 URINA LYSIS , COMPL ETE specific gravity 1.017 1.005- 1.030 Not Available [facility] ([facility]) [address] [facility], [place], [address], 05/04/2024 08:31:03 05/03/2005/04/2024 URINA LYSIS , COMPL ETE pH 6.5 5.0-7. 5 Not Available [facility] ([facility]) [address] [facility], [place], [address], 05/04/2024 08:31:03 05/03/2005/04/2024 URINA LYSIS , COMPL ETE urine-color YELLOW yellow Not Available [facility] ([facility]) [address] [facility], [place], [address], 05/04/2024 08:31:03 05/03/2005/04/2024 URINA LYSIS , COMPL ETE appearance CLEAR clear Not Available [facility] ([facility]) [address] [facility], [place], [address], 05/04/2024 08:31:03 05/03/2005/04/2024 URINA LYSIS , COMPL ETE WBC esterase TRACE negati ve abnormal Not Available [facility] ([facility]) [address] [place], [address], 05/04/2024 08:31:03 05/03/2005/04/2024 URINA LYSIS , COMPL ETE protein 3+ negati ve/tra ce abnormal Not Available [facility] ([facility]) [address] [place], [address], 05/04/2024 08:31:03 05/03/2005/04/2024 URINA LYSIS , COMPL ETE glucose NEGATI VE negati ve Not Available [facility] ([facility]) [address] [place], [address], 05/04/2024 08:31:03 05/03/20 24 05/04/2024 URINA LYSIS , COMPL ETE ketones NEGATI VE negati ve Not Available [facility] ([facility]) [address] [place], [address], 05/04/2024 08:31:03 05/03/20 24 05/04/2024 URINA LYSIS , COMPL ETE occult blood 2+ negati ve abnormal Not Available [facility] ([facility]) [address] [place], [address], 05/04/2024 08:31:03 05/03/20 24 05/04/2024 URINA LYSIS , COMPL ETE bilirubin NEGATI VE negati ve Not Available [facility] ([facility]) [address] [place], [address], 05/04/2024 08:31:03 05/03/20 24 05/04/2024 URINA LYSIS , COMPL ETE urobilinogen ,semi-qn 1.0 mg/dL 0.2-1. 0 Not Available [facility] ([facility]) [address] [place], [address], 05/04/2024 08:31:03 05/03/20 24 05/04/2024 URINA LYSIS , COMPL ETE nitrite, urine NEGATI VE negati ve Not Available [facility] ([facility]) [address] [place], [address], 05/04/2024 08:31:03 05/03/20 24 05/04/2024 URINA LYSIS , COMPL ETE microscopic examination SEE BELOW: Micro scopi c was indic ated and was perfo rmed. Not Available [facility] ([facility]) [address] [place], [address], 05/04/2024 08:31:03 05/03/2005/04/2024 CBC WITH DIFFE RENTI AL/PL ATELE T WBC 7.3 x10e3 /uL 3.4-10 .8 Eff ectiv e Decem matias 2023 [place] [id number] 5 WBC will be made* * non-o rdera ble as a stand -adelita e order code. Not Available [facility] ([facility]) [address] [facility], [place], [address], 05/04/2024 08:31:05 05/03/2005/04/2024 CBC WITH DIFFE RENTI AL/PL ATELE T RBC 4.25 x10e6 /uL 4.14-5 .80 Not Available [facility] ([facility]) [address] [facility], [place], [address], 05/04/2024 08:31:05 05/03/2005/04/2024 CBC WITH DIFFE RENTI AL/PL ATELE T hemoglobin 14.7 g/dL 13.0-1 7.7 Not Available [facility] ([facility]) [address] [facility], [place], [address], 05/04/2024 08:31:05 05/03/2005/04/2024 CBC WITH DIFFE RENTI AL/PL ATELE T hematocrit 42.7 % 37.5-5 1.0 Not Available [facility] ([facility]) [address] [facility], [place], [address], 05/04/2024 08:31:05 05/03/2005/04/2024 CBC WITH DIFFE RENTI AL/PL ATELE T MCV 101 fL 79-97 above high normal Not Available [facility] ([facility]) [address] [place], [address], 05/04/2024 08:31:05 05/03/20 24 05/04/2024 CBC WITH DIFFE RENTI AL/PL ATELE T MCH 34.6 pg 26.6-3 3.0 above high normal Not Available [facility] ([facility]) [address] [facility], [place], [address], 05/04/2024 08:31:05 05/03/20 24 05/04/2024 CBC WITH DIFFE RENTI AL/PL ATELE T MCHC 34.4 g/dL 31.5-3 5.7 Not Available [facility] ([facility]) [address] [facility], [place], [address], 05/04/2024 08:31:05 05/03/20 24 05/04/2024 CBC WITH DIFFE RENTI AL/PL ATELE T RDW 13.3 % 11.6-1 5.4 Not Available [facility] ([facility]) [address] [facility], [place], [address], 05/04/2024 08:31:05 05/03/20 24 05/04/2024 CBC WITH DIFFE RENTI AL/PL ATELE T platelets 151 x10e3 /uL 150-45 0 Not Available [facility] ([facility]) [address] [facility], [place], [address], 05/04/2024 08:31:05 05/03/20 24 05/04/2024 CBC WITH DIFFE RENTI AL/PL ATELE T neutrophils 57 % notest ab. Not Available [facility] ([facility]) [address] [facility], [place], [address], 05/04/2024 08:31:05 05/03/20 24 05/04/2024 CBC WITH DIFFE RENTI AL/PL ATELE T lymphs 26 % notest ab. Not Available [facility] ([facility]) [address] [place], [address], 05/04/2024 08:31:05 05/03/20 24 05/04/2024 CBC WITH DIFFE RENTI AL/PL ATELE T monocytes 9 % notest ab. Not Available [facility] ([facility]) [address] [facility], [place], [address], 05/04/2024 08:31:05 05/03/20 24 05/04/2024 CBC WITH DIFFE RENTI AL/PL ATELE T eos 3 % notest ab. Not Available [facility] ([facility]) [address] [facility], [place], [address], 05/04/2024 08:31:05 05/03/20 24 05/04/2024 CBC WITH DIFFE RENTI AL/PL ATELE T basos 1 % notest ab. Not Available [facility] ([facility]) [address] [facility], [place], [address], 05/04/2024 08:31:05 05/03/20 24 05/04/2024 CBC WITH DIFFE RENTI AL/PL ATELE T neutrophils (absolute) 4.2 x10e3 /uL 1.4-7. 0 Not Available [facility] ([facility]) [address] [facility], [place], [address], 05/04/2024 08:31:05 05/03/20 24 05/04/2024 CBC WITH DIFFE RENTI AL/PL ATELE T lymphs (absolute) 1.9 x10e3 /uL 0.7-3. 1 Not Available [facility] ([facility]) [address] [facility], [place], [address], 05/04/2024 08:31:05 05/03/20 24 05/04/2024 CBC WITH DIFFE RENTI AL/PL ATELE T monocytes(ab solute) 0.7 x10e3 /uL 0.1-0. 9 Not Available [facility] ([facility]) [address] [facility], [place], [address], 05/04/2024 08:31:05 05/03/20 24 05/04/2024 CBC WITH DIFFE RENTI AL/PL ATELE T eos (absolute) 0.2 x10e3 /uL 0.0-0. 4 Not Available [facility] ([facility]) [address] [facility], [place], [address], 05/04/2024 08:31:05 05/03/20 24 05/04/2024 CBC WITH DIFFE RENTI AL/PL ATELE T baso (absolute) 0.1 x10e3 /uL 0.0-0. 2 Not Available [facility] ([facility]) [address] [facility], [place], [address], 05/04/2024 08:31:05 05/03/20 24 05/04/2024 CBC WITH DIFFE RENTI AL/PL ATELE T immature granulocytes 4 % notest ab. Not Available [facility] ([facility]) [address] [facility], [place], [address], 05/04/2024 08:31:05 05/03/20 24 05/04/2024 CBC WITH [...] manpreet signi fican ce.) Not Available [facility] ([facility]) [address] [facility], [place], [address], 05/04/2024 08:31:05 05/03/20 24 05/04/2024 CBC WITH DIFFE RENTI AL/PL ATELE T NRBC 1 % 0-0 above high normal Not Available [facility] ([facility]) [address] [facility], [place], [address], 05/04/2024 08:31:05 05/18/20 24 05/20/2024 SPECI MEN STATU S REPOR T specimen status report TNP Test not perfo rmed. No urine speci men recei shirin. TEST: [id number] 0 Na U+Cl U+[place] U [address]34 2 Osmol ality , Urine Not Available [facility] ([facility]) [address] [place], [address], 05/20/2024 13:10:21 05/18/20 24 05/19/2024 BASIC METAB OLIC PANEL (7) glucose 94 mg/dL 70-99 Not Available [facility] ([facility]) [address] [place], [address], 05/20/2024 13:10:22 05/18/20 24 05/19/2024 BASIC METAB OLIC PANEL (7) BUN 19 mg/dL 8-27 Not Available [facility] ([facility]) [address] [place], [address], 05/20/2024 13:10:22 05/18/20 24 05/19/2024 BASIC METAB OLIC PANEL (7) creatinine 1.39 mg/dL 0.76-1 .27 above high normal Not Available [facility] ([facility]) [address] [place], [address], 05/20/2024 13:10:22 05/18/20 24 05/19/2024 BASIC METAB OLIC PANEL (7) eGFR 57 mL/mi n/1.7 3 >59 below low normal Not Available [facility] ([facility]) [address] [place], [address], 05/20/2024 13:10:22 05/18/20 24 05/19/2024 BASIC METAB OLIC PANEL (7) BUN/creatini ne ratio 14 10-24 Not Available [facility] ([facility]) [address] [place], [address], 05/20/2024 13:10:22 05/18/20 24 05/19/2024 BASIC METAB OLIC PANEL (7) sodium 133 mmol/ L 134-14 4 below low normal Not Available [facility] ([facility]) [address] [place], [address], 05/20/2024 13:10:22 05/18/20 24 05/19/2024 BASIC METAB OLIC PANEL (7) potassium 4.4 mmol/ L 3.5-5. 2 Not Available [facility] ([facility]) [address] [place], [address], 05/20/2024 13:10:22 05/18/20 24 05/19/2024 BASIC METAB OLIC PANEL (7) chloride 92 mmol/ L 96-106 below low normal Not Available [facility] ([facility]) [address] [place], [address], 05/20/2024 13:10:22 05/18/20 24 05/19/2024 BASIC METAB OLIC PANEL (7) carbon dioxide, total 25 mmol/ L 20-29 Not Available [facility] ([facility]) [address] [place], [address], 05/20/2024 13:10:22 05/18/20 24 05/19/2024 T4, FREE T4,free(dire ct) 1.54 NG/dL 0.82-1 .77 Not Available [facility] ([facility]) [address] [place], [address], 05/20/2024 13:10:23 05/18/20 24 05/18/2024 UNABL E TO VOID unable to void Commen t Patie nt unabl e to void. Urine to be colle cted at a later date. Not Available [facility] ([facility]) [address] [place], [address], 05/20/2024 13:10:24 05/18/20 24 05/19/2024 CORTI KRISTEN cortisol 9.2 ug/dL 6.2-19 .4 Pleas e Note: The refer ence inter randa and vale ing for this test is for an AM colle ction . If this is a PM colle ction pleas e use: Corti kristen PM: 2.3-1 1.9 Not Available [facility] ([facility]) [address] [facility], [place], [address], 05/20/2024 13:10:25 05/18/20 24 05/19/2024 TSH TSH 5.640 uIU/m L 0.450- 4.500 above high normal Not Available [facility] ([facility]) [address] [facility], [place], [address], 05/20/2024 13:10:26 05/18/20 24 05/19/2024 TRIIO DOTHY JACQUES E (T3), FREE triiodothyro nine (T3), free 3.0 pg/mL 2.0-4. 4 Not Available [facility] ([facility]) [address] [facility], [place], [address], 05/20/2024 13:10:27 07/26/19 25 07/27/2024 SPECI MEN STATU S REPOR T specimen status report TNP [facility] was unabl e to colle ct suffi cient speci men to perfo rm the follo wing test( s), and is provi ding the patie nt with re-co llect ion instr uctio ns. TEST: [id number] CBC With Diffe renti al/Pl atele t Not Available [facility] ([facility]) [address] [facility], [place], [address], 08/01/2024 17:09:55 07/26/19 25 07/26/2024 MULTI PLE MYELO MA LAKESHA DE please note: COMMEN T Prote in elect ropho resis scan will follo w via compu ter, mail, or couri er audie bray. Not Available [facility] ([facility]) [address] [facility], [place], [address], 08/01/2024 17:09:56 07/26/19 25 07/27/2024 MULTI PLE MYELO MA CASCA DE albumin 3.7 g/dL 2.9-4. 4 Not Available [facility] ([facility]) [address] [facility], [place], [address], 08/01/2024 17:09:56 07/26/19 25 07/27/2024 MULTI PLE MYELO MA CASCA DE grfmv-3-uemb ulin 0.5 g/dL 0.0-0. 4 above high normal Not Available [facility] ([facility]) [address] [facility], [place], [address], 08/01/2024 17:09:56 07/26/19 25 07/27/2024 MULTI PLE MYELO [place] CASCA DE yygrm-9-uhtt ulin 0.5 g/dL 0.4-1. 0 Not Available [facility] ([facility]) [address] [facility], [place], [address], 08/01/2024 17:09:56 07/26/19 25 07/27/2024 MULTI PLE MYELO [place] CASCA DE beta globulin 1.0 g/dL 0.7-1. 3 Not Available [facility] ([facility]) [address] [place], [address], 08/01/2024 17:09:56 07/26/19 25 07/27/2024 MULTI PLE MYELO [place] CASCA DE gamma globulin 0.9 g/dL 0.4-1. 8 Not Available [facility] ([facility]) [address] [place], [address], 08/01/2024 17:09:56 07/26/19 25 07/27/2024 MULTI PLE MYELO MA CASCA DE M-spike NOT OBSERV ED g/dL notobs erved Not Available [facility] ([facility]) [address] [facility] [place], [address], 08/01/2024 17:09:56 07/26/19 25 07/27/2024 MULTI PLE MYELO [place] CASCA DE globulin, total 2.8 g/dL 2.2-3. 9 Not Available [facility] ([facility]) [address] [place], [address], 08/01/2024 17:09:56 07/26/19 25 07/27/2024 MULTI PLE MYELO MA CASCA DE A/G ratio 1.3 0.7-1. 7 Not Available [facility] ([facility]) [address] [place], [address], 08/01/2024 17:09:56 07/26/19 25 07/27/2024 MULTI PLE MYELO MA CASCA DE reflex testing . Not Available [facility] ([facility]) [address] [facility], [place], [address], 08/01/2024 17:09:56 07/26/19 25 07/27/2024 MULTI PLE MYELO MA CASCA DE pdf . Not Available [facility] ([facility]) [address] [facility], [place], [address], 08/01/2024 17:09:56 07/26/19 25 08/01/2024 FREE K+L LT CHAIN S,QN, S free kappa lt chains,S 31.7 mg/L 3.3-19 .4 above high normal Not Available [facility] [address], [place], [address], 08/01/2024 17:09:57 07/26/19 25 08/01/2024 FREE K+L LT CHAIN S,QN, S free lambda lt chains,S 21.0 mg/L 5.7-26 .3 Not Available [facility] [address], [place], [address], 08/01/2024 17:09:57 07/26/19 25 08/01/2024 FREE K+L LT CHAIN S,QN, S kappa/lambda ratio,S 1.51 0.26-1 .65 Not Available [facility] [address], [place], [address], 08/01/2024 17:09:57 07/26/19 25 08/01/2024 COMME NT: comment: Commen t Consi nory order ing urine immun ofixa tion (uIFE ) to rule out Amylo idosi s (AL). Not Available [facility] ([facility]) [address] [place], [address], 08/01/2024 17:09:58 07/26/19 25 07/27/2024 LIPID PANEL cholesterol, total 189 mg/dL 100-19 9 Not Available [facility] ([facility]) [address] [place], [address], 08/01/2024 17:09:58 07/26/19 25 07/27/2024 LIPID PANEL triglyceride s 67 mg/dL 0-149 Not Available [facility] ([facility]) [address] [place], [address], 08/01/2024 17:09:58 07/26/19 25 07/27/2024 LIPID PANEL HDL cholesterol 106 mg/dL >39 Not Available [facility] ([facility]) [address] [place], [address], 08/01/2024 17:09:58 07/26/19 25 07/27/2024 LIPID PANEL VLDL cholesterol manpreet 12 mg/dL 5-40 Not Available [facility] ([facility]) [address] [place], [address], 08/01/2024 17:09:58 07/26/19 25 07/27/2024 LIPID PANEL LDL chol calc ([facility]) 71 mg/dL 0-99 Not Available [facility] ([facility]) [address] [place], [address], 08/01/2024 17:09:58 07/26/19 25 07/27/2024 T4, FREE T4,free(dire ct) 1.75 NG/dL 0.82-1 .77 Not Available [facility] ([facility]) [address] [facility] [place], [address], 08/01/2024 17:09:59 07/26/19 25 07/27/2024 COMP. METAB OLIC PANEL (14) glucose 87 mg/dL 70-99 Not Available [facility] ([facility]) [address] [facility] [place], [address], 08/01/2024 17:10:00 07/26/19 25 07/27/2024 COMP. METAB OLIC PANEL (14) BUN 26 mg/dL 8-27 Not Available [facility] ([facility]) [address] [facility] [place], [address], 08/01/2024 17:10:00 07/26/19 25 07/27/2024 COMP. METAB OLIC PANEL (14) creatinine 1.41 mg/dL 0.76-1 .27 above high normal Not Available [facility] ([facility]) [address] [place], [address], 08/01/2024 17:10:00 07/26/19 25 07/27/2024 COMP. METAB OLIC PANEL (14) eGFR 56 mL/mi n/1.7 3 >59 below low normal Not Available [facility] ([facility]) [address] [place], [address], 08/01/2024 17:10:00 07/26/19 25 07/27/2024 COMP. METAB OLIC PANEL (14) BUN/creatini ne ratio 18 -24 Not Available [facility] ([facility]) [address] [place], [address], 08/01/2024 17:10:00 07/26/19 25 07/27/2024 COMP. METAB OLIC PANEL (14) sodium 134 mmol/ L 134-14 4 Not Available [facility] ([facility]) [address] [facility] [place], [address], 08/01/2024 17:10:00 07/26/19 25 07/27/2024 COMP. METAB OLIC PANEL (14) potassium 4.6 mmol/ L 3.5-5. 2 Not Available [facility] ([facility]) [address] [facility] [place], [address], 08/01/2024 17:10:00 07/26/19 25 07/27/2024 COMP. METAB OLIC PANEL (14) chloride 93 mmol/ L 96-106 below low normal Not Available [facility] ([facility]) [address] [facility] [place], [address], 08/01/2024 17:10:00 07/26/19 25 07/27/2024 COMP. METAB OLIC PANEL (14) carbon dioxide, total 26 mmol/ L 20-29 Not Available [facility] ([facility]) [address] [facility] [place], [address], 08/01/2024 17:10:00 07/26/19 25 07/27/2024 COMP. METAB OLIC PANEL (14) calcium 8.5 mg/dL 8.6-10 .2 below low normal Not Available [facility] ([facility]) [address] [facility] [place], [address], 08/01/2024 17:10:00 07/26/19 25 07/27/2024 COMP. METAB OLIC PANEL (14) protein, total 6.5 g/dL 6.0-8. 5 Not Available [facility] ([facility]) [address] [facility] [place], [address], 08/01/2024 17:10:00 07/26/19 25 07/27/2024 COMP. METAB OLIC PANEL (14) albumin 3.9 g/dL 3.9-4. 9 Not Available [facility] ([facility]) [address] [place], [address], 08/01/2024 17:10:00 07/26/19 25 07/27/2024 COMP. METAB OLIC PANEL (14) globulin, total 2.6 g/dL 1.5-4. 5 Not Available [facility] ([facility]) [address] [place], [address], 08/01/2024 17:10:00 07/26/19 25 07/27/2024 COMP. METAB OLIC PANEL (14) bilirubin, total 0.9 mg/dL 0.0-1. 2 Not Available [facility] ([facility]) [address] [place], [address], 08/01/2024 17:10:00 07/26/19 25 07/27/2024 COMP. METAB OLIC PANEL (14) alkaline phosphatase 353 IU/L 44-121 above high normal Not Available [facility] ([facility]) [address] [place], [address], 08/01/2024 17:10:00 07/26/19 25 07/27/2024 COMP. METAB OLIC PANEL (14) AST (SGOT) 32 IU/L 0-40 Not Available [facility] ([facility]) [address] [place], [address], 08/01/2024 17:10:00 07/26/19 25 07/27/2024 COMP. METAB OLIC PANEL (14) ALT (SGPT) 22 IU/L 0-44 Not Available [facility] ([facility]) [address] [place], [address], 08/01/2024 17:10:00 07/26/19 25 07/27/2024 TSH TSH 3.830 uIU/m L 0.450- 4.500 Not Available [facility] ([facility]) [address] [facility], [place], [address], 08/01/2024 17:10:02 07/26/19 25 07/27/2024 CBC WITH DIFFE RENTI AL/PL ATELE T WBC - x10e3 /uL [facility] was unabl e to colle ct suffi cient speci men to perfo rm the follo wing test( s), and is provi ding the patie nt with re-co llect ion instr uctio ns. Not Available [facility] ([facility]) [address] [facility], [place], [address], 08/01/2024 17:10:03 07/26/19 25 07/27/2024 CBC WITH DIFFE RENTI AL/PL ATELE T RBC - Test not perfo rmed Not Available [facility] ([facility]) [address] [place], [address], 08/01/2024 17:10:03 07/26/19 25 07/27/2024 CBC WITH DIFFE RENTI AL/PL ATELE T hemoglobin - Test not perfo rmed Not Available [facility] ([facility]) [address] [place], [address], 08/01/2024 17:10:03 07/26/19 25 07/27/2024 CBC WITH DIFFE RENTI AL/PL ATELE T hematocrit - Test not perfo rmed Not Available [facility] ([facility]) [address] [place], [address], 08/01/2024 17:10:03 07/26/19 25 07/27/2024 CBC WITH DIFFE RENTI AL/PL ATELE T platelets - Test not perfo rmed Not Available [facility] ([facility]) [address] [place], [address], 08/01/2024 17:10:03 07/26/19 25 07/27/2024 CBC WITH DIFFE RENTI AL/PL ATELE T neutrophils - Test not perfo rmed Not Available [facility] ([facility]) [address] [place], [address], 08/01/2024 17:10:03 07/26/19 25 07/27/2024 CBC WITH DIFFE RENTI AL/PL ATELE T lymphs - Test not perfo rmed Not Available [facility] ([facility]) [address] [facility], [place], [address], 08/01/2024 17:10:03 07/26/19 25 07/27/2024 CBC WITH DIFFE RENTI AL/PL ATELE T monocytes - Test not perfo rmed Not Available [facility] ([facility]) [address] [facility], [place], [address], 08/01/2024 17:10:03 07/26/19 25 07/27/2024 CBC WITH DIFFE RENTI AL/PL ATELE T eos - Test not perfo rmed Not Available [facility] ([facility]) [address] [place], [address], 08/01/2024 17:10:03 07/26/19 25 07/27/2024 CBC WITH DIFFE RENTI AL/PL ATELE T lymphs (absolute) - Test not perfo rmed Not Available [facility] ([facility]) [address] [place], [address], 08/01/2024 17:10:03 07/26/19 25 07/27/2024 CBC WITH DIFFE RENTI AL/PL ATELE T eos (absolute) - Test not perfo rmed Not Available [facility] ([facility]) [address] [place], [address], 08/01/2024 17:10:03 07/26/19 25 07/27/2024 CBC WITH DIFFE RENTI AL/PL ATELE T baso (absolute) - Test not perfo rmed Not Available [facility] ([facility]) [address] [facility], [place], [address], 08/01/2024 17:10:03 07/26/19 25 07/27/2024 PROST ATE-S [...] t be inter prete d as absol chemehuevi evide nce of the prese nce [facility]. Not Available [facility] ([facility]) [address] [facility], [place], [address], 08/01/2024 17:10:05 07/26/19 25 07/27/2024 TRIIO DOTHY JACQUES E (T3), FREE triiodothyro nine (T3), free 2.5 pg/mL 2.0-4. 4 Not Available [facility] ([facility]) [address] [facility], [place], [address], 08/01/2024 17:10:06 09/29/19 25 09/29/2024 IMMAT URE CELLS metamyelocyt es 4 % 0-0 above high normal Not Available [facility] ([facility]) [address] [facility], [place], [address], 09/29/2024 11:25:54 09/29/19 25 09/29/2024 IMMAT URE CELLS myelocytes 6 % 0-0 above high normal Not Available [facility] ([facility]) [address] [place], [address], 09/29/2024 11:25:54 09/29/19 25 09/29/2024 COMP. METAB OLIC PANEL (14) glucose 89 mg/dL 70-99 Not Available [facility] ([facility]) [address] [place], [address], 09/29/2024 11:25:55 09/29/19 25 09/29/2024 COMP. METAB OLIC PANEL (14) BUN 28 mg/dL 8-27 above high normal Not Available [facility] ([facility]) [address] [place], [address], 09/29/2024 11:25:55 09/29/19 25 09/29/2024 COMP. METAB OLIC PANEL (14) creatinine 0.81 mg/dL 0.76-1 .27 Not Available [facility] ([facility]) [address] [place], [address], 09/29/2024 11:25:55 09/29/19 25 09/29/2024 COMP. METAB OLIC PANEL (14) eGFR 100 mL/mi n/1.7 3 >59 Not Available [facility] ([facility]) [address] [place], [address], 09/29/2024 11:25:55 09/29/19 25 09/29/2024 COMP. METAB OLIC PANEL (14) BUN/creatini ne ratio 35 10-24 above high normal Not Available [facility] ([facility]) [address] [place], [address], 09/29/2024 11:25:55 09/29/19 25 09/29/2024 COMP. METAB OLIC PANEL (14) sodium 134 mmol/ L 134-14 4 Not Available [facility] ([facility]) [address] [place], [address], 09/29/2024 11:25:55 09/29/19 25 09/29/2024 COMP. METAB OLIC PANEL (14) potassium 4.9 mmol/ L 3.5-5. 2 Not Available [facility] ([facility]) [address] [place], [address], 09/29/2024 11:25:55 09/29/19 25 09/29/2024 COMP. METAB OLIC PANEL (14) chloride 98 mmol/ L 96-106 Not Available [facility] ([facility]) [address] [facility] [place], [address], 09/29/2024 11:25:55 09/29/19 25 09/29/2024 COMP. METAB OLIC PANEL (14) carbon dioxide, total 25 mmol/ L 20-29 Not Available [facility] ([facility]) [address] [facility] [place], [address], 09/29/2024 11:25:55 09/29/19 25 09/29/2024 COMP. METAB OLIC PANEL (14) calcium 8.2 mg/dL 8.6-10 .2 below low normal Not Available [facility] ([facility]) [address] [facility] [place], [address], 09/29/2024 11:25:55 09/29/19 25 09/29/2024 COMP. METAB OLIC PANEL (14) protein, total 6.2 g/dL 6.0-8. 5 Not Available [facility] ([facility]) [address] [facility] [place], [address], 09/29/2024 11:25:55 09/29/19 25 09/29/2024 COMP. METAB OLIC PANEL (14) albumin 3.6 g/dL 3.9-4. 9 below low normal Not Available [facility] ([facility]) [address] [facility] [place], [address], 09/29/2024 11:25:55 09/29/19 25 09/29/2024 COMP. METAB OLIC PANEL (14) globulin, total 2.6 g/dL 1.5-4. 5 Not Available [facility] ([facility]) [address] [facility], [place], [address], 09/29/2024 11:25:55 09/29/19 25 09/29/2024 COMP. METAB OLIC PANEL (14) bilirubin, total 0.5 mg/dL 0.0-1. 2 Not Available [facility] ([facility]) [address] [facility], [place], [address], 09/29/2024 11:25:55 09/29/19 25 09/29/2024 COMP. METAB OLIC PANEL (14) alkaline phosphatase 537 IU/L 44-121 above high normal Not Available [facility] ([facility]) [address] [facility], [place], [address], 09/29/2024 11:25:55 09/29/19 25 09/29/2024 COMP. METAB OLIC PANEL (14) AST (SGOT) 13 IU/L 0-40 Not Available [facility] ([facility]) [address] [facility], [place], [address], 09/29/2024 11:25:55 09/29/19 25 09/29/2024 COMP. METAB OLIC PANEL (14) ALT (SGPT) 9 IU/L 0-44 Not Available [facility] ([facility]) [address] [facility], [place], [address], 09/29/2024 11:25:55 09/29/19 25 09/29/2024 CBC WITH DIFFE RENTI AL/PL ATELE T WBC 6.8 x10e3 /uL 3.4-10 .8 Not Available [facility] ([facility]) [address] [facility], [place], [address], 09/29/2024 11:25:56 09/29/19 25 09/29/2024 CBC WITH DIFFE RENTI AL/PL ATELE T RBC 1.97 x10e6 /uL 4.14-5 .80 alert low Polyc hroma héctor prese nt Ovalo cytes prese nt. Not Available [facility] ([facility]) [address] [place], [address], 09/29/2024 11:25:56 09/29/19 25 09/29/2024 CBC WITH DIFFE RENTI AL/PL ATELE T hemoglobin 7.6 g/dL 13.0-1 7.7 below low normal Not Available [facility] ([facility]) [address] [place], [address], 09/29/2024 11:25:56 09/29/19 25 09/29/2024 CBC WITH DIFFE RENTI AL/PL ATELE T hematocrit 20.9 % 37.5-5 1.0 below low normal Not Available [facility] ([facility]) [address] [place], [address], 09/29/2024 11:25:56 09/29/19 25 09/29/2024 CBC WITH DIFFE RENTI AL/PL ATELE T MCV 106 fL 79-97 above high normal Not Available [facility] ([facility]) [address] [place], [address], 09/29/2024 11:25:56 09/29/19 25 09/29/2024 CBC WITH DIFFE RENTI AL/PL ATELE T MCH 38.6 pg 26.6-3 3.0 above high normal Not Available [facility] ([facility]) [address] [place], [address], 09/29/2024 11:25:56 09/29/19 25 09/29/2024 CBC WITH DIFFE RENTI AL/PL ATELE T MCHC 36.4 g/dL 31.5-3 5.7 above high normal Not Available [facility] ([facility]) [address] [facility], [place], [address], 09/29/2024 11:25:56 09/29/19 25 09/29/2024 CBC WITH DIFFE RENTI AL/PL ATELE T RDW 15.8 % 11.6-1 5.4 above high normal Not Available [facility] ([facility]) [address] [facility], [place], [address], 09/29/2024 11:25:56 09/29/19 25 09/29/2024 CBC WITH DIFFE RENTI AL/PL ATELE T platelets 117 x10e3 /uL 150-45 0 below low normal Actua l plate let count may be somew hat highe r than repor aaron due to aggre gatio n of plate lets in this sampl e. Not Available [facility] ([facility]) [address] [facility], [place], [address], 09/29/2024 11:25:56 09/29/19 25 09/29/2024 CBC WITH DIFFE RENTI AL/PL ATELE T neutrophils 47 % notest ab. Rare blast seen on scann ing. Not Available [facility] ([facility]) [address] [facility], [place], [address], 09/29/2024 11:25:56 09/29/19 25 09/29/2024 CBC WITH DIFFE RENTI AL/PL ATELE T lymphs 28 % notest ab. Not Available [facility] ([facility]) [address] [facility], [place], [address], 09/29/2024 11:25:56 09/29/19 25 09/29/2024 CBC WITH DIFFE RENTI AL/PL ATELE T monocytes 11 % notest ab. Not Available [facility] ([facility]) [address] [facility], [place], [address], 09/29/2024 11:25:56 09/29/19 25 09/29/2024 CBC WITH DIFFE RENTI AL/PL ATELE T eos 1 % notest ab. Not Available [facility] ([facility]) [address] [facility], [place], [address], 09/29/2024 11:25:56 09/29/19 25 09/29/2024 CBC WITH DIFFE RENTI AL/PL ATELE T basos 3 % notest ab. Not Available [facility] ([facility]) [address] [facility], [place], [address], 09/29/2024 11:25:56 09/29/19 25 09/29/2024 CBC WITH DIFFE RENTI AL/PL ATELE T immature cells NOTE Not Available [facility] ([facility]) [address] [facility], [place], [address], 09/29/2024 11:25:56 09/29/19 25 09/29/2024 CBC WITH DIFFE RENTI AL/PL ATELE T neutrophils (absolute) 3.2 x10e3 /uL 1.4-7. 0 Not Available [facility] ([facility]) [address] [place], [address], 09/29/2024 11:25:56 09/29/19 25 09/29/2024 CBC WITH DIFFE RENTI AL/PL ATELE T lymphs (absolute) 1.9 x10e3 /uL 0.7-3. 1 Not Available [facility] ([facility]) [address] [place], [address], 09/29/2024 11:25:56 09/29/19 25 09/29/2024 CBC WITH DIFFE RENTI AL/PL ATELE T monocytes(ab solute) 0.7 x10e3 /uL 0.1-0. 9 Not Available [facility] ([facility]) [address] [place], [address], 09/29/2024 11:25:56 09/29/19 25 09/29/2024 CBC WITH DIFFE RENTI AL/PL ATELE T eos (absolute) 0.1 x10e3 /uL 0.0-0. 4 Not Available [facility] ([facility]) [address] [facility], [place], [address], 09/29/2024 11:25:56 09/29/19 25 09/29/2024 CBC WITH DIFFE RENTI AL/PL ATELE T baso (absolute) 0.2 x10e3 /uL 0.0-0. 2 Not Available [facility] ([facility]) [address] [facility], [place], [address], 09/29/2024 11:25:56 09/29/19 25 09/29/2024 CBC WITH DIFFE RENTI AL/PL ATELE T NRBC 2 % 0-0 above high normal Not Available [facility] ([facility]) [address] [place], [address], 09/29/2024 11:25:56 09/29/19 25 09/29/2024 CBC WITH DIFFE RENTI AL/PL ATELE T hematology comments: NOTE: Aleksandr monahan diffe renti al was perfo rmed. Not Available [facility] ([facility]) [address] [facility], [place], [address], 09/29/2024 11:25:56 06/03/20 24 06/03/2024 PFT, compl ete No observ ation record ed. [address], [address], 06/10/2024 16:43:42 06/05/20 24 06/03/2024 CT, abdom en + pelvi s, w/ contr ast No observ ation record ed. [address], [address], 06/10/2024 17:05:51 06/10/19 CT, chest , w/ contr ast No observ ation record ed. [address], [address], 06/10/2024 17:05:50 08/12/19 25 08/11/2024 biops y, lymph node, ultra sound gal nce (PROC ) No observ ation record ed. [address], [place], [address], 08/11/2024 21:25:58 08/12/19 25 08/11/2024 biops y, lymph node, ultra sound gal nce (PROC ) No observ ation record ed. [address], [place], [address], 08/11/2024 21:25:59 09/27/19 25 09/26/2024 PET, skull base to mid-t high No observ ation record ed. [address], [place], [address], 09/27/2024 09:21:10 Result Notes None recorded. Problems Name Problem SNOMED Code Status Onset Date Resolution Date Notes Provider Name and Address Organization Details Recorded Time Chronic obstructive pulmonary disease 21138318 Active 2023 Melony Patterson [place] null, [place] [facility] 4 09:18:24 Essential hypertension 39442408 Active 2023 Melony [place] [facility] 4 11:12:58 Serum vitamin B12 below reference range 535506207 Active 2023 Melony Patterson [place] [facility] 4 11:12:59 Obesity 791221230 Active 2023 Melony [place] [facility] 4 11:13:01 SARS-CoV-2 vaccination declined 3519355180 Active 2023 Tatyana Crowell MD Attn: Jean garcia,[address] [place], [address], [place] [facility] 4 22:00:35 Administratio n of influenza vaccine Active 2023 Tatyana Crowell MD Attn: Jean garcia,[address] [facility], [place], [address], [place] [facility] 4 22:00:36 Inguinal lymphadenopat hy 828877447 Active 2024 Melony Patterson [place], [place] [facility] 5 16:15:41 Body mass index 20-24 - normal 629342261 Active 2024 Melony [place] [facility] 5 16:15:42 Screening for malignant neoplasm of prostate Active 2024 Melony Patterson [place] [facility] 5 16:15:45 Lesion of bone 983577830 Active 2024 Melony Patterson [place] [facility] 5 16:15:46 Problem Notes None recorded. Procedures Surgical History Date Name Laterality Status Provider Name and Address Organization Details Recorded Time Tonsillectomy completed Stefanie Penn MA [place] [facility] 08/27/2023 16:42:41 Imaging Results Imaging Date Name Status LastModified by [facility] Details LastModified Time 06/03/2024 PFT, complete completed [address], [address], 06/10/2024 16:43:42 06/03/2024 CT, abdomen + pelvis, w/ contrast completed [address] [place] [address], [address], 06/10/2024 17:05:51 06/10/2024 CT, chest, w/ contrast completed [address] [place] [address], [address], 06/10/2024 17:05:50 08/11/2024 biopsy, lymph node, ultrasound guidance (PROC) completed [address], [address], 08/11/2024 21:25:58 08/11/2024 biopsy, lymph node, ultrasound guidance (PROC) completed [address] [place], [address], 08/11/2024 21:25:59 09/26/2024 PET, skull base to mid-thigh completed [place] [id number] [facility] [address], [place], [address], 09/27/2024 09:21:10 Procedure Notes None recorded. Medical Equipment None [...] Not Available Not Available No t Available Jamallegy Ellipta 100 mcg-62.5 mcg-25 mcg powder for inhalation INHALE 1 PUFF BY MOUTH EVERY DAY 12/24 completed Not Available Not Available Not Available tramadol 100 mg tablet Take 1 tablet 3 times a day by oral route as needed. 07/26 completed Not Available Not Available Not Available Shaheeni Aerosphere 160 mcg-9mcg-4. 8mcg/actuat ion HFA aerosol inhaler INHALE 2 PUFFS BY MOUTH TWICE DAILY active Not Available Not Available No t Available Vitals Date Recorded Body height Heart rate Oxygen saturation Oxygen saturation in Arterial blood by Pulse oximetry Systolic blood pressure Diastolic blood pressure Provider Name and Address Organization Details Last Updated DateTime 4 175.26 cm 82 /min 89 % 89 % 104 mm[Hg] 72 mm[Hg] [facility] 4 15:46:49 Date Recorded Body height Body mass index (BMI) Body weight Heart rate Oxygen saturation Oxygen saturation in Arterial blood by Pulse oximetry Systolic blood pressure Diastolic blood pressure Provider Name and Address Organization Details Last Updated DateTime 4 175.26 cm 24.8 kg/m2 21983.8 8 g 92 /min 92 % 92 % 130 mm[Hg] 78 mm[Hg] [facility] 4 15:06:58 Date Recorded Body height Body mass index (BMI) Body weight Heart rate Oxygen saturation Oxygen saturation in Arterial blood by Pulse oximetry Systolic blood pressure Diastolic blood pressure Provider Name and Address Organization Details Last Updated DateTime 5 175.26 cm 23 kg/m2 33450.4 1 g 96 /min 83 % 83 % 106 mm[Hg] 60 mm[Hg] [facility] 5 15:29:39 Date Recorded Body height Body mass index (BMI) Body weight Heart rate Oxygen saturation Oxygen saturation in Arterial blood by Pulse oximetry Systolic blood pressure Diastolic blood pressure Provider Name and Address Organization Details Last Updated DateTime 5 175.26 cm 20.7 kg/m2 20046.0 1 g 95 /min 96 % 96 % 106 mm[Hg] 64 mm[Hg] Sofia HinsonCOREEN SHELBY [facility] 5 15:50:02 Date Recorded Body height Body mass index (BMI) Body weight Heart rate Oxygen saturation Oxygen saturation in Arterial blood by Pulse oximetry Systolic blood pressure Diastolic blood pressure Provider Name and Address Organization Details Last Updated DateTime 175.26 cm 19.3 kg/m2 93568.1 6 g 70 /min 96 % 96 % 104 mm[Hg] 60 mm[Hg] Love Morrison [place] - [facility] 5 13:01:46 Social History Question Answer Notes LastModified by Organizat ion Details LastModified Time Tobacco Smoking Status Current Every Day Smoker Stefanie Penn MA [place], [place] - [facility] 08/27/2023 16:42:26 Do You Have [...] not available 12/08/2023 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 No Information not available 12/08/2023 What Was The Date Of Your Most Recent Tobacco Screening? 09/28/2024 Information not available 09/28/2024 What Is Your Relationship Status? Single Information not available 12/08/2023 Do You Use Your Seat Belt Or Car Seat Routinely? Yes Information not available 05/03/2024 Do You Have Smoke And Carbon Monoxide Detectors In Your Home? Yes Information not available 12/08/2023 Do You Feel Stressed (tense, Restless, Nervous, Or Anxious, Or Unable To Sleep At Night)? [id number] Not Sleeping At Night. Information not available 12/08/2023 Do You Use Any Illicit Or Recreational Drugs? No Information not available 08/27/2023 Do You Use Sunscreen Routinely? Yes Information not available 12/08/2023 Has Tobacco Cessation Counseling Been Provided? Yes Information not available 07/26/2024 On What Date Was Tobacco Cessation Counseling Provided? 09/28/2024 Information not available 09/28/2024 Sex: Male Functional Status Question Answer Note [...] High Blood Pressure Y Atrial Fibrillation N Thyroid Problems N Kidney or Bladder Problems N GI Problems N Depression N COPD Y Blood Clots N Skin Problems N Anemia N Heart Attack (DC) N Diabetes N Anxiety Disorder N Muscle, [...] 12/08/2023 10:42:54 Influenza, split virus, trivalent, preservative 11/19/201 4 completed COREEN Chan, [facility] 12/08/2023 10:42:54 Influenza, split virus, quadrivalent, PF 1 completed Melony Patterson MA get, [facility] 12/08/2023 10:42:54 Past Encounters Encounter ID Performer Location Encounter Start Date Encounter Closed Date Diagnosis/Indication Diagnosis SNOMED-CT Code Diagnosis ICD10 Code Diagnosis Note [id number] MD Holger Davis (Adult Med) [address] [place] [address] [id number] 08/27/2023 16:26:37 08/27/2023 17:28:57 Chronic obstructive pulmonary disease 91267995 J44.9 Screening for cardiovascular system disease 516138069 Z13.6 Long-term drug therapy 092633894 Z79.899 Erythrocytosis 173176812 D75.1 [id number] MD Holger Davis (Adult Med) [address] [place] [address] [id number] 12/08/2023 10:12:56 12/08/2023 11:16:29 Obesity 754073964 E66.8 Chronic ob structive pulmonary disease 67091650 J44.9 Essential hypertension 74059362 I10 Serum marky min B12 below reference range 189311573 R79.89 Dyspnea 547341484 R06.01 [id number] MD Holger Davis (Adult Med) [address] [place] [address] [phone] 03/15/2024 15:25:17 03/15/2024 17:20:29 Chronic obstructive pulmonary disease 12054800 J44.9 Essential hypertension 21915432 I10 Serum marky min B12 below reference range 515561867 R79.89 Administra tion of influenza vaccine 64063397 Z23 SARS-CoV-2 vaccination declined 7961125761 Z28.21 [id number] MD Holger Davis (Adult Med) [address] [place] [address] [phone] 04/05/2024 15:42:28 04/05/2024 16:22:35 [id number] MD Holger Davis (Adult Med) [address] [place] [address] [id number] 05/03/2024 14:46:52 05/03/2024 15:45:45 Body mass index 20-24 - normal 082353366 Z68.24 Essential hypertension 38370779 I10 Prediabetes 465262939 R7 3.03 Abdominal pain 69663166 R10.9 CT of chest abnormal 952 1405089 3006066 R93.89 Chronic ob structive pulmonary disease 09161288 J44.9 [id number] Tatyana Crowell MD [facility] (Adult Med) [address] [place] [address] [phone] 07/26/2024 15:12:54 07/26/2024 16:17:16 Body mass index 20-24 - normal 502057478 Z68.24 Inguinal lymphadenopathy 401885128 R59.0 Essential hypertension 99301653 I10 Screening for malignant neoplasm of prostate 068260400 Z12.5 Lesion of bone 836790381 M89.9 Chronic ob structive pulmonary disease 01286740 J44.9 Computed t omography result abnormal 542836387 R93.89 [id number] Tatyana Crowell MD [facility] (Adult Med) [address] [place] [address] [id number] 08/30/2024 15:28:55 08/30/2024 17:26:22 Body mass index 20-24 - normal 454694126 Z68.24 Overweight 569641833 E66 .3 Metastatic malignant neoplasm to prostate 88137526 C79.82 Chronic ob structive pulmonary disease 72628051 J44.9 [id number] Melony Patterson MA [facility] (Adult Med) [address] [place] [address] [phone] 09/28/2024 12:15:54 09/28/2024 13:56:40 Cigarette smoker 66040906 F17.210 Smoker 11246911 F17.200 Body mass index less than 20 161357780 Z68.1 Underweight 237545391 R6 3.6 Anemia 251784012 D64.9 Health Concerns Section Related Observation LastModified by Organization Detai ls LastModified Time None Recorded Concern Status LastModified by Organization Details LastModified Time None Recorded Advance Directives Directive N: Payers Encounter Date Sequence Insurance Name Policy Number Policy Spann Covered Member ID Spann Member ID Guarantor Name 04/05/[address] [facility] [id number] Robert Maloney [id number] Robert Maloney 05/03/[address] [facility] [id number] Robert Maloney [id number] Robert Maloney 07/26/[address] [facility] [id number] Robert Maloney [id number] Robert Maloney 08/30/[address] [facility] [id number] Robert Maloney [id number] Robert Maloney Notes Date Note Type Note [...] weight Tatyana Crowell MD Attn: Accounting, [address] [place], [address], [facility] 05/07/2024 16:14:29 07/26/2024 text/html he did not get t he biopsy yet he does have some pain in his legs bothers him at night it is fairly severe. CT scan discussed he needs a biopsy had about a 36 lb weight loss over last year Tatyana Crowell MD Attn: Accounting, [address] [place], [address], [facility] - [facility] 08/14/2024 21:40:19 08/30/2024 text/html significant amou nt of bone pain he was going through some new shots with Urology still needs to see the medical oncologist. His bone pain does wake him up at night is no longer working. He is down 16 lb from last visit his appetite is poor Tatyana Crowell MD Attn: Accounting, [address] [place], [address], [place] - [place] 09/02/2024 21:47:16
--- OUTSIDE RECORDS SUMMARY | 2024-09-30 03:13 | XMS_ITS | Encounter Summary ---
Author Organization [facility] [employer] [facility] Address [address] [place] [address] Care Team Providers Care Emergency Nurse Name Role Phone Jaxon Crowell MD Primary Care Provider [phone] Encounter Details Date Type Department Care Team (Late st Contact Info) Description 09/27/2024 Orders Only [facility]3] Oncology and Hematology - [place] [address] [facility] [address] [place] [address] Danilo Jerez MD [address] [facility] [address] [place] [address] Social History Tobacco Use Types [...] Procedure Name Priority Date/Time Associated Diagnosis Comments PET TUMOR GA68 ILLUCCIX PSMA IMG W CT SKDarrell BLACKWELL Routine 09/26/2024 1:28 PM CDT documented in this encounter Results * PET TUMOR GA68 ILLUCIX PSMA IMG W CT SKDarrell BLACKWELL (09/26/2024 1:28 PM CDT) Anatomical Region Laterality Modality Positron Emissio n Tomography (PET) Danilo Jerez MD PE ORDERABLES Final Result documented in this encounter Visit Diagnoses Not on filedocumented in this encounter Care Teams Emergency Nurse Relationship Specialty [place] [address] [place] [phone] PCP - General Internal Medicine 09/27/24 documented as of this encounter
--- OUTSIDE RECORDS SUMMARY | 2024-09-30 03:14 | XMS_ITS | Data Portability ---
Author Organization [place] [facility] [place], Main Office Address [address] [place] [address] Assessment Encounter Date Assessment Date Assessment LastModified [...] CT chest abdomen pelvis Follow-up 1 month [email or web address] Not available 03/16/2023 21:35:28 04/13/2023 04/13/2023 Advised strongly to quit smoking Urology for elevated PSA Pulmonary for spiculated lung lesion will need PET Hematology for elevated hemoglobin and hematocrit Return to clinic 1 month [email or web address] Not available 04/13/2023 20:33:17 12/08/2023 12/08/2023 Assessment: [...] no ischemia, EF 61% PASP 64 mmHg [facility] hospitalization 10/23/23 - 10/27/23 right CHF, 3 Lpm exertional O2 PFT 09/13/08 FEV1 2.37 L (63%), BD 250 mL = 12%, TLC 6.21 L (94%), RV 2.92 L (142%) Nicotine cessation counseling provided for 4 minutes. Thatcher for quitting nicotine include getting ready, getting [...] in Quit For Life program Registering at [email or web address] On Network Coding Making a call to 1-994-EFPZ-NOW ( ). A strong, clear, personalized message [...] failure or relapse. Patient can enroll in [facility]'s smoking cessation class through Nicki Fernando [...] done as follows: Respiratory allergen panel for [facility] Serum IgE Serum total IgG, IgG1, IgG2, IgG3, IgG4 Relcx-1-joqlkgehbc n phenotype and level TB stimulated gamma [...] alpha-1-ant itrypsin (aat) phenotype, serum 2023 024 [facility] (Lab), [address] [place], [address], 00:18:54 BNP (B-type natriuretic peptide), serum or plasma [address] [facility] (Lab), [address] [place], [address], 4 18:03:44 ige, total, serum [address] (Lab), [address] [place], [address], 4 12:35:58 tb (M tuberculosi s), ifn-gamma hyacinth, blood [address] (Lab), [address] [place], [address], 4 12:35:58 eosinophil count, manual, blood (OBS) [address] (Lab), [address] [place], [address], 4 12:35:59 igg subclasses 1+2+3+4, serum [address] (Lab), [address] [place], [address], 4 12:35:59 respiratory allergen panel - [facility] a [address] (Lab), [address] [place], [address], 4 12:35:59 respiratory allergen panel - [facility] b [address] (Lab), [address] [place], [address], 4 12:35:59 PSA, total, serum or plasma 2022 023 [facility] (Lab), [address] [place], [address], 3 19:05:45 CBC w/ auto diff 2022 023 [facility] (Lab), [address] [place], [address], 3 17:31:25 CMP, serum or plasma 2022 023 [facility] (Lab), [address] [place], [address], 3 18:31:36 lipid panel, serum 2022 023 [facility] (Lab), [address] [place], [address], 3 18:31:[address] referral - Chest CT 03/25/23 12 mm RLL spiculated noduleChest CT 10/22/23 right effusion may be obscuring RLL nodule, (+) mediastinal and matted hilar lymphadenop athy 2023 024 [email or web address] 82 Dimas Enamorado MD, [address] [place], [address], 5 08:53:28 urologist referral 2022 023 [email or web address] [facility], [address] [place] [address], [facility] [address], [place], [address], 3 16:47:03 regional vice president life sales referral 2022 023 [email or web address] Vick Metz DPM, [address] [facility], [facility] [address], [place], [address], 4 18:08:55 Procedures None recorded. Surgeries None recorded. Imaging CT, chest, w/o contrast - Approved # [id number] 12/14/2023 -01/28/20242023 024 [email or web address] [facility], [address] [address], [place], [address], 16:25:32 CT, chest + abdomen + pelvis, w/ contrast - approved [id number]/ [id number] 03/16/23-2022 023 [facility] (Imaging), [address] [place], [address], 18:46:25 Medication Orders None recorded. Patient TargetsNo targets recorded. Patient Instructions Encounter Date Encounter Id Patient Instructions Last Modified By Organization Details Last Modified Time 04/13/2023 [id number] dementia rating scale-2* cyahl Not available 04/14/2023 09:45:49 multi-dimensiona l health assessment questionnaire* cyahl Not available 04/14/2023 09:45:52 care plan* cyahl Not available 04/14 09:45:44 advance care planning: care instructions [email or web address] Not available 04/13/2023 20:33:40 advance directiv es: care instructions [email or web address] Not available 04/13/2023 20:33:39 [place] Advance Directives [email or web address] Not available 04/13/2023 20:33:40 Personalized [facility] Plan and Screening Recommendations Advance Directives [...] treatment plan Not available 04/13/2023 16:09:03 12/08/2023 [id number] complete PFT w/ post bronchodilator spirometry* - No auth needed [email or web address] Not available 07/26/2024 12:45:07 Reason for Referral Criminal Judge 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 Plan tar fasciitis of right foot Referring Physician: Jaxon Crowell, Internal Medicine, Encounter Date: 01/19/2023 Urologist 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 Blood in urine Referring Physician: Jaxon Crowell, Internal Medicine, Encounter Date: 03/16/2023 Crown Blocker 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 S olitary nodule of lung [...] creatinine 0.9 mg/dL 0.6-1. 3 Not Available [facility] (Lab) [address] [place], [address], 03/26/2023 10:11:18 04/08/20 23 04/09/2023 CBC/C OMPLE TE BLD COUNT W/DIF F white blood cells 8.9 x10'3 /uL 4.2-10 .8 Not Available [facility] (Lab) [address] [place], [address], 04/09/2023 10:50:13 04/08/20 23 04/09/2023 CBC/C OMPLE TE BLD COUNT W/DIF F red blood cells 5.49 x10'6 /uL 4.10-5 .80 Not Available [facility] (Lab[facility] [address] [facility] [place], [address], 04/09/2023 10:50:13 04/08/20 23 04/09/2023 CBC/C OMPLE TE BLD COUNT W/DIF F hemoglobin 19.3 g/dL 13.2-1 7.0 high Not Available [facility] (Lab) [address] [place], [address], 04/09/2023 10:50:13 04/08/20 23 04/09/2023 CBC/C OMPLE TE BLD COUNT W/DIF F hematocrit 58.2 % 39.3-5 0.0 high Not Available [facility] (Lab) [address] [place], [address], 04/09/2023 10:50:13 04/08/20 23 04/09/2023 CBC/C OMPLE TE BLD COUNT W/DIF F mean red cell volume 106.0 fL 80.0-9 7.0 high Not Available [facility] (Lab) [address] [place], [address], 04/09/2023 10:50:13 04/08/20 23 04/09/2023 CBC/C OMPLE TE BLD COUNT W/DIF F mean red cell hemoglobin 35.2 pg 27.0-3 3.0 high Not Available [facility] (Lab) [address] [place], [address], 04/09/2023 10:50:13 04/08/20 23 04/09/2023 CBC/C OMPLE TE BLD COUNT W/DIF F mean RBC HGB concentratio n 33.2 g/dL 31.0-3 6.0 Not Available [facility] (Lab) [address] [place], [address], 04/09/2023 10:50:13 04/08/20 23 04/09/2023 CBC/C OMPLE TE BLD COUNT W/DIF F red cell distribution width 13.6 % 11.8-1 5.5 Not Available [facility] (Lab) [address] [place], [address], 04/09/2023 10:50:13 04/08/20 23 04/09/2023 CBC/C OMPLE TE BLD COUNT W/DIF F platelets 217 x10'3 /uL 150-40 0 Not Available [facility] (Lab) [address] [place], [address], 04/09/2023 10:50:13 04/08/2004/09/2023 CBC/C OMPLE TE BLD COUNT W/DIF F mean platelet volume 10.5 fL 9.0-12 .4 Not Available [facility] (Lab) [address] [place], [address], 04/09/2023 10:50:13 04/08/2004/09/2023 CBC/C OMPLE TE BLD COUNT W/DIF F neutrophils 58.7 % 39.0-7 2.0 Not Available [facility] (Lab) [address] [place], [address], 04/09/2023 10:50:13 04/08/2004/09/2023 CBC/C OMPLE TE BLD COUNT W/DIF F lymphocytes 26.3 % 16.0-4 7.0 Not Available [facility] (Lab) [address] [place], [address], 04/09/2023 10:50:13 04/08/20 23 04/09/2023 CBC/C OMPLE TE BLD COUNT W/DIF F monocytes 11.4 % 5.0-12 .0 Not Available [facility] (Lab) [address] [place], [address], 04/09/2023 10:50:13 04/08/20 23 04/09/2023 CBC/C OMPLE TE BLD COUNT W/DIF F eosinophils 2.0 % 1.0-7. 0 Not Available [facility] (Lab) [address] [place], [address], 04/09/2023 10:50:13 04/08/2004/09/2023 CBC/C OMPLE TE BLD COUNT W/DIF F basophils 1.2 % 0.0-2. 0 Not Available [facility] (Lab) [address] [place], [address], 04/09/2023 10:50:13 04/08/2004/09/2023 CBC/C OMPLE TE BLD COUNT W/DIF F immature granulocytes 0.4 % 0.00-0 .50 Not Available [facility] (Lab) [address] [place], [address], 04/09/2023 10:50:13 04/08/2004/09/2023 CBC/C OMPLE TE BLD COUNT W/DIF F neutrophils, absolute count 5.23 x10'3 /uL 1.5-8. 0 Not Available [facility] (Lab) [address] [place], [address], 04/09/2023 10:50:13 04/08/2004/09/2023 CBC/C OMPLE TE BLD COUNT W/DIF F lymphocytes, absolute count 2.35 x10'3 /uL 1.07-3 .43 Not Available [facility] (Lab) [address] [place], [address], 04/09/2023 10:50:13 04/08/2004/09/2023 CBC/C OMPLE TE BLD COUNT W/DIF F monocytes, absolute count 1.02 x10'3 /uL 0.29-0 .99 high Not Available [facility] (Lab) [address] [place], [address], 04/09/2023 10:50:13 04/08/2004/09/2023 CBC/C OMPLE TE BLD COUNT W/DIF F eosinophils, absolute count 0.18 x10'3 /uL 0.02-0 .53 Not Available [facility] (Lab) [address] [place], [address], 04/09/2023 10:50:13 04/08/20 23 04/09/2023 CBC/C OMPLE TE BLD COUNT W/DIF F basophils, absolute count 0.11 x10'3 /uL 0.01-0 .08 high Not Available [facility] (Lab) [address] [place], [address], 04/09/2023 10:50:13 04/08/20 23 04/09/2023 CBC/C OMPLE TE BLD COUNT W/DIF F immature granulocytes ,absolute 0.04 x10'3 /uL 0.00-0 .05 Not Available [facility] (Lab) [address] [place], [address], 04/09/2023 10:50:13 04/08/20 23 04/09/2023 CBC/C OMPLE TE BLD COUNT W/DIF F nucleated red blood cells 0.0 % -0 Not Available [facility] (Lab) [address] [place], [address], 04/09/2023 10:50:13 04/08/20 23 04/09/2023 CBC/C OMPLE TE BLD COUNT W/DIF F NRBC# 0.00 x10'3 /uL Not Available [facility] (Lab) [address] [place], [address], 04/09/2023 10:50:13 04/08/20 23 04/09/2023 CBC/C OMPLE TE BLD COUNT W/DIF F macro OCCASI ONAL Not Available [facility] (Lab) [address] [place], [address], 04/09/2023 10:50:13 04/08/20 23 04/08/2023 COMPR EHENS DIANA METAB OLIC PANEL sodium 131 mmol/ L 137-14 5 low Not Available [facility] (Lab) [address] [place], [address], 04/08/2023 18:31:36 04/08/20 23 04/08/2023 COMPR EHENS DIANA METAB OLIC PANEL potassium 4.8 mmol/ L 3.5-5. 1 Not Available [facility] (Lab) [address] [place], [address], 04/08/2023 18:31:36 04/08/20 23 04/08/2023 COMPR EHENS DIANA METAB OLIC PANEL chloride 97 mmol/ L 98-107 low Not Available [facility] (Lab) [address] [place], [address], 04/08/2023 18:31:36 04/08/20 23 04/08/2023 COMPR EHENS DIANA METAB OLIC PANEL carbon dioxide 36 mmol/ L 22-30 high Not Available [facility] (Lab) [address] [place], [address], 04/08/2023 18:31:36 04/08/20 23 04/08/2023 COMPR EHENS DIANA METAB OLIC PANEL anion gap 2.8 mmol/ L 14-22 low Not Available [facility] (Lab) [address] [place], [address], 04/08/2023 18:31:36 04/08/20 23 04/08/2023 COMPR EHENS DIANA METAB OLIC PANEL glucose 81 mg/dL 70-99 Not Available [facility] (Lab) [address] [place], [address], 04/08/2023 18:31:36 04/08/20 23 04/08/2023 COMPR EHENS DIANA METAB OLIC PANEL BUN 28 mg/dL 8-19 high Not Available [facility] (Lab) [address] [place], [address], 04/08/2023 18:31:36 04/08/2004/08/2023 COMPR EHENS DIANA METAB OLIC PANEL creatinine 1.02 mg/dL 0.66-1 .25 Not Available [facility] (Lab) [address] [place], [address], 04/08/2023 18:31:36 04/08/20 23 04/08/2023 COMPR EHENS DIANA METAB OLIC PANEL GFR >60 Refer ence Range : [place] ge GFR Healt hy Adult : >60 [...] or ethni c subgr oups, such as [facility] nics. Outsi de the valid ated [...] s/kdo qi/gf r_cal culat or Not Available [facility] (Lab) [address] [place], [address], 04/08/2023 18:31:36 04/08/20 23 04/08/2023 COMPR EHENS DIANA METAB OLIC PANEL alkaline phosphatase 91 U/L 38-126 Not Available [facility] (Lab) [address] [place], [address], 04/08/2023 18:31:36 04/08/20 23 04/08/2023 COMPR EHENS DIANA METAB OLIC PANEL alanine aminotransfe rase 32 U/L 0-50 Not Available [facility] (Lab) [address] [place], [address], 04/08/2023 18:31:36 04/08/20 23 04/08/2023 COMPR EHENS DIANA METAB OLIC PANEL aspartate aminotransfe rase 27 U/L 15-46 Not Available [facility] (Lab) [address] [place], [address], 04/08/2023 18:31:36 04/08/20 23 04/08/2023 COMPR EHENS DIANA METAB OLIC PANEL bilirubin, total 0.70 mg/dL 0.20-1 .30 Not Available [facility] (Lab) [address] [place], [address], 04/08/2023 18:31:36 04/08/20 23 04/08/2023 COMPR EHENS DIANA METAB OLIC PANEL calcium 9.1 mg/dL 8.4-10 .2 Not Available [facility] (Lab) [address] [place], [address], 04/08/2023 18:31:36 04/08/20 23 04/08/2023 COMPR EHENS DIANA METAB OLIC PANEL total protein 6.7 g/dL 6.3-8. 2 Not Available [facility] (Lab) [address] [place], [address], 04/08/2023 18:31:36 04/08/20 23 04/08/2023 COMPR EHENS DIANA METAB OLIC PANEL albumin 3.5 g/dL 3.4-5. 0 Not Available [facility] (Lab) [address] [place], [address], 04/08/2023 18:31:36 04/08/20 23 04/08/2023 COMPR EHENS DIANA METAB OLIC PANEL globulin 3.2 g/dL 2.6-4. 2 Not Available [facility] (Lab) [address] [place], [address], 04/08/2023 18:31:36 04/08/20 23 04/08/2023 COMPR EHENS DIANA METAB OLIC PANEL A/G ratio 1.1 ratio 1.0-2. 0 Not Available [facility] (Lab) [address] [place], [address], 04/08/2023 18:31:36 04/08/20 23 04/08/2023 LIPID PANEL cholesterol 192 mg/dL 140-19 9 NIH SHY NSUS RECOM MENDA TION FOR CHIKI STERO L: ADULT CHILD LOW RISK: <200 <170 BORDE RLINE : <200- 239 ----- HIGH RISK: >240 >200 Not Available [facility] (Lab) [address] [place], [address], 04/08/2023 18:31:40 04/08/20 23 04/08/2023 LIPID PANEL triglyceride s 55 mg/dL 0-150 NIH SHY NSUS REPOR T RECOM MENDA TION FOR TRIGL YCERI CRISTIN: ADULT CHILD LOW RISK: <150 ----- BODER LINE: 150-1 99 ----- HIGH RISK: >200 ----- Not Available [facility] (Lab) [address] [place], [address], 04/08/2023 18:31:40 04/08/20 23 04/08/2023 LIPID PANEL HDL cholesterol 108 mg/dL 40- Not Available [facility] (Lab) [address] [place], [address], 04/08/2023 18:31:40 04/08/2004/08/2023 LIPID PANEL LDL cholesterol, [...] WILL NOT BE REPOR KAYLAN. Not Available [facility] (Lab) [address] [place], [address], 04/08/2023 18:31:40 04/08/2004/08/2023 PSA SCREE N PSA medicare screen 31.10 NG/mL 0.00-4 .00 high Not Available [facility] (Lab) [address] [place], [address], 04/08/2023 19:05:45 03/25/2003/25/2023 CT, chest + abdom en + pelvi s, w/ contr ast [facility] [address] [place], [place] [address] Patien t Name: NIRMALA MONTALVO Access ion #: [id number] Sex: M : 1959 4 Dictat [...] st [facility] Portal venous imagin g was obtain ed. Axial, gonzalez l and sagitt al multip lanar reform ats were perfor med by the techno logist on a [employer] te [facility]st [facility]. Radiat ion Dose : 1. [...] on or pneumo thorax . Page 1 [facility] [address] [place] [address] Patien t Name: NIRMALA MONTALVO Access ion #: [id number] Sex: M : 1959 4 Dictat ed By: Alonzo Villalobos Attend ing Physic danielle: L[facility]Z [facility] Physic danielle: SUHAS CROWELL Exam Date: [...] at 2022 17:45: 13 PM Page [email or web address] [facility] (Imaging) [address] [place], [address], 04/29/2023 13:10:15 12/08/19 24 10/26/2023 NM, myoca rdial perfu macarena scan, w/ stres s No observ ation record ed. [facility] Not Available 2023 09:55:20 12/08/19 24 10/23/2023 XR, chest , 1 view No observ ation record ed. [facility] Not Available 2023 09:55:20 12/08/19 24 09/13/2008 compl ete PFT w/ post [facility] hodil ator ruth metry * No [...] 25 06/03/2024 compl ete PFT w/ post [facility] hodil ator ruth metry * No observ ation record ed. [facility] (Pulmonary) [address], [place], [address], 08/17/2024 14:03:58 08/18/19 25 06/03/2024 CT, chest , w/o contr ast No observ ation record ed. [facility] [address], [place], [address], 08/17/2024 14:03:59 Result Notes None recorded. Problems Name Problem SNOMED Code Status Onset Date Resolution Date Notes Provider Name and Address Organization Details Recorded Time Oren mendiola 273563176 Active [address] Not [address] [facility] 3 06:54:21 Chronic obstructi ve pulmonary disease 71123374 Active 2021 Not [address] [facility] 3 06:54:21 Echocardi ogram abnormal 140748410 Active 2020 EF 45% global hypo. Moderate pulmonary hypertens ion Not Available [facility] 3 06:54:21 Depressiv e disorder 70687684 Active Not Available [facility] 3 06:54:21 Severe pulmonary hypertens ion 777489075 Active 2021 right and left heart catheteri zation 2020 normal coronarie s normal LV pulmonary artery 70/25 Not Available [facility] 3 06:54:21 Hyponatre deng 77039374 Active 2021 Not [address] [facility] 3 06:54:21 Plantar fasciitis of right foot 33592180468 103238 Active 2022 Not [address] [facility] 3 06:54:21 Prostate specific antigen above reference range 337839860 Active 2022 ERVIN Snyder - Yaya CT [employer] [facility] 3 16:47:53 Nodule of lung 119577092 Active 2022 Jaxon Crowell MD [address] [place] [address], [place], [address] , [facility] [employer] [facility] [employer] [facility] 3 20:31:16 Solitary nodule of lung 813277291 Active 2023 Julián Funes MD [address], [place], [address] , [facility] [employer] [facility] [employer] [facility] 4 12:47:09 Smoker 33425683 Active 2023 Julián Funes MD [address] [facility] [address], [place], [address] , [facility] [employer] [facility] [employer] [facility] 4 16:52:15 Notes:Lab data 01/06/24 mult iple [...] History: Right/Left cardiac catheterization 2018 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 Procedures Surgical History Date Name Laterality Status Provider Name and Address Organization Details Recorded Time 04/13/20 23 Medicare Wellness CPT Code, subsequent completed Jayshree Mojica RN [facility] [employer] [facility] 04/13/2023 16:09:03 Tonsillectomy completed Not Available [employer] 08/06/2022 12:53:21 Imaging Results Imaging Date Name Status LastModified by Organization Details LastModified Time 03/25/2023 CT, chest + abdomen + pelvis, w/ contrast completed [email or web address] [facility] (Imaging) [address] [place], [address], 04/29/2023 13:10:15 10/26/2023 NM, myocardial perfusion scan, [...] PFT w/ post bronchodilator spirometry* completed [facility] (Pulmonary) [address], [place], [address], 08/17/2024 14:03:58 06/03/2024 CT, chest, w/o contrast completed [facility] [address], [place], [address], 08/17/2024 14:03:59 Procedure Notes None recorded. Medical [...] kg/m2 167.64 cm 88 /min 97.2 [degF] 63646.1 4 g 120 mm[Hg] 70 mm[Hg] Not Available [facility] 3 12:53:27 Date Recorded Body height Body mass index (BMI) Body weight Body temperature Heart rate Systolic blood pressure Diastolic blood pressure Provider Name and Address Organization Details Last Updated DateTime 3 167.64 cm 29.5 kg/m2 94933.4 g 97.3 [degF] 98 /min 120 mm[Hg] 82 mm[Hg] AMELIA Montes De [place] [employer] 3 14:08:38 Date Recorded Body height Body mass index (BMI) Body weight Body temperature Heart rate Systolic blood pressure Diastolic blood pressure Provider Name and Address Organization Details Last Updated DateTime 3 167.64 cm 29.4 kg/m2 59329.8 1 g 98.1 [degF] 84 /min 124 mm[Hg] 78 mm[Hg] Jayshree monahan RN [employer] 3 15:32:16 Date Recorded Body height Body mass index (BMI) Body weight Body temperature Heart rate Systolic blood pressure Diastolic blood pressure Provider Name and Address Organization Details Last Updated DateTime 3 167.64 cm 29.5 kg/m2 24709.4 g 98.7 [degF] 83 /min 120 mm[Hg] 70 mm[Hg] Jayshree monahan RN [employer] 3 16:12:10 Date Recorded Body height Body mass index (BMI) Body weight Body temperature Heart rate Systolic blood pressure Diastolic blood pressure Provider Name and Address Organization Details Last Updated DateTime 4 167.64 cm 29.6 kg/m2 46382.5 6 g 98.5 [degF] 85 /min 108 mm[Hg] 74 mm[Hg] Daysi Harrison MA [employer] 4 11:41:36 Date Recorded Oxygen saturation Oxygen saturation in Arterial blood by Pulse oximetry Heart rate Respiratory rate Provider Name and Address Organization Details Last Updated DateTime 12/08/2023 90 % 90 % 85 /min 15 /min Julián Funes MD [address], [facility] [address], [place], [address], [facility] 12:31:57 Social History Question Answer Notes LastModified by Organization Details LastModified Time Tobacco Smoking Status Current Every Day Smoker Not Available [employer] 08/06/2022 12:52:56 Do You Have An Advance Directive? No [id number] Information not available 08/06/2022 What Is Your Level Of Alcohol Consumption? Heavy MIGRATION.[id number] [id number] Information not available 08/06/2022 What Is Your Level Of Caffeine Consumption? Moderate [id number].030 [id number] Information not available 08/06/2022 In The 14 Days Before Symptom Onset, Have You Had Close Contact With A Laboratory-confi rmed COVID-19 While That Case Was Ill? No [id number].[id number] Information not available 08/06/2022 In The 14 Days Before Symptom Onset, Have You Had Close Contact With A Person Who Is Under Investigation For COVID-19 While That Person Was Ill? No [id number].[id number] Information not available 08/06/2022 Are You Currently Employed? Yes Information not available 04/13/2023 What Type Of Diet Are You Following? REGULAR MIGRATION.0301 [id number] Information not available 08/06/2022 What Is The Highest Grade Or Level Of School You Have Completed Or The Highest Degree You Have Received? [id number] MIGRATION.030 [id number] Information not available 08/06/2022 Do You Have An Electrostatic Air Filter? 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 No MIGRATION.0301 [id number] Information not available 08/06/2022 What Is The Fluoride Status Of Your Home? Unknown MIGRATION.0301 [id number] Information not available 08/06/2022 Are There Any Guns Present In Your Home? No MIGRATION.0301 [id number] Information not available 08/06/2022 Do You Have A Humidifier? No Information not available 12/08/2023 Do You Use Insect Repellent Routinely? No MIGRATION.0301 [id number] Information not available 08/06/2022 Where Do You Live? [facility] MIGRATION.[id number] [id number] Information not available 08/06/2022 Are You Able To Care For Yourself? Yes Information not available 04/13/2023 Are You Blind Or Do Yo Have Difficulty Seeing? Yes Information not available 04/13/2023 Are You Deaf Or Do You Have Serious Difficulty Hearing? Yes Information not available 04/13/2023 Do You Have A Medical Power Of Turf Grower? No MIGRATION.0301 [id number] Information not available 08/06/2022 Do You Have Moisture Problems In Your Home? No Information not available 12/08/2023 What Was The Date Of Your Most Recent Tobacco Screening? 12/08/2023 Information not available 12/08/2023 Have You Ever Been Counseled For Unhealthy Alcohol Use? No MIGRATION.0301 [id number] Information not available 08/06/2022 Do You Have Any Pets? No MIGRATION.0301 [id number] Information not available 08/06/2022 What Is Your Relationship Status? MIGRATION.0301 [id number] Information not available 08/06/2022 Do You Use Your Seat Belt Or Car Seat Routinely? Yes MIGRATION.0301 [id number] Information not available 08/06/2022 Do You Have Smoke And Carbon Monoxide Detectors In Your Home? Yes MIGRATION.0301 [id number] Information not available 08/06/2022 At What Age Did You Start Smoking Tobacco? 15 MIGRATION.0301 [id number] Information not available 08/06/2022 Are You Passively Exposed To Smoke? Yes MIGRATION.0301 [id number] Information not available 08/06/2022 Are There Any Smokers In Your House? Yes Pt Smokes MIGRATION.030 [id number] Information not available 08/06/2022 How Much Tobacco Do You Smoke? 1 PPD Down From 2ppd MIGRATION.0301 [id number] Information not available 08/06/2022 What Types Of Sporting Activities Do You Participate In? None MIGRATION.0301 [id number] Information not available 08/06/2022 Do You Feel Stressed (tense, Restless, Nervous, Or Anxious, Or Unable To Sleep At Night)? [id number] MIGRATION.0301 [id number] Information not available 08/06/2022 Do You Use Any Illicit Or Recreational Drugs? No MIGRATION.030 318129 Information not available 08/06/2022 Do You Use Sunscreen Routinely? No MIGRATION.030 482139 Information not available 08/06/2022 Have You Recently Traveled Abroad? No MIGRATION.030 [id number] Information not available 08/06/2022 Do You Have Any Dietary Restrictions? No MIGRATION.030 348418 Information not available 08/06/2022 Do You Or Have You Ever Used Any Other Forms Of Tobacco Or Nicotine? No MIGRATION.030 [id number] Information not available 08/06/2022 Sex: Male Functional Status Question Answer Note LastModified by Organizat ion Details LastModified Time What is your exercise level? None [id number] Information not available 08/06/2022 Mental Status None recorded. Family History Relationship Description Onset Age of this Age Resolved Age Notes LastModified by Organization Details LastModified Time Brother Rheumatoid arthritis [id number] Not available 08/06/2022 12:53:21 Maternal Grandfather Diabetes mellitus [email or web address] Not available 2023 12:53:42 Father Myocardial infarction [email or web address] Not available 12/07 12:54:17 Medical History Condition Response NERVE DISEASE N BLINDNESS N RHEUMATIC FEVER N KIDNEY STONES N BLADDER PROBLEMS N MRSA N CARPAL TUNNEL SYNDROME N OTHER # 1 N POLIO N LUNG DISEASE/DISORDER N HISTORY OF DRUG ABUSE N COPD N RADIATION / CHEMOTHERAPY N Other # 2 N SPORTS INJURY N ANKLE PAIN N BLOOD DISEASES Y EAR OR HEARING PROBLEMS N MUMPS N SCHIZOPHRENIA N SHINGLES N BOWEL PROBLEMS N SHOULDER PAIN N DEPRESSION (INCLUDING POST ) N STROKE/TIA Y KNEE PAIN N ULCERS [...] HAVE YOU BEEN HOSPITALIZED OR SEEN IN [facility] ER IN THE PAST YEAR [...] virus, trivalent, preservative 4 completed Not Available [facility] 04/10/2023 06:54:21 Influenza, split virus, quadrivalent, PF 1 completed Not Available [facility] 04/10/2023 06:54:21 Past Encounters Encounter ID Performer Location Encounter Start Date Encounter Closed Date Diagnosis/Indication Diagnosis SNOMED-CT Code Diagnosis ICD10 Code Diagnosis Note [id number] [facility] Internal Med [facility] [address] [facility] [address] [place] [address] 03/11/2021 00:00:00 03/11/2021 22:33:12 [id number] [facility] Ortho [address] [address] 03/21/2021 00:00:00 03/21/2021 10:56:32 [id number] [facility] Internal Med [facility] [address] [facility] [address] [place] [address] 03/22/2021 00:00:00 03/23/2021 14:17:40 [id number] [facility] Internal Med [facility] [address] [facility] [address] [place] [address] 04/09/2021 00:00:00 04/09/2021 22:36:59 [id number] [facility] ENT [place] [address] [place] [address] 04/19/2021 00:00:00 04/19/2021 17:24:30 [id number] [facility] Internal Med [facility] [address] [facility] [address] [place] [address] 06/11/2021 00:00:00 06/11/2021 21:50:09 [id number] [facility] Internal Med [facility] [address] [facility] [address] [place] [address] 10/08/2021 00:00:00 10/27/2021 18:26:50 [id number] [facility] Internal Med [facility] [address] [place] [address]., [facility] [address] [place] [address] 02/11/2022 00:00:00 03/01/2022 16:59:43 [id number] [facility] Internal Med [facility] [address] [facility] [address] [place] [address] 07/14/2022 00:00:00 07/14/2022 20:45:06 [id number] Jaxon Crowell MD [facility] Internal Med [facility] [address] [place] [address]., [facility] [address] [place] [address] 01/19/2023 13:47:41 01/19/2023 14:36:07 Plantar fasciitis of right foot 2860755113 0340522 M72.2 Probable plantar work [id number] Jaxon Crowell MD [facility] Internal Med [facility] [address] [facility] [address] [address] 03/16/2023 15:10:19 03/16/2023 16:33:40 Blood in urine 36213798 R31.9 Pure hypercholesterolemia 310702311 E78.00 Screening for malignant neoplasm of prostate 293805662 Z12.5 Hemoptysis 09422130 R04. 2 Chronic ob structive pulmonary disease 30556403 J44.9 Cardiomyopathy 14454649 I42.9 Pulmonary hypertension 38726925 I27.20 Erythrocytosis 913754939 D75.1 [id number] [address] [facility] Internal Med [facility] [address] [place] [address] 04/13/2023 15:22:03 04/13/2023 16:45:28 Adult health examination 605096430 Z00.00 Screening for disorder 780043823 Z13.9 Lesion of lung 774504135 R91.8 Chronic ob structive pulmonary disease 27831796 J44.9 Erythrocytosis 533233900 D75.1 [id number] Julián Funes MD [facility] Pulmonolo gy [address] [address] 12/08/2023 11:29:58 12/09/2023 08:41:30 Dyspnea on exertion 92176295 R06.09 R05.3 T78.40XA D89.9 Solitary n odule of lung 558150342 R91.1 J98.59 Smoker 16227436 F17.218 Z87.891 F17.219 Health Concerns Section Related Observation LastModified by Organization Detai ls LastModified Time None Recorded Concern Status LastModified by Organization Details LastModified Time None Recorded Advance Directives Directive N: Payers Encounter Date Sequence Insurance Name Policy Number Policy Spann Covered Member ID Spann Member ID Guarantor Name 01/19/2023 1 [facility] [id number] Nirmala Maloney [id number] Nirmala Maloney 03/16/[address] [facility] [id number] Nirmala Maloney [id number] Nirmala Maloney 04/13/[address] [facility] [id number] Nirmala Maloney [id number] Nirmala Maloney 12/08/[address] [facility] [id number] Nirmala Maloney [id number] Nirmala Botello Amara Notes Date Note Type Note Provider Name and Address Organization Details Recorded Time 01/20/20 23 text/htm l Pain in right foot for unspecified amount of time Jaxon Crowell MD [address], [place], [address], [employer] 01/19/2023 22:49:26 03/16/20 23 text/htm l Hematuria needs to see Urology. Dyslipidemia needs blood work a needs to follow low-fat diet he has had some blood in did sputum in the past COPD stable on inhaler Jaxon Crowell MD [address], [place], [address], [employer] 03/16/2023 21:36:22 04/13/20 23 text/htm l PSA 33Spiculated 1.2 cm lung lesionErythrocytosisContinues to smoke Jaxon Crowell MD [address], [place], [address], [employer] 04/13/2023 20:33:44 12/08/19 24 text/htm l Primary [...] upstairs Alleviating factors: rest Modified [employer] (mMRC) Dyspnea Scale - Grade 2 Grade [...] 1 ppd 1991-present = 32 pack years [place]: no Dye: no Dust mites: yes Mold: no Damp basement: no Wood burning stove: no Animal dander: no Cockroaches: no Pollen: yes Arsenic: no Asbestos: no Beryllium: no Cadmium: yes Chromium: yes [place] smoke: no Diesel fumes: no Nickel: no [...] chance of dozing. Julián Funes MD [address] [facility], [facility] [address], [place], [address], [place] [facility] [place] 12/08/2023 16:53:29
--- OUTSIDE RECORDS SUMMARY | 2024-09-30 03:14 | XMS_ITS | CONTINUITY OF CARE DOCUMENT ---
Author Name ruel lipscomb Address Unknown Organization [facility] Address [address] [place] [address] Phone [phone] Care Team Providers Care Manager Retail Store Name Role Phone Robert Freeman MD Unavailable [phone] TATYANA DAWN MD Unavailable TATYANA DAWN MD Unavailable [phone] PROBLEMS Condition Status Date Provider Notes Shortness of breath (SOB) active Jesse jha per PCP LÓPEZ Tobacco abuse active Robert Freeman MD Leg edema active Robert Freeman MD Orthopnea active Robert Freeman MD ENCOUNTERS Date Type Provider Location Encounter Diag nosis - In-person encounter Office Visit Robert Freeman MD [facility] [facility] - In-person encounter Office Visit Robert Freeman MD [facility] [facility] Tobacco abuseLeg edemaOrthopnea VITAL SIGNS Date [...] Policy type / Coverage type Candie red democrat ID [facility] Other [id number] ADVANCE DIRECTIVES Name Date DISCUSSED - NO DECISION MADE TREATMENT PLAN Date Name Performer [id number],C,T he Patient was reencouraged to stop smoking. Emilia Amos [id number],C,P t complained of SOB with minimal exertion, orthopnea, heavy smoker. Also had leg swelling which improved with Lasix. Echo showed EF 45%. Marked RV dilation with PA pressure 64 and mmHg. I recommend R/L cardiac cath, chest CT with contrast, venous duplex of the LE, PFTs, and will check BNP levels. I advised him to stop smoking. Kaiden's test was normal. Emilia Amos [id number],C,P t complained of SOB with minimal exertion, orthopnea, heavy smoker. Also had leg swelling which improved with Lasix. Echo showed EF 45%. Marked RV dilation with PA pressure 64 and mmHg. I recommend R/L cardiac cath, chest CT with contrast, venous duplex of the LE, PFTs, and will check BNP levels. I advised him to stop smoking. Kaiden's test was normal. Emilia Amos [id number],C,P t complained of SOB with minimal exertion, [...] [facility]:Pt with a recent admission to [facility] for SOB and leg swelling. [...] [facility] Cardiology:Pt with a recent admission to [facility] for SOB and leg swelling. [...] Study Home PROBNP, N TERMINAL DLCO - 12784 FRC - 20199 FVC - 62017 PROTHROMBIN TIME WIT H INR LIPID PANEL CBC (INCLUDES DIFF/P LT) BASIC METABOLIC PANE L W/EGFR DLCO - 70830 FRC - 36096 FVC - 51670 Venous Doppler Bilat eral LE - Reflux Cardiac Cath - L/R- SLHV B TYPE NATRIURETIC P EPTIDE (BNP) CT Chest with contra st Complete Echo HISTORY OF PROCEDURES Procedure Date Procedure Name Provider Procedure Notes S tatus Complex e/m visit add on Robert Freeman MD completed EKG Robert Freeman MD completed
--- OUTSIDE RECORDS SUMMARY | 2024-09-30 03:14 | XMS_ITS | Encounter Summary ---
Author Organization [facility] Address [address] [place] [address] Care Team Providers Care Agricultural Extension Educator Name Role Phone Unavailable Primary Care Provider Unavailabl e Encounter Details Date Type Department Care Team (Late st Contact Info) Description 08/16/2024 Lab Requisition [facility] - Pathology Lab [address] [place] [address] Giancarlo Macias MD [address] [place] [address] Illness, unspecified Social History Tobacco Use Types Packs/Day Years Used Date Smoking Tobacco: Never Assessed Sex and Gender Information Value Date Recorded Sex Assigned at Not on file 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
--- OUTSIDE RECORDS SUMMARY | 2024-09-30 03:14 | XMS_ITS | Clinical Summary ---
Author Organization [facility] Isac carrasco [address] Address [address] [facility] [place] [address] Care Team Providers Care Media Center Assistant Name Role Phone Jaxon Crowell MD Primary Care Provider [phone] Allergies No known active allergies Medications furosemide [...] Encounters Date Type Department Care Team Description 09/27/2024 External Device Data STL ABSTRACTION Provider, Abstract 09/27/2024 External Device Data [facility] ABSTRACTION Provider, Abstract 09/27/2024 External Device Data [facility] ABSTRACTION Provider, Abstract 09/27/2024 Orders Only [facility] Oncology and Hematology - [place] [address] [place] [address] Danilo Jerez MD 09/22/2024 Orders Only [facility] Oncology and Hematology - [place] [address] [place] [address] Danilo Jerez MD 09/21/2024 10:30 AM CDT Office Visit [facility] Oncology and Hematology - [place] [address] [place] [address] Danilo Jerez MD Prostate cancer (CMS/HCC) (Primary Dx); Chronic anemia 09/21/2024 Orders Only [facility] Oncology and Hematology [facility] [address] [place] [place] [address] Danilo Jerez MD from Last 3 Months [...] TUMOR GA68 ILLUCCIX PSMA IMG W CT SKB MD Routine 09/26/2024 1:28 PM CDT CBC WITH AUTODIFFERENTIAL Routine 2024 3:31 PM CDT COMPREHENSIVE METABOLIC PANEL Routine 09/21/2024 1:39 PM CDT from Last 3 Months Results * PET TUMOR GA68 ILLUCIX PSMA IMG W CT SKDarrell MD (09/26/2024 1:28 PM CDT) Anatomical Region Laterality Modality Positron Emissio n Tomography (PET) Danilo Jerez MD PE ORDERABLES Final Result * CBC WITH AUTODIFFERENTIAL (09/21/2024 3:31 PM CDT) Blood Danilo Jerez MD HEMATOLOGY ORDERABLES Final Res ult * COMPREHENSIVE METABOLIC PANEL (09/21/2024 1:39 PM CDT) Blood us Danilo Jerez MD CHEMISTRY ORDERABLES Final Resu lt from Last 3 Months Insurance ? [facility] [id number] Care Teams Media Center Assistant Relationship Specialty Start Date End Date Jaxon Crowell MD [address] [place] [address] PCP - General Internal Medicine 09/27/24
--- OUTSIDE RECORDS SUMMARY | 2024-09-30 03:14 | XMS_ITS | Clinical Summary ---
Author Organization [facility] Address [address] [place] [address] Care Team Providers Care Slot Attendant Name Role Phone Unavailable Primary Care Provider Unavailabl e Source Comments [facility],non-owned Affiliates and Associated Physician Practices is amultiple site organization consisting of ambulatory clinics and hospital sitesin [place], [place], [place] and [place]. This disclosure is being madepursuant to the Care Everywhere program and may not contain all information available regarding this patient. 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
--- NOTE | 2024-09-30 09:00 | P.HP_ITS ---
H&P: HPI History of Present Illness Date/Time: 09/30/24 09:00 Chief Complaint: Metastatic prostate cancer Narrative: Patient is a 62-year-old gentleman who presented with diffuse lymphadenopathy of the groin and cervical regions. His initially that have lymphoma but the biopsy of the groin lymph node showed metastatic adenocarcinoma of the prostate. He has had staging workup and has extensive bone metastasis as well as lymphadenopathy. He is to undergo chemotherapy treatments and presents for placement denise catheter. Review of Systems Review of Systems: The remainder of the review of systems to include constitutional, HEENT, cardiovascular, respiratory, GI, , integumentary, musculoskeletal, endocrine, immunologic, hematologic, psychiatric, and neurologic are all negative except for which is mentioned above in the HPI. [facility] Social History Social History Smoking packs per day: 1.5 Smoking cigarettes per day: 30.0 Years smoked: 45 Smoking pack-years: 67.50 Smoking status: Current every day smoker Tobacco type: cigarettes Alcohol intake: former Alcohol use details: pt. states he does not drink anymore, but did drink all his life. Drank 3-5 beers every week night and more on weekends. Substance use: never Substance use type: does not use Living arrangements: alone Meds Home Medications and Allergies Home Medications ?Medication ?Instructions ?Recorded ?Confirmed ?Type albuterol sulfate 90 mcg/actuation 2 inh inhalation Q4H PRN shortness 09/22/24 09/23/24 History aerosol inhaler of breath or wheezing apalutamide 60 mg tablet (Erleada) 60 mg PO QID 09/22/24 09/23/24 History budesonide 160 mcg-glycopyr 9 2 inh inhalation BID COPD 09/22/24 09/23/24 History mcg-formot 4.8 mcg/actuation HFA inhaler (Breztri Aerosphere) furosemide 20 mg tablet 20 mg PO DAILY 09/22/24 09/23/24 History levothyroxine 25 mcg tablet 25 mcg PO DAILY 09/22/24 09/23/24 History oxycodone 10 mg tablet 10 mg PO Q8H 09/22/24 09/23/24 History tamsulosin 0.4 mg capsule 0.4 mg PO HS 09/22/24 09/23/24 History Allergies Allergy/AdvReac Type Severity Reaction Status Date / Time No Known Allergies Allergy Verified 09/22/24 15:55 Exam Const: General: comfortable and no acute distress HENMT: Ears: TM's normal bilaterally Face/Nose/Sinus: Normal nares present Mouth: Yes moist mucous membranes Eyes: General: appearance normal, both eyes and all related structures Sclera: sclerae normal Pupils: Equal, round and reactive pupils present EOM: EOMs intact bilaterally Neck: Neck: supple and no JVD Chest: Other: No rashes or masses in the anterior chest wall bilaterally Resp: Effort & Inspection: normal respiratory effort Auscultation: clear to auscultation bilaterally Cardio: Rate: regular rate Rhythm: regular rhythm GI: GI Palp: Yes Soft to palpation, No Firmness to palpation present (GI), No Tenderness to palpation present (GI), No Guarding due to palpation present (GI) and No Hernia present Skin: General skin exam: normal color and no rashes or lesions noted Neuro: General: gait normal Speech: normal speech Motor exam (neuro): 5/5 motor strength present throughout Sensory Exam: normal sensation Extrem: General: normal to inspection Psych: Mental Status: mental status grossly normal Affect: normal affect Assessment and Plan Assessment and plan (1) Prostate cancer metastatic to bone: Code(s): C61 - Malignant neoplasm of prostate; C79.51 - Secondary malignant neoplasm of bone Status: Acute Assessment and Plan: Patient has metastatic prostate cancer to bone and distant sites of the lymph nodes. He is to undergo chemotherapy treatments. Presents today for placement denise catheter to begin chemotherapy treatments. Risks, benefits, indications, and expected outcomes were discussed with the patient. Specific risk of need for placement of a chest tube for iatrogenic pneumothorax was discussed. Specific risk for need for blood transfusion was also discussed.
[2024-09-30 09:15] VITALS: BP 102/61; PULSE 76; RESP 16; TEMP 36.7; O2SAT 95
[2024-09-30] MEDS: LACTATED RINGERS 1,000 ML 30 ML IV CONT (09:30)
[2024-09-30 09:37] LABS: Hematocrit 21.8 % (42.0-52.0)
[2024-09-30 09:41] LABS: Hemoglobin 6.7 g/dL (14.0-18.0)
--- NOTE | 2024-09-30 10:00 | SUR.PREOP ---
Dr. Thompson and Dr. Kendrick notified of HGB 6.7-- surgery cancelled per both MDs. Per Dr. Thompson patient will need a blood transfusion outpatient before rescheduling procedure.
--- NOTE | 2024-09-30 10:20 | SUR.PREOP ---
this RN spoke to Dr Jerez office and after they review today labs will contact patient to schedule blood transfusion should be later today. Also faxed lab results per their request to [phone]
--- NOTE | 2024-09-30 10:29 | WPDPN ---
Subjective Date/time seen: 09/30/24 10:29 Interval history: Patient presented for elective clinic catheter placement today. He is being treated for metastatic prostate cancer. Last week when he was evaluated his hemoglobin was in the low sevens. At that time he indicated that he did not want to have a blood transfusion at all and refused consideration for getting a transfusion preoperatively. It was decided to have him come in today and have another hemoglobin level drawn before surgery. If it was stable or increased from his previous level then we will proceed. However it was 6.7 and anesthesia was not comfortable proceeding without blood transfusion. The patient has since spoken to his primary care physician had and has agreed to getting a blood transfusion. However in scheduling issues today it is not cover possible given a blood transfusion for her his surgery slot. We will go ahead and cancel his surgery for today and patient is going to be in contact with his oncologist. Plan is to get him transfused to an appropriate level and then rescheduled for denise catheter placement. Patient is in agreement with this plan. Objective Data Vital Signs Vital Signs: Vital Signs - 24 hr 09/30/24 09:15 Temperature 36.7 C Pulse Rate 76 Respiratory Rate 16 Blood Pressure 102/61 Pulse Oximetry 95 Oxygen Delivery Room Air Labs Labs: Laboratory Results - last 24 hr 09/30/24 09:33 Hgb 6.7 L* Hct 21.8 L Blood Type B Positive
== END 2024-09-30 10:26 | disposition home or self-care (01) ==
PROVIDERS: Anesthesiology; PCP Internal Medicine; Visit Provider Surgery
DX: C61 Malignant neoplasm of prostate (principal); C79.51 Secondary malignant neoplasm of bone; D64.9 Anemia, unspecified; Z53.09 Procedure and treatment not carried out because of other contraindication; F17.210 Nicotine dependence, cigarettes, uncomplicated; J44.9 Chronic obstructive pulmonary disease, unspecified; Z79.51 Long term (current) use of inhaled steroids; Z79.891 Long term (current) use of opiate analgesic
CPT/HCPCS: 36415; 85014; 85018; 86850; 86900; 86901; 86923; 99213; G0463; J7120

== ENCOUNTER 2024-09-30 12:54 | Outpatient (CLI) | payer OTHER, SELFPAY ==
--- OUTSIDE RECORDS SUMMARY | 2024-09-30 12:57 | XMS_ITS | Clinical Summary ---
Author Organization [facility] Derickcarlos carrasco Deyanira Address [address] [place] [address] Care Team Providers Care Java Scala Developer Name Role Phone Jaxon Crowell MD Primary Care Provider [phone] Allergies No known active allergies Medications furosemide [...] Encounters Date Type Department Care Team Description 09/30/2024 Orders Only [facility] Oncology and Hematology - [place] [address] [place] [address] Danilo Jerez MD Prostate cancer (CMS/HCC) (Primary Dx); Chronic anemia 09/27/2024 External Device Data STL ABSTRACTION Provider, Abstract 09/27/2024 External Device Data STL ABSTRACTION Provider, Abstract 09/27/2024 External Device Data STL ABSTRACTION Provider, Abstract 09/27/2024 Orders Only [facility] - [place] [address] [place] [address] Danilo Jerez MD 09/22/2024 Orders Only [facility] - [place] [address] [place] [address] Danilo Jerez MD 09/21/2024 10:30 AM CDT Office Visit [facility] [address] [place] [address] Danilo Jerez MD Prostate cancer (CMS/HCC) (Primary Dx); Chronic anemia 09/21/2024 Orders Only [facility] [address] [place] [address] Danilo Jerez MD from Last 3 Months [...] GA68 ILLUCIX PSMA IMG W CT SKB MD (09/26/2024 1:28 PM CDT) Anatomical Region Laterality Modality Positron Emissio n Tomography (PET) us Danilo Jerez MD PE ORDERABLES Final Result * CBC WITH AUTODIFFERENTIAL (09/21/2024 3:31 PM CDT) Blood us Danilo Jerez MD HEMATOLOGY ORDERABLES Final Res ult * COMPREHENSIVE METABOLIC PANEL (09/21/2024 1:39 PM CDT) Blood us Danilo Jerez MD CHEMISTRY ORDERABLES Final Resu lt from Last 3 Months Insurance [employer] [facility] [id number] Care Teams Java Scala Developer Relationship Specialty Start Date End Date Jaxon Crowell MD [address] [place] [address] PCP - General Internal Medicine 09/27/24
--- OUTSIDE RECORDS SUMMARY | 2024-09-30 12:57 | XMS_ITS | Encounter Summary ---
Author Organization [facility] Address [address] [place] [address] Care Team Providers Care Psychologist Engineering Name Role Phone Unavailable Primary Care Provider Unavailabl e Encounter Details Date Type Department Care Team (Late st Contact Info) Description 08/16/2024 Lab Requisition [facility] - Pathology Lab [address] [place] [address] Giancarlo Macias MD [address] [place] [address] Illness, unspecified Social History Tobacco Use Types Packs/Day Years Used Date Smoking Tobacco: Never Assessed Sex and Gender Information Value Date Recorded Sex Assigned at Not on file 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
--- OUTSIDE RECORDS SUMMARY | 2024-09-30 12:57 | XMS_ITS | CONTINUITY OF CARE DOCUMENT ---
Author Name ruel lipscomb Address Unknown Organization [facility] Address [address] [place] [address] Phone [phone] Care Team Providers Care District Recruiter Name Role Phone Robert Freeman MD Unavailable [phone] TATYANA DAWN MD Unavailable [phone] TATYANA DAWN MD Unavailable [phone] PROBLEMS Condition Status Date Provider Notes Shortness of breath (SOB) active Jesse jha per PCP LÓPEZ Tobacco abuse active Robert Freeman MD Leg edema active Robert Freeman MD Orthopnea active Robert Freeman MD ENCOUNTERS Date Type Provider Location Encounter Diag nosis - In-person encounter Office Visit Robert Freeman MD [place] [facility] - In-person encounter Office Visit Robert Freeman MD [place] [facility] Tobacco abuseLeg edemaOrthopnea VITAL SIGNS Date [...] Coverage type Candie red green party ID [facility] Other [id number] ADVANCE DIRECTIVES Name Date DISCUSSED - NO DECISION MADE TREATMENT PLAN Date Name Performer [id number],C,T he Patient was reencouraged to stop smoking. Emilia Amos [id number],C,P t complained of SOB with minimal exertion, orthopnea, heavy smoker. Also had leg swelling which improved with Lasix. Echo showed EF 45%. Marked RV dilation with PA pressure 64 and mmHg. I recommend R/L cardiac cath, chest CT with contrast, venous duplex of the LE, PFTs, and will check BNP levels. I advised him to stop smoking. Kaiden's test was normal. Emilia Amos [id number],C,P t complained of SOB with minimal exertion, orthopnea, heavy smoker. Also had leg swelling which improved with Lasix. Echo showed EF 45%. Marked RV dilation with PA pressure 64 and mmHg. I recommend R/L cardiac cath, chest CT with contrast, venous duplex of the LE, PFTs, and will check BNP levels. I advised him to stop smoking. Kaiden's test was normal. Emilia Amos [id number],C,P t complained of SOB with minimal exertion, [...] [facility]:Pt with a recent admission to [facility] for SOB and leg swelling. [...] [facility] Card[facility]:Pt with a recent admission to [facility] for SOB and leg swelling. [...] Study Home PROBNP, N TERMINAL DLCO - 95194 FRC - 39560 FVC - 40285 PROTHROMBIN TIME WIT H INR LIPID PANEL CBC (INCLUDES DIFF/P LT) BASIC METABOLIC PANE L W/EGFR DLCO - 91149 FRC - 77972 FVC - 04729 Venous Doppler Bilat eral LE - Reflux Cardiac Cath - L/R- [facility] B TYPE NATRIURETIC P EPTIDE (BNP) CT Chest with contra st Complete Echo HISTORY OF PROCEDURES Procedure Date Procedure Name Provider Procedure Notes S tatus Complex e/m visit add on Robert Freeman MD completed EKG Robert Freeman MD completed
--- OUTSIDE RECORDS SUMMARY | 2024-09-30 12:57 | XMS_ITS | Clinical Summary ---
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
--- OUTSIDE RECORDS SUMMARY | 2024-09-30 12:57 | XMS_ITS | Clinical Summary ---
Author Organization [facility] Address [address] [facility] [place] [address] Care Team Providers Care Family Reunification Specialist Name Role Phone Unavailable Primary Care Provider Unavailabl e Source Comments [facility],non-owned Affiliates and Associated Physician Practices is amultiple site organization consisting of ambulatory clinics and hospital sitesin [place], [place], [place] and [place]. This disclosure is being madepursuant to the Care Everywhere program and may not contain all information available regarding this patient. 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
--- OUTSIDE RECORDS SUMMARY | 2024-09-30 12:57 | XMS_ITS | Encounter Summary ---
Author Organization [facility] Address [address] [place] [address] Care Team Providers Care Desktop Support Engineer Name Role Phone Jaxon Crowell MD Primary Care Provider [phone] Encounter Details Date Type Department Care Team (Late st Contact Info) Description 09/27/2024 Orders Only [facility] Oncology and Hematology - [place] [address] [facility] [address] [place] [address] Danilo Jerez MD [address] [facility] [facility] [address] [place] [address] Social History Tobacco Use Types [...] on filedocumented in this encounter Care Teams Desktop Support Engineer Relationship Specialty [place] [address] [place] [address] PCP - General Internal Medicine 09/27/24 documented as of this encounter
--- OUTSIDE RECORDS SUMMARY | 2024-09-30 12:57 | XMS_ITS | Continuity of Care Document ---
Author Organization [facility] Address [address] [place] [address] [address] [place] [address] Phone Care Team Providers Care Stave Machine Tender Name Role Phone Darcy Mishra Unavailable Unavailable Advance Directives Directive Yes / No Effective Date File Name No Information Encounters Encounter Description Practice Location Reason(s) For Visit Diagnoses Date Provider Providers Copied on Encounter [facility], [address] [place] [address] [address], [place], [place], [id number], [place] tel:[phone] [facility] [place] No Information Apr-0 7-200 5 Danica Taveras. [address] [facility] , [address], [place], [address], [place]. tel:[phone] Family History Family Member Type Diagnosis Age At Onset No Information Payers Payer name Insurance type Covered democrat ID Authoriza farrukhwali(s) Star Pattern [id number] Social History Type Description Quantity Date Captured [...]
--- OUTSIDE RECORDS SUMMARY | 2024-09-30 12:57 | XMS_ITS | Encounter Summary ---
Author Organization [facility] [employer] [facility] Address [address] [place] [address] Care Team Providers Care Airconditioning Drafting Officer Name Role Phone Jaxon Crowell MD Primary Care Provider [phone] Encounter Details Date Type Department Care Team (Late st Contact Info) Description 09/30/2024 Orders Only [facility] Oncology and Hematology - [address] [facility] [address] [place] [address] Danilo Jerez MD [address] [facility] [address] [place] [address] Prostate cancer (CMS/HCC) (Primary Dx); Chronic [...] as of this encounter Plan of Treatment Scheduled Orders Name Type Priority Associated Diagnoses Orde r Schedule TYPE AND SCREEN Blood Bank Routine Prostate cancer (CMS/HCC) Chronic anemia Ordered: 09/30/2024 documented as of this encounter Visit Diagnoses Diagnosis Prostate cancer (CMS/HCC)- Primary Malignant neoplasm of prostate Chronic anemia Anemia, unspecified documented in this encounter Care Teams Airconditioning Drafting Officer Relationship Specialty Start Date End Date Jaxon Crowell MD [address] [place] [address] PCP - General Internal Medicine 09/27/24 documented as of this encounter
== END 2024-09-30 12:55 | disposition home or self-care (01) ==
LOC: ANHLAB 12:55
PROVIDERS: PCP Internal Medicine; Visit Provider Internal Medicine Hematology & Oncology
DX: C61 Malignant neoplasm of prostate (principal); D64.9 Anemia, unspecified
CPT/HCPCS: 36415; 86923

== ENCOUNTER 2024-10-03 07:17 | Outpatient (RCR) | payer OTHER, MEDICAID, SELFPAY ==
[2024-10-03] VITALS (12 sets, daily range): BP systolic 103–128; BP diastolic 38–92; PULSE 66–88; RESP 14–16; TEMP 36.4–36.9; O2SAT 97–100
[2024-10-03 08:04] LABS: Hematocrit 22.0 % (42.0-52.0)
[2024-10-03 08:08] LABS: Hemoglobin 6.9 g/dL (14.0-18.0)
[2024-10-03] MEDS: diphenhydrAMINE HCl CAP 25 MG CAPSULE PO (08:17)
[2024-10-03] MEDS: ACETAMINOPHEN 325 MG TABLET 650 MG PO (08:17)
[2024-10-03] MEDS: SODIUM CHLORIDE 0.9% IV 250 ML 30 ML IV CONT (08:30)
[2024-10-03] MEDS: FUROSEMIDE INJ 40 MG/4 ML VIAL 20 MG IV PUSH (12:01)
== END 2025-01-01 23:59 | disposition home or self-care (01) ==
LOC: ANHCPCTRAN 07:17
PROVIDERS: PCP Internal Medicine; Visit Provider Internal Medicine Hematology & Oncology
DX: C61 Malignant neoplasm of prostate (principal)
CPT/HCPCS: 36415; 36430; 85014; 85018; 96374; A9270; J1938; J7050; P9016

== ENCOUNTER 2024-10-04 00:23 | Day surgery (SDC) | payer OTHER, SELFPAY ==
--- NOTE | 2024-09-30 14:11 | PC.NURSE ---
Report to the Outpatient Waiting Room, entrance under the green pavilion located off [facility], at time _1130_ on date _[id number]_. Planned Procedure Time: _130pm_.? Time changes happen often and if your time is changed the preop area will call you the afternoon before. - You and your visitor will be asked to self-screen and do not enter if you have any COVID symptoms. Please call surgeon if you need to reschedule. - A mask is optional within the hospital at this time. Patients may have clear liquids (water, carbonated beverages, clear teas, apple juice) until 3 hours prior to surgery with a maximum of 20 ounces. - No food from midnight until time of surgery and no smoking, or chewing tobacco (or any form of nicotine). No chewing gum, candy or mints. Take only the following medications with a SIP of water on the morning of surgery: ___All meds OK day of surgery except Furosemide.____ DO NOT STOP ANY OF YOUR OTHER PRESCRIPTION MEDICATIONS PRIOR TO SURGERY EXCEPT THE FOLLOWING Hold all vitamins and supplements for 3 days per anesthesiologist. Medications to discontinue per physician Date to take last dose Please no make-up, nail greenlandic, hairspray, perfume, deodorant, or body powder the day of surgery.? No jewelry (including any body piercings) or valuables the day of surgery, leave them at home.? Please take a shower or bath the night before, or the morning of, surgery with an antibacterial soap.? Wear comfortable, loose fitting clothing.? - Jewelry must be removed prior to entering the operating room.? Rings and piercings that are not removed may be cut off. - The hospital will not accept responsibility for valuables.? - Please leave all valuables, including medications, at home the day of surgery. If you are going home after surgery, a licensed construction driver must drive you home.? - NO public transportation without another adult if you receive anesthesia. - We recommend that an adult stay with you for 24 hours following discharge. - We also recommend that you do not drive, make important decision, drink alcoholic beverages, or take any drugs that were not prescribed by your health care provider for at least 24 hours after your discharge time. Follow any additional instructions given to you from your surgeon. Telephone instructions given to __Alan___and asked if any additional questions and then verbalized understanding. Patient advised to call surgeon office or pre surgery nurse liaison [phone] if any additional questions.
[2024-09-30 14:33] VITALS: BMI 19.7
[2024-10-04] VITALS (9 sets, daily range): BP systolic 88–122; BP diastolic 40–64; PULSE 72–83; RESP 14–18; TEMP 36.2–36.8; O2SAT 90–100
--- NOTE | ~2024-10-04 | XR_ITS ---
EXAMINATION: XR chest port-a-cath/central DATE: 10/04/2024 15:22 INDICATION: Port catheter insertion TECHNIQUE: frontal view of the chest was obtained. COMPARISON: None FINDINGS: Right internal jugular central venous port catheter with distal tip at the midsuperior vena cava. No pneumothorax or pleural effusion. Nipple shadow projects of the lateral left lower lung zone. Mild hy perexpansion lungs consistent with emphysema better appreciated on prior PET/CT. Mild bibasilar opaci ties which could represent atelectasis or pneumonia. Heart size is normal. Diffuse patchy sclerosis o f the bones consistent with metastatic prostate cancer. IMPRESSION: 1. Right internal jugular central venous port catheter tip at the midsuperior vena cava. 2. Emphysema with mild streaky bibasilar opacities which could represent atelectasis or pneumonia. 3. Diffuse sclerosis of the bones consistent with metastatic prostate cancer. Reviewed, dictated and finalized at location B. IMPRESSION: 1. Right internal jugular central venous port catheter tip at the midsuperior v jonathan cava. 2. Emphysema with mild streaky bibasilar opacities which could represent atelec tasis or pneumonia. 3. Diffuse sclerosis of the bones consistent with metastatic prostate cancer.
--- NOTE | ~2024-10-04 | XR_ITS ---
INTRAOPERATIVE FLUOROSCOPY: CLINICAL HISTORY: 64 years old Male; COURTNEY CATH INSERTION PROCEDURE COMMENTS: Limited intraoperative fluoroscopy of the chest was performed. CUMULATIVE DOSE: 2.8 mGy FLUOROSCOPY TIME: 25 seconds FINDINGS/IMPRESSION: Please refer to operative note for further details. Reviewed, dictated and finalized at location A.
--- OUTSIDE RECORDS SUMMARY | 2024-10-04 00:25 | XMS_ITS | Continuity of Care Document ---
Author Organization [facility] Address [address] [place] [address] [address] [place] [address] Phone Care Team Providers Care Nurse Anesthetist Name Role Phone Darcy Mishra Unavailable Unavailable Advance Directives Directive Yes / No Effective Date File Name No Information Encounters Encounter Description Practice Location Reason(s) For Visit Diagnoses Date Provider Providers Copied on Encounter Located within [facility], [id number] [place] [address] [address], [place], [place], [id number], [place] tel:[phone] [facility] No Information Apr-0 7-200 5 Danica Taveras. [address] [facility] , [address], [place], [address], [place]. tel:[phone] Family History Family Member Type Diagnosis Age At Onset No Information Payers Payer name Insurance type Covered republican ID Authoriza farrukhwali(s) Star Pattern [id number] Social History Type Description Quantity Date Captured [...]
--- OUTSIDE RECORDS SUMMARY | 2024-10-04 00:25 | XMS_ITS | Clinical Summary ---
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
--- OUTSIDE RECORDS SUMMARY | 2024-10-04 00:25 | XMS_ITS | Encounter Summary ---
Author Organization [facility] [employer] [facility] Address [address] [place] [address] Care Team Providers Care Casing Trimmer Name Role Phone Jaxon Crowell MD Primary Care Provider [phone] Encounter Details Date Type Department Care Team (Late st Contact Info) Description 10/03/2024 Orders Only [facility] Oncology and Hematology - [place] [address] [facility] [address] [place] [address] Danilo Jerez MD [address] [facility] [address] [place] [address] Social History Tobacco Use Types [...] Procedure Name Priority Date/Time Associated Diagnosis Comments HEMOGLOBIN AND HEMATOCRIT Routine 10/03/2024 3:07 PM CDT HEMOGLOBIN AND HEMATOCRIT Routine 09/30/2024 9:35 AM CDT documented in this encounter Results * HEMOGLOBIN AND HEMATOCRIT (10/03/2024 3:07 PM CDT) Blood us Danilo Jerez MD HEMATOLOGY ORDERABLES Final Res ult * HEMOGLOBIN AND HEMATOCRIT (09/30/2024 9:35 AM CDT) Blood us Danilo Jerez MD HEMATOLOGY ORDERABLES Final Res ult documented in this encounter Visit Diagnoses Not on filedocumented in this encounter Care Teams Casing Trimmer Relationship Specialty Start Date End Date Jaxon Crowell MD [address] [place] [address] PCP - General Internal Medicine 09/27/24 documented as of this encounter
--- OUTSIDE RECORDS SUMMARY | 2024-10-04 00:25 | XMS_ITS | Encounter Summary ---
Author Organization [facility] Address [address] [place] [address] Care Team Providers Care Dishroom Attendant Name Role Phone Unavailable Primary Care Provider Unavailabl e Encounter Details Date Type Department Care Team (Late st Contact Info) Description 08/16/2024 Lab Requisition [facility] - Pathology Lab [address] [place] [address] Giancarlo Macias MD [address] [place] [address] Illness, unspecified Social History Tobacco Use Types Packs/Day Years Used Date Smoking Tobacco: Never Assessed Sex and Gender Information Value Date Recorded Sex Assigned at Not on file Legal 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
--- OUTSIDE RECORDS SUMMARY | 2024-10-04 00:25 | XMS_ITS | Clinical Summary ---
Author Organization [facility] Isac carrasco Deyanira Address [address] [place] [address] Care Team Providers Care Mold Clamper Name Role Phone Jaxon Crowell MD Primary Care Provider [phone] Allergies No known active allergies Medications furosemide [...] Encounters Date Type Department Care Team Description 10/03/2024 Orders Only [facility] Oncology and Hematology - [place] [address] [place] [address] Danilo Jerez MD 10/03/2024 Abstract [facility] Oncology and Hematology - [place] [address] [place] [address] Danilo Jerez MD 09/30/2024 Telephone [facility] Oncology and Hematology - [address] [place] [address] Danilo Jerez MD Blood Transfusion 09/30/2024 Abstract [facility] Oncology and Hematology - [address] [place] [address] Danilo Jerez MD 09/30/2024 Orders Only [facility] Oncology and Hematology - [address] [place] [address] Danilo Jerez MD Prostate cancer ([facility]/HCC) (Primary Dx); Chronic anemia 09/27/2024 External Device Data STL ABSTRACTION Provider, Abstract 09/27/2024 External Device Data STL ABSTRACTION Provider, Abstract 09/27/2024 External Device Data STL ABSTRACTION Provider, Abstract 09/27/2024 Orders Only [facility] Oncology and Hematology - [address] [place] [address] Danilo Jerez MD 09/22/2024 Orders Only [facility] Oncology and Hematology - [address] [place] [address] Danilo Jerez MD 09/21/2024 10:30 AM CDT Office Visit [facility] Oncology and Hematology - [address] [place] [address] Danilo Jerez MD Prostate cancer ([facility]/HCC) (Primary Dx); Chronic anemia 09/21/2024 Orders Only [facility] Oncology and Hematology - [place] [address] [place] [address] Danilo Jerez MD from Last 3 Months [...] Associated Diagnosis Comments HEMOGLOBIN AND HEMATOCRIT Routine 2024 3:07 PM CDT HEMOGLOBIN AND HEMATOCRIT Routine 2024 9:35 AM CDT PET TUMOR GA68 ILLUCCIX PSMA IMG W CT SKB MD Routine 09/26/2024 1:28 PM CDT CBC WITH AUTODIFFERENTIAL Routine 2024 3:31 PM CDT COMPREHENSIVE METABOLIC PANEL Routine 09/21/2024 1:39 PM CDT from Last 3 Months Results * HEMOGLOBIN AND HEMATOCRIT (10/03/2024 3:07 PM CDT) Only the most recent of2 resultswithin the time period is included. Blood us Danilo Jerez MD HEMATOLOGY ORDERABLES Final Res ult * PET TUMOR GA68 ILLUCIX PSMA IMG W CT SKB MDTH (09/26/2024 1:28 PM CDT) Anatomical Region Laterality Modality Positron Emissio n Tomography (PET) Danilo Jerez MD PE ORDERABLES Final Result * CBC WITH AUTODIFFERENTIAL (09/21/2024 3:31 PM CDT) Blood Danilo Jerez MD HEMATOLOGY ORDERABLES Final Res ult * COMPREHENSIVE METABOLIC PANEL (09/21/2024 1:39 PM CDT) Blood Danilo Jerez MD CHEMISTRY ORDERABLES Final Resu lt from Last 3 Months Insurance [employer] [id number] Care Teams Mold Clamper Relationship Specialty Start Date End Date Jaxon Crowell MD [address] [place] [address] PCP - General Internal Medicine 09/27/24
--- OUTSIDE RECORDS SUMMARY | 2024-10-04 00:25 | XMS_ITS | Data Portability ---
Author Organization [facility] Johnie Barahona Address [address] [place] [address] Care Team Providers Care Acetylene Torch Operator Name Role Phone TATYANA CROWELL Primary Care Provider [phone] Assessment Encounter Date Assessment Date Assessment LastModified by Organization Details LastModified Time 05/03/2024 05/03/2024 the leg pain he called the office about his gone we will continue current therapy CT chest abdomen and pelvis his involuntary weight loss is worrisome I told him that he needs to see Urology for blood in his urine. He continues to follow with cardiology he saw the compounding assistant in December but has not been back then at that time it looks like he was referred to Interventional Pulmonary and slough patient denies any knowledge of this. further recommendations once I get the results of his test he was advised to stay up-to-date on immunizations. Obtain PFTs. again recommended to get colonoscopies [email or web address] Not available 05/07/2024 16:13:59 07/26/2024 07/26/2024 CBC [...] the abdominal cavity worrisome for the same [email or web address] Not available 08/14/2024 21:40:01 08/30/2024 08/30/2024 metastatic prostate cancer he needs to be seen by medical oncology his pain is not controlled we will switch to oxycodone 10 mg t.i.d. b.i.d. p.r.n. for pain get him to medical oncology I am getting my nurse staff community health involved because his transportation issues functional status is declining boost ensure see me in a month. His COPD is stable [email or web address] Not available 09/02/2024 21:46:59 09/28/2024 09/28/2024 I have asked him to quit smoking but he has got a lot going on right now. I have told him when he sees the medical oncologist to talk to him about taking over his pain management and Kaiden as an agreement to do that I will obtain a CBC and a CMP at the request of Oncology apparently they need some blood work done he is getting a Port-A-Cath placed Thursday. Nutrition is going to be an issue [email or web address] Not available 10/02/2024 20:20:41 Plan of Treatment Reminders Order Date Submit Date Provider Last Modified By Organization Details Last Modified Time Details Appointments ANY 15 2024 10:30A M Tatyana Crowell MD Not available Not available Not available Lab CBC w/ auto diff 2024 025 [facility], [address], [place], [address], 09/29/2024 11:25:56 CMP, serum or plasma 2024 025 [facility], [address], [place], [address], 09/29/2024 11:25:55 PSA, total, serum or plasma 2024 025 JOSEPHINE [facility], [address], [place], [address], 08/01/2024 17:10:05 unlisted lab - T4, free 2024 025 [facility], [address], [place], [address], 08/01/2024 17:09:59 TSH, ultra-sen sitive, serum 2024 025 [facility], [address], [place], [address], 08/01/2024 17:10:02 T3, free, serum or plasma 2024 025 [facility], [address], [place], [address], 08/01/2024 17:10:06 lipid panel, serum 2024 025 [facility], [address], [place], [address], 08/01/2024 17:09:58 CBC w/ auto diff 2024 025 [facility], [address], [place], [address], 08/01/2024 17:10:03 CMP, serum or plasma 2024 025 [facility], [address], [place], [address], 08/01/2024 17:10:00 spep, serum, reflex immunofix ation 2024 025 [facility], [address], [place], [address], 08/01/2024 17:09:56 urinalysi s, complete 2023 024 [facility], [address], [place], [address], 05/04/2024 08:31:03 HbA1c (hemoglob in A1c), blood 2023 024 [facility], [address], [place], [address], 05/04/2024 08:31:02 lipid panel, serum 2023 JOSEPHINE [facility], [address], [place], [address], 05/04/2024 08:30:58 CBC w/ auto diff 2023 JOSEPHINE [facility], [address], [place], [address], 05/04/2024 08:31:05 CMP, serum or plasma 2023 [facility], [address], [place], [address], 05/04/2024 08:31:00 Referral None recorded. Procedures biopsy, lymph node, ultrasoun d guidance (PROC) 2024 [facility] (Imaging), [address] [place] [address] [place] [address], [address], 08/11/2024 13:11:46 Surgeries None recorded. Imaging CT, abdomen + pelvis, w/ contrast - Authoriza tion code #[id number] 12 2023 [facility] (Imaging), [facility] [facility] [address] [facility], [place], [address], 06/05/2024 08:41:14 PFT, complete 2023 [facility] (Cardiology & Emg), [address] [facility] [address], [place], [address], 06/03/2024 15:46:10 CT, chest, w/ contrast 2023 [facility] (Imaging), [facility], [place], [address], 06/10/2024 10:10:09 Medication Orders None recorded. Patient TargetsNo targets recorded. Patient Instructions Encounter Date Encounter Id Patient Instructions Last Modified By Organization Details Last Modified Time 08/30/2024 [id number] A healthy lifestyle: care instructions [email or web address] Not available 08/30/2024 20:43:49 09/28/2024 [id number] Quitting Tobacco : Care Instructions Not available 09/28/2024 14:27:34 eating healthy foods: care instructions [email or web address] Not available 09/28/2024 14:27:34 Reason for Referral None Reported. Results Created Date Observation Date Name Description Value Unit Range Abnormal Flag Note LastModifiedBy Organization Detail LastModifiedTime 05/03/2005/04/2024 LIPID PANEL cholesterol, total 185 mg/dL 100-19 9 Not Available [facility] ([facility]) [address] [place], [address], 05/04/2024 08:30:58 05/03/2005/04/2024 LIPID PANEL triglyceride s 64 mg/dL 0-149 Not Available [facility] ([facility]) [address] [place], [address], 05/04/2024 08:30:58 05/03/2005/04/2024 LIPID PANEL HDL cholesterol 100 mg/dL >39 Not Available [facility]) [address] [place], [address], 05/04/2024 08:30:58 05/03/2005/04/2024 LIPID PANEL VLDL cholesterol manpreet 12 mg/dL 5-40 Not Available [facility]) [address] [place], [address], 05/04/2024 08:30:58 05/03/2005/04/2024 LIPID PANEL LDL chol calc ([facility]) 73 mg/dL 0-99 Not Available [facility]) [address] [place], [address], 05/04/2024 08:30:58 05/03/20 24 05/04/2024 COMP. METAB OLIC PANEL (14) glucose 90 mg/dL 70-99 Not Available [facility] ([facility]) [address] [facility] [place], [address], 05/04/2024 08:31:00 05/03/20 24 05/04/2024 COMP. METAB OLIC PANEL (14) BUN 13 mg/dL 8-27 Not Available [facility] ([facility]) [address] [facility] [place], [address], 05/04/2024 08:31:00 05/03/20 24 05/04/2024 COMP. METAB OLIC PANEL (14) creatinine 0.73 mg/dL 0.76-1 .27 below low normal Not Available [facility] ([facility]) [address] [facility] [place], [address], 05/04/2024 08:31:00 05/03/20 24 05/04/2024 COMP. METAB OLIC PANEL (14) eGFR 103 mL/mi n/1.7 3 >59 Not Available [facility] ([facility]) [address] [facility] [place], [address], 05/04/2024 08:31:00 05/03/20 24 05/04/2024 COMP. METAB OLIC PANEL (14) BUN/creatini ne ratio 18 10-24 Not Available [facility] ([facility]) [address] [place], [address], 05/04/2024 08:31:00 05/03/20 24 05/04/2024 COMP. METAB OLIC PANEL (14) sodium 129 mmol/ L 134-14 4 below low normal Not Available [facility] ([facility]) [address] [place], [address], 05/04/2024 08:31:00 05/03/20 24 05/04/2024 COMP. METAB OLIC PANEL (14) potassium 4.4 mmol/ L 3.5-5. 2 Not Available [facility] ([facility]) [address] [place], [address], 05/04/2024 08:31:00 05/03/20 24 05/04/2024 COMP. METAB OLIC PANEL (14) chloride 88 mmol/ L 96-106 below low normal Not Available [facility] ([facility]) [address] [place], [address], 05/04/2024 08:31:00 05/03/20 24 05/04/2024 COMP. METAB OLIC PANEL (14) carbon dioxide, total 27 mmol/ L 20-29 Not Available [facility] ([facility] [address] [facility], [address], 05/04/2024 08:31:00 05/03/20 24 05/04/2024 COMP. METAB OLIC PANEL (14) calcium 8.9 mg/dL 8.6-10 .2 Not Available [facility] ([facility]) [address] [facility] [place], [address], 05/04/2024 08:31:00 05/03/20 24 05/04/2024 COMP. METAB OLIC PANEL (14) protein, total 6.3 g/dL 6.0-8. 5 Not Available [facility] ([facility]) [address] [facility] [place], [address], 05/04/2024 08:31:00 05/03/20 24 05/04/2024 COMP. METAB OLIC PANEL (14) albumin 4.1 g/dL 3.9-4. 9 Not Available [facility] ([facility]) [address] [facility] [place], [address], 05/04/2024 08:31:00 05/03/20 24 05/04/2024 COMP. METAB OLIC PANEL (14) globulin, total 2.2 g/dL 1.5-4. 5 Not Available [facility] ([facility]) [address] [facility], [place], [address], 05/04/2024 08:31:00 05/03/20 24 05/04/2024 COMP. METAB OLIC PANEL (14) bilirubin, total 0.8 mg/dL 0.0-1. 2 Not Available [facility] ([facility]) [address] [facility], [place], [address], 05/04/2024 08:31:00 05/03/20 24 05/04/2024 COMP. METAB OLIC PANEL (14) alkaline phosphatase 244 IU/L 44-121 above high normal Not Available [facility] ([facility]) [address] [facility] [place], [address], 05/04/2024 08:31:00 05/03/20 24 05/04/2024 COMP. METAB OLIC PANEL (14) AST (SGOT) 28 IU/L 0-40 Not Available [facility] ([facility]) [address] [facility], [place], [address], 05/04/2024 08:31:00 05/03/20 24 05/04/2024 COMP. METAB OLIC PANEL (14) ALT (SGPT) 23 IU/L 0-44 Not Available [facility] ([facility]) [address] [facility], [place], [address], 05/04/2024 08:31:00 05/03/20 24 05/04/2024 MICRO SCOPI C EXAMI NATIO N WBC None seen /hpf 0-5 Not Available [facility] ([facility]) [address] [facility], [place], [address], 05/04/2024 08:31:01 05/03/20 24 05/04/2024 MICRO SCOPI C EXAMI NATIO N RBC 11-30 /hpf 0-2 abnormal Not Available [facility] ([facility]) [address] [facility], [place], [address], 05/04/2024 08:31:01 05/03/20 24 05/04/2024 MICRO SCOPI C EXAMI NATIO N epithelial cells (non renal) 0-10 /hpf 0-10 Not Available [facility]) [address] [facility], [place], [address], 05/04/2024 08:31:01 05/03/2005/04/2024 MICRO SCOPI C EXAMI NATIO N casts None seen /lpf nonese en Not Available [facility] ([facility]) [address] [facility], [place], [address], 05/04/2024 08:31:01 05/03/2005/04/2024 MICRO SCOPI C EXAMI NATIO N bacteria None seen nonese en/few Not Available [facility] ([facility]) [address] [facility], [place], [address], 05/04/2024 08:31:01 05/03/2005/04/2024 HEMOG LOBIN A1C hemoglobin A1C 6.3 % 4.8-5. 6 above high normal Predi abete s: 5.7 - 6.4 Diabe jason: >6.4 Glyce reji contr ol for adult s with diabe jason: <7.0 Not Available [facility] ([facility]) [address] [facility], [place], [address], 05/04/2024 08:31:02 05/03/2005/04/2024 URINA LYSIS , COMPL ETE specific gravity 1.017 1.005- 1.030 Not Available [facility] ([facility]) [address] [place], [address], 05/04/2024 08:31:03 05/03/2005/04/2024 URINA LYSIS , COMPL ETE pH 6.5 5.0-7. 5 Not Available [facility] ([facility]) [address] [place], [address], 05/04/2024 08:31:03 05/03/20 24 05/04/2024 URINA LYSIS , COMPL ETE urine-color YELLOW yellow Not Available [facility] ([facility]) [address] [facility], [place], [address], 05/04/2024 08:31:03 05/03/20 24 05/04/2024 URINA LYSIS , COMPL ETE appearance CLEAR clear Not Available [facility] ([facility]) [address] [facility], [place], [address], 05/04/2024 08:31:03 05/03/2005/04/2024 URINA LYSIS , COMPL ETE WBC esterase TRACE negati ve abnormal Not Available [facility] ([facility]) [address] [facility], [place], [address], 05/04/2024 08:31:03 05/03/2005/04/2024 URINA LYSIS , COMPL ETE protein 3+ negati ve/tra ce abnormal Not Available [facility] ([facility]) [address] [facility], [place], [address], 05/04/2024 08:31:03 05/03/2005/04/2024 URINA LYSIS , COMPL ETE glucose NEGATI VE negati ve Not Available [facility] ([facility]) [address] [facility], [place], [address], 05/04/2024 08:31:03 05/03/2005/04/2024 URINA LYSIS , COMPL ETE ketones NEGATI VE negati ve Not Available [facility] ([facility]) [address] [facility], [place], [address], 05/04/2024 08:31:03 05/03/2005/04/2024 URINA LYSIS , COMPL ETE occult blood 2+ negati ve abnormal Not Available [facility] ([facility]) [address] [place], [address], 05/04/2024 08:31:03 05/03/20 24 05/04/2024 URINA LYSIS , COMPL ETE bilirubin NEGATI VE negati ve Not Available [facility] ([facility]) [address] [facility], [place], [address], 05/04/2024 08:31:03 05/03/20 24 05/04/2024 URINA LYSIS , COMPL ETE urobilinogen ,semi-qn 1.0 mg/dL 0.2-1. 0 Not Available [facility] ([facility]) [address] [place], [address], 05/04/2024 08:31:03 05/03/2005/04/2024 URINA LYSIS , COMPL ETE nitrite, urine NEGATI VE negati ve Not Available [facility] ([facility]) [address] [facility], [place], [address], 05/04/2024 08:31:03 05/03/20 24 05/04/2024 URINA LYSIS , COMPL ETE microscopic examination SEE BELOW: Micro scopi c was indic ated and was perfo rmed. Not Available [facility] ([facility]) [address] [facility], [place], [address], 05/04/2024 08:31:03 05/03/20 24 05/04/2024 CBC WITH DIFFE RENTI AL/PL ATELE T WBC 7.3 x10e3 /uL 3.4-10 .8 Eff ectiv e Decem 2023 profi arun [id number] 5 WBC will be made* * non-o rdera ble as a stand -adelita e order code. Not Available [facility] ([facility]) [address] [facility], [place], [address], 05/04/2024 08:31:05 05/03/20 24 05/04/2024 CBC WITH DIFFE RENTI AL/PL ATELE T RBC 4.25 x10e6 /uL 4.14-5 .80 Not Available [facility] ([facility]) [address] [facility], [place], [address], 05/04/2024 08:31:05 05/03/20 24 05/04/2024 CBC WITH DIFFE RENTI AL/PL ATELE T hemoglobin 14.7 g/dL 13.0-1 7.7 Not Available [facility] ([facility]) [address] [facility], [place], [address], 05/04/2024 08:31:05 05/03/20 24 05/04/2024 CBC WITH DIFFE RENTI AL/PL ATELE T hematocrit 42.7 % 37.5-5 1.0 Not Available [facility] ([facility]) [address] [facility], [place], [address], 05/04/2024 08:31:05 05/03/20 24 05/04/2024 CBC WITH DIFFE RENTI AL/PL ATELE T MCV 101 fL 79-97 above high normal Not Available [facility] ([facility]) [address] [place], [address], 05/04/2024 08:31:05 05/03/20 24 05/04/2024 CBC WITH DIFFE RENTI AL/PL ATELE T MCH 34.6 pg 26.6-3 3.0 above high normal Not Available [facility] ([facility]) [address] [place], [address], 05/04/2024 08:31:05 05/03/20 24 05/04/2024 CBC WITH DIFFE RENTI AL/PL ATELE T MCHC 34.4 g/dL 31.5-3 5.7 Not Available [facility] ([facility]) [address] [place], [address], 05/04/2024 08:31:05 05/03/20 24 05/04/2024 CBC WITH DIFFE RENTI AL/PL ATELE T RDW 13.3 % 11.6-1 5.4 Not Available [facility] ([facility]) [address] [facility], [place], [address], 05/04/2024 08:31:05 05/03/20 24 05/04/2024 CBC WITH DIFFE RENTI AL/PL ATELE T platelets 151 x10e3 /uL 150-45 0 Not Available [facility] ([facility]) [address] [facility], [place], [address], 05/04/2024 08:31:05 05/03/20 24 05/04/2024 CBC WITH DIFFE RENTI AL/PL ATELE T neutrophils 57 % notest ab. Not Available [facility] ([facility]) [address] [facility], [place], [address], 05/04/2024 08:31:05 05/03/20 24 05/04/2024 CBC WITH DIFFE RENTI AL/PL ATELE T lymphs 26 % notest ab. Not Available [facility] ([facility]) [address] [facility], [place], [address], 05/04/2024 08:31:05 05/03/20 24 05/04/2024 CBC WITH DIFFE RENTI AL/PL ATELE T monocytes 9 % notest ab. Not Available [facility] ([facility]) [address] [facility], [place], [address], 05/04/2024 08:31:05 05/03/20 24 05/04/2024 CBC WITH DIFFE RENTI AL/PL ATELE T eos 3 % notest ab. Not Available [facility] ([facility]) [address] [facility], [place], [address], 05/04/2024 08:31:05 05/03/20 24 05/04/2024 CBC WITH DIFFE RENTI AL/PL ATELE T basos 1 % notest ab. Not Available [facility] ([facility]) [address] [facility], [place], [address], 05/04/2024 08:31:05 05/03/20 24 05/04/2024 CBC WITH DIFFE RENTI AL/PL ATELE T neutrophils (absolute) 4.2 x10e3 /uL 1.4-7. 0 Not Available [facility] ([facility]) [address] [facility], [place], [address], 05/04/2024 08:31:05 05/03/20 24 05/04/2024 CBC WITH DIFFE RENTI AL/PL ATELE T lymphs (absolute) 1.9 x10e3 /uL 0.7-3. 1 Not Available [facility] ([facility]) [address] [place], [address], 05/04/2024 08:31:05 05/03/20 24 05/04/2024 CBC WITH DIFFE RENTI AL/PL ATELE T monocytes(ab solute) 0.7 x10e3 /uL 0.1-0. 9 Not Available [facility] ([facility]) [address] [facility], [place], [address], 05/04/2024 08:31:05 05/03/20 24 05/04/2024 CBC WITH DIFFE RENTI AL/PL ATELE T eos (absolute) 0.2 x10e3 /uL 0.0-0. 4 Not Available [facility] ([facility]) [address] [place], [address], 05/04/2024 08:31:05 05/03/20 24 05/04/2024 CBC WITH DIFFE RENTI AL/PL ATELE T baso (absolute) 0.1 x10e3 /uL 0.0-0. 2 Not Available [facility] ([facility]) [address] [place], [address], 05/04/2024 08:31:05 05/03/20 24 05/04/2024 CBC WITH DIFFE RENTI AL/PL ATELE T immature granulocytes 4 % notest ab. Not Available [facility] ([facility]) [address] [facility], [place], [address], 05/04/2024 08:31:05 05/03/20 24 05/04/2024 CBC WITH [...] manpreet signi fican ce.) Not Available [facility] ([facility]) [address] [facility], [place], [address], 05/04/2024 08:31:05 05/03/20 24 05/04/2024 CBC WITH DIFFE RENTI AL/PL ATELE T NRBC 1 % 0-0 above high normal Not Available [facility] ([facility]) [address] [facility], [place], [address], 05/04/2024 08:31:05 05/18/20 24 05/20/2024 SPECI MEN STATU S REPOR T specimen status report TNP Test not perfo rmed. No urine speci men recei shirin. TEST: [id number] 0 Na U+Cl U+[place] U [id number] 2 Osmol ality , Urine Not Available [facility] ([facility]) [address] [facility], [place], [address], 05/20/2024 13:10:21 05/18/20 24 05/19/2024 BASIC METAB OLIC PANEL (7) glucose 94 mg/dL 70-99 Not Available [facility] ([facility]) [address] [facility], [place], [address], 05/20/2024 13:10:22 05/18/20 24 05/19/2024 BASIC METAB OLIC PANEL (7) BUN 19 mg/dL 8-27 Not Available [facility] ([facility]) [address] [place], [address], 05/20/2024 13:10:22 05/18/20 24 05/19/2024 BASIC METAB OLIC PANEL (7) creatinine 1.39 mg/dL 0.76-1 .27 above high normal Not Available [facility] ([facility]) [address] [place], [address], 05/20/2024 13:10:22 05/18/20 24 05/19/2024 BASIC METAB OLIC PANEL (7) eGFR 57 mL/mi n/1.7 3 >59 below low normal Not Available [facility] ([facility]) [address] [place], [address], 05/20/2024 13:10:22 05/18/20 24 05/19/2024 BASIC METAB OLIC PANEL (7) BUN/creatini ne ratio 14 10-24 Not Available [facility] ([facility]) [address] [place], [address], 05/20/2024 13:10:22 05/18/20 24 05/19/2024 BASIC METAB OLIC PANEL (7) sodium 133 mmol/ L 134-14 4 below low normal Not Available [facility] ([facility]) [address] [place], [address], 05/20/2024 13:10:22 05/18/20 24 05/19/2024 BASIC METAB OLIC PANEL (7) potassium 4.4 mmol/ L 3.5-5. 2 Not Available [facility] ([facility]) [address] [place], [address], 05/20/2024 13:10:22 05/18/20 24 05/19/2024 BASIC METAB OLIC PANEL (7) chloride 92 mmol/ L 96-106 below low normal Not Available [facility] ([facility]) [address] [facility] [place], [address], 05/20/2024 13:10:22 05/18/20 24 05/19/2024 BASIC METAB OLIC PANEL (7) carbon dioxide, total 25 mmol/ L 20-29 Not Available [facility] ([facility]) [address] [facility] [place], [address], 05/20/2024 13:10:22 05/18/20 24 05/19/2024 T4, FREE T4,free(dire ct) 1.54 NG/dL 0.82-1 .77 Not Available [facility] ([facility]) [address] [facility] [place], [address], 05/20/2024 13:10:23 05/18/20 24 05/18/2024 UNABL E TO VOID unable to void Commen t Patie nt unabl e to void. Urine to be colle cted at a later date. Not Available [facility] ([facility]) [address] [facility] [place], [address], 05/20/2024 13:10:24 05/18/20 24 05/19/2024 CORTI KRISTEN cortisol 9.2 ug/dL 6.2-19 .4 Plesea e Note: The refer ence inter randa and vale ing for this test is for an AM colle ction . If this is a PM colle ction pleas e use: Corti kristen PM: 2.3-1 1.9 Not Available [facility] ([facility]) [address] [facility] [place], [address], 05/20/2024 13:10:25 05/18/20 24 05/19/2024 TSH TSH 5.640 uIU/m L 0.450- 4.500 above high normal Not Available [facility] ([facility]) [address] [facility] [place], [address], 05/20/2024 13:10:26 05/18/20 24 05/19/2024 TRIIO DOTHY JACQUES E (T3), FREE triiodothyro nine (T3), free 3.0 pg/mL 2.0-4. 4 Not Available [facility] ([facility]) [address] [facility], [place], [address], 05/20/2024 13:10:27 07/26/19 25 07/27/2024 SPECI MEN STATU S REPOR T specimen status report TNP [facility] was unabl e to colle ct suffi cient speci men to perfo rm the follo wing test( s), and is provi ding the patie nt with re-co llect ion instr uctio ns. TEST: [id number] CBC With Diffe renti al/Pl atele t Not Available [facility] ([facility]) [address] [facility], [place], [address], 08/01/2024 17:09:55 07/26/19 25 07/26/2024 MULTI PLE MYELO MA CASCA DE please note: COMMEN T Prote in elect ropho resis scan will follo w via compu ter, mail, or couri er audie bray. Not Available [facility] ([facility]) [address] [facility], [place], [address], 08/01/2024 17:09:56 07/26/19 25 07/27/2024 MULTI PLE MYELO MA CASCA DE albumin 3.7 g/dL 2.9-4. 4 Not Available [facility] ([facility]) [address] [place], [address], 08/01/2024 17:09:56 07/26/19 25 07/27/2024 MULTI PLE MYELO MA CASCA DE hlmid-1-bfwv ulin 0.5 g/dL 0.0-0. 4 above high normal Not Available [facility] ([facility]) [address] [place], [address], 08/01/2024 17:09:56 07/26/19 25 07/27/2024 MULTI PLE MYELO MA CASCA DE kmgqx-5-zdet ulin 0.5 g/dL 0.4-1. 0 Not Available [facility] ([facility]) [address] [facility], [place], [address], 08/01/2024 17:09:56 07/26/19 25 07/27/2024 MULTI PLE MYELO MA CASCA DE beta globulin 1.0 g/dL 0.7-1. 3 Not Available [facility] ([facility]) [address] [facility], [place], [address], 08/01/2024 17:09:56 07/26/19 25 07/27/2024 MULTI PLE MYELO MA CASCA DE gamma globulin 0.9 g/dL 0.4-1. 8 Not Available [facility] ([facility] [address] [facility], [place], [address], 08/01/2024 17:09:56 07/26/19 25 07/27/2024 MULTI PLE MYELO MA CASCA DE M-spike NOT OBSERV ED g/dL notobs erved Not Available [facility] ([facility]) [address] [facility], [place], [address], 08/01/2024 17:09:56 07/26/19 25 07/27/2024 MULTI PLE MYELO MA CASCA DE globulin, total 2.8 g/dL 2.2-3. 9 Not Available [facility] ([facility] [address] [place], [address], 08/01/2024 17:09:56 07/26/19 25 07/27/2024 MULTI PLE MYELO MA CASCA DE A/G ratio 1.3 0.7-1. 7 Not Available [facility] ([facility]) [address] [place], [address], 08/01/2024 17:09:56 07/26/19 25 07/27/2024 MULTI PLE MYELO MA CASCA DE reflex testing . Not Available [facility] ([facility]) [address] [facility] [place], [place], [address], 08/01/2024 17:09:56 07/26/19 25 07/27/2024 MULTI PLE MYELO MA CASCA DE pdf . Not Available [facility] ([facility]) [address] [facility], [place], [address], 08/01/2024 17:09:56 07/26/19 25 08/01/2024 FREE K+L LT CHAIN S,QN, S free kappa lt chains,S 31.7 mg/L 3.3-19 .4 above high normal Not Available [facility] [address], [place], [address], 08/01/2024 17:09:57 07/26/19 25 08/01/2024 FREE K+L LT CHAIN S,QN, S free lambda lt chains,S 21.0 mg/L 5.7-26 .3 Not Available [facility] [address], [place], [address], 08/01/2024 17:09:57 07/26/19 25 08/01/2024 FREE K+L LT CHAIN S,QN, S kappa/lambda ratio,S 1.51 0.26-1 .65 Not Available [facility] [address], [place], [address], 08/01/2024 17:09:57 07/26/19 25 08/01/2024 COMME NT: comment: Commen t Consi nory order ing urine immun ofixa tion (uIFE ) to rule out Amylo idosi s (AL). Not Available [facility] ([facility]) [address] [facility], [place], [address], 08/01/2024 17:09:58 07/26/19 25 07/27/2024 LIPID PANEL cholesterol, total 189 mg/dL 100-19 9 Not Available [facility] ([facility]) [address] [place], [address], 08/01/2024 17:09:58 07/26/19 25 07/27/2024 LIPID PANEL triglyceride s 67 mg/dL 0-149 Not Available [facility]) [address] [place], [address], 08/01/2024 17:09:58 07/26/19 25 07/27/2024 LIPID PANEL HDL cholesterol 106 mg/dL >39 Not Available [facility] [address] [place], [address], 08/01/2024 17:09:58 07/26/19 25 07/27/2024 LIPID PANEL VLDL cholesterol manpreet 12 mg/dL 5-40 Not Available [facility] ([facility]) [address] [place], [address], 08/01/2024 17:09:58 07/26/19 25 07/27/2024 LIPID PANEL LDL chol calc ([facility]) 71 mg/dL 0-99 Not Available [facility] [address] [place], [address], 08/01/2024 17:09:58 07/26/19 25 07/27/2024 T4, FREE T4,free(dire ct) 1.75 NG/dL 0.82-1 .77 Not Available [facility] ([facility]) [address] [place], [address], 08/01/2024 17:09:59 07/26/19 25 07/27/2024 COMP. METAB OLIC PANEL (14) glucose 87 mg/dL 70-99 Not Available [facility] ([facility]) [address] [place], [address], 08/01/2024 17:10:00 07/26/19 25 07/27/2024 COMP. METAB OLIC PANEL (14) BUN 26 mg/dL 8-27 Not Available [facility] ([facility]) [address] [facility] [place], [address], 08/01/2024 17:10:00 07/26/19 25 07/27/2024 COMP. METAB OLIC PANEL (14) creatinine 1.41 mg/dL 0.76-1 .27 above high normal Not Available [facility] ([facility]) [address] [facility] [place], [address], 08/01/2024 17:10:00 07/26/19 25 07/27/2024 COMP. METAB OLIC PANEL (14) eGFR 56 mL/mi n/1.7 3 >59 below low normal Not Available [facility] ([facility]) [address] [facility], [place], [address], 08/01/2024 17:10:00 07/26/19 25 07/27/2024 COMP. METAB OLIC PANEL (14) BUN/creatini ne ratio 18 10-24 Not Available [facility]) [address] [facility] [place], [address], 08/01/2024 17:10:00 07/26/19 25 07/27/2024 COMP. METAB OLIC PANEL (14) sodium 134 mmol/ L 134-14 4 Not Available [facility] ([facility]) [address] [facility] [place], [address], 08/01/2024 17:10:00 07/26/19 25 07/27/2024 COMP. METAB OLIC PANEL (14) potassium 4.6 mmol/ L 3.5-5. 2 Not Available [facility] ([facility]) [address] [facility] [place], [address], 08/01/2024 17:10:00 07/26/19 25 07/27/2024 COMP. METAB OLIC PANEL (14) chloride 93 mmol/ L 96-106 below low normal Not Available [facility] ([facility]) [address] [place], [address], 08/01/2024 17:10:00 07/26/19 25 07/27/2024 COMP. METAB OLIC PANEL (14) carbon dioxide, total 26 mmol/ L 20-29 Not Available [facility] ([facility]) [address] [place], [address], 08/01/2024 17:10:00 07/26/19 25 07/27/2024 COMP. METAB OLIC PANEL (14) calcium 8.5 mg/dL 8.6-10 .2 below low normal Not Available [facility] [address] [facility] [place], [address], 08/01/2024 17:10:00 07/26/19 25 07/27/2024 COMP. METAB OLIC PANEL (14) protein, total 6.5 g/dL 6.0-8. 5 Not Available [facility] [address] [facility] [place], [address], 08/01/2024 17:10:00 07/26/19 25 07/27/2024 COMP. METAB OLIC PANEL (14) albumin 3.9 g/dL 3.9-4. 9 Not Available [facility] ([facility]) [address] [facility] [place], [address], 08/01/2024 17:10:00 07/26/19 25 07/27/2024 COMP. METAB OLIC PANEL (14) globulin, total 2.6 g/dL 1.5-4. 5 Not Available [facility] ([facility]) [address] [facility] [place], [address], 08/01/2024 17:10:00 07/26/19 25 07/27/2024 COMP. METAB OLIC PANEL (14) bilirubin, total 0.9 mg/dL 0.0-1. 2 Not Available [facility] ([facility]) [address] [facility], [place], [address], 08/01/2024 17:10:00 07/26/19 25 07/27/2024 COMP. METAB OLIC PANEL (14) alkaline phosphatase 353 IU/L 44-121 above high normal Not Available [facility] ([facility]) [address] [place], [address], 08/01/2024 17:10:00 07/26/19 25 07/27/2024 COMP. METAB OLIC PANEL (14) AST (SGOT) 32 IU/L 0-40 Not Available [facility] ([facility]) [address] [place], [address], 08/01/2024 17:10:00 07/26/19 25 07/27/2024 COMP. METAB OLIC PANEL (14) ALT (SGPT) 22 IU/L 0-44 Not Available [facility] ([facility]) [address] [facility], [place], [address], 08/01/2024 17:10:00 07/26/19 25 07/27/2024 TSH TSH 3.830 uIU/m L 0.450- 4.500 Not Available [facility] ([facility]) [address] [place], [address], 08/01/2024 17:10:02 07/26/19 25 07/27/2024 CBC WITH DIFFE RENTI AL/PL ATELE T WBC - x10e3 /uL [facility] was unabl e to colle ct suffi cient speci men to perfo rm the follo wing test( s), and is provi ding the patie nt with re-co llect ion instr uctio ns. Not Available [facility] ([facility]) [address] [place], [address], 08/01/2024 17:10:03 07/26/19 25 07/27/2024 CBC WITH DIFFE RENTI AL/PL ATELE T RBC - Test not perfo rmed Not Available [facility] ([facility]) [address] [place], [address], 08/01/2024 17:10:03 07/26/19 25 07/27/2024 CBC WITH DIFFE RENTI AL/PL ATELE T hemoglobin - Test not perfo rmed Not Available [facility] ([facility]) [address] [place], [address], 08/01/2024 17:10:03 07/26/19 25 07/27/2024 CBC WITH DIFFE RENTI AL/PL ATELE T hematocrit - Test not perfo rmed Not Available [facility] ([facility]) [address] [facility], [place], [address], 08/01/2024 17:10:03 07/26/19 25 07/27/2024 CBC WITH DIFFE RENTI AL/PL ATELE T platelets - Test not perfo rmed Not Available [facility] ([facility]) [address] [facility], [place], [address], 08/01/2024 17:10:03 07/26/19 25 07/27/2024 CBC WITH DIFFE RENTI AL/PL ATELE T neutrophils - Test not perfo rmed Not Available [facility] ([facility]) [address] [place], [address], 08/01/2024 17:10:03 07/26/19 25 07/27/2024 CBC WITH DIFFE RENTI AL/PL ATELE T lymphs - Test not perfo rmed Not Available [facility] ([facility]) [address] [place], [address], 08/01/2024 17:10:03 07/26/19 25 07/27/2024 CBC WITH DIFFE RENTI AL/PL ATELE T monocytes - Test not perfo rmed Not Available [facility] ([facility] [address] [place], [address], 08/01/2024 17:10:03 07/26/19 25 07/27/2024 CBC WITH DIFFE RENTI AL/PL ATELE T eos - Test not perfo rmed Not Available [facility] ([facility]) [address] [place], [address], 08/01/2024 17:10:03 07/26/19 25 07/27/2024 CBC WITH DIFFE RENTI AL/PL ATELE T lymphs (absolute) - Test not perfo rmed Not Available [facility] ([facility]) [address] [place], [address], 08/01/2024 17:10:03 07/26/19 25 07/27/2024 CBC WITH DIFFE RENTI AL/PL ATELE T eos (absolute) - Test not perfo rmed Not Available [facility] ([facility]) [address] [place], [address], 08/01/2024 17:10:03 07/26/19 25 07/27/2024 CBC WITH DIFFE RENTI AL/PL ATELE T baso (absolute) - Test not perfo rmed Not Available [facility] ([facility]) [address] [place], [address], 08/01/2024 17:10:03 07/26/19 25 07/27/2024 PROST ATE-S [...] or kits canno t be used inter taryn turner . Resul ts canno t be inter prete d as absol fe evide nce of the prese nce or absen ce of carson garcia . Not Available [facility] ([facility]) [address] [place], [address], 08/01/2024 17:10:05 07/26/19 25 07/27/2024 TRIIO DOTHY JACQUES E (T3), FREE triiodothyro nine (T3), free 2.5 pg/mL 2.0-4. 4 Not Available [facility] ([facility]) [address] [place], [address], 08/01/2024 17:10:06 09/29/19 25 09/29/2024 IMMAT URE CELLS metamyelocyt es 4 % 0-0 above high normal Not Available [facility] ([facility]) [address] [place], [address], 09/29/2024 11:25:54 09/29/19 25 09/29/2024 IMMAT URE CELLS myelocytes 6 % 0-0 above high normal Not Available [facility] ([facility]) [address] [place], [address], 09/29/2024 11:25:54 09/29/19 25 09/29/2024 COMP. METAB OLIC PANEL (14) glucose 89 mg/dL 70-99 Not Available [facility] ([facility] [address] [place], [address], 09/29/2024 11:25:55 09/29/19 25 09/29/2024 COMP. METAB OLIC PANEL (14) BUN 28 mg/dL 8-27 above high normal Not Available [facility] ([facility] [address] [place], [address], 09/29/2024 11:25:55 09/29/19 25 09/29/2024 COMP. METAB OLIC PANEL (14) creatinine 0.81 mg/dL 0.76-1 .27 Not Available [facility] ([facility]) [address] [place], [address], 09/29/2024 11:25:55 09/29/19 25 09/29/2024 COMP. METAB OLIC PANEL (14) eGFR 100 mL/mi n/1.7 3 >59 Not Available [facility] ([facility]) [address] [facility], [place], [address], 09/29/2024 11:25:55 09/29/19 25 09/29/2024 COMP. METAB OLIC PANEL (14) BUN/creatini ne ratio 35 10-24 above high normal Not Available [facility] ([facility]) [address] [place], [address], 09/29/2024 11:25:55 09/29/19 25 09/29/2024 COMP. METAB OLIC PANEL (14) sodium 134 mmol/ L 134-14 4 Not Available [facility] ([facility]) [address] [place], [address], 09/29/2024 11:25:55 09/29/19 25 09/29/2024 COMP. METAB OLIC PANEL (14) potassium 4.9 mmol/ L 3.5-5. 2 Not Available [facility] ([facility]) [address] [place], [address], 09/29/2024 11:25:55 09/29/19 25 09/29/2024 COMP. METAB OLIC PANEL (14) chloride 98 mmol/ L 96-106 Not Available [facility] ([facility]) [address] [place], [address], 09/29/2024 11:25:55 09/29/19 25 09/29/2024 COMP. METAB OLIC PANEL (14) carbon dioxide, total 25 mmol/ L - Not Available [facility]) [address] [facility] [place], [address], 09/29/2024 11:25:55 09/29/19 25 09/29/2024 COMP. METAB OLIC PANEL (14) calcium 8.2 mg/dL 8.6-10 .2 below low normal Not Available [facility] ([facility] [address] [facility] [place], [address], 09/29/2024 11:25:55 09/29/19 25 09/29/2024 COMP. METAB OLIC PANEL (14) protein, total 6.2 g/dL 6.0-8. 5 Not Available [facility] ([facility]) [address] [facility] [place], [address], 09/29/2024 11:25:55 09/29/19 25 09/29/2024 COMP. METAB OLIC PANEL (14) albumin 3.6 g/dL 3.9-4. 9 below low normal Not Available [facility] ([facility] [address] [facility] [place], [address], 09/29/2024 11:25:55 09/29/19 25 09/29/2024 COMP. METAB OLIC PANEL (14) globulin, total 2.6 g/dL 1.5-4. 5 Not Available [facility] ([facility]) [address] [facility] [place], [address], 09/29/2024 11:25:55 09/29/19 25 09/29/2024 COMP. METAB OLIC PANEL (14) bilirubin, total 0.5 mg/dL 0.0-1. 2 Not Available [facility] ([facility]) [address] [facility] [place], [address], 09/29/2024 11:25:55 09/29/19 25 09/29/2024 COMP. METAB OLIC PANEL (14) alkaline phosphatase 537 IU/L 44-121 above high normal Not Available [facility] ([facility]) [address] [place], [address], 09/29/2024 11:25:55 09/29/19 25 09/29/2024 COMP. METAB OLIC PANEL (14) AST (SGOT) 13 IU/L 0-40 Not Available [facility] ([facility]) [address] [place], [address], 09/29/2024 11:25:55 09/29/19 25 09/29/2024 COMP. METAB OLIC PANEL (14) ALT (SGPT) 9 IU/L 0-44 Not Available [facility] ([facility] [address] [place], [address], 09/29/2024 11:25:55 09/29/19 25 09/29/2024 CBC WITH DIFFE RENTI AL/PL ATELE T WBC 6.8 x10e3 /uL 3.4-10 .8 Not Available [facility] ([facility] [address] [place], [address], 09/29/2024 11:25:56 09/29/19 25 09/29/2024 CBC WITH DIFFE RENTI AL/PL ATELE T RBC 1.97 x10e6 /uL 4.14-5 .80 alert low Polyc hroma héctor prese nt Ovalo cytes prese nt. Not Available [facility] ([facility]) [address] [place], [address], 09/29/2024 11:25:56 09/29/19 25 09/29/2024 CBC WITH DIFFE RENTI AL/PL ATELE T hemoglobin 7.6 g/dL 13.0-1 7.7 below low normal Not Available [facility] ([facility]) [address] [place], [address], 09/29/2024 11:25:56 09/29/19 25 09/29/2024 CBC WITH DIFFE RENTI AL/PL ATELE T hematocrit 20.9 % 37.5-5 1.0 below low normal Not Available [facility] ([facility]) [address] [place], [address], 09/29/2024 11:25:56 09/29/19 25 09/29/2024 CBC WITH DIFFE RENTI AL/PL ATELE T MCV 106 fL 79-97 above high normal Not Available [facility] ([facility]) [address] [place], [address], 09/29/2024 11:25:56 09/29/19 25 09/29/2024 CBC WITH DIFFE RENTI AL/PL ATELE T MCH 38.6 pg 26.6-3 3.0 above high normal Not Available [facility] ([facility]) [address] [place], [address], 09/29/2024 11:25:56 09/29/19 25 09/29/2024 CBC WITH DIFFE RENTI AL/PL ATELE T MCHC 36.4 g/dL 31.5-3 5.7 above high normal Not Available [facility] ([facility] [address] [place], [address], 09/29/2024 11:25:56 09/29/19 25 09/29/2024 CBC WITH DIFFE RENTI AL/PL ATELE T RDW 15.8 % 11.6-1 5.4 above high normal Not Available [facility] ([facility] [address] [place], [address], 09/29/2024 11:25:56 09/29/19 25 09/29/2024 CBC WITH DIFFE RENTI AL/PL ATELE T platelets 117 x10e3 /uL 150-45 0 below low normal Actua l plate let count may be somew hat highe r than repor aaron due to aggre gatio n of plate lets in this sampl e. Not Available [facility] ([facility]) [address] [facility], [place], [address], 09/29/2024 11:25:56 09/29/19 25 09/29/2024 CBC WITH DIFFE RENTI AL/PL ATELE T neutrophils 47 % notest ab. Rare blast seen on scann ing. Not Available [facility] ([facility] [address] [facility], [place], [address], 09/29/2024 11:25:56 09/29/19 25 09/29/2024 CBC WITH DIFFE RENTI AL/PL ATELE T lymphs 28 % notest ab. Not Available [facility] ([facility]) [address] [facility], [place], [address], 09/29/2024 11:25:56 09/29/19 25 09/29/2024 CBC WITH DIFFE RENTI AL/PL ATELE T monocytes 11 % notest ab. Not Available [facility] ([facility] [address] [facility], [place], [address], 09/29/2024 11:25:56 09/29/19 25 09/29/2024 CBC WITH DIFFE RENTI AL/PL ATELE T eos 1 % notest ab. Not Available [facility] ([facility] [address] [facility], [place], [address], 09/29/2024 11:25:56 09/29/19 25 09/29/2024 CBC WITH DIFFE RENTI AL/PL ATELE T basos 3 % notest ab. Not Available [facility] ([facility] [address] [facility], [place], [address], 09/29/2024 11:25:56 09/29/19 25 09/29/2024 CBC WITH DIFFE RENTI AL/PL ATELE T immature cells NOTE Not Available [facility] [address] [facility], [place], [address], 09/29/2024 11:25:56 09/29/19 25 09/29/2024 CBC WITH DIFFE RENTI AL/PL ATELE T neutrophils (absolute) 3.2 x10e3 /uL 1.4-7. 0 Not Available [facility] ([facility] [address] [place], [address], 09/29/2024 11:25:56 09/29/19 25 09/29/2024 CBC WITH DIFFE RENTI AL/PL ATELE T lymphs (absolute) 1.9 x10e3 /uL 0.7-3. 1 Not Available [facility] ([facility] [address] [place], [address], 09/29/2024 11:25:56 09/29/19 25 09/29/2024 CBC WITH DIFFE RENTI AL/PL ATELE T monocytes(ab solute) 0.7 x10e3 /uL 0.1-0. 9 Not Available [facility] ([facility]) [address] [place], [address], 09/29/2024 11:25:56 09/29/19 25 09/29/2024 CBC WITH DIFFE RENTI AL/PL ATELE T eos (absolute) 0.1 x10e3 /uL 0.0-0. 4 Not Available [facility] ([facility]) [address] [place], [address], 09/29/2024 11:25:56 09/29/19 25 09/29/2024 CBC WITH DIFFE RENTI AL/PL ATELE T baso (absolute) 0.2 x10e3 /uL 0.0-0. 2 Not Available [facility] ([facility] [address] [place], [address], 09/29/2024 11:25:56 09/29/19 25 09/29/2024 CBC WITH DIFFE RENTI AL/PL ATELE T NRBC 2 % 0-0 above high normal Not Available [facility] [address] [place], [address], 09/29/2024 11:25:56 09/29/19 25 09/29/2024 CBC WITH DIFFE ESTRADA AL/PL ATELE T hematology comments: NOTE: Aleksandr monahan slick leyva was perfo rmed. Not Available [facility] ([facility]) [address] [facility], [place], [address], 09/29/2024 11:25:56 06/03/20 24 06/03/2024 PFT, compl ete No observ ation record ed. [address] [facility], [place], [address], 06/10/2024 16:43:42 06/05/20 24 06/03/2024 CT, abdom en + pelvi s, w/ contr ast No observ ation record ed. [address] [facility], [place], [address], 06/10/2024 17:05:51 06/10/19 CT, chest , w/ contr ast No observ ation record ed. [address] [facility], [place], [address], 06/10/2024 17:05:50 08/12/19 25 08/11/2024 biops y, lymph node, ultra sound gal nce (PROC ) No observ ation record ed. [address] [facility], [place], [address], 08/11/2024 21:25:58 08/12/19 25 08/11/2024 biops y, lymph node, ultra sound gal nce (PROC ) No observ ation record ed. [address] [facility], [place], [address], 08/11/2024 21:25:59 09/27/19 25 09/26/2024 PET, skull base to mid-t high No observ ation record ed. [address], [place], [address], 09/27/2024 09:21:10 Result Notes None recorded. Problems Name Problem SNOMED Code Status Onset Date Resolution Date Notes Provider Name and Address Organization Details Recorded Time Chronic obstructive pulmonary disease 28208442 Active 2023 COREEN Chan, [place] - [facility] 4 09:18:24 Essential hypertension 48238621 Active 2023 Melony Patterson MA null, [place] [facility] 4 11:12:58 Serum vitamin B12 below reference range 879054031 Active 2023 CORE[place] [facility] 4 11:12:59 Obesity 860427547 Active 2023 COREEN [place] [facility] 4 11:13:01 SARS-CoV-2 vaccination declined 0436245949 Active 2023 Tatyana Crowell MD Attn: Jean garcia,[address] [place], [address], [place] - [facility] 4 22:00:35 Administratio n of influenza vaccine Active 2023 Tatyana Crowell MD Attn: Jean garcia,[address] [place], [address], [place] [facility] 4 22:00:36 Inguinal lymphadenopat hy 421414898 Active 2024 Melony Patterson [place] [facility] 5 16:15:41 Body mass index 20-24 - normal 272114247 Active 2024 Melony Patterson [place] [facility] 5 16:15:42 Screening for malignant neoplasm of prostate Active 2024 Melony Patterson [place] [facility] 5 16:15:45 Lesion of bone 824106456 Active 2024 COREEN Chan[place] [facility] 5 16:15:46 Problem Notes None recorded. Procedures Surgical History Date Name Laterality Status Provider Name and Address Organization Details Recorded Time Tonsillectomy completed Stefanie Penn MA [place] - [facility] 08/27/2023 16:42:41 Imaging Results Imaging Date Name Status LastModified by [facility] Details LastModified Time 06/03/2024 PFT, complete completed [address] [facility], [place], [address], 06/10/2024 16:43:42 06/03/2024 CT, abdomen + pelvis, w/ contrast completed [address] [place] [address], [address], 06/10/2024 17:05:51 06/10/2024 CT, chest, w/ contrast completed [address] [facility], [place], [address], 06/10/2024 17:05:50 08/11/2024 biopsy, lymph node, ultrasound guidance (PROC) completed [address] [place] [address], [address], 08/11/2024 21:25:58 08/11/2024 biopsy, lymph node, ultrasound guidance (PROC) completed [address] [facility], [place], [address], 08/11/2024 21:25:59 09/26/2024 PET, skull base to mid-thigh completed [address] [place] [address], [address], 09/27/2024 09:21:10 Procedure Notes None recorded. Medical [...] 89 % 104 mm[Hg] 72 mm[Hg] Sofia [facility] 4 15:46:49 Date Recorded Body height Body mass index (BMI) Body weight Heart rate Oxygen saturation Oxygen saturation in Arterial blood by Pulse oximetry Systolic blood pressure Diastolic blood pressure Provider Name and Address Organization Details Last Updated DateTime 4 175.26 cm 24.8 kg/m2 36011.8 8 g 92 /min 92 % 92 % 130 mm[Hg] 78 mm[Hg] Sofia [facility] 4 15:06:58 Date Recorded Body height Body mass index (BMI) Body weight Heart rate Oxygen saturation Oxygen saturation in Arterial blood by Pulse oximetry Systolic blood pressure Diastolic blood pressure Provider Name and Address Organization Details Last Updated DateTime 5 175.26 cm 23 kg/m2 24496.4 1 g 96 /min 83 % 83 % 106 mm[Hg] 60 mm[Hg] [facility] 5 15:29:39 Date Recorded Body height Body mass index (BMI) Body weight Heart rate Oxygen saturation Oxygen saturation in Arterial blood by Pulse oximetry Systolic blood pressure Diastolic blood pressure Provider Name and Address Organization Details Last Updated DateTime 5 175.26 cm 20.7 kg/m2 52665.0 1 g 95 /min 96 % 96 % 106 mm[Hg] 64 mm[Hg] [facility] 5 15:50:02 Date Recorded Body height Body mass index (BMI) Body weight Heart rate Oxygen saturation Oxygen saturation in Arterial blood by Pulse oximetry Systolic blood pressure Diastolic blood pressure Provider Name and Address Organization Details Last Updated DateTime 5 175.26 cm 19.3 kg/m2 77876.1 6 g 70 /min 96 % 96 % 104 mm[Hg] 60 mm[Hg] Love Morrison MA [facility] 5 13:01:46 Social History Question Answer Notes LastModified by Organizat ion Details LastModified Time Tobacco Smoking Status Current Every Day Smoker COREEN Sheldon, [facility] 08/27/2023 16:42:26 Do You Have An Advance [...] not available 12/08/2023 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 [id number] Not Sleeping At Night. Information not available [...] LastModified by Organization Details LastModified Time Father Harmful pattern of use of alcohol [email or web address] Not available 2023 16:41:31 Father Heart disease [email or web address] Not available 2023 16:41:42 Medical History Condition Response Coronary Artery Disease N Other N Atrial Fibrillation N High Blood Pressure Y Depression N COPD Y Blood Clots N Anxiety Disorder N Muscle, Joint, or Bone Problems N Acid Reflux (GERD) N Cancer N Stroke N High Cholesterol N Liver Disease N Headaches N Kidney or Bladder Problems N Thyroid Problems N GI Problems N Skin Problems N Anemia N Heart Attack (ID) N Diabetes N Seizures/Epilepsy N Asthma N Allergies N Hepatitis N Osteoporosis N Heart Failure N Immunizations Vaccine Type Date Status Note Provider Nam e and Address Organization Details Recorded Time Influenza, MDCK, quadrivalent, PF 0 completed COREEN Chan, [place] - [facility] 12/08/2023 10:42:54 Influenza, split virus, trivalent, preservative 4 completed COREEN Chan, [place] [facility] 12/08/2023 10:42:54 Influenza, split virus, quadrivalent, PF 1 completed COREEN Chan[place] [facility] 12/08/2023 10:42:54 Past Encounters Encounter ID Performer Location Encounter Start Date Encounter Closed Date Diagnosis/Indication Diagnosis SNOMED-CT Code Diagnosis ICD10 Code Diagnosis Note [id number] MD Holger Davis (Adult Med) [address] [place] [phone] 08/27/2023 16:26:37 08/27/2023 17:28:57 Chronic obstructive pulmonary disease 98256972 J44.9 Screening for cardiovascular system disease 205497456 Z13.6 Long-term drug therapy 847166769 Z79.899 Erythrocytosis 381556991 D75.1 [id number] MD Holger Davis (Adult Med) [address] [place] [phone] 12/08/2023 10:12:56 12/08/2023 11:16:29 Obesity 095610526 E66.8 Chronic ob structive pulmonary disease 60928206 J44.9 Essential hypertension 96826656 I10 Serum marky min B12 below reference range 493879475 R79.89 Dyspnea 876999547 R06.01 [id number] MD Holger Davis (Adult Med) [address] [place] [address] [phone] 03/15/2024 15:25:17 03/15/2024 17:20:29 Chronic obstructive pulmonary disease [id number] J44.9 Essential hypertension 01025096 I10 Serum marky min B12 below reference range 024177124 R79.89 Administra tion of influenza vaccine 14975332 Z23 SARS-CoV-2 vaccination declined 3736712984 Z28.21 [id number] MD Holger Davis (Adult Med) [address] [place] [address] [phone] 04/05/2024 15:42:28 04/05/2024 16:22:35 [id number] MD Holger Davis (Adult Med) [address] [place] [address] [phone] 05/03/2024 14:46:52 05/03/2024 15:45:45 Body mass index 20-24 - normal 909043156 Z68.24 Essential hypertension 26603372 I10 Prediabetes 514366622 R7 3.03 Abdominal pain 28812028 R10.9 CT of chest abnormal 264 3212537 5487121 R93.89 Chronic ob structive pulmonary disease 06424624 J44.9 [id number] MD Holger Davis (Adult Med) [address] [place] [address] [phone] 0 07/26/2024 15:12:54 07/26/2024 16:17:16 Body mass index 20-24 - normal 928537563 Z68.24 Inguinal lymphadenopathy 072595761 R59.0 Essential hypertension 50834679 I10 Screening for malignant neoplasm of prostate 745438933 Z12.5 Lesion of bone 475380429 M89.9 Chronic ob structive pulmonary disease 41583413 J44.9 Computed t omography result abnormal 371818356 R93.89 [id number] MD Holger Davis (Adult Med) [address] [place] [address] [phone] 0 08/30/2024 15:28:55 08/30/2024 17:26:22 Body mass index 20-24 - normal 814022538 Z68.24 Overweight 414375453 E66 .3 Metastatic malignant neoplasm to prostate 20302563 C79.82 Chronic ob structive pulmonary disease 91820320 J44.9 [id number] MD Holger Davis (Adult Med) [address] [place] [address] [phone] 09/28/2024 12:15:54 09/28/2024 13:56:40 Cigarette smoker 32942014 F17.210 Smoker 08021235 F17.200 Body mass index less than 20 735530510 Z68.1 Underweight 557698802 R6 3.6 Anemia 001551578 D64.9 Chronic ob structive pulmonary disease 08577724 J44.9 Metastatic malignant neoplasm to bone 32862846 C61 C79.51 Health Concerns Section Related Observation LastModified by Organization Detai ls LastModified Time None Recorded Concern Status LastModified by Organization Details LastModified Time None Recorded Advance Directives Directive N: Payers Encounter Date Sequence Insurance Name Policy Number Policy Spann Covered Member ID Spann Member ID Guarantor Name 04/05/2024 1 [facility] [id number] Robert Maloney [id number] Robert Maolney 05/03/2024 1 [facility] [id number] Robert Maloney [id number] Robert Masenaman 07/26/2024 1 [facility] [id number] Robert Maloney [id number] Robert Masenaman 08/30/2024 1 [facility] [id number] Robert Maloney [id number] Robert Deeevenaman 09/28/2024 1 [facility] [id number] Robert Maloney [id number] Robert Maloney Notes Date Note Type Note [...] weight Tatyana Crowell MD Attn: Accounting, [facility], [place], [address], [facility] 05/07/2024 16:14:29 07/26/2024 text/html he did not get t he biopsy yet he does have some pain in his legs bothers him at night it is fairly severe. 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 He is down 16 lb from last visit his appetite is poor Tatyana Crowell MD Attn: Accounting, [address] [facility], [place], [address], [place] - [facility] 09/02/2024 21:47:16 09/28/2024 text/html Still losing yariel ght having pain urinating okay hard time sleeping Tatyana Crowell MD Attn: Accounting, [address] [facility], [place], [address], [place] - [facility] 10/02/2024 20:21:04
--- OUTSIDE RECORDS SUMMARY | 2024-10-04 00:25 | XMS_ITS | Encounter Summary ---
Author Organization [facility] Address [address] [place] [address] Care Team Providers Care Gm Name Role Phone Jaxon Crowell MD Primary Care Provider Encounter Details Date Type Department Care Team (Late st Contact Info) Description 10/03/2024 Abstract [facility] Oncology and Hematology - [place] [address] [facility] [address] [place] [address] Danilo Jerez MD [address] [facility] [address] [place] [address] Social History Tobacco Use Types [...] on filedocumented in this encounter Care Teams Gm Relationship Specialty Start Date End Date Jaxon Crowell MD [address] [place] [phone] PCP - General Internal Medicine 09/27/24 documented as of this encounter
--- OUTSIDE RECORDS SUMMARY | 2024-10-04 00:25 | XMS_ITS | Clinical Summary ---
Author Organization [facility] Address [address] [place] [address] Care Team Providers Care Teacher Education Director Name Role Phone Unavailable Primary Care Provider Unavailabl e Source Comments [facility],non-owned Affiliates and Associated Physician Practices is amultiple site organization consisting of ambulatory clinics and hospital sitesin [place], [place], [place] and [place]. This disclosure is being madepursuant to the Care Everywhere program and may not contain all information available regarding this patient. 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
--- OUTSIDE RECORDS SUMMARY | 2024-10-04 00:25 | XMS_ITS | CONTINUITY OF CARE DOCUMENT ---
Author Name ruel lipscomb Address Unknown Organization [facility] Address [address] [place] [address] Phone [phone] Care Team Providers Care Mothercraft Nurse Name Role Phone Robert Freeman MD Unavailable [phone] TATYANA DAWN MD Unavailable TATYANA DAWN MD Unavailable PROBLEMS Condition Status Date Provider Notes Shortness of breath (SOB) active Jesse jha per PCP LÓPEZ Tobacco abuse active Robert Freeman MD Leg edema active Robert Freeman MD Orthopnea active Robert Freeman MD ENCOUNTERS Date Type Provider Location Encounter Diag nosis - In-person encounter Office Visit Robert Freeman MD [facility] - In-person encounter Office Visit Robert Freeman MD [facility] Tobacco abuseLeg edemaOrthopnea VITAL SIGNS Date [...] ID [facility] Other [id number] ADVANCE DIRECTIVES Name Date DISCUSSED - NO DECISION MADE TREATMENT PLAN Date Name Performer [id number],C,T he Patient was reencouraged to stop smoking. Emilia Amos [id number],C,P t complained of SOB with minimal exertion, orthopnea, heavy smoker. Also had leg swelling which improved with Lasix. Echo showed EF 45%. Marked RV dilation with PA pressure 64 and mmHg. I recommend R/L cardiac cath, chest CT with contrast, venous duplex of the LE, PFTs, and will check BNP levels. I advised him to stop smoking. Kaiden's test was normal. Emilia Amos [id number],C,P t complained of SOB with minimal exertion, orthopnea, heavy smoker. Also had leg swelling which improved with Lasix. Echo showed EF 45%. Marked RV dilation with PA pressure 64 and mmHg. I recommend R/L cardiac cath, chest CT with contrast, venous duplex of the LE, PFTs, and will check BNP levels. I advised him to stop smoking. Kaiden's test was normal. Emilia Amos [id number],C,P t complained of SOB with minimal exertion, [...] with a recent admission to [facility] for SOB and leg swelling. His [...] with a recent admission to [facility] for SOB and leg swelling. His [...] Study Home PROBNP, N TERMINAL DLCO - 19151 FRC - 96190 FVC - 20956 PROTHROMBIN TIME WIT H INR LIPID PANEL CBC (INCLUDES DIFF/P LT) BASIC METABOLIC PANE L W/EGFR DLCO - 73091 FRC - 72551 FVC - 66270 Venous Doppler Bilat eral LE - Reflux Cardiac Cath - L/R- SLHV B TYPE NATRIURETIC P EPTIDE (BNP) CT Chest with contra st Complete Echo HISTORY OF PROCEDURES Procedure Date Procedure Name Provider Procedure Notes S tatus Complex e/m visit add on Robert Freeman MD completed EKG Robert Freeman MD completed
[2024-10-04 12:30] LABS: Hematocrit 30.6 % (42.0-52.0); Hemoglobin 9.7 g/dL (14.0-18.0)
--- NOTE | 2024-10-04 13:17 | P.PNAN_ITS ---
Anes - Initial Pre Proc Eval Procedure: Operation Date: 10/04/24 13:30 Proposed Procedures p Insertion Jeramy Cath - Orlando Kendrick MD Date/Time: 10/04/24 13:17 Surgeon: Orlando Kendrick MD Pre Op Diagnosis: Prostate Ca Patient Data Age: 64 Gender: M Height: 1.73 m Weight: 59.8 kg Last Vital Signs Temp 36.8 C 10/04/24 11:40 Pulse 83 10/04/24 11:40 Resp 14 10/04/24 11:40 BP 115/64 10/04/24 11:40 Pulse Ox 95 10/04/24 11:40 O2 Del Method Room Air 10/04/24 11:40 Allergies Allergy/AdvReac Type Severity Reaction Status Date / Time No Known Allergies Allergy Verified 10/04/24 12:53 Home Medications ?Medication ?Instructions ?Recorded ?Confirmed ?Type albuterol sulfate 90 mcg/actuation 2 inh inhalation Q4H PRN shortness 09/22/24 09/30/24 History aerosol inhaler of breath or wheezing apalutamide 60 mg tablet (Erleada) 60 mg PO QID 09/22/24 10/04/24 History budesonide 160 mcg-glycopyr 9 2 inh inhalation BID COPD 09/22/24 10/04/24 History mcg-formot 4.8 mcg/actuation HFA inhaler (Breztri Aerosphere) furosemide 20 mg tablet 20 mg PO DAILY 09/22/24 10/04/24 History levothyroxine 25 mcg tablet 25 mcg PO DAILY 09/22/24 10/04/24 History oxycodone 10 mg tablet 10 mg PO Q8H 09/22/24 09/30/24 History tamsulosin 0.4 mg capsule 0.4 mg PO HS 09/22/24 10/04/24 History Laboratory Tests 10/04/24 12:12 Hgb 9.7 L g/dL (14.0-18.0) Hct 30.6 L % (42.0-52.0) Patient hx anesthesia problems: none Family hx anesthesia problems: none Results Review: All pre-operative results and documents have been reviewed as part of the pre- operative evaluation. FOR[facility]LY [facility] Past Medical History Medical History (Updated 10/04/24 @ 13:17 by Jimmy Page DO) Prostate cancer metastatic to bone COPD (chronic obstructive pulmonary disease) Social History Social History Smoking packs per day: 1.5 Smoking cigarettes per day: 30.0 Years smoked: 45 Smoking pack-years: 67.50 Smoking status: Current every day smoker Tobacco type: cigarettes Alcohol intake: former Alcohol use details: pt. states he does not drink anymore, but did drink all his life. Drank 3-5 beers every week night and more on weekends. Substance use: never Substance use type: does not use Living arrangements: alone Anes - Eval Final PreProcedure Day of Procedure 10/04/24 13:17 Patient weight: normal Heart: regular rate and rhythm Lungs: clear to auscultation and normal air movement Airway: Mallampati scale class III Neurological: alert and oriented Last oral intake: >/= 8 hours ASA classification: III Emergent: no Anesthetic plan: proceed Anesthesia type and monitoring: general GIVS and standard monitoring Results Review: All pre-operative results and documents have been reviewed as part of the pre- operative evaluation. Informed Consent: The patient's anesthetic plan and its attendant risks and benefits were discussed with the patient/family/POA. Questions were solicited and answers provided to the satisfaction of the patient/family/POA.
--- NOTE | 2024-10-04 13:41 | PM.IMHP ---
H&P: HPI History of Present Illness Date/Time: 10/04/24 13:41 Chief Complaint: Metastatic prostate CA to bone Narrative: Pt presents with metastatic prostate CA to bone. He is to undergo chemo therapy tx. He presents to have a portacatheter placed for chemo tx. He received a blood transfusion last week and Hb level is acceptable now for anesthesia. No prior port placement. Review of Systems Review of Systems: The remainder of the review of systems to include constitutional, HEENT, cardiovascular, respiratory, GI, , integumentary, musculoskeletal, endocrine, immunologic, hematologic, psychiatric, and neurologic are all negative except for which is mentioned above in the HPI. [facility]LY [facility] Past Medical History Medical History Prostate cancer metastatic to bone COPD (chronic obstructive pulmonary disease) Social History Social History Smoking packs per day: 1.5 Smoking cigarettes per day: 30.0 Years smoked: 45 Smoking pack-years: 67.50 Smoking status: Current every day smoker Tobacco type: cigarettes Alcohol intake: former Alcohol use details: pt. states he does not drink anymore, but did drink all his life. Drank 3-5 beers every week night and more on weekends. Substance use: never Substance use type: does not use Living arrangements: alone Meds Home Medications and Allergies Home Medications ?Medication ?Instructions ?Recorded ?Confirmed ?Type albuterol sulfate 90 mcg/actuation 2 inh inhalation Q4H PRN shortness 09/22/24 09/30/24 History aerosol inhaler of breath or wheezing apalutamide 60 mg tablet (Erleada) 60 mg PO QID 09/22/24 10/04/24 History budesonide 160 mcg-glycopyr 9 2 inh inhalation BID COPD 09/22/24 10/04/24 History mcg-formot 4.8 mcg/actuation HFA inhaler (Breztri Aerosphere) furosemide 20 mg tablet 20 mg PO DAILY 09/22/24 10/04/24 History levothyroxine 25 mcg tablet 25 mcg PO DAILY 09/22/24 10/04/24 History oxycodone 10 mg tablet 10 mg PO Q8H 09/22/24 09/30/24 History tamsulosin 0.4 mg capsule 0.4 mg PO HS 09/22/24 10/04/24 History Allergies Allergy/AdvReac Type Severity Reaction Status Date / Time No Known Allergies Allergy Verified 10/04/24 12:53 Vital Signs Vital Signs - 24 hr 10/04/24 11:40 Temperature 36.8 C Pulse Rate 83 Respiratory Rate 14 Blood Pressure 115/64 Pulse Oximetry 95 Oxygen Delivery Room Air Exam Const: General: comfortable and no acute distress HENMT: Ears: TM's normal bilaterally Face/Nose/Sinus: Normal nares present Mouth: Yes moist mucous membranes Eyes: General: appearance normal, both eyes and all related structures Sclera: sclerae normal Pupils: Equal, round and reactive pupils present EOM: EOMs intact bilaterally Neck: Neck: supple and no JVD Chest: Other: No masses or rashes bilateral chest wall. Resp: Effort & Inspection: normal respiratory effort Auscultation: clear to auscultation bilaterally Cardio: Rate: regular rate Rhythm: regular rhythm GI: GI Palp: No Soft to palpation, No Firmness to palpation present (GI), No Tenderness to palpation present (GI), No Guarding due to palpation present (GI) and No Hernia present Skin: General skin exam: normal color and no rashes or lesions noted Neuro: General: gait normal Speech: normal speech Motor exam (neuro): 5/5 motor strength present throughout Sensory Exam: normal sensation Extrem: General: normal to inspection Psych: Mental Status: mental status grossly normal Affect: normal affect H&P: Results Labs Labs: Short CBC 10/04/24 Range/Units 12:12 Hgb 9.7 L (14.0-18.0) g/dL Hct 30.6 L (42.0-52.0) % Assessment and Plan Assessment and plan (1) Prostate cancer metastatic to bone: Code(s): C61 - Malignant neoplasm of prostate; C79.51 - Secondary malignant neoplasm of bone Status: Acute Assessment and Plan: Will proceed to OR today for placement of portacatheter under IV sedation and local. Risks to include bleeding needing additional blood transfusions and iatrogenic pneumothorax needing placement of chest tube was discussed. He wishes to proceed.
--- NOTE | 2024-10-04 13:49 | WPDHPUPDATE1 ---
History and Physical Update Update Date/Time: 10/04/24 13:49 History and Physical has been reviewed, including an updated exam of the patient. There are NO changes in the patient's condition. Risks, benefits, and alternatives have been discussed and questions answered. Patient agrees to proceed with procedure.
--- NOTE | 2024-10-04 13:50 | WPDHPUPDATE1 ---
History and Physical Update Update Date/Time: 10/04/24 13:50 History and Physical has been reviewed, including an updated exam of the patient. There are NO changes in the patient's condition. Risks, benefits, and alternatives have been discussed and questions answered. Patient agrees to proceed with procedure.
[2024-10-04] MEDS: ceFAZolin 2 GM/D5W 50 ML 2 GM/50 ML BAG IVPB (13:54)
[2024-10-04] MEDS: HEPARIN SODIUM 1,000 UNITS/ML VIAL 1000 UNITS IV PUSH (14:21)
[2024-10-04] MEDS: HEPARIN SODIUM 5,000 UNITS/ML VIAL 5000 UNITS IRRIGATION (14:22)
[2024-10-04] MEDS: LIDO 1%/EPINEPHRINE 1:100,000 50 ML VIAL 10 ML INFILTRATE (14:23)
[2024-10-04] MEDS: BUPivacaine HCL 0.5% 10 ML AMP INFILTRATE (14:24)
[2024-10-04] MEDS: LACTATED RINGERS 1,000 ML 30 ML IV CONT (14:47)
--- NOTE | 2024-10-04 14:51 | W.PM.PROC2 ---
Procedure Note - Detailed Date of Procedure 10/04/24 Pre-op Diagnosis Metastatic Prostate Ca Post-op Diagnosis Same Procedure Performed Placement of right internal jugular vein single-lumen port a catheter with intraoperative fluoroscopy. Surgeon Orlando Kendrick MD Resource Conservation Manager KIRAN Amaro Anesthesia MAC and Local Indications Patient is a 64-year-old gentleman who unfortunately has metastatic prostate cancer to his spine and bone. He is to start chemotherapy treatments and presents today for placement of denise catheter for administration of chemotherapy treatments. Findings None significant Description of Procedure After informed consent was obtained patient brought to the operating room was placed supine position and then LMA anesthesia was administered. The bilateral upper anterior neck and chest was then prepped and draped usual sterile fashion. A time-out was then performed correctly identifying the patient as well as procedure to be performed. He was given perioperative IV antibiotics. The patient was then placed in the head-down Trendelenburg position. The right internal jugular vein was approach for placement denise catheter. 1% lidocaine mixed with 0.5% Marcaine in a 50 50 mixture some epinephrine was injected between the 2 heads of the right sternocleidomastoid muscle. Utilizing a long 18gauge spinal needle I then was able to percutaneously cannulate the right internal jugular vein 1st pass any difficulty. There was prompt return of dark venous appearing blood. A guidewire was advanced through the needle into the right internal jugular vein and subsequently into the right atrium of the heart via the superior vena cava. Intraoperative fluoroscopy was used to confirm the proper placement of the tip of the guidewire. I then created the subcutaneous port pocket just below the midportion of the right clavicle. The local anesthetic mixture was then injected in this area then a transverse incision with a scalp was then made down through the dermis of the skin. Electrocautery dissection was then used to dissect down to the anterior pectoralis muscle fascia. With a combination of electrocautery and blunt finger dissection I created a subcutaneous port pocket just at the level of the anterior pectoralis major fascia. I then enlarged the small incision on the right anterior lateral neck with a scalpel and then used a tunneler device to bring the 9.6 Hebrew single-lumen catheter between the chest incision and the neck incision. I then advanced a dilator and breakaway sheath over the guidewire. The guidewire and dilator were removed leaving the sheath in place. The 9.6 Hebrew single-lumen catheter was advanced through the sheath into the right internal jugular vein subsequently into the right atrium the heart via the superior vena cava. Intraoperative fluoroscopy was then used to visualize the tip of the catheter and then externals the chest I pulled back on the catheter until the tip was in the distal superior vena cava. The catheter was then cut to appropriate length the skin level and attached to the titanium Smart Port. The port was then secured the subcutaneous port pocket on 3 sides utilizing 3-0 Prolene sutures. I then irrigated out the port pocket with sterile saline solution hemostasis was good. I then accessed the port with a Patel needle and aspirated blood easily and was flushed with heparinized saline solution. I then close incision on the chest utilizing interrupted 3-0 Vicryl sutures the subcutaneous tissues. This was followed by another layer of interrupted 3-0 Vicryl sutures in the superficial subcutaneous tissues. The skin edges were then approximated utilizing a running subcuticular 4 Monocryl suture. The small right anterior lateral neck incision was also closed with a 4-0 Monocryl suture as well. The incisions were then cleaned the skin glue was applied. Lastly I then accessed the port percutaneously through the skin with a Patel needle and it once again aspirated blood easily and was flushed with 5000units of IV heparin. The patient tolerated the procedure well no complications. All sponges, needles, and instrument counts were correct at the end procedure. EBL was _ 25 __cc. The patient was awakened and taken to recovery in stable and satisfactory condition. Portable chest x-ray postop was performed and reading of the chest x-ray by the radiologist is pending at the time of this dictation. Implants 9.6 Hebrew single-lumen silastic catheter attached to titanium Smart Port placed via the right internal jugular vein Estimated Blood Loss 25 Drains No Packing No Pathology None sent Complications No immediate complications Condition Stable Disposition PACU [facility] Billing Surgery - Charge Forward: Surgery Billing
== END 2024-10-04 16:35 | disposition home or self-care (01) ==
PROVIDERS: Anesthesiology; PCP Internal Medicine; Visit Provider Surgery
PROC: (CPT 36561; principal; 2024-10-04 13:30)
DX: C61 Malignant neoplasm of prostate (principal); C79.51 Secondary malignant neoplasm of bone; J44.9 Chronic obstructive pulmonary disease, unspecified; F17.210 Nicotine dependence, cigarettes, uncomplicated; Z79.51 Long term (current) use of inhaled steroids; Z79.891 Long term (current) use of opiate analgesic
CPT/HCPCS: 36561; 36415; 77001; 85014; 85018; C1788; J0690; J1100; J1644; J2004; J2371; J2405; J2704; J3010; J7030; J7120

== ENCOUNTER 2024-10-21 10:30 | Inpatient (IN) | payer OTHER, SELFPAY ==
[2024-10-21] VITALS (19 sets, daily range): BP systolic 94–124; BP diastolic 49–76; PULSE 71–86; RESP 12–27; TEMP 36.5–36.7; O2SAT 88–100; BMI 22.7
--- NOTE | ~2024-10-21 | XR_ITS ---
XR chest 1V portable 10/21/2024 11:55 Indication: Shortness of breath Procedure: AP portable chest Comparison: 10/04/2024 Findings: Patchy bilateral airspace disease, compatible with pneumonia. Portacatheter tip in the SVC. Patchy sclerosis of the bones, consistent with metastatic disease. No significant effusion. No pneum othorax. Impression: 1: Patchy bilateral pneumonia. 2: Patchy sclerosis of the bones, consistent with metastatic disease. Reviewed, dictated and finalized at location A. Impression: 1: Patchy bilateral pneumonia. 2: Patchy sclerosis of the bones, consistent with metastatic disease.
--- NOTE | ~2024-10-21 | US_ITS ---
EXAMINATION:US venous doppler LE BI INDICATION:Bilateral leg swelling TECHNIQUE: Multiple grayscale, color flow and Doppler images of the right and left lower extremity de ep venous systems were obtained and reviewed. COMPARISON:No prior studies for comparison. FINDINGS: The common femoral, superficial femoral and popliteal veins demonstrate normal respiratory variation, augmentation and compressibility. Color flow is also seen within the posterior tibial, pe roneal, greater saphenous and profunda veins. IMPRESSION: 1: No lower extremity deep venous thrombosis. Reviewed, dictated and finalized at location A.
--- OUTSIDE RECORDS SUMMARY | 2024-10-21 10:33 | XMS_ITS | Data Portability ---
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 He continues to follow with cardiology he saw the looper fixer in December but has not been back then at that time it looks like he was referred to Interventional Pulmonary and slough patient denies any knowledge of this. further recommendations once I get the results of his test he was advised to stay up-to-date on immunizations. Obtain PFTs. again recommended to get colonoscopies [email or web address] Not available 05/07/2024 16:13:59 07/26/2024 07/26/2024 CBC [...] the abdominal cavity worrisome for the same [email or web address] Not available 08/14/2024 21:40:01 08/30/2024 08/30/2024 metastatic prostate cancer he needs to be seen by medical oncology his pain is not controlled we will switch to oxycodone 10 mg t.i.d. b.i.d. p.r.n. for pain get him to medical oncology I am getting my community health program representative involved because his transportation issues functional status is declining boost ensure see me in a month. His COPD is stable [email or web address] Not available 09/02/2024 21:46:59 09/28/2024 09/28/2024 I [...] Nutrition is going to be an issue [email or web address] Not available 10/02/2024 20:20:41 Plan of Treatment Reminders Order Date Submit Date Provider Last Modified By Organization Details Last Modified Time Details Appointments ANY 15 2024 10:30A M Tatyana Crowell MD Not available Not available Not available Lab CBC w/ auto diff 2024 025 [facility], [address], [place], [address], 09/29/2024 11:25:56 CMP, serum or plasma 2024 025 [facility], [address], [place], [address], 09/29/2024 11:25:55 PSA, total, serum or plasma 2024 025 [facility], [address], [place], [address], 08/01/2024 17:10:05 unlisted lab - T4, free 2024 025 [facility], [address], [place], [address], 08/01/2024 17:09:59 TSH, ultra-sen sitive, serum 2024 025 [facility], [address], [place], [address], 08/01/2024 17:10:02 T3, free, serum or plasma 2024 025 [facility], [address], [place], [address], 08/01/2024 17:10:06 lipid panel, serum 2024 025 [facility], [address], [place], [address], 08/01/2024 17:09:58 CBC w/ auto diff 2024 025 [facility], [address], [place], [address], 08/01/2024 17:10:03 CMP, serum or plasma 2024 025 [facility], [address], [place], [address], 08/01/2024 17:10:00 spep, serum, reflex immunofix ation 2024 025 [facility], [address], [place], [address], 08/01/2024 17:09:56 urinalysi s, complete 2023 024 [facility], [address], [place], [address], 05/04/2024 08:31:03 HbA1c (hemoglob in A1c), blood 2023 024 [facility], [address], [place], [address], 05/04/2024 08:31:02 lipid panel, serum 2023 [facility], [address], [place], [address], 05/04/2024 08:30:58 CBC w/ auto diff 2023 [facility], [address], [place], [address], 05/04/2024 08:31:05 CMP, serum or plasma 2023 [facility], [address], [place], [address], 05/04/2024 08:31:00 Referral None recorded. Procedures biopsy, lymph node, ultrasoun d guidance (PROC) 2024 [facility] (Imaging), [facility] [facility] [address] [facility], [place], [address], 08/11/2024 13:11:46 Surgeries None recorded. Imaging CT, abdomen + pelvis, w/ contrast - Authoriza tion code #[id number] 12 2023 [facility] (Imaging), [address] [facility] [facility] [address] [facility], [place], [address], 06/05/2024 08:41:14 PFT, complete 2023 [facility] (Cardiology & Emg), [address], [place], [address], 06/03/2024 15:46:10 CT, chest, w/ contrast 2023 024 [facility] (Imaging), [facility], [place], [address], 06/10/2024 10:10:09 Medication Orders None recorded. Patient TargetsNo targets recorded. Patient Instructions Encounter Date Encounter Id Patient Instructions Last Modified By Organization Details Last Modified Time 08/30/2024 [id number] A healthy lifestyle: care instructions [email or web address] Not available 08/30/2024 20:43:49 09/28/2024 [id number] Quitting Tobacco : Care Instructions [email or web address] Not available 09/28/2024 14:27:34 eating healthy foods: care instructions Not available 09/28/2024 14:27:34 Reason for Referral None Reported. Results Created Date Observation Date Name Description Value Unit Range Abnormal Flag Note LastModifiedBy Organization Detail LastModifiedTime 05/03/2005/04/2024 LIPID PANEL cholesterol, total 185 mg/dL 100-19 9 Not Available [facility] ([facility]) [address] [place], [address], 05/04/2024 08:30:58 05/03/2005/04/2024 LIPID PANEL triglyceride s 64 mg/dL 0-149 Not Available [facility] ([facility]) [address] [place], [address], 05/04/2024 08:30:58 05/03/2005/04/2024 LIPID PANEL HDL cholesterol 100 mg/dL >39 Not Available [facility] ([facility]) [address] [place], [address], 05/04/2024 08:30:58 05/03/2005/04/2024 LIPID PANEL VLDL cholesterol manpreet 12 mg/dL 5-40 Not Available [facility] ([facility]) [address] [place], [address], 05/04/2024 08:30:58 05/03/2005/04/2024 LIPID PANEL LDL chol calc ([facility]) 73 mg/dL 0-99 Not Available [facility] ([facility]) [address] [place], [address], 05/04/2024 08:30:58 05/03/20 24 05/04/2024 COMP. METAB OLIC PANEL (14) glucose 90 mg/dL 70-99 Not Available [facility] ([facility]) [address] [place], [address], 05/04/2024 08:31:00 05/03/20 24 05/04/2024 COMP. METAB OLIC PANEL (14) BUN 13 mg/dL 8-27 Not Available [facility] ([facility]) [address] [place], [address], 05/04/2024 08:31:00 05/03/20 24 05/04/2024 COMP. METAB OLIC PANEL (14) creatinine 0.73 mg/dL 0.76-1 .27 below low normal Not Available [facility] ([facility]) [address] [place], [address], 05/04/2024 08:31:00 05/03/20 24 05/04/2024 COMP. METAB OLIC PANEL (14) eGFR 103 mL/mi n/1.7 3 >59 Not Available [facility] ([facility]) [address] [place], [address], 05/04/2024 08:31:00 05/03/20 24 05/04/2024 COMP. METAB OLIC PANEL (14) BUN/creatini ne ratio 18 10-24 Not Available [facility] ([facility]) [address] [place], [address], 05/04/2024 08:31:00 05/03/20 24 05/04/2024 COMP. METAB OLIC PANEL (14) sodium 129 mmol/ L 134-14 4 below low normal Not Available [facility] ([facility]) [address] [place], [address], 05/04/2024 08:31:00 05/03/20 24 05/04/2024 COMP. METAB OLIC PANEL (14) potassium 4.4 mmol/ L 3.5-5. 2 Not Available [facility] ([facility]) [address] [place], [address], 05/04/2024 08:31:00 05/03/20 24 05/04/2024 COMP. METAB OLIC PANEL (14) chloride 88 mmol/ L 96-106 below low normal Not Available [facility] ([facility]) [address] [place], [address], 05/04/2024 08:31:00 05/03/20 24 05/04/2024 COMP. METAB OLIC PANEL (14) carbon dioxide, total 27 mmol/ L 20-29 Not Available [facility] ([facility]) [address] [place], [address], 05/04/2024 08:31:00 05/03/20 24 05/04/2024 COMP. METAB OLIC PANEL (14) calcium 8.9 mg/dL 8.6-10 .2 Not Available [facility] ([facility]) [address] [place], [address], 05/04/2024 08:31:00 05/03/20 24 05/04/2024 COMP. METAB OLIC PANEL (14) protein, total 6.3 g/dL 6.0-8. 5 Not Available [facility] ([facility]) [address] [place], [address], 05/04/2024 08:31:00 05/03/20 24 05/04/2024 COMP. METAB OLIC PANEL (14) albumin 4.1 g/dL 3.9-4. 9 Not Available [facility] ([facility]) [address] [place], [address], 05/04/2024 08:31:00 05/03/20 24 05/04/2024 COMP. METAB OLIC PANEL (14) globulin, total 2.2 g/dL 1.5-4. 5 Not Available [facility] ([facility]) [address] [facility], [place], [address], 05/04/2024 08:31:00 05/03/20 24 05/04/2024 COMP. METAB OLIC PANEL (14) bilirubin, total 0.8 mg/dL 0.0-1. 2 Not Available [facility] ([facility]) [address] [place], [address], 05/04/2024 08:31:00 05/03/20 24 05/04/2024 COMP. METAB OLIC PANEL (14) alkaline phosphatase 244 IU/L 44-121 above high normal Not Available [facility] ([facility]) [address] [place], [address], 05/04/2024 08:31:00 05/03/20 24 05/04/2024 COMP. METAB OLIC PANEL (14) AST (SGOT) 28 IU/L 0-40 Not Available [facility] ([facility]) [address] [facility], [place], [address], 05/04/2024 08:31:00 05/03/20 24 05/04/2024 COMP. METAB OLIC PANEL (14) ALT (SGPT) 23 IU/L 0-44 Not Available [facility] ([facility]) [address] [facility], [place], [address], 05/04/2024 08:31:00 05/03/20 24 05/04/2024 MICRO SCOPI C EXAMI NATIO N WBC None seen /hpf 0-5 Not Available [facility] ([facility]) [address] [facility], [place], [address], 05/04/2024 08:31:01 05/03/20 24 05/04/2024 MICRO SCOPI C EXAMI NATIO N RBC 11-30 /hpf 0-2 abnormal Not Available [facility] ([facility]) [address] [place], [address], 05/04/2024 08:31:01 05/03/20 24 05/04/2024 MICRO SCOPI C EXAMI NATIO N epithelial cells (non renal) 0-10 /hpf 0-10 Not Available [facility] ([facility]) [address] [facility], [place], [address], 05/04/2024 08:31:01 05/03/20 24 05/04/2024 MICRO SCOPI C EXAMI NATIO N casts None seen /lpf nonese en Not Available [facility] ([facility]) [address] [facility], [place], [address], 05/04/2024 08:31:01 05/03/2005/04/2024 MICRO SCOPI C EXAMI NATIO N bacteria None seen nonese en/few Not Available [facility] ([facility]) [address] [facility], [place], [address], 05/04/2024 08:31:01 05/03/2005/04/2024 HEMOG LOBIN A1C hemoglobin A1C 6.3 % 4.8-5. 6 above high normal Predi abete s: 5.7 - 6.4 Diabe jason: >6.4 Glyce reji contr ol for adult s with diabe jason: <7.0 Not Available [facility] ([facility]) [address] [facility], [place], [address], 05/04/2024 08:31:02 05/03/2005/04/2024 URINA LYSIS , COMPL ETE specific gravity 1.017 1.005- 1.030 Not Available [facility] ([facility]) [address] [place], [address], 05/04/2024 08:31:03 05/03/2005/04/2024 URINA LYSIS , COMPL ETE pH 6.5 5.0-7. 5 Not Available [facility] ([facility]) [address] [place], [address], 05/04/2024 08:31:03 05/03/20 24 05/04/2024 URINA LYSIS , COMPL ETE urine-color YELLOW yellow Not Available [facility] ([facility]) [address] [facility], [place], [address], 05/04/2024 08:31:03 05/03/20 24 05/04/2024 URINA LYSIS , COMPL ETE appearance CLEAR clear Not Available [facility] ([facility]) [address] [facility], [place], [address], 05/04/2024 08:31:03 05/03/2005/04/2024 URINA LYSIS , COMPL ETE WBC esterase TRACE negati ve abnormal Not Available [facility] ([facility]) [address] [facility], [place], [address], 05/04/2024 08:31:03 05/03/20 24 05/04/2024 URINA LYSIS , COMPL ETE protein 3+ negati ve/tra ce abnormal Not Available [facility] ([facility]) [address] [facility], [place], [address], 05/04/2024 08:31:03 05/03/20 24 05/04/2024 URINA LYSIS , COMPL ETE glucose NEGATI VE negati ve Not Available [facility] ([facility]) [address] [facility], [place], [address], 05/04/2024 08:31:03 05/03/2005/04/2024 URINA LYSIS , COMPL ETE ketones NEGATI VE negati ve Not Available [facility] ([facility]) [address] [facility], [place], [address], 05/04/2024 08:31:03 05/03/20 24 05/04/2024 URINA LYSIS , COMPL ETE occult blood 2+ negati ve abnormal Not Available [facility] ([facility]) [address] [facility], [place], [address], 05/04/2024 08:31:03 05/03/20 24 05/04/2024 URINA LYSIS , COMPL ETE bilirubin NEGATI VE negati ve Not Available [facility] ([facility]) [address] [facility], [place], [address], 05/04/2024 08:31:03 05/03/20 24 05/04/2024 URINA LYSIS , COMPL ETE urobilinogen ,semi-qn 1.0 mg/dL 0.2-1. 0 Not Available [facility] ([facility]) [address] [place], [address], 05/04/2024 08:31:03 05/03/2005/04/2024 URINA LYSIS , COMPL ETE nitrite, urine NEGATI VE negati ve Not Available [facility] ([facility]) [address] [facility], [place], [address], 05/04/2024 08:31:03 05/03/20 24 05/04/2024 URINA LYSIS , COMPL ETE microscopic examination SEE BELOW: Micro scopi c was indic ated and was perfo rmed. Not Available [facility] ([facility]) [address] [facility], [place], [address], 05/04/2024 08:31:03 05/03/20 24 05/04/2024 CBC WITH DIFFE RENTI AL/PL ATELE T WBC 7.3 x10e3 /uL 3.4-10 .8 Eff ectiv e Decem 2023 profi arun [id number] 5 WBC will be made* * non-o rdera ble as a stand -adelita e order code. Not Available [facility] ([facility]) [address] [facility], [place], [address], 05/04/2024 08:31:05 05/03/20 24 05/04/2024 CBC WITH DIFFE RENTI AL/PL ATELE T RBC 4.25 x10e6 /uL 4.14-5 .80 Not Available [facility] ([facility]) [address] [facility], [place], [address], 05/04/2024 08:31:05 05/03/20 24 05/04/2024 CBC WITH DIFFE RENTI AL/PL ATELE T hemoglobin 14.7 g/dL 13.0-1 7.7 Not Available [facility] ([facility]) [address] [place], [address], 05/04/2024 08:31:05 05/03/20 24 05/04/2024 CBC WITH DIFFE RENTI AL/PL ATELE T hematocrit 42.7 % 37.5-5 1.0 Not Available [facility] ([facility]) [address] [facility], [place], [address], 05/04/2024 08:31:05 05/03/20 24 05/04/2024 CBC WITH DIFFE RENTI AL/PL ATELE T MCV 101 fL 79-97 above high normal Not Available [facility] ([facility]) [address] [place], [address], 05/04/2024 08:31:05 05/03/20 24 05/04/2024 CBC WITH DIFFE RENTI AL/PL ATELE T MCH 34.6 pg 26.6-3 3.0 above high normal Not Available [facility] ([facility]) [address] [place], [address], 05/04/2024 08:31:05 05/03/20 24 05/04/2024 CBC WITH DIFFE RENTI AL/PL ATELE T MCHC 34.4 g/dL 31.5-3 5.7 Not Available [facility] ([facility]) [address] [place], [address], 05/04/2024 08:31:05 05/03/20 24 05/04/2024 CBC WITH DIFFE RENTI AL/PL ATELE T RDW 13.3 % 11.6-1 5.4 Not Available [facility] ([facility]) [address] [facility], [place], [address], 05/04/2024 08:31:05 05/03/20 24 05/04/2024 CBC WITH DIFFE RENTI AL/PL ATELE T platelets 151 x10e3 /uL 150-45 0 Not Available [facility] ([facility]) [address] [facility], [place], [address], 05/04/2024 08:31:05 05/03/20 24 05/04/2024 CBC WITH DIFFE RENTI AL/PL ATELE T neutrophils 57 % notest ab. Not Available [facility] ([facility]) [address] [facility], [place], [address], 05/04/2024 08:31:05 05/03/20 24 05/04/2024 CBC WITH DIFFE RENTI AL/PL ATELE T lymphs 26 % notest ab. Not Available [facility] ([facility]) [address] [facility], [place], [address], 05/04/2024 08:31:05 05/03/20 24 05/04/2024 CBC WITH DIFFE RENTI AL/PL ATELE T monocytes 9 % notest ab. Not Available [facility] ([facility]) [address] [facility], [place], [address], 05/04/2024 08:31:05 05/03/20 24 05/04/2024 CBC WITH DIFFE RENTI AL/PL ATELE T eos 3 % notest ab. Not Available [facility] ([facility]) [address] [facility], [place], [address], 05/04/2024 08:31:05 05/03/20 24 05/04/2024 CBC WITH DIFFE RENTI AL/PL ATELE T basos 1 % notest ab. Not Available [facility] ([facility]) [address] [facility], [place], [address], 05/04/2024 08:31:05 05/03/20 24 05/04/2024 CBC WITH DIFFE RENTI AL/PL ATELE T neutrophils (absolute) 4.2 x10e3 /uL 1.4-7. 0 Not Available [facility] ([facility]) [address] [facility], [place], [address], 05/04/2024 08:31:05 05/03/20 24 05/04/2024 CBC WITH DIFFE RENTI AL/PL ATELE T lymphs (absolute) 1.9 x10e3 /uL 0.7-3. 1 Not Available [facility] ([facility]) [address] [facility], [place], [address], 05/04/2024 08:31:05 05/03/20 24 05/04/2024 CBC WITH DIFFE RENTI AL/PL ATELE T monocytes(ab solute) 0.7 x10e3 /uL 0.1-0. 9 Not Available [facility] ([facility]) [address] [facility], [place], [address], 05/04/2024 08:31:05 05/03/20 24 05/04/2024 CBC WITH DIFFE RENTI AL/PL ATELE T eos (absolute) 0.2 x10e3 /uL 0.0-0. 4 Not Available [facility] ([facility]) [address] [facility], [place], [address], 05/04/2024 08:31:05 05/03/20 24 05/04/2024 CBC WITH DIFFE RENTI AL/PL ATELE T baso (absolute) 0.1 x10e3 /uL 0.0-0. 2 Not Available [facility] ([facility]) [address] [facility], [place], [address], 05/04/2024 08:31:05 05/03/20 24 05/04/2024 CBC WITH DIFFE RENTI AL/PL ATELE T immature granulocytes 4 % notest ab. Not Available [facility] ([facility]) [address] [facility], [place], [address], 05/04/2024 08:31:05 05/03/20 24 05/04/2024 CBC WITH [...] manpreet signi fican ce.) Not Available [facility] ([facility]) [address] [facility], [place], [address], 05/04/2024 08:31:05 05/03/20 24 05/04/2024 CBC WITH DIFFE RENTI AL/PL ATELE T NRBC 1 % 0-0 above high normal Not Available [facility] ([facility]) [address] [facility], [place], [address], 05/04/2024 08:31:05 05/18/20 24 05/20/2024 SPECI MEN STATU S REPOR T specimen status report TNP Test not perfo rmed. No urine speci men recei shirin. TEST: [id number] 0 Na U+Cl U+K U 19032 2 Osmol ality , Urine Not Available [facility] ([facility]) [address] [facility], [place], [address], 05/20/2024 13:10:21 05/18/20 24 05/19/2024 BASIC METAB OLIC PANEL (7) glucose 94 mg/dL 70-99 Not Available [facility] ([facility]) [address] [facility], [place], [address], 05/20/2024 13:10:22 05/18/20 24 05/19/2024 BASIC METAB OLIC PANEL (7) BUN 19 mg/dL 8-27 Not Available [facility] ([facility]) [address] [place], [address], 05/20/2024 13:10:22 05/18/20 24 05/19/2024 BASIC METAB OLIC PANEL (7) creatinine 1.39 mg/dL 0.76-1 .27 above high normal Not Available [facility] ([facility]) [address] [place], [address], 05/20/2024 13:10:22 05/18/20 24 05/19/2024 BASIC METAB OLIC PANEL (7) eGFR 57 mL/mi n/1.7 3 >59 below low normal Not Available [facility] ([facility]) [address] [place], [address], 05/20/2024 13:10:22 05/18/20 24 05/19/2024 BASIC METAB OLIC PANEL (7) BUN/creatini ne ratio 14 10-24 Not Available [facility] ([facility]) [address] [place], [address], 05/20/2024 13:10:22 05/18/20 24 05/19/2024 BASIC METAB OLIC PANEL (7) sodium 133 mmol/ L 134-14 4 below low normal Not Available [facility] ([facility]) [address] [place], [address], 05/20/2024 13:10:22 05/18/20 24 05/19/2024 BASIC METAB OLIC PANEL (7) potassium 4.4 mmol/ L 3.5-5. 2 Not Available [facility] ([facility]) [address] [place], [address], 05/20/2024 13:10:22 05/18/20 24 05/19/2024 BASIC METAB OLIC PANEL (7) chloride 92 mmol/ L 96-106 below low normal Not Available [facility] ([facility]) [address] [place], [address], 05/20/2024 13:10:22 05/18/20 24 05/19/2024 BASIC METAB OLIC PANEL (7) carbon dioxide, total 25 mmol/ L 20-29 Not Available [facility] ([facility]) [address] [place], [address], 05/20/2024 13:10:22 05/18/20 24 05/19/2024 T4, FREE T4,free(dire ct) 1.54 NG/dL 0.82-1 .77 Not Available [facility] ([facility]) [address] [place], [address], 05/20/2024 13:10:23 05/18/20 24 05/18/2024 UNABL E TO VOID unable to void Commen t Patie nt unabl e to void. Urine to be colle cted at a later date. Not Available [facility] ([facility]) [address] [place], [address], 05/20/2024 13:10:24 05/18/20 24 05/19/2024 CORTI KRISTEN cortisol 9.2 ug/dL 6.2-19 .4 Plesea e Note: The refer ence inter randa and vale ing for this test is for an AM colle ction . If this is a PM colle ction pleas e use: Corti kristen PM: 2.3-1 1.9 Not Available [facility] ([facility]) [address] [place], [address], 05/20/2024 13:10:25 05/18/20 24 05/19/2024 TSH TSH 5.640 uIU/m L 0.450- 4.500 above high normal Not Available [facility] ([facility]) [address] [place], [address], 05/20/2024 13:10:26 05/18/20 24 05/19/2024 TRIIO DOTHY JACQUES E (T3), FREE triiodothyro nine (T3), free 3.0 pg/mL 2.0-4. 4 Not Available [facility] ([facility]) [address] [facility], [place], [address], 05/20/2024 13:10:27 07/26/19 25 07/27/2024 SPECI MEN STATU S REPOR T specimen status report TNP [facility] was unabl e to colle ct suffi cient speci men to perfo rm the follo wing test( s), and is provi ding the patie nt with re-co llect ion instr uctio ns. TEST: [id number] CBC With Diffe renti al/Pl atele t Not Available [facility] ([facility]) [address] [facility], [place], [address], 08/01/2024 17:09:55 07/26/19 25 07/26/2024 MULTI PLE MYELO MA CASCA DE please note: COMMEN T Prote in elect ropho resis scan will follo w via compu ter, mail, or couri er audie bray. Not Available [facility] ([facility]) [address] [facility], [place], [address], 08/01/2024 17:09:56 07/26/19 25 07/27/2024 MULTI PLE MYELO MA CASCA DE albumin 3.7 g/dL 2.9-4. 4 Not Available [facility] ([facility]) [address] [place], [address], 08/01/2024 17:09:56 07/26/19 25 07/27/2024 MULTI PLE MYELO MA CASCA DE wroio-8-hkxi ulin 0.5 g/dL 0.0-0. 4 above high normal Not Available [facility] ([facility]) [address] [place], [address], 08/01/2024 17:09:56 07/26/19 25 07/27/2024 MULTI PLE MYELO MA CASCA DE smsyy-7-njem ulin 0.5 g/dL 0.4-1. 0 Not Available [facility] ([facility]) [address] [facility], [place], [address], 08/01/2024 17:09:56 07/26/19 25 07/27/2024 MULTI PLE MYELO MA CASCA DE beta globulin 1.0 g/dL 0.7-1. 3 Not Available [facility] ([facility]) [address] [facility], [place], [address], 08/01/2024 17:09:56 07/26/19 25 07/27/2024 MULTI PLE MYELO MA CASCA DE gamma globulin 0.9 g/dL 0.4-1. 8 Not Available [facility] ([facility]) [address] [facility], [place], [address], 08/01/2024 17:09:56 07/26/19 25 07/27/2024 MULTI PLE MYELO MA CASCA DE M-spike NOT OBSERV ED g/dL notobs erved Not Available [facility] ([facility]) [address] [facility], [place], [address], 08/01/2024 17:09:56 07/26/19 25 07/27/2024 MULTI PLE MYELO MA CASCA DE globulin, total 2.8 g/dL 2.2-3. 9 Not Available [facility] ([facility]) [address] [place], [address], 08/01/2024 17:09:56 07/26/19 25 07/27/2024 MULTI PLE MYELO MA CASCA DE A/G ratio 1.3 0.7-1. 7 Not Available [facility] ([facility]) [address] [place], [address], 08/01/2024 17:09:56 07/26/19 25 07/27/2024 MULTI PLE MYELO MA CASCA DE reflex testing . Not Available [facility] ([facility]) [address] [facility], [place], [address], 08/01/2024 17:09:56 07/26/19 25 07/27/2024 MULTI PLE MYELO MA CASCA DE pdf . Not Available [facility] ([facility]) [address], [place], [address], 08/01/2024 17:09:56 07/26/19 25 08/01/2024 FREE K+L LT CHAIN S,QN, S free kappa lt chains,S 31.7 mg/L 3.3-19 .4 above high normal Not Available [facility] [address], [place], [address], 08/01/2024 17:09:57 07/26/19 25 08/01/2024 FREE K+L LT CHAIN S,QN, S free lambda lt chains,S 21.0 mg/L 5.7-26 .3 Not Available [facility] [address], [place], [address], 08/01/2024 17:09:57 07/26/19 25 08/01/2024 FREE K+L LT CHAIN S,QN, S kappa/lambda ratio,S 1.51 0.26-1 .65 Not Available [facility] [address], [place], [address], 08/01/2024 17:09:57 07/26/19 25 08/01/2024 COMME NT: comment: Commen t Consi nory order ing urine immun ofixa tion (uIFE ) to rule out Amylo idosi s (AL). Not Available [facility] ([facility]) [address], [place], [address], 08/01/2024 17:09:58 07/26/19 25 07/27/2024 LIPID PANEL cholestero [id number]|2024-10-22 11:41:38|2024-10-22 11:41:38|PHAR||||"HOME MED BREZTRI AERO SPHERE INHALER 160 MCG/9 MCG/4.8 MCG PER INHALATION; INHALE 2 PUFFS BY MOUTH DAILY. VERIFIED BY PHARMACY."
--- OUTSIDE RECORDS SUMMARY | 2024-10-21 10:33 | XMS_ITS | CONTINUITY OF CARE DOCUMENT ---
Author Name ruel lipscomb Address Unknown Organization [facility] Address [address] [place] [address] Phone [phone] Care Team Providers Care Furnace Erector Name Role Phone oRbert Freeman MD Unavailable [phone] TATYANA DAWN MD Unavailable [phone] TATYANA DAWN MD Unavailable [phone] PROBLEMS Condition Status Date Provider Notes Shortness of breath (SOB) active Jesse jha per PCP LÓPEZ Tobacco abuse active Robert Freeman MD Leg edema active Robert Freeman MD Orthopnea active Robert Freeman MD ENCOUNTERS Date Type Provider Location Encounter Diag nosis - In-person encounter Office Visit Robert Freeman MD [place] [facility] - In-person encounter Office Visit Robert Freeman MD [place] [facility] Tobacco abuseLeg edemaOrthopnea VITAL SIGNS Date [...] / Coverage type Candie red republican ID [facility] Other [id number] ADVANCE DIRECTIVES Name Date DISCUSSED - NO DECISION MADE TREATMENT PLAN Date Name Performer [id number],C,T he Patient was reencouraged to stop smoking. Emilia Amos [id number],C,P t complained of SOB with minimal exertion, orthopnea, heavy smoker. Also had leg swelling which improved with Lasix. Echo showed EF 45%. Marked RV dilation with PA pressure 64 and mmHg. I recommend R/L cardiac cath, chest CT with contrast, venous duplex of the LE, PFTs, and will check BNP levels. I advised him to stop smoking. Kaiden's test was normal. Emilia Amos [id number],C,P t complained of SOB with minimal exertion, orthopnea, heavy smoker. Also had leg swelling which improved with Lasix. Echo showed EF 45%. Marked RV dilation with PA pressure 64 and mmHg. I recommend R/L cardiac cath, chest CT with contrast, venous duplex of the LE, PFTs, and will check BNP levels. I advised him to stop smoking. Kaiden's test was normal. Emilia Amos [id number],C,P t complained of SOB with minimal exertion, [...] [facility]:Pt with a recent admission to [facility] for SOB and leg swelling. [...] [facility]:Pt with a recent admission to [facility] for SOB and leg swelling. [...] Study Home PROBNP, N TERMINAL DLCO - 60364 FRC - 43119 FVC - 05182 PROTHROMBIN TIME WIT H INR LIPID PANEL CBC (INCLUDES DIFF/P LT) BASIC METABOLIC PANE L W/EGFR DLCO - 15146 FRC - 15903 FVC - 55187 Venous Doppler Bilat eral LE - Reflux Cardiac Cath - L/R- [facility] B TYPE NATRIURETIC P EPTIDE (BNP) CT Chest with contra st Complete Echo HISTORY OF PROCEDURES Procedure Date Procedure Name Provider Procedure Notes S tatus Complex e/m visit add on Robert Freeman MD completed EKG Robert Freeman MD completed
--- OUTSIDE RECORDS SUMMARY | 2024-10-21 10:33 | XMS_ITS | Data Portability ---
Author Organization [facility], Main Office Address [address] [place] [address] Assessment Encounter Date Assessment Date Assessment LastModified [...] because I may be out of network [email or web address] Not available 01/19/2023 22:49:07 03/16/2023 03/16/2023 Urology for bloo d in urine Blood work Smoking cessation CT chest abdomen pelvis Follow-up 1 month Not available 03/16/2023 21:35:28 04/13/2023 04/13/2023 Advised [...] no ischemia, EF 61% PASP 64 mmHg [facility] hospitalization 10/23/23 - 10/27/23 right CHF, 3 Lpm exertional O2 PFT 09/13/08 FEV1 2.37 L (63%), BD 250 mL = 12%, TLC 6.21 L (94%), RV 2.92 L (142%) Nicotine cessation counseling provided for 4 minutes. [place] for quitting nicotine include getting ready, getting [...] in Quit For Life program Registering at [email or web address] Making a call to 2-728-XTOF-NOW ( ). A strong, clear, personalized message [...] failure or relapse. Patient can enroll in [facility]'s smoking cessation class through Nicki Fernando RN [...] done as follows: Respiratory allergen panel for [facility] Serum IgE Serum total IgG, IgG1, IgG2, IgG3, IgG4 Gznij-[id number] n phenotype and level TB stimulated gamma [...] alpha-1-ant itrypsin (aat) phenotype, serum [address] [facility] (Lab), [address] [place], [address], 00:18:54 BNP (B-type natriuretic peptide), serum or plasma 2023 024 CRISTINE [facility] (Lab), [address] [place], [address], 4 18:03:44 ige, total, serum [address] (Lab), [address] [place], [address], 4 12:35:58 tb (M tuberculosi s), ifn-gamma hyacinth, blood [address] (Lab), [address] [place], [address], 4 12:35:58 eosinophil count, manual, blood (OBS) [address] (Lab), [address] [place], [address], 4 12:35:59 igg subclasses 1+2+3+4, serum [address] (Lab), [address] [place], [address], 4 12:35:59 respiratory allergen panel - [facility] a [address] (Lab), [address] [place], [address], 4 12:35:59 respiratory allergen panel - [facility] b [address] (Lab), [address] [place], [address], 4 12:35:59 PSA, total, serum or plasma [address] [facility] (Lab), [address] [facility] [place], [address], 3 19:05:45 CBC w/ auto diff [address] [facility] (Lab), [address] [place], [address], 3 17:31:25 CMP, serum or plasma [address] [facility] (Lab), [address] [place] [place], [address], 3 18:31:36 lipid panel, serum [address] [facility] (Lab), [address] [place], [address], 3 18:31:[address] referral - Chest CT 03/25/23 12 mm RLL spiculated noduleChest CT 10/22/23 right effusion may be obscuring RLL nodule, (+) mediastinal and matted hilar lymphadenop athy 2023 024 [email or web address] 82 Dimas Enamorado MD, [address] [facility], [place], [address], 5 08:53:28 urologist referral 2022 023 [email or web address] [facility], [address] [facility], [place], [address], 3 16:47:03 professional nursing assistant referral 2022 023 [email or web address] Vick Metz DPM, [address], [facility] [address], [place], [address], 4 18:08:55 Procedures None recorded. Surgeries None recorded. Imaging CT, chest, w/o contrast - Approved # [id number] 12/14/2023 -01/28/20242023 024 [email or web address] [facility], [address] [address], [place], [address], 16:25:32 CT, chest + abdomen + pelvis, w/ contrast - approved [id number]/ [id number] 03/16/23-[address] [facility] (Imaging), [address] [place], [address], 18:46:25 Medication Orders None recorded. Patient TargetsNo targets recorded. Patient Instructions Encounter Date Encounter Id Patient Instructions Last Modified By Organization Details Last Modified Time 04/13/2023 [id number] dementia rating scale-2* [email or web address] Not available 04/14/2023 09:45:49 multi-dimensiona l health assessment questionnaire* cyahl Not available 04/14/2023 09:45:52 care plan* cyahl Not available 04/14 09:45:44 advance care planning: care instructions [email or web address] Not available 04/13/2023 20:33:40 advance directiv es: care instructions [email or web address] Not available 04/13/2023 20:33:39 [place] Advance Directives [email or web address] Not available 04/13/2023 20:33:40 Personalized [facility] Plan and Screening Recommendations Advance Directives - [...] treatment plan Not available 04/13/2023 16:09:03 12/08/2023 [id number] complete PFT w/ post bronchodilator spirometry* - No auth needed [email or web address] Not available 07/26/2024 12:45:07 Reason for Referral Frame Builder 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 Plan tar fasciitis of right foot Referring Physician: Jaxon Crowell, Internal Medicine, Encounter Date: 01/19/2023 Urologist 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 Blood in urine Referring Physician: Jaxon Crowell, Internal Medicine, Encounter Date: 03/16/2023 Chair Springer 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 S olitary nodule of lung [...] creatinine 0.9 mg/dL 0.6-1. 3 Not Available [facility] (Lab) [address] [place], [address], 03/26/2023 10:11:18 04/08/20 23 04/09/2023 CBC/C OMPLE TE BLD COUNT W/DIF F white blood cells 8.9 x10'3 /uL 4.2-10 .8 Not Available [facility] (Lab) [address] [place], [address], 04/09/2023 10:50:13 04/08/20 23 04/09/2023 CBC/C OMPLE TE BLD COUNT W/DIF F red blood cells 5.49 x10'6 /uL 4.10-5 .80 Not Available [facility] (Lab) [address] [facility] [place], [address], 04/09/2023 10:50:13 04/08/2004/09/2023 CBC/C OMPLE TE BLD COUNT W/DIF F hemoglobin 19.3 g/dL 13.2-1 7.0 high Not Available [facility] (Lab) [address] [facility] [place], [address], 04/09/2023 10:50:13 04/08/20 23 04/09/2023 CBC/C OMPLE TE BLD COUNT W/DIF F hematocrit 58.2 % 39.3-5 0.0 high Not Available [facility] (Lab) [address] [place], [address], 04/09/2023 10:50:13 04/08/20 23 04/09/2023 CBC/C OMPLE TE BLD COUNT W/DIF F mean red cell volume 106.0 fL 80.0-9 7.0 high Not Available [facility] (Lab) [address] [place], [address], 04/09/2023 10:50:13 04/08/20 23 04/09/2023 CBC/C OMPLE TE BLD COUNT W/DIF F mean red cell hemoglobin 35.2 pg 27.0-3 3.0 high Not Available [facility] (Lab) [address] [place], [address], 04/09/2023 10:50:13 04/08/20 23 04/09/2023 CBC/C OMPLE TE BLD COUNT W/DIF F mean RBC HGB concentratio n 33.2 g/dL 31.0-3 6.0 Not Available [facility] (Lab) [address] [place], [address], 04/09/2023 10:50:13 04/08/20 23 04/09/2023 CBC/C OMPLE TE BLD COUNT W/DIF F red cell distribution width 13.6 % 11.8-1 5.5 Not Available [facility] (Lab) [address] [place], [address], 04/09/2023 10:50:13 04/08/20 23 04/09/2023 CBC/C OMPLE TE BLD COUNT W/DIF F platelets 217 x10'3 /uL 150-40 0 Not Available [facility] (Lab) [address] [place], [address], 04/09/2023 10:50:13 04/08/2004/09/2023 CBC/C OMPLE TE BLD COUNT W/DIF F mean platelet volume 10.5 fL 9.0-12 .4 Not Available [facility] (Lab) [address] [place], [address], 04/09/2023 10:50:13 04/08/2004/09/2023 CBC/C OMPLE TE BLD COUNT W/DIF F neutrophils 58.7 % 39.0-7 2.0 Not Available [facility] (Lab) [address] [place], [address], 04/09/2023 10:50:13 04/08/2004/09/2023 CBC/C OMPLE TE BLD COUNT W/DIF F lymphocytes 26.3 % 16.0-4 7.0 Not Available [facility] (Lab) [address] [place], [address], 04/09/2023 10:50:13 04/08/2004/09/2023 CBC/C OMPLE TE BLD COUNT W/DIF F monocytes 11.4 % 5.0-12 .0 Not Available [facility] (Lab) [address] [place], [address], 04/09/2023 10:50:13 04/08/20 23 04/09/2023 CBC/C OMPLE TE BLD COUNT W/DIF F eosinophils 2.0 % 1.0-7. 0 Not Available [facility] (Lab) [address] [place], [address], 04/09/2023 10:50:13 04/08/2004/09/2023 CBC/C OMPLE TE BLD COUNT W/DIF F basophils 1.2 % 0.0-2. 0 Not Available [facility] (Lab) [address] [place], [address], 04/09/2023 10:50:13 04/08/2004/09/2023 CBC/C OMPLE TE BLD COUNT W/DIF F immature granulocytes 0.4 % 0.00-0 .50 Not Available [facility] (Lab) [address] [place], [address], 04/09/2023 10:50:13 04/08/2004/09/2023 CBC/C OMPLE TE BLD COUNT W/DIF F neutrophils, absolute count 5.23 x10'3 /uL 1.5-8. 0 Not Available [facility] (Lab) [address] [place], [address], 04/09/2023 10:50:13 04/08/20 23 04/09/2023 CBC/C OMPLE TE BLD COUNT W/DIF F lymphocytes, absolute count 2.35 x10'3 /uL 1.07-3 .43 Not Available [facility] (Lab) [address] [place], [address], 04/09/2023 10:50:13 04/08/2004/09/2023 CBC/C OMPLE TE BLD COUNT W/DIF F monocytes, absolute count 1.02 x10'3 /uL 0.29-0 .99 high Not Available [facility] (Lab) [address] [place], [address], 04/09/2023 10:50:13 04/08/2004/09/2023 CBC/C OMPLE TE BLD COUNT W/DIF F eosinophils, absolute count 0.18 x10'3 /uL 0.02-0 .53 Not Available [facility] (Lab) [address] [place], [address], 04/09/2023 10:50:13 04/08/20 23 04/09/2023 CBC/C OMPLE TE BLD COUNT W/DIF F basophils, absolute count 0.11 x10'3 /uL 0.01-0 .08 high Not Available [facility] (Lab) [address] [place], [address], 04/09/2023 10:50:13 04/08/2004/09/2023 CBC/C OMPLE TE BLD COUNT W/DIF F immature granulocytes ,absolute 0.04 x10'3 /uL 0.00-0 .05 Not Available [facility] (Lab) [address] [place], [address], 04/09/2023 10:50:13 04/08/20 23 04/09/2023 CBC/C OMPLE TE BLD COUNT W/DIF F nucleated red blood cells 0.0 % -0 Not Available [facility] (Lab) [address] [place], [address], 04/09/2023 10:50:13 04/08/20 23 04/09/2023 CBC/C OMPLE TE BLD COUNT W/DIF F NRBC# 0.00 x10'3 /uL Not Available [facility] (Lab) [address] [place], [address], 04/09/2023 10:50:13 04/08/20 23 04/09/2023 CBC/C OMPLE TE BLD COUNT W/DIF F macro OCCASI ONAL Not Available [facility] (Lab) [address] [place], [address], 04/09/2023 10:50:13 04/08/20 23 04/08/2023 COMPR EHENS DIANA METAB OLIC PANEL sodium 131 mmol/ L 137-14 5 low Not Available [facility] (Lab) [address] [place], [address], 04/08/2023 18:31:36 04/08/20 23 04/08/2023 COMPR EHENS DIANA METAB OLIC PANEL potassium 4.8 mmol/ L 3.5-5. 1 Not Available [facility] (Lab) [address] [place], [address], 04/08/2023 18:31:36 04/08/20 23 04/08/2023 COMPR EHENS DIANA METAB OLIC PANEL chloride 97 mmol/ L 98-107 low Not Available [facility] (Lab) [address] [place], [address], 04/08/2023 18:31:36 04/08/20 23 04/08/2023 COMPR EHENS DIANA METAB OLIC PANEL carbon dioxide 36 mmol/ L 22-30 high Not Available [facility] (Lab) [address] [place], [address], 04/08/2023 18:31:36 04/08/20 23 04/08/2023 COMPR EHENS DIANA METAB OLIC PANEL anion gap 2.8 mmol/ L 14-22 low Not Available [facility] (Lab) [address] [place], [address], 04/08/2023 18:31:36 04/08/20 23 04/08/2023 COMPR EHENS DIANA METAB OLIC PANEL glucose 81 mg/dL 70-99 Not Available [facility] (Lab) [address] [place], [address], 04/08/2023 18:31:36 04/08/20 23 04/08/2023 COMPR EHENS DIANA METAB OLIC PANEL BUN 28 mg/dL 8-19 high Not Available [facility] (Lab) [address] [place], [address], 04/08/2023 18:31:36 04/08/2004/08/2023 COMPR EHENS DIANA METAB OLIC PANEL creatinine 1.02 mg/dL 0.66-1 .25 Not Available [facility] (Lab) [address] [place], [address], 04/08/2023 18:31:36 04/08/20 23 04/08/2023 COMPR EHENS DIANA METAB OLIC PANEL GFR >60 Refer ence Range : [place] ge GFR Healt hy Adult : >60 [...] or ethni c subgr oups, such as Hisms nics. Outsi de the valid ated love [...] on the NKF websi te: https ://chantal freedman.lisbet asencio/pr ofess ional s/kdo qi/gf r_cal culat or Not Available [facility] (Lab) [address] [place], [address], 04/08/2023 18:31:36 04/08/20 23 04/08/2023 COMPR EHENS DIANA METAB OLIC PANEL alkaline phosphatase 91 U/L 38-126 Not Available [facility] (Lab) [address] [facility] [place], [address], 04/08/2023 18:31:36 04/08/20 23 04/08/2023 COMPR EHENS DIANA METAB OLIC PANEL alanine aminotransfe rase 32 U/L 0-50 Not Available [facility] (Lab) [address] [place], [address], 04/08/2023 18:31:36 04/08/20 23 04/08/2023 COMPR EHENS DIANA METAB OLIC PANEL aspartate aminotransfe rase 27 U/L 15-46 Not Available [facility] (Lab) [address] [place], [address], 04/08/2023 18:31:36 04/08/20 23 04/08/2023 COMPR EHENS DIANA METAB OLIC PANEL bilirubin, total 0.70 mg/dL 0.20-1 .30 Not Available [facility] (Lab) [address] [place], [address], 04/08/2023 18:31:36 04/08/20 23 04/08/2023 COMPR EHENS DIANA METAB OLIC PANEL calcium 9.1 mg/dL 8.4-10 .2 Not Available [facility] (Lab) [address] [place], [address], 04/08/2023 18:31:36 04/08/20 23 04/08/2023 COMPR EHENS DIANA METAB OLIC PANEL total protein 6.7 g/dL 6.3-8. 2 Not Available [facility] (Lab) [address] [place], [address], 04/08/2023 18:31:36 04/08/20 23 04/08/2023 COMPR EHENS DIANA METAB OLIC PANEL albumin 3.5 g/dL 3.4-5. 0 Not Available [facility] (Lab) [address] [place], [address], 04/08/2023 18:31:36 04/08/20 23 04/08/2023 COMPR EHENS DIANA METAB OLIC PANEL globulin 3.2 g/dL 2.6-4. 2 Not Available [facility] (Lab) [address] [place], [address], 04/08/2023 18:31:36 04/08/20 23 04/08/2023 COMPR EHENS DIANA METAB OLIC PANEL A/G ratio 1.1 ratio 1.0-2. 0 Not Available [facility] (Lab) [address] [place], [address], 04/08/2023 18:31:36 04/08/20 23 04/08/2023 LIPID PANEL cholesterol 192 mg/dL 140-19 9 NIH SHY NSUS RECOM MENDA TION FOR CHIKI STERO L: ADULT CHILD LOW RISK: <200 <170 BORDE RLINE : <200- 239 ----- HIGH RISK: >240 >200 Not Available [facility] (Lab) [address] [place], [address], 04/08/2023 18:31:40 04/08/20 23 04/08/2023 LIPID PANEL triglyceride s 55 mg/dL 0-150 NIH SHY NSUS REPOR T RECOM MENDA TION FOR TRIGL YCERI CRISTIN: ADULT CHILD LOW RISK: <150 ----- BODER LINE: 150-1 99 ----- HIGH RISK: >200 ----- Not Available [facility] (Lab) [address] [place], [address], 04/08/2023 18:31:40 04/08/20 23 04/08/2023 LIPID PANEL HDL cholesterol 108 mg/dL 40- Not Available [facility] (Lab) [address] [place], [address], 04/08/2023 18:31:40 04/08/2004/08/2023 LIPID PANEL LDL cholesterol, [...] WILL NOT BE REPOR KAYLAN. Not Available [facility] (Lab) [address] [place], [address], 04/08/2023 18:31:40 04/08/2004/08/2023 PSA SCREE N PSA medicare screen 31.10 NG/mL 0.00-4 .00 high Not Available [facility] (Lab) [address] [place], [address], 04/08/2023 19:05:45 03/25/2003/25/2023 CT, chest + abdom en + pelvi s, w/ contr ast [facility] [address] [facility] [place] [address] [phone] Patien t Name: NIRMALA MONTALVO Access ion #: [id number] Sex: M : 1959 4 Dictat [...] venous imagin g was obtain ed. Axial, gonzalze l and sagitt al multip lanar reform ats were perfor med by the techno logist on [facility] Radiat ion Dose : 1. Chest/ Abdome [...] on or pneumo thorax . Page 1 [facility] [address] [place] [address] Patien t Name: NIRMALA MONTALVO Access ion #: [id number] Sex: M : 1959 4 Dictat ed By: Alonzo Villalobos Attend ing Physic danielle: [facility]Z [facility] Physic danielle: SUHAS CROWELL Exam [...] at 2022 17:45: 13 PM Page 3 [email or web address] [facility] (Imaging) [address] [place], [address], 04/29/2023 13:10:15 12/08/19 24 10/26/2023 NM, myoca rdial perfu macarena scan, w/ stres s No observ ation record ed. BARCODE Not Available 2023 09:55:20 12/08/19 24 10/23/2023 XR, chest , 1 view No observ ation record ed. BARCODE Not Available 2023 09:55:20 12/08/19 24 09/13/2008 compl ete PFT w/ post [facility] hodil ator ruth metry * No [...] 25 06/03/2024 compl ete PFT w/ post [facility] hodil ator ruth metry * No observ ation record ed. [facility] (Pulmonary) [address], [place], [address], 08/17/2024 14:03:58 08/18/19 25 06/03/2024 CT, chest , w/o contr ast No observ ation record ed. [facility] [address], [place], [address], 08/17/2024 14:03:59 Result Notes None recorded. Problems Name Problem SNOMED Code Status Onset Date Resolution Date Notes Provider Name and Address Organization Details Recorded Time Erythrocy marlena 996108208 Active 2019 Not Available [facility] 3 06:54:21 Chronic obstructi ve pulmonary disease 37909352 Active 2021 Not Available [facility] 3 06:54:21 Echocardi ogram abnormal 318568637 Active 2020 EF 45% global hypo. Moderate pulmonary hypertens ion Not Available [facility] 3 06:54:21 Depressiv e disorder 16083603 Active Not Available [facility] 3 06:54:21 Severe pulmonary hypertens ion 569299724 Active 2021 right and left heart catheteri zation 2020 normal coronarie s normal LV pulmonary artery 70/25 Not Available [facility] 3 06:54:21 Hyponatre deng 36609331 Active 2021 Not Available [facility] 3 06:54:21 Plantar fasciitis of right foot 43715326792 560333 Active 2022 Not Available [facility] 3 06:54:21 Prostate specific antigen above reference range 619262978 Active 2022 ERVIN Snyder - [place] [employer] [facility] 3 16:47:53 Nodule of lung 304719723 Active 2022 Jaxon Crowell MD [address], [place], [address] , [employer] [facility] [employer] 3 20:31:16 Solitary nodule of lung 155161714 Active 2023 Julián Funes MD [address], [place], [address] , [facility] [employer] [facility] [employer] [facility] 4 12:47:09 Smoker 24485868 Active 2023 Julián Funes MD [address], [place], [address] , [facility] [employer] [facility] [employer] [facility] 4 16:52:15 Notes:Lab data 01/06/24 mult iple environmental allergies PFT 06/03/24 1.31 L (39%), TLC 6.75 L (100%), 3.87 L (174%), DLCO 27%, DLCO/VA 40% Chest/Abd/Pelvis CT 06/03/24 left neck, abdomen, pelvis and left inguinal lymphadenopathy Medical History: Depression/Anxiety Rhinitis to multiple environmental allergens with postnasal drip IgE 227 IU/m [id number]|2024-10-22 08:44:50|2024-10-22 08:44:50|PHAR||||"Home medication Erleada 60mg tablets identified in pharmacy and returned to [facility] nursing unit"
--- OUTSIDE RECORDS SUMMARY | 2024-10-21 10:33 | XMS_ITS | Encounter Summary ---
Author Organization [facility] Address [address] [place] [address] Care Team Providers Care Telephone Order Supervisor Name Role Phone Unavailable Primary Care Provider Unavailabl e Encounter Details Date Type Department Care Team (Late st Contact Info) Description 08/16/2024 Lab Requisition [facility] - Pathology Lab [address] [place] [address] Giancarlo Macias MD [address] [place] [address] Illness, unspecified Social History Tobacco Use Types Packs/Day Years Used Date Smoking Tobacco: Never Assessed Sex and Gender Information Value Date Recorded Sex Assigned at Not on file 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
--- OUTSIDE RECORDS SUMMARY | 2024-10-21 10:33 | XMS_ITS | Clinical Summary ---
Author Organization [facility] Address [address] [facility] [place] [address] Care Team Providers Care Level Vial Curvature Gauger Name Role Phone Unavailable Primary Care Provider Unavailabl e Source Comments [facility],non-owned Affiliates and Associated Physician Practices is amultiple site organization consisting of ambulatory clinics and hospital sitesin [place], [place]. This disclosure is being madepursuant to the Care Everywhere program and may not contain all information available regarding this patient. Last updated 18.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
--- OUTSIDE RECORDS SUMMARY | 2024-10-21 10:33 | XMS_ITS | Continuity of Care Document ---
Author Organization [facility] Address [address] [place] [address] [address] [place] [address] Phone Care Team Providers Care Spare Person Name Role Phone Darcy Mishra Unavailable Unavailable Advance Directives Directive Yes / No Effective Date File Name No Information Encounters Encounter Description Practice Location Reason(s) For Visit Diagnoses Date Provider Providers Copied on Encounter [facility], [id number] [place] [address] [address], [place], [place], [id number], [place] tel:[phone] [facility] No Information Apr-0 7-200 5 Danica Taveras. [address] [facility] , [address], [place], [address], [place]. tel:[phone] Family History Family Member Type Diagnosis Age At Onset No Information Payers Payer name Insurance type Covered republican ID Authoriza [id number](s) Star Pattern [id number] Social History Type Description Quantity Date Captured [...]
--- OUTSIDE RECORDS SUMMARY | 2024-10-21 10:33 | XMS_ITS | Clinical Summary ---
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
--- OUTSIDE RECORDS SUMMARY | 2024-10-21 10:33 | XMS_ITS | Clinical Summary ---
Author Organization [facility] Address [address] [place] [address] Care Team Providers Care Pond Supervisor Name Role Phone Jaxon Crowell MD Primary Care Provider [phone] Allergies No known active allergies Medications furosemide (LASIX) 20 mg tablet Take 20 mg by mouth daily. Active Erleada 60 mg tablet Take 60 mg by mouth 4 times daily. 5 Active levothyroxine 25 mcg tablet Take 1 Tablet by mouth daily. 5 Active tamsulosin (FLOMAX) 0.4 mg capsule Take 0.4 mg by mouth daily. 5 Active predniSONE (DELTASONE) 5 mg tablet Take 1 Tablet (5 mg) by mouth 2 times daily with meals. 60 Tablet 5 5 Active lidocaine-prilo herve (EMLA) 2.5-2.5 % CreamIndication s:Prostate cancer (CMS/HCC) Apply a quarter size amount to port site 30 minutes prior to access. 30 Gram 1 5 Active dexAMETHasone (DECADRON) 4 mg tabletIndicatio ns:Prostate cancer (CMS/HCC) Take 1 tablet by mouth BID day before, day of, day after chemotherapy treatment. 6 Tablet 5 5 Active ondansetron (ZOFRAN ODT) 8 mg Tablet, Rapid DissolveIndicat ions:Prostate cancer (CMS/HCC) Dissolve 1 tablet on top of tongue then swallow with saliva every 8 hours as needed for nausea or vomiting 30 Tablet 1 5 Active Active Problems No known active problems Encounters Date Type Department Care Team Description 10/19/2024 Abstract [facility] Oncology and Hematology - [address] [place] [id number] Danilo Jerez MD 10/14/2024 [facility] - [place] [address] [place] [id number] Danilo Jerez MD 10/12/2024 Orders [facility] - [place] [address] [place] [id number] Danilo Jerez MD Prostate cancer ([facility]/HCC) (Primary Dx) 10/11/2024 Refill [facility] Oncology and Hematology - [place] [address] Danilo Jerez MD Prostate cancer ([facility]/HCC) (Primary Dx) 10/04/2024 Orders Only [facility] Oncology and Hematology - [place] [address] [place] [address] Danilo Jerez MD 10/03/2024 Orders Only [facility] - [place] [address] [place] [id number] Danilo Jerez MD 10/03/2024 Abstract [facility] Oncology and Hematology - [place] [address] [place] [address] Danilo Jerez MD 09/30/2024 Telephone [facility] Oncology and Hematology - [place] [address] [place] [address] Danilo Jerez MD Blood Transfusion 09/30/2024 Abstract [facility] Oncology and Hematology - [address] [place] [address] Danilo Jerez MD 09/30/2024 [facility] Oncology and Hematology - [address] [place] [address] Danilo Jerez MD Prostate cancer ([facility]) (Primary Dx); Chronic anemia 09/27/2024 External Device Data STL ABSTRACTION Provider, Abstract 09/27/2024 External Device Data ST[facility] ABSTRACTION Provider, Abstract 09/27/2024 External Device Data [facility] ABSTRACTION Provider, Abstract 09/27/2024 Orders Only [facility] Oncology and Hematology [facility] [address] [place] [address] Dainlo Jerez MD 09/22/2024 Orders Only [facility] Oncology and Hematology [facility] [address] [place] [address] Danilo Jerez MD 09/21/2024 10:30 AM CDT Office Visit [facility] Oncology and Hematology [facility] [address] [place] [address] Danilo Jerez MD Prostate cancer ([facility]) (Primary Dx); Chronic anemia 09/21/2024 Orders Only [facility] Oncology and Hematology [facility] [address] [place] [address] Danilo Jerez MD from Last 3 Months Family History Medical History Relation Name Comments No Known Problems Brother 5 brothers No Known Problems Child Heart Disease Father No Known Problems Mother Relation Name Status Comments Brother 5 brothers Child Alive Father Mother Alive Social History Tobacco Use Types Packs/Day Years Used Date Smoking Tobacco: Every Day Cigarettes 1.5 45.1 Started: 09/22/1979 Smokeless Tobacco: Never Tobacco Cessation:Ready [...] 09/21/2024 10:27 AM CDT Plan of Treatment Upcoming Encounters Date Type Department Care Team (Late st Contact Info) Description 11/03/2024 9:30 AM CDT Office Visit [facility] Oncology and Hematology [facility] [address] [facility] [[email or web address] [address] [place] [address] Danilo Jerez MD [address] [facility] [address] [place] [address] Health Maintenance Due Date Last Done Comments [...] Procedure Name Priority Date/Time Associated Diagnosis Comments BASIC METABOLIC PANEL Routine 10/13/2024 3:52 PM CDT CBC WITH DIFFERENTIAL Routine 10/13/2024 3:48 PM CDT HEMOGLOBIN AND HEMATOCRIT Routine 2024 3:07 PM CDT CO RBC LEUKOCYTES REDUCED Routine 2024 11:56 AM CDT CO RBC LEUKOCYTES REDUCED Routine 2024 11:44 AM CDT HEMOGLOBIN AND HEMATOCRIT Routine 2024 9:35 AM CDT PET TUMOR GA68 ILLUCCIX PSMA IMG W CT SKB MD Routine 09/26/2024 1:28 PM CDT CBC WITH AUTODIFFERENTIAL Routine 2024 3:31 PM CDT COMPREHENSIVE METABOLIC PANEL Routine 09/21/2024 1:39 PM CDT from Last 3 Months Results * BASIC METABOLIC PANEL (10/13/2024 3:52 PM CDT) Blood Result Huber Jerez MD CHEMISTRY ORDERABLES Final Resu lt * CBC WITH DIFFERENTIAL (10/13/2024 3:48 PM CDT) Blood Result Huber Jerez MD HEMATOLOGY ORDERABLES Final Res ult * HEMOGLOBIN AND HEMATOCRIT (10/03/2024 3:07 PM CDT) Only the most recent of2 resultswithin the time period is included. Blood Result [facility] Danilo Jerez MD HEMATOLOGY ORDERABLES Final Res ult * CO RBC LEUKOCYTES REDUCED (09/30/2024 11:56 AM CDT) Only the most recent of2 resultswithin the time period is included. Result Huber Jerez MD CHG - LABORATORY Final Result * PET TUMOR GA68 ILLUCIX PSMA IMG W CT SKB MD (09/26/2024 1:28 PM CDT) Anatomical Region Laterality Modality Positron Emissio n Tomography (PET) Result Huber Jerez MD PE ORDERABLES Final Result * CBC WITH AUTODIFFERENTIAL (09/21/2024 3:31 PM CDT) Blood Result [facility] Danilo Jerez MD HEMATOLOGY ORDERABLES Final Res ult * COMPREHENSIVE METABOLIC PANEL (09/21/2024 1:39 PM CDT) Blood us Danilo Jerez MD CHEMISTRY ORDERABLES Final Resu lt from Last 3 Months Insurance [id number] Member Subscriber Plan / Payer (Ef fective 2024-Present) Name:Robert Maloney Relation to Subscriber:Self Name:Robert Maloney Payer ID:[id number] (NAIC) Type:HMO Address: [facility] [id number] [place] [id number] Care Teams Pond Supervisor Relationship Specialty Start Date End Date Jaxon Crowell MD [address] [place] [address] PCP - General Internal Medicine 09/27/24
--- NOTE | 2024-10-21 11:09 | ECG_ITS ---
Test Date: 2024-10-21 11:22:32 Measurements Intervals [place] Rate: 77 P: 74 KS: 171 QRS: 92 QRSD: 97 T: 44 QT: 413 QTc: 469 Interpretive Statements SINUS RHYTHM BORDERLINE RIGHT AXIS DEVIATION [QRS AXIS > 90] MODERATE T-WAVE ABNORMALITY, CONSIDER ANTERIOR ISCHEMIA [-0.1+ mV T-WAVE IN V3/V4] No previous ECG available for comparison Electronically Signed On 10-21-2024 11:29:16 CDT by Chance Malcolm M.D.
--- NOTE | 2024-10-21 11:11 | ED_ITS ---
HPI - Extremity Problem General Chief complaint: Extremity Problem,Nontraumatic Stated complaint: swelling to BLE Time Seen by Provider: 10/21/24 10:55 History of Present Illness HPI Narrative: Pt with history of copd and metastatic prostated cancer presents with swelling to both legs for 2 months worse for last two weeks. Pt has chronic SOB but no worse than usual. Pt denies CP. Pt sways had lasix increased with no relief. Related Data Home Medications Medication Instructions Recorded Confirmed Last Taken Type albuterol sulfate 90 mcg/actuation 2 inh inhalation Q4H PRN shortness 09/22/24 10/21/24 10/21/24 History aerosol inhaler of breath or wheezing budesonide 160 mcg-glycopyr 9 2 inh inhalation BID COPD 09/22/24 10/21/24 10/21/24 History mcg-formot 4.8 mcg/actuation HFA inhaler (Breztri Aerosphere) furosemide 20 mg tablet 20 mg PO DAILY 09/22/24 10/21/24 10/20/24 History levothyroxine 25 mcg tablet 25 mcg PO DAILY 09/22/24 10/21/24 10/21/24 History oxycodone 10 mg tablet 10 mg PO Q8H 09/22/24 10/21/24 10/20/24 History apalutamide 60 mg tablet (Erleada) 240 mg PO QPM 10/21/24 10/21/24 10/20/24 History nicotine 21 mg/24 hr daily 1 patch topical Q24H 10/21/24 10/21/24 Unknown History transdermal patch prednisone 5 mg tablet 5 mg PO BIDWM 10/21/24 10/21/24 Unknown History tamsulosin 0.4 mg capsule 0.4 mg PO HS 10/21/24 10/21/24 10/20/24 History Allergies Allergy/AdvReac Type Severity Reaction Status Date / Time No Known Allergies Allergy Verified 10/21/24 11:31 Review of Systems 2 Review of Systems: All systems reviewed & are unremarkable except as noted in HPI and below PMFSH Past Medical History Medical History (Updated 10/21/24 @ 15:54 by Adeline Mendoza APRN) Hypocalcemia Prostate cancer metastatic to bone COPD (chronic obstructive pulmonary disease) Social History Social History Smoking packs per day: 1 Smoking cigarettes per day: 20.0 Years smoked: 45 Smoking pack-years: 45.00 Smoking status: Current every day smoker Second hand tobacco smoke exposure: No Alcohol intake: former Alcohol use details: pt. states he does not drink anymore, but did drink all his life. Drank 3-5 beers every week night and more on weekends. Substance use: never Substance use type: does not use Do You Feel Safe in your Home?: Yes Lack of Transportation: YES Lack of Food: Never True Current Housing: I Have Housing Concerned About Future Housing: No Difficulty Paying Gas/Electric Bills: YES Difficulty Paying for Meds: No Currently Unemployed: No Education: High School Diploma/GED Difficulty w/ Childcare or Family Care: No Living arrangements: alone Spiritual care concerns: No Exam 2 Const: General: healthy appearing and no acute distress Nutritional Appearance: well nourished Orientation/consciousness: patient oriented x3 Limitations: no limitations Chest: Chest palpation & inspection: normal inspection of the chest Resp: Effort & Inspection: normal respiratory effort Auscultation: wheezes Cardio: Rate: regular rate Rhythm: regular rhythm GI: GI Palp: Yes Soft to palpation and No Tenderness to palpation present (GI) Auscultation: normal bowel sounds Skin: Other: chronic brawny skin changes to both legs Neuro: General: patient oriented x3, moves all extremities and no focal motor deficits Speech: normal speech Extrem: General: edema bilateral (left more than right) Psych: Mental Status: mental status grossly normal Affect: normal affect Attitude: cooperative Course Vital Signs Vital signs: Vital Signs Temperature 98.1 F 10/21/24 10:32 Pulse Rate 82 10/21/24 10:32 Respiratory Rate 14 10/21/24 10:32 Blood Pressure 94/49 L 10/21/24 10:32 Pulse Oximetry 96 10/21/24 10:32 Oxygen Delivery Autopap 10/21/24 10:32 Temperature 98.1 F 10/21/24 10:32 Pulse Rate 83 10/21/24 16:00 Respiratory Rate 17 10/21/24 13:30 Blood Pressure 103/63 10/21/24 13:30 Pulse Oximetry 98 10/21/24 13:30 Oxygen Delivery Nasal Cannula 10/21/24 11:27 Oxygen Flow Rate 2.5 10/21/24 11:27 MDM - Extremity (Nontraumatic) MDM Narrative Medical decision making narrative: Pt presents with b/l LE swelling. Left is more than right so with cancer history will get venous doppler to rule out dvt. Will check labs and ekg and bnp to rule out cad or chf and cxr. Will give dose of lasix IVP. bnp elevated pneumonia on cxr. abx given lasix given discussed with Adeline Mendoza will admit. Lab Data 10/21/24 11:12 10/21/24 11:12 Labs: Lab Results 10/21/24 10/21/24 Range/Units 11:12 12:39 WBC 2.1 L (4.5-10.0) K/mm3 RBC 2.24 L (4.6-6.20) M/mm3 Hgb 7.3 L (14.0-18.0) g/dL Hct 22.9 L (42.0-52.0) % MCV 102.2 H (80-100) fl MCH 32.6 (26-34) pg MCHC 31.9 L (32-36) g/dl RDW 20.3 H (11.5-14.5) % Plt Count 113 L (150-375) k/mm3 MPV 11.0 H (7.4-10.4) fl Immature Gran % (Auto) Not Reportable Neut % (Auto) Not Reportable Lymph % (Auto) Not Reportable [place] % (Auto) Not Reportable Eos % (Auto) Not Reportable Baso % (Auto) Not Reportable Lymph # (Auto) Not Reportable [place] # (Auto) Not Reportable Eos # (Auto) Not Reportable Baso # (Auto) Not Reportable Abs Immat Gran (auto) Not Reportable Absolute Neuts (auto) Not Reportable Absolute Nucleated RBC Not Reportable Total Counted 100 Neutrophils % (Manual) 32 L (46-73) % Band Neutrophils % 1 (0-6) % Lymphocytes % (Manual) 58 H (18-44) % Monocytes % (Manual) 7 (3-9) % Eosinophils % (Manual) 1 (0-4) % Basophils % (Manual) 1 (0-1) % Nucleated RBC % Not Reportable Abs Neuts (Manual) 0.69 L (1.3-6.7) K/mm3 Abs Lymphs (Manual) 1.21 (1.1-4.5) K/mm3 Abs Monocytes (Manual) 0.14 (0.1-0.90) K/mm3 Absolute Eos (Manual) 0.02 (0.02-0.50) K/mm3 Abs Basophils (Manual) 0.02 (0.0-0.1) K/mm3 Nucleated RBCs 9 % Platelet Estimate Slightly decreased (Adequate) Large Platelets Present Giant Platelets Present Polychromasia 1+ Hypochromasia 1+ Poikilocytosis 1+ Anisocytosis 1+ Schistocytes None seen PT 14.6 (11.1-14.7) Seconds INR 1.1 APTT 32.1 (22.3-36.8) Seconds Sodium 133 L (137-145) mmol/L Potassium 4.7 (3.4-5.0) mmol/L Chloride 102 (98-107) mmol/L Carbon Dioxide 30 (22-30) mmol/L Anion Gap 1 L (4-12) mmol/L BUN 24 H (9-20) mg/dL Creatinine 0.75 (0.7-1.3) mg/dL Estim Creat Clear Calc 76 ml/min Estimated GFR > 60 (59 - ) Glucose 100 (65-110) mg/dL Calcium 6.1 L (8.4-10.2) mg/dL Total Bilirubin 0.6 (0.2-1.3) mg/dL AST 21 (17-59) U/L ALT 15 (6-50) U/L Alkaline Phosphatase 190 H (38-126) U/L Troponin I < 0.012 (0.000-0.034) ng/mL NT-Pro-B Natriuret Pep 5020 H (19.9-100) pg/mL Total Protein 6.0 L (6.3-8.2) g/dL Albumin 3.3 L (3.5-5.1) g/dL Urine Color Yellow (Yellow) Urine Appearance Clear (Clear) Urine pH 7.5 (5.0-9.0) Ur Specific [place] 1.006 (1.001-1.035) Urine Protein Negative (Negative) mg/dL Urine Glucose (UA) Negative (Negative) mg/dL Urine Ketones Negative (Negative) mg/dL Ur Blood (Man) Negative (Negative) Urine Nitrate Negative (Negative) Urine Bilirubin Negative (Negative) Urine Urobilinogen 0.2 (<2.0) mg/dL Leukocyte Esterase Rfl 1+ H (Negative) MARY CARMEN/UL Urine RBC 0-2 (0-2) /hpf Urine WBC 6-10 H (0-3) /hpf Ur Squamous Epith Cells None seen (Few) /hpf Urine Bacteria 4+ H /hpf Urine Casts 0-2 Discharge Plan Discharge Clinical Impression: Pneumonia, CHF (congestive heart failure) Patient Disposition: Still a Patient Condition: Improved
[2024-10-21] MEDS: FUROSEMIDE INJ 100 MG/10 ML VIAL 80 MG IV PUSH (11:14)
[2024-10-21 11:18] LABS: Hematocrit 22.9 % (42.0-52.0); Hemoglobin 7.3 g/dL (14.0-18.0); Mean Corpuscular HGB Conc 31.9 g/dl (32-36); Mean Corpuscular Hemoglobin 32.6 pg (26-34); Mean Corpuscular Volume 102.2 fl (80-100); Platelet Count Result 113 k/mm3 (150-375); Red Blood Count 2.24 M/mm3 (4.6-6.20); Red Cell Distribution Width 20.3 % (11.5-14.5); White Blood Count 2.1 K/mm3 (4.5-10.0)
[2024-10-21] MEDS: IPRATROPIUM 0.5 MG/ALBUTEROL SULFATE 2.5 MG AMPUL.NEB 3 ML INHALATION (11:18)
--- OUTSIDE RECORDS SUMMARY | 2024-10-21 11:22 | XMS_ITS | Clinical Summary ---
Author Organization [facility] Address [address] [facility] [place] [address] Care Team Providers Care Veterinary Technician Name Role Phone Unavailable Primary Care Provider Unavailabl e Source Comments [facility],non-owned Affiliates and Associated Physician Practices is amultiple site organization consisting of ambulatory clinics and hospital sitesin [place], [place], [place] and [place]. This disclosure is being madepursuant to the Care Everywhere program and may not contain all information available regarding this patient. 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
--- OUTSIDE RECORDS SUMMARY | 2024-10-21 11:22 | XMS_ITS | Clinical Summary ---
Author Organization [facility] Isac Clark Address [address] [place] [address] Care Team Providers Care Nuclear Medicine Chief Technologist Name Role Phone Jaxon Crowell MD Primary Care Provider [phone] Allergies No known active allergies Medications furosemide [...] Type Department Care Team Description 10/19/2024 Abstract [facility] Oncology and Hematology - [place] [address] [place] [id number] Danilo Jerez MD 10/14/2024 Orders Only [facility] Oncology and Hematology - [place] [address] [place] [id number] Danilo Jerez MD 10/12/2024 Orders Only [facility] Oncology and Hematology - [place] [address] [place] [id number] Danilo Jerez MD Prostate cancer ([facility]) (Primary Dx) 10/11/2024 Refill [facility] Oncology and Hematology - [place] [id number] Danilo Jerez MD Prostate cancer ([facility]) (Primary Dx) 10/04/2024 Orders Only [facility] Oncology and Hematology - [place] [address] [place] [address] Danilo Jerez MD 10/03/2024 Orders Only [facility] Oncology and Hematology - [place] [address] [place] [id number] Danilo Jerez MD 10/03/2024 Abstract [facility] Oncology and Hematology - [place] [address] [place] [address] Danilo Jerez MD 09/30/2024 Telephone [facility] Oncology and Hematology - [place] [address] [place] [address] Danilo Jerez MD Blood Transfusion 09/30/2024 Abstract [facility] Oncology and Hematology - [place] [address] [place] [address] Danilo Jerez MD 09/30/2024 Orders [facility] Oncology and Hematology - [place] [address] [place] [address] Danilo Jerez MD Prostate cancer ([facility]) (Primary Dx); Chronic anemia 09/27/2024 External Device Data [facility] ABSTRACTION Provider, Abstract 09/27/2024 External Device Data [facility] ABSTRACTION Provider, Abstract 09/27/2024 External Device Data [facility] ABSTRACTION Provider, Abstract 09/27/2024 Orders Only [facility] Oncology and Hematology [facility] [address] [place] [address] Danilo Jerez MD 09/22/2024 Orders Only [facility] Oncology and Hematology [facility] [address] [place] [address] Danilo Jerez MD 09/21/2024 10:30 AM CDT Office Visit [facility] Oncology and Hematology [facility] [address] [place] [address] Danilo Jerez MD Prostate cancer ([facility]) (Primary Dx); Chronic anemia 09/21/2024 Orders Only [facility] Oncology and Hematology [facility] [address] [place] [address] Danilo Jerez MD from Last 3 Months [...] Description 11/03/2024 9:30 AM CDT Office Visit [facility] Oncology and Hematology [facility] [address] [facility] [address] [place] [address] Danilo Jerez MD [address] [facility] [address] [place] [address] Health Maintenance Due Date Last [...] AND HEMATOCRIT Routine 2024 3:07 PM CDT [place] RBC LEUKOCYTES REDUCED Routine 2024 11:56 AM CDT [place] RBC LEUKOCYTES REDUCED Routine 2024 11:44 AM [...] the time period is included. Blood Result [facility] us Danilo Jerez MD HEMATOLOGY ORDERABLES Final Res ult * FL RBC LEUKOCYTES REDUCED (09/30/2024 11:56 AM CDT) [...] AUTODIFFERENTIAL (09/21/2024 3:31 PM CDT) Blood Result [facility] us Danilo Jerez MD HEMATOLOGY ORDERABLES Final Res ult * COMPREHENSIVE METABOLIC PANEL (09/21/2024 1:39 PM CDT) Blood us Danilo Jerez MD CHEMISTRY ORDERABLES Final Resu lt from Last 3 Months Insurance [employer] [id number] Member Subscriber Plan / Payer (Ef fective 2024-Present) Name:Robert Maloney Relation to Subscriber:Self Name:Robert Maloney Payer ID:[id number] (NAIC) Type:HMO Address: [facility] [id number] [place] [id number] Care Teams Nuclear Medicine Chief Technologist Relationship Specialty Start Date End Date Jaxon Crowell MD [address] [place] [address] PCP - General Internal Medicine 09/27/24
--- OUTSIDE RECORDS SUMMARY | 2024-10-21 11:22 | XMS_ITS | Clinical Summary ---
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
--- OUTSIDE RECORDS SUMMARY | 2024-10-21 11:22 | XMS_ITS | CONTINUITY OF CARE DOCUMENT ---
Author Name ruel lipscomb Address Unknown Organization [facility] Address [address] [facility] [address] [place] [address] Phone [phone] Care Team Providers Care Photogrammetric Engineer Name Role Phone Robert Freeman MD Unavailable [phone] TATYANA DAWN MD Unavailable [phone] TATYANA DAWN MD Unavailable PROBLEMS Condition Status Date Provider Notes Shortness of breath (SOB) active Jesse jha per PCP LÓPEZ Tobacco abuse active Robert Freeman MD Leg edema active Robert Freeman MD Orthopnea active Robert Freeman MD ENCOUNTERS Date Type Provider Location Encounter Diag nosis - In-person encounter Office Visit Robert Freeamn MD [place] [facility] - In-person encounter Office Visit Robert Freeman MD [place] [facility] Tobacco abuseLeg edemaOrthopnea VITAL SIGNS Date [...] / Coverage type Candie red democrat ID [facility] Other [id number] ADVANCE DIRECTIVES Name Date DISCUSSED - NO DECISION MADE TREATMENT PLAN Date Name Performer [id number],C,T he Patient was reencouraged to stop smoking. Emilia Amos [id number],C,P t complained of SOB with minimal exertion, orthopnea, heavy smoker. Also had leg swelling which improved with Lasix. Echo showed EF 45%. Marked RV dilation with PA pressure 64 and mmHg. I recommend R/L cardiac cath, chest CT with contrast, venous duplex of the LE, PFTs, and will check BNP levels. I advised him to stop smoking. Kaiden's test was normal. Emilia Amos [id number],C,P t complained of SOB with minimal exertion, orthopnea, heavy smoker. Also had leg swelling which improved with Lasix. Echo showed EF 45%. Marked RV dilation with PA pressure 64 and mmHg. I recommend R/L cardiac cath, chest CT with contrast, venous duplex of the LE, PFTs, and will check BNP levels. I advised him to stop smoking. Kaiden's test was normal. Emilia Amos [id number],C,P t complained of SOB with minimal exertion, [...] [facility]:Pt with a recent admission to [facility] for SOB and leg swelling. His [...] [facility]:Pt with a recent admission to [facility] for SOB and leg swelling. His [...] Study Home PROBNP, N TERMINAL DLCO - 76173 FRC - 12336 FVC - 12571 PROTHROMBIN TIME WIT H INR LIPID PANEL CBC (INCLUDES DIFF/P LT) BASIC METABOLIC PANE L W/EGFR DLCO - 27127 FRC - 15777 FVC - 48678 Venous Doppler Bilat eral LE - Reflux Cardiac Cath - L/R- SLHV B TYPE NATRIURETIC P EPTIDE (BNP) CT Chest with contra st Complete Echo HISTORY OF PROCEDURES Procedure Date Procedure Name Provider Procedure Notes S tatus Complex e/m visit add on Robert Freeman MD completed EKG Robert Freeman MD completed
--- OUTSIDE RECORDS SUMMARY | 2024-10-21 11:22 | XMS_ITS | Encounter Summary ---
Author Organization [facility] Address [address] [place] [address] Care Team Providers Care Baling Machine Tender Name Role Phone Unavailable Primary Care Provider Unavailabl e Encounter Details Date Type Department Care Team (Late st Contact Info) Description 08/16/2024 Lab Requisition [facility] - Pathology Lab [address] [place] [address] Giancarlo Macias MD [address] [place] [address] Illness, unspecified Social History Tobacco Use Types Packs/Day Years Used Date Smoking Tobacco: Never Assessed Sex and Gender Information Value Date Recorded Sex Assigned at Not on file 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
--- OUTSIDE RECORDS SUMMARY | 2024-10-21 11:22 | XMS_ITS | Continuity of Care Document ---
Author Organization [facility] Address [address] [place] [address] [address] [place] [address] Phone Care Team Providers Care Lobster Man Name Role Phone Darcy Mishra Unavailable Unavailable Advance Directives Directive Yes / No Effective Date File Name No Information Encounters Encounter Description Practice Location Reason(s) For Visit Diagnoses Date Provider Providers Copied on Encounter [facility], [id number] [place] [address] [address], [place], [place], [id number], [place] tel:[phone] SEC [facility] No Information Apr-0 7-200 5 Danica Taveras. [address] , [address], [place], [address], [place]. tel:[phone] Family History Family Member Type Diagnosis Age At Onset No Information Payers Payer name Insurance type Covered green party ID Authoriza [id number](s) [employer] [id number] Social History Type Description Quantity Date Captured [...]
[2024-10-21 11:29] LABS: Alanine Aminotransferase 15 U/L (6-50); Albumin Level 3.3 g/dL (3.5-5.1); Alkaline Phosphatase 190 U/L (38-126); Anion Gap 1 mmol/L (4-12); Aspartate Amino Transferase 21 U/L (17-59); Bilirubin,Total 0.6 mg/dL (0.2-1.3); Blood Urea Nitrogen 24 mg/dL (9-20); Calcium 6.1 mg/dL (8.4-10.2); Carbon Dioxide 30 mmol/L (22-30); Chloride 102 mmol/L (98-107); Estimated CRCL calculation 76 ml/min; Estimated Glomerular Filt Rate > 60; Glucose 100 mg/dL (65-110); Potassium 4.7 mmol/L (3.4-5.0); Sodium 133 mmol/L (137-145)
[2024-10-21 11:36] LABS: INR 1.1; Partial Thromboplastin Time 32.1 Seconds (22.3-36.8); Prothrombin Time 14.6 Seconds (11.1-14.7)
[2024-10-21 11:41] LABS: NT Pro B Type Natriuretic Pept 5020 pg/mL (19.9-100); Troponin I < 0.012 ng/mL (0.000-0.034)
[2024-10-21 12:10] LABS: Band Neutrophils Percent 1 % (0-6); Basophils Absolute Manual 0.02 K/mm3 (0.0-0.1); Basophils Percent Manual 1 % (0-1); Eosinophils Absolute Manual 0.02 K/mm3 (0.02-0.50); Eosinophils Percent Manual 1 % (0-4); Lymphocytes Absolute Manual 1.21 K/mm3 (1.1-4.5); Lymphocytes Percent Manual 58 % (18-44); Monocytes Absolute Manual 0.14 K/mm3 (0.1-0.90); Monocytes Percent Manual 7 % (3-9); Neutrophils Absolute Manual 0.69 K/mm3 (1.3-6.7); Neutrophils Percent Manual 32 % (46-73); Nucleated Red Blood Cells 9 %; Total Cells Counted 100
[2024-10-21 12:11] LABS: Anisocytosis 1+; Giant Platelets Present; Large Platelets Present; Platelet Estimate Slightly Decreased (Adequate)
[2024-10-21 12:12] LABS: Polychromasia 1+
[2024-10-21 12:13] LABS: Hypochromasia 1+; Poikilocytosis 1+; Schistocytes None Seen
--- NOTE | 2024-10-21 12:51 | PC.NURSE ---
pt came into ED with huang in place
[2024-10-21 12:53] LABS: Add Urine Microscopic? YES; Appearance Urine Clear (Clear); Bacteria Urine 4+ /hpf; Bilirubin Urine Negative (Negative); Blood Urine Negative (Negative); Color Urine Yellow (Yellow); Glucose Urine UA Negative (Negative); Ketones Urine Negative (Negative); Leukocyte Esterase Ur 1+ LEU/UL (Negative); Nitrate Urine Negative (Negative); Non Pathogenic Casts 0-2; Protein Urine Negative (Negative); RBC Urine 0-2 /hpf (0-2); Specific Grav Ur 1.006 (1.001-1.035); Squamous Epithelial Cell Urine None Seen /hpf (Few); Urobilinogen Urine 0.2 mg/dL (<2.0); pH Urine 7.5 (5.0-9.0)
[2024-10-21] MEDS: cefTRIAXone 2 GM/NS 100 ML 2 GM/100 ML BAG IVPB (13:30)
--- NOTE | 2024-10-21 14:01 | ECG_ITS ---
Test Date: 2024-10-21 14:15:31 Measurements Intervals Welch Rate: 75 P: 73 ND: 177 QRS: 91 QRSD: 91 T: 51 QT: 444 QTc: 499 Interpretive Statements SINUS RHYTHM BORDERLINE RIGHT AXIS DEVIATION [QRS AXIS > 90] MARKED T-WAVE ABNORMALITY, CONSIDER ANTERIOR ISCHEMIA [-0.5+ mV T-WAVE IN V3/V4] ABNORMAL ECG Compared to ECG 10/21/2024 11:22:32 No significant changes Electronically Signed On 10-22-2024 07:59:33 CDT by Ernesto Cornejo M.D.
[2024-10-21] MEDS: AZITHROMYCIN 500 MG/NS 250 ML 500 MG/250 ML BAG 250 MG IVPB (14:09)
[2024-10-21 14:43] LABS: Troponin I < 0.012 ng/mL (0.000-0.034)
--- NOTE | 2024-10-21 14:52 | ADMGEN ---
This patient, Robert Maloney, was admitted to Medical Room 258-01. Patient/family oriented to hospital policies and general routines including ID bracelet, bed and alarms, visiting hours, pain management, procedures, bathroom and other care routines, personal items, smoking policy, room service/diet, and visiting hours. Information on how to activate the Rapid Response Team has been discussed. Patient/Family are encouraged to report perceived risks to care and to ask questions if they do not understand what they are told or what they should do.
--- NOTE | 2024-10-21 15:32 | P.HP_ITS ---
H&P: HPI History of Present Illness Date/Time: 10/21/24 15:32 Chief Complaint: Shortness of breath Narrative: 64-year-old male with past medical history of COPD on 2 have L of oxygen at home and prostate cancer with metastases to the bone, candi Quinn presents with complaints of bilateral leg swelling and shortness of breath. Patient states that he still smoking. Patient states that his legs have been swelling over the last 2 months with worsening over the last few weeks. Patient states that is making it hard for him to walk. Patient states that he has increased his Lasix but have not helped. Patient denies nausea vomiting or diarrhea. Patient is leukopenia of 2.1, hemoglobin of 7.3, platelets of 113, sodium of 133, hand gap 1, BUN of 24, calcium of 6.1, alkaline phos of 190, BNP of 5028, albumin of 3.3. UA shows leukocyte esterase 1+, wbc's of 6-10, and 4+ bacteria. Chest x-ray shows bilateral pneumonia. Lower extremity Dopplers negative for DVT. Review of Systems Review of Systems: 12 systems were reviewed and are negativ e except for as per HPI. [facility] Past Medical History Medical History (Updated 10/21/24 @ 15:54 by Adeline Mendoza, [place]) Hypocalcemia Prostate cancer metastatic to bone COPD (chronic obstructive pulmonary disease) Social History Social History Smoking packs per day: 1 Smoking cigarettes per day: 20.0 Years smoked: 45 Smoking pack-years: 45.00 Smoking status: Current every day smoker Second hand tobacco smoke exposure: No Alcohol intake: former Alcohol use details: pt. states he does not drink anymore, but did drink all his life. Drank 3-5 beers every week night and more on weekends. Substance use: never Substance use type: does not use Do You Feel Safe in your Home?: Yes Lack of Transportation: YES Lack of Food: Never True Current Housing: I Have Housing Concerned About Future Housing: No Difficulty Paying Gas/Electric Bills: YES Difficulty Paying for Meds: No Currently Unemployed: No Education: High School Diploma/GED Difficulty w/ Childcare or Family Care: No Living arrangements: alone Spiritual care concerns: No Meds Home Medications and Allergies Home Medications Medication Instructions Recorded Confirmed Type albuterol sulfate 90 mcg/actuation 2 inh inhalation Q4H PRN shortness 09/22/24 10/21/24 History aerosol inhaler of breath or wheezing budesonide 160 mcg-glycopyr 9 2 inh inhalation BID COPD 09/22/24 10/21/24 History mcg-formot 4.8 mcg/actuation HFA inhaler (Breztri Aerosphere) furosemide 20 mg tablet 20 mg PO DAILY 09/22/24 10/21/24 History levothyroxine 25 mcg tablet 25 mcg PO DAILY 09/22/24 10/21/24 History oxycodone 10 mg tablet 10 mg PO Q8H 09/22/24 10/21/24 History apalutamide 60 mg tablet (Erleada) 240 mg PO QPM 10/21/24 10/21/24 History nicotine 21 mg/24 hr daily 1 patch topical Q24H 10/21/24 10/21/24 History transdermal patch prednisone 5 mg tablet 5 mg PO BIDWM 10/21/24 10/21/24 History tamsulosin 0.4 mg capsule 0.4 mg PO HS 10/21/24 10/21/24 History Allergies Allergy/AdvReac Type Severity Reaction Status Date / Time No Known Allergies Allergy Verified 10/21/24 11:31 Vital Signs Vital Signs - 24 hr 10/21/24 10:32 10/21/24 11:01 10/21/24 11:01 Temperature 98.1 F Pulse Rate 82 86 85 Respiratory Rate 14 19 Blood Pressure 94/49 L 123/67 Pulse Oximetry 96 88 L Oxygen Delivery Autopap Oxygen Flow Rate 10/21/24 11:03 10/21/24 11:15 10/21/24 11:22 Temperature Pulse Rate 79 77 Respiratory Rate 27 H 16 Blood Pressure 119/72 Pulse Oximetry 92 98 Oxygen Delivery Nasal Cannula Oxygen Flow Rate 2.5 10/21/24 11:23 10/21/24 11:27 10/21/24 11:31 Temperature Pulse Rate 76 Respiratory Rate 18 Blood Pressure 120/73 Pulse Oximetry 96 96 100 Oxygen Delivery Nasal Cannula Nasal Cannula Oxygen Flow Rate 2.5 2.5 10/21/24 11:46 10/21/24 12:01 10/21/24 12:15 Temperature Pulse Rate 81 75 75 Respiratory Rate 18 18 19 Blood Pressure 115/67 113/72 119/72 Pulse Oximetry 97 100 100 Oxygen Delivery Oxygen Flow Rate 10/21/24 12:31 10/21/24 12:46 10/21/24 13:01 Temperature Pulse Rate 78 74 72 Respiratory Rate 12 16 17 Blood Pressure 124/70 115/76 112/75 Pulse Oximetry 99 100 98 Oxygen Delivery Oxygen Flow Rate 10/21/24 13:15 10/21/24 13:30 Temperature Pulse Rate 72 71 Respiratory Rate 21 H 17 Blood Pressure 107/64 103/63 Pulse Oximetry 100 98 Oxygen Delivery Oxygen Flow Rate Exam Narrative: General: Chronically ill-appearing HEENT: normocephalic, atraumatic. Mucous membranes moist. EOMI, PERRLA, bilateral sclera anicteric, no conjunctival injection. Neck supple without JVD, lymphadenopathy, or bruit. Respiratory: clear to ascultation bilaterally. No rales/rhonic/wheezes. Cardiovascular: Regular rate and rhythm, normal S1-S2 upon ascultation. No murmurs, rubs, or clicks. PMI is nondisplaced, capillary refill less than 3 second. Abdomen: Soft, round, no pulsatile masses, nondistended and nontender. No rebound, no guarding. No CVA tenderness, no hepatosplenomegaly. Bowel sounds present to all four quadrants. No high pitch or tinkling sounds, resonant to percussion. Extremities: No cyanosis, clubbing, or edema present. Pulses are palpable 2/2. Active ROM to all four extremities. Neuro: Alert and orientated x 4. PERRLA. Cranial nerves 2-12 intact without focal deficit. Skin: Warm, dry, and intact, without rash, erythema, or lesion. Psych: pleasant, cooperative, normal speech, normal affect, no hallucinations, no dysarthia Chronic Quinn H&P: Results Labs Labs: Short CBC 10/21/24 Range/Units 11:12 WBC 2.1 L (4.5-10.0) K/mm3 Hgb 7.3 L (14.0-18.0) g/dL Hct 22.9 L (42.0-52.0) % Plt Count 113 L (150-375) k/mm3 BMP 10/21/24 11:12 Sodium 133 L Potassium 4.7 Chloride 102 Carbon Dioxide 30 BUN 24 H Creatinine 0.75 Glucose 100 Calcium 6.1 L Cardiac Enzymes 10/21/24 10/21/24 Range/Units 11:12 14:08 Troponin I < 0.012 < 0.012 (0.000-0.034) ng/mL Liver Function 10/21/24 Range/Units 11:12 Total Bilirubin 0.6 (0.2-1.3) mg/dL AST 21 (17-59) U/L ALT 15 (6-50) U/L Alkaline Phosphatase 190 H (38-126) U/L Albumin 3.3 L (3.5-5.1) g/dL Urine 10/21/24 Range/Units 12:39 Urine Color Yellow (Yellow) Urine Appearance Clear (Clear) Urine pH 7.5 (5.0-9.0) Ur Specific [place] 1.006 (1.001-1.035) Urine Protein Negative (Negative) mg/dL Urine Glucose (UA) Negative (Negative) mg/dL Assessment and Plan Assessment and plan (1) CHF (congestive heart failure): Code(s): I50.9 - Heart failure, unspecified Status: Acute Assessment and Plan: 80 mg IV Lasix given in ED IV Lasix b.i.d. Fluid restriction Heart healthy diet Echocardiogram pending (2) Pneumonia: Code(s): J18.9 - Pneumonia, unspecified organism Status: Acute Assessment and Plan: Rocephin and azithromycin No IV fluid CT to pulmonary edema (3) COPD (chronic obstructive pulmonary disease): Code(s): J44.9 - Chronic obstructive pulmonary disease, unspecified Status: Acute Assessment and Plan: Possible exacerbation Restart home inhalers IV steroids followed by daily oral Patient is at home O2 setting (4) Thrombocytopenia: Code(s): D69.6 - Thrombocytopenia, unspecified Status: Acute Assessment and Plan: Patient with history of prostate cancer with metastases to bone Daily CBCs (5) Hypocalcemia: Code(s): E83.51 - Hypocalcemia Status: Acute Assessment and Plan: Corrected calcium 6.7 2 g IV calcium gluconate BMP in the morning (6) Hypothyroidism: Code(s): E03.9 - Hypothyroidism, unspecified Status: Acute Assessment and Plan: TSH pending Continue home levothyroxine (7) Prostate cancer: Code(s): C61 - Malignant neoplasm of prostate Status: Acute Assessment and Plan: Continue Erleada and Flomax Chronic Quinn Quality VTE Prophylaxis VTE prophylaxis: mechanical ordered and pharmacologic ordered Hospitalist MIPS Advance Care Plan I have confirmed that the patient's Advanced Care Plan is present, code status is documented, or surrogate decision maker is listed in patient medical record.: Yes Medication Reconciliation I have utilized all available resources to obtain, update and review the patients current medications (includes all prescriptions, OTC, herbals, cannabis, and nutritional supplements).: Yes
[2024-10-21] MEDS: ALBUTEROL SULFATE (*SP) AEROSOL 1 PUFF 2 PUFF INHALATION (15:51)
[2024-10-21] MEDS: methylPREDNISolone SOD SUCC 125 MG VIAL IV PUSH (16:40)
[2024-10-21] MEDS: CALCIUM GLUC 2,000 MG/NS 100ML 2,000 MG/100 ML BAG 100 MG IVPB (16:40)
[2024-10-21] MEDS: TAMSULOSIN HCL 0.4 MG CAPSULE PO (20:54)
[2024-10-21] MEDS: NICOTINE (*PBKC) 21 MG PATCH 1 PATCH TOPICAL (20:54)
[2024-10-21] MEDS: HEPARIN SODIUM 5,000 UNITS/ML VIAL 5000 UNITS SUB-Q (20:55)
[2024-10-22] VITALS (11 sets, daily range): BP systolic 95–111; BP diastolic 54–65; PULSE 74–86; RESP 16–18; TEMP 36.7–37; O2SAT 93–95
--- NOTE | 2024-10-22 | ECHO_ITS ---
Patient Info Name: Robert Maloney Age: 64 years : 1960 Gender: Male Ht: 68 in Wt: 135 lbs BSA: 1.71 m2 HR: 87 bpm BP: 111 / 64 mmHg Heart Rhythm: Sinus Rhythm Technical Quality: Good Exam Date: 10/22/2024 11:04 AM Patient Status: I Admit Date: 10/22/2024 Exam Type: CA echo doppler color flow Complete two-dimensional, color flow and Doppler transthoracic echocardiogram is performed. Staff Referring Physician: Cheryle Dixon III Construction Worker: Saray Ambrosio Attending Provider: Ced Garcia Summary 1. Complete two-dimensional, color flow and Doppler transthoracic echocardiogram is performed. 2. Left ventricular chamber dimension is normal. 3. Left ventricular systolic function is normal, estimated at 55-60. 4. There is mildly increased left ventricular wall thickness. 5. The left ventricular diastolic function is grade I diastolic dysfunction. 6. 'D-shaped' septum seen in both systole and diastole consistent with right ventricular pressure and volume overload. 7. Right ventricular chamber dimension is severely enlarged. 8. Right ventricular systolic function is reduced. 9. Left atrial chamber dimension is mildly enlarged. 10. Right atrial chamber dimension is moderately enlarged. 11. There is mild mitral valve regurgitation. 12. There is moderate to severe tricuspid valve regurgitation. 13. Severe pulmonary hypertension, estimated pulmonary arterial systolic pressure is 80 mmHg. 14. Enlarged coronary sinus is noted. This can be seen with impaired right ventricular function, a persistent left superior vena cava, tricuspid regurgitation, and other. Left Ventricle Left ventricular chamber dimension is normal. Left ventricular systolic function is normal, estimated at 55-60. There is mildly increased left ventricular wall thickness. The left ventricular diastolic function is grade I diastolic dysfunction. 'D-shaped' septum seen in both systole and diastole consistent with right ventricular pressure and volume overload. Right Ventricle Right ventricular chamber dimension is severely enlarged. Right ventricular systolic function is reduced. Left Atria Left atrial chamber dimension is mildly enlarged. Right Atria Right atrial chamber dimension is moderately enlarged. Atrial Septum Intact interatrial septum visualized by color flow imaging. Aortic Valve The aortic valve is trileaflet. There is mild aortic valve sclerosis. There is no aortic valve stenosis. There is trace aortic valve regurgitation. Pulmonic Valve The pulmonic valve is normal. There is no pulmonic valve stenosis. There is trace pulmonic regurgitation. Mitral Valve The mitral valve has normal leaflets. There is no mitral valve stenosis. There is mild mitral valve regurgitation. Tricuspid Valve The tricuspid valve leaflets are normal. There is no significant tricuspid valve stenosis. There is moderate to severe tricuspid valve regurgitation. Severe pulmonary hypertension, estimated pulmonary arterial systolic pressure is 80 mmHg. Other Findings Enlarged coronary sinus is noted. This can be seen with impaired right ventricular function, a persistent left superior vena cava, tricuspid regurgitation, and other. Pericardium/Pleural The pericardium appears normal. There is no pericardial effusion. Inferior Vena Cava Dilated inferior vena cava with <50% collapse upon inspiration consistent with elevated right atrial pressure, 15 mmHg. Aorta The aortic root size at the sinus of Valsalva is normal. Left Ventricular Outflow Tract Name Value Normal LVOT 2D LVOT Diameter 2.0 cm LVOT Doppler LVOT Peak Velocity 101 cm/s LVOT Peak Gradient 3 mmHg LVOT Mean Gradient 1 mmHg LVOT VTI 23 cm LVOT VTI/AV VTI Ratio 0.8 LVOT Stroke Volume 73 ml LVOT CO 5.4 l/min LVOT CI 3.2 l/min/m2 Pulmonic Valve Name Value Normal RVOT Doppler RVOT Peak Velocity 56 cm/s RVOT Peak Gradient 1 mmHg PV Doppler PV Peak Velocity 100 cm/s PV Peak Gradient 4 mmHg Mitral Valve Name Value Normal MV Diastolic Function MV E Peak Velocity 80 cm/s MV A Peak Velocity 89 cm/s MV E/A 0.9 MV Decel Time (PW) 207 ms MV Annular TDI MV E/e' (Septal) 17.1 MV E/e' (Lateral) 8.9 MV E/e' (Average) 13.0 Tricuspid Valve Name Value Normal TV Regurgitation Doppler TR Peak Velocity 402 cm/s TR Peak Gradient 65 mmHg Estimated PAP/RSVP RA Pressure 15 mmHg <=5 PA Systolic Pressure 80 mmHg <36 RV Systolic Pressure 80 mmHg <36 TV Annular TDI TV Lateral Glo s' Velocity 16.7 cm/s >=9.5 Aortic Valve Name Value Normal AV Doppler AV Peak Velocity 147 cm/s AV Peak Gradient 5 mmHg AV Mean Gradient 3 mmHg AV VTI 30 cm AV Area (Cont Eq VTI) 2.5 cm2 >=3.0 AV Area (Cont Eq Sheldon) 2.2 cm2 AV DI (Sheldon) 0.69 AV Regurgitation 2D LVOT Area 3.2 cm2 Ventricles Name Value Normal LV Dimensions 2D/MM IVS Diastolic Thickness (2D) 3.3 cm 0.6-1.0 LVID Diastole (2D) 4.5 cm 4.2-5.8 LVIW Diastolic Thickness (2D) 1.1 cm 0.6-1.0 LVID Systole (2D) 2.9 cm 2.5-4.0 LVOT Diameter 2.0 cm LV Mass (2D Cubed) 502.68 g 88.00-224.00 LV Mass Index (2D Cubed) 294 g/m2 49-115 Relative Wall Thickness (2D) 0.47 <=0.42 LV Fractional Shortening/Ejection Fraction 2D/MM LV Fractional Shortening (2D) 35 % 25-43 LV EF (2D Teichholz) 65 % LV Diastolic Volume (4C MOD) 120 ml LV EF (4C MOD) 57 % LV Diastolic Volume (2C MOD) 101 ml LV EF (2C MOD) 62 % LV Diastolic Volume (BP MOD) 113 ml 62-150 LV Diastolic Volume Index (BP MOD) 66 ml/m2 34-74 LV Systolic Volume (BP MOD) 48 ml 21-61 LV Systolic Volume Index (BP MOD) 28 ml/m2 11-31 LV EF (BP MOD) 57 % 52-72 LV Diastolic Length (4C) 8.0 cm LV Systolic Length (4C) 6.2 cm LV Stroke Volume (4C MOD) 68 ml Atria Name Value Normal LA Dimensions LA Volume (4C A-L) 70 ml RA Dimensions RA Systolic Major [place] Length (4C) 5.2 cm 2.1-2.7 RA Area (4C) 25.5 cm2 <=18.0 Report Signatures
[2024-10-22 05:00] LABS: Mean Corpuscular HGB Conc 30.4 g/dl (32-36); Mean Corpuscular Hemoglobin 32.9 pg (26-34); Mean Platelet Volume 10.8 fl (7.4-10.4); Platelet Count Result 118 k/mm3 (150-375); Red Blood Count 2.13 M/mm3 (4.6-6.20); Red Cell Distribution Width 20.4 % (11.5-14.5)
[2024-10-22 05:13] LABS: Anion Gap 1 mmol/L (4-12); Blood Urea Nitrogen 22 mg/dL (9-20); Calcium 5.8 mg/dL (8.4-10.2); Carbon Dioxide 32 mmol/L (22-30); Chloride 105 mmol/L (98-107); Estimated CRCL calculation 83 ml/min; Estimated Glomerular Filt Rate > 60; Glucose 113 mg/dL (65-110); Magnesium 2.6 mg/dL (1.6-2.3); Phosphorus 3.5 mg/dL (2.5-4.5); Potassium 4.5 mmol/L (3.4-5.0); Sodium 138 mmol/L (137-145)
[2024-10-22 06:01] LABS: White Blood Count 1.9 K/mm3 (4.5-10.0)
[2024-10-22 06:08] LABS: Band Neutrophils Percent 0 % (0-6); Lymphocytes Absolute Manual 1.34 K/mm3 (1.1-4.5); Lymphocytes Percent Manual 71 % (18-44); Monocytes Absolute Manual 0.15 K/mm3 (0.1-0.90); Monocytes Percent Manual 8 % (3-9); Neutrophils Absolute Manual 0.34 K/mm3 (1.3-6.7); Neutrophils Percent Manual 18 % (46-73); Total Cells Counted 100
[2024-10-22 06:09] LABS: Anisocytosis 1+; Basophilic Stippling 1+; Basophils Absolute Manual 0.01 K/mm3 (0.0-0.1); Basophils Percent Manual 1 % (0-1); Eosinophils Absolute Manual 0.03 K/mm3 (0.02-0.50); Eosinophils Percent Manual 2 % (0-4); Hypochromasia 1+; Nucleated Red Blood Cells 12 %; Platelet Estimate Decreased (Adequate); Polychromasia 1+
[2024-10-22 06:10] LABS: Schistocytes None Seen
[2024-10-22] MEDS: CALCIUM GLUC 2,000 MG/NS 100ML 2,000 MG/100 ML BAG 100 MG IVPB (06:12)
[2024-10-22] MEDS: LEVOTHYROXINE SODIUM 25 MCG TABLET PO (06:13)
[2024-10-22] MEDS: FLUTICASONE/UMECLIDIN/VILANTER 100-62.5-25 MCG ELLIPTA 1 PUFF INHALATION (08:08)
[2024-10-22] MEDS: oxyCODONE HCL (*CRX) 5 MG TAB IR PO ×2 (08:18→21:33)
[2024-10-22] MEDS: predniSONE 20 MG TABLET 40 MG PO (08:20)
--- NOTE | 2024-10-22 08:45 | PCRCNOTE ---
Addendum entered by Bere Manzo, DIRECTOR OF SALES SUPPORT 10/22/24 11:14: RT got ahold of Dina Singer @ 1113 to discuss nebs vs patient's Breztri inhaler. Nebs will be discontinued @ this time and patient's home Breztri will be sent to pharmacy. Addendum entered by Bere Manzo, DIRECTOR OF SALES SUPPORT 10/22/24 09:02: RT got ahold of Dina Em and she states she doesn't work at [facility] anymore? RT will attempt to find out who patient's provider is. Original Note: RT called Dr. Garcia about patient's home Breztria and he stated Dina Em [employer] should be seeing the patient. RT called Dina and had to leave a message. Will contact again if no returned phone call. RN aware patient wants his home Breztri and refused Trelegy.
[2024-10-22] MEDS: FUROSEMIDE INJ 40 MG/4 ML VIAL IV PUSH ×2 (09:08→16:52)
[2024-10-22] MEDS: HEPARIN SODIUM 5,000 UNITS/ML VIAL 5000 UNITS SUB-Q ×2 (09:09→21:28)
[2024-10-22] MEDS: AZITHROMYCIN 500 MG/NS 250 ML 500 MG/250 ML BAG 250 MG IVPB (09:09)
[2024-10-22] MEDS: guaiFENesin 12 HR 600 MG TABCR 1200 MG PO ×2 (09:10→21:28)
--- NOTE | 2024-10-22 09:58 | P.PNIM_ITS ---
Progress Note: A&P Assessment and Plan (1) CHF (congestive heart failure): Code(s): I50.9 - Heart failure, unspecified Status: Acute Assessment and Plan: C/o mild SOB and BLE edema upon admission to ED. 80 mg IV Lasix given in ED IV Lasix 40mg b.i.d., reports today that his legs have gone down significantly Fluid restriction Heart healthy diet US Doppler duplex BLE: WDL Echocardiogram pending, probable D/C if WDL and back down to baseline 2L. (2) Pneumonia: Code(s): J18.9 - Pneumonia, unspecified organism Status: Acute Assessment and Plan: Continue Rocephin and azithromycin No IV fluid d/t pulmonary edema (3) COPD (chronic obstructive pulmonary disease): Code(s): J44.9 - Chronic obstructive pulmonary disease, unspecified Status: Acute Assessment and Plan: Possible exacerbation - DuoNebs - Holding off on these due to pt wanting to use own Breztri - Steroids: IV steroids followed by daily oral prednisone 40mg - Home medications: Pt to start taking his home Breztri today with pharm lety, refuses Chiqui. 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 - confirmed on CXR Continue to trend daily labs (5) Hypocalcemia: Code(s): E83.51 - Hypocalcemia Status: Acute Assessment and Plan: Corrected calcium 6.7 in ED 2 g IV calcium gluconate given in ED/new admit BMP in the morning yielding Ca of 5.8, (corrected score of 11/09 10/22 AM) will start PO calcium TID today Continue to trend AM labs (6) Hypothyroidism: Code(s): E03.9 - Hypothyroidism, unspecified Status: Acute Assessment and Plan: TSH WDL Continue home levothyroxine (7) Prostate cancer: Code(s): C61 - Malignant neoplasm of prostate Status: Acute Assessment and Plan: Continue Erleada and Flomax Chronic Quinn Leukopenic/neutropenic, continue to trend, probable due to active infection Denies pain at this time Plan Plan for D/C: Back to baseline of 2L NC satting 94% and higher, pending echo, pending normalization of calcium Subjective Date/time seen: 10/22/24 1025 Interval history: Pt is a 64-year-old male with past medical history of COPD on 2 have L of oxygen at home, current smoker, and prostate cancer with metastases to the bone (chronic Quinn) that presented to the ED c/o bilateral leg swelling and mild shortness of breath. Patient states that he still smoking. Patient states that his legs have been swelling over the last 2 months with worsening over the last few weeks. Patient states that is making it hard for him to walk. Patient states that he has increased his Lasix (baseline 20mg daily and increased this to BID) but have not helped. CHF managed by PCP. Patient denies nausea vomiting or diarrhea. In ED: leukopenia of 2.1, hemoglobin of 7.3, platelets of 113, sodium of 133, hand gap 1, BUN of 24, calcium of 6.1, alkaline phos of 190, BNP of 5028, albumin of 3.3. UA shows leukocyte esterase 1+, wbc's of 6-10, and 4+ bacteria. Chest x-ray shows bilateral pneumonia. Lower extremity Dopplers negative for DVT. Upon examination today patient not reporting shortness of breath, but does rem ain on 3 L of oxygen which is increased from his baseline dose at home of 2 L. patient reports that he is not here for his breathing, and that he would like to continue with his home Breztri and albuterol inhalers. Patient denying DuoNebs. Patient states that he is only here for his legs which seem to be getting better. Updated him on the need for echocardiogram results and to normalize his calcium levels. Patient agreeable with plan will reassess in the morning. Review of Systems Review of Systems: 12 systems were reviewed and are negativ e except for as per HPI. Exam Const: General: comfortable and no acute distress HENMT: Face/Nose/Sinus: Normal nares present Mouth: Yes moist mucous membranes Eyes: General: appearance normal, both eyes and all related structures Sclera: sclerae normal Neck: Neck: supple and no JVD Carotids: no bruits Resp: Auscultation: wheezes inspiratory wheezes and throughout Other: on 3L NC Cardio: Rate: regular rate Rhythm: regular rhythm GI: Inspection: non-distended Auscultation: normal bowel sounds Urinary Catheter: Urinary Catheter: patent and draining and urine clear Skin: General skin exam: normal color and no rashes or lesions noted Wounds: no wounds Neuro: Speech: normal speech Motor exam (neuro): Normal motor muscle tone present throughout Sensory Exam: normal sensation Extrem: Other: BLE: 1+ edema Psych: Other: Demanding, A&O x4 Objective Data Vital Signs Vital Signs: Vital Signs - 24 hr 10/21/24 10:32 10/21/24 11:01 10/21/24 11:01 Temperature 98.1 F Pulse Rate 82 86 85 Respiratory Rate 14 19 Blood Pressure 94/49 L 123/67 Pulse Oximetry 96 88 L Oxygen Delivery Autopap Oxygen Flow Rate Fraction of Inspired Oxygen 10/21/24 11:03 10/21/24 11:15 10/21/24 11:22 Temperature Pulse Rate 79 77 Respiratory Rate 27 H 16 Blood Pressure 119/72 Pulse Oximetry 92 98 Oxygen Delivery Nasal Cannula Oxygen Flow Rate 2.5 Fraction of Inspired Oxygen 10/21/24 11:23 10/21/24 11:27 10/21/24 11:31 Temperature Pulse Rate 76 Respiratory Rate 18 Blood Pressure 120/73 Pulse Oximetry 96 96 100 Oxygen Delivery Nasal Cannula Nasal Cannula Oxygen Flow Rate 2.5 2.5 Fraction of Inspired Oxygen 10/21/24 11:46 10/21/24 12:01 10/21/24 12:15 Temperature Pulse Rate 81 75 75 Respiratory Rate 18 18 19 Blood Pressure 115/67 113/72 119/72 Pulse Oximetry 97 100 100 Oxygen Delivery Oxygen Flow Rate Fraction of Inspired Oxygen 10/21/24 12:31 10/21/24 12:46 10/21/24 13:01 Temperature Pulse Rate 78 74 72 Respiratory Rate 12 16 17 Blood Pressure 124/70 115/76 112/75 Pulse Oximetry 99 100 98 Oxygen Delivery Oxygen Flow Rate Fraction of Inspired Oxygen 10/21/24 13:15 10/21/24 13:30 10/21/24 16:00 Temperature Pulse Rate 72 71 83 Respiratory Rate 21 H 17 Blood Pressure 107/64 103/63 Pulse Oximetry 100 98 Oxygen Delivery Oxygen Flow Rate Fraction of Inspired Oxygen 10/21/24 20:00 10/21/24 20:00 10/21/24 20:57 Temperature 97.7 F Pulse Rate 77 81 Respiratory Rate 16 Blood Pressure 110/68 Pulse Oximetry 96 96 Oxygen Delivery Nasal Cannula Oxygen Flow Rate 3 Fraction of Inspired Oxygen 10/22/24 00:00 10/22/24 04:00 10/22/24 06:20 Temperature 98.1 F Pulse Rate 75 76 81 Respiratory Rate 16 Blood Pressure 111/64 Pulse Oximetry 93 Oxygen Delivery Oxygen Flow Rate Fraction of Inspired Oxygen 10/22/24 08:08 Temperature Pulse Rate Respiratory Rate Blood Pressure Pulse Oximetry 95 Oxygen Delivery Nasal Cannula Oxygen Flow Rate 3 Fraction of Inspired Oxygen 32 Intake/Output Intake/Output: Intake & Output 10/19/24 10/20/24 10/21/24 10/22/24 23:59 23:59 23:59 23:59 Intake Total 570 300 Output Total 2800 950 Balance -2230 -650 Meds/Results Medications: Active Medications Generic Name Dose Route Start Last Admin Trade Name Freq PRN Reason Stop Dose Admin Acetaminophen 650 mg 10/21/24 15:49 Acetaminophen 325 Mg Tablet PO Q4H PRN Mild Pain (1-3) or Fever Albuterol 2 puff 10/21/24 15:29 10/21/24 15:51 Albuterol Sulfate (*Sp) Aerosol 1 Puff INHALATION 2 puff Q4HRT PRN Administration shortness of breath or wheezing Fluticasone/Umeclidinium/Vilanterol 1 puff 10/22/24 08:00 10/22/24 08:08 Fluticasone/Umeclidin/Vilanter 100-62.5-25 Mcg Ellipta INHALATION 1 puff DAILYRT NEIL Administration Furosemide 40 mg 10/22/24 09:00 10/22/24 09:08 Furosemide Inj 40 Mg/4 Ml Vial IV PUSH 40 mg BID NEIL Administration Guaifenesin 1,200 mg 10/22/24 09:00 10/22/24 09:10 Guaifenesin 12 Hr 600 Mg Tabcr PO 1,200 mg Q12HR NEIL Administration Heparin Sodium (Porcine) 5,000 units 10/21/24 21:00 10/22/24 09:11 Heparin Sodium 5,000 Units/Ml Vial SUB-Q Not Given Q12HR NEIL Heparin Sodium (Porcine) 5,000 units 10/22/24 09:00 10/22/24 09:09 Heparin Sodium 5,000 Units/Ml Vial SUB-Q 5,000 units Q12HR NEIL Administration Azithromycin 500 mg in 250 mls @ 250 mls/hr 10/22/24 09:00 10/22/24 09:09 Zithromax IVPB 250 mls/hr QAM NEIL Administration Ceftriaxone Sodium 1 gm in 50 mls @ 100 mls/hr 10/22/24 14:00 Rocephin 1 Gm/Ns 50 Ml IVPB Q24H [facility] Levothyroxine Sodium 25 mcg 10/22/24 06:30 10/22/24 06:13 Levothyroxine Sodium 25 Mcg Tablet PO 25 mcg DAILY@0630 [facility] Administration Nicotine 1 patch 10/21/24 20:25 10/21/24 20:54 Nicotine (*Pbkc) 21 Mg Patch TOPICAL 1 patch Q24H [facility] Administration Erleada 60mg Tablet 0 mg 10/22/24 18:00 *Use Home Supply* BY MOUTH 11/21/24 17:59 QPM [facility] Oxycodone HCl 5 mg 10/21/24 23:00 10/22/24 08:18 Oxycodone Hcl (*Crx) 5 Mg Tab Ir PO 5 mg Q8H PRN Administration Pain Rated 7-10 Perflutren Lipid Microsphere 0 ml 10/21/24 15:54 Perflutren Lipid Microspheres 1.5 Ml Vial Diluted To 10 Ml Total Volume IV PUSH 10/24/24 15:55 ONCE PRN adequate visualization Protocol Prednisone 40 mg 10/22/24 08:00 10/22/24 08:20 Prednisone 20 Mg Tablet PO 10/27/24 07:59 40 mg DAILY@0800 NEIL Administration Tamsulosin HCl 0.4 mg 10/21/24 21:00 10/21/24 20:54 Tamsulosin Hcl 0.4 Mg Capsule PO 0.4 mg HS NEIL Administration Radiology Results: ITS Impressions Venous Doppler Study 10/21/24 11:55 IMPRESSION: 1: No lower extremity deep venous thrombosis. Chest X-Ray 10/21/24 11:56 Impression: 1: Patchy bilateral pneumonia. 2: Patchy sclerosis of the bones, consistent with metastatic disease. Labs Labs: Laboratory Results - last 24 hr 10/21/24 10/21/24 10/21/24 11:12 12:39 14:08 WBC 2.1 L RBC 2.24 L Hgb 7.3 L Hct 22.9 L MCV 102.2 H MCH 32.6 MCHC 31.9 L RDW 20.3 H Plt Count 113 L MPV 11.0 H Immature Gran % (Auto) Not Reportable Neut % (Auto) Not Reportable Lymph % (Auto) Not Reportable [place] % (Auto) Not Reportable Eos % (Auto) Not Reportable Baso % (Auto) Not Reportable Lymph # (Auto) Not Reportable [place] # (Auto) Not Reportable Eos # (Auto) Not Reportable Baso # (Auto) Not Reportable Abs Immat Gran (auto) Not Reportable Absolute Neuts (auto) Not Reportable Absolute Nucleated RBC Not Reportable Total Counted 100 Neutrophils % (Manual) 32 L Band Neutrophils % 1 Lymphocytes % (Manual) 58 H Monocytes % (Manual) 7 Eosinophils % (Manual) 1 Basophils % (Manual) 1 Nucleated RBC % Not Reportable Abs Neuts (Manual) 0.69 L Abs Lymphs (Manual) 1.21 Abs Monocytes (Manual) 0.14 Absolute Eos (Manual) 0.02 Abs Basophils (Manual) 0.02 Nucleated RBCs 9 Platelet Estimate Slightly decreased Large Platelets Present Giant Platelets Present Polychromasia 1+ Hypochromasia 1+ Poikilocytosis 1+ Basophilic Stippling Anisocytosis 1+ Schistocytes None seen PT 14.6 INR 1.1 APTT 32.1 Sodium 133 L Potassium 4.7 Chloride 102 Carbon Dioxide 30 Anion Gap 1 L BUN 24 H Creatinine 0.75 Estim Creat Clear Calc 76 Estimated GFR > 60 Glucose 100 Calcium 6.1 L Phosphorus Magnesium Total Bilirubin 0.6 AST 21 ALT 15 Alkaline Phosphatase 190 H Troponin I < 0.012 < 0.012 NT-Pro-B Natriuret Pep 5020 H Total Protein 6.0 L Albumin 3.3 L TSH Urine Color Yellow Urine Appearance Clear Urine pH 7.5 Ur Specific [place] 1.006 Urine Protein Negative Urine Glucose (UA) Negative Urine Ketones Negative Ur Blood (Man) Negative Urine Nitrate Negative Urine Bilirubin Negative Urine Urobilinogen 0.2 Leukocyte Esterase Rfl 1+ H Urine RBC 0-2 Urine WBC 6-10 H Ur Squamous Epith Cells None seen Urine Bacteria 4+ H Urine Casts 0-2 10/22/24 04:37 WBC 1.9 L* RBC 2.13 L Hgb 7.0 L Hct 23.0 L MCV 108.0 H D MCH 32.9 MCHC 30.4 L RDW 20.4 H Plt Count 118 L MPV 10.8 H Immature Gran % (Auto) Not Reportable Neut % (Auto) Not Reportable Lymph % (Auto) Not Reportable [place] % (Auto) Not Reportable Eos % (Auto) Not Reportable Baso % (Auto) Not Reportable Lymph # (Auto) Not Reportable [place] # (Auto) Not Reportable Eos # (Auto) Not Reportable Baso # (Auto) Not Reportable Abs Immat Gran (auto) Not Reportable Absolute Neuts (auto) Not Reportable Absolute Nucleated RBC Not Reportable Total Counted 100 Neutrophils % (Manual) 18 L Band Neutrophils % 0 Lymphocytes % (Manual) 71 H Monocytes % (Manual) 8 Eosinophils % (Manual) 2 Basophils % (Manual) 1 Nucleated RBC % Not Reportable Abs Neuts (Manual) 0.34 L Abs Lymphs (Manual) 1.34 Abs Monocytes (Manual) 0.15 Absolute Eos (Manual) 0.03 Abs Basophils (Manual) 0.01 Nucleated RBCs 12 Platelet Estimate Decreased Large Platelets Giant Platelets Polychromasia 1+ Hypochromasia 1+ Poikilocytosis Basophilic Stippling 1+ Anisocytosis 1+ Schistocytes None seen PT INR APTT Sodium 138 Potassium 4.5 Chloride 105 Carbon Dioxide 32 H Anion Gap 1 L BUN 22 H Creatinine 0.77 Estim Creat Clear Calc 83 Estimated GFR > 60 Glucose 113 H Calcium 5.8 L* Phosphorus 3.5 Magnesium 2.6 H Total Bilirubin AST ALT Alkaline Phosphatase Troponin I NT-Pro-B Natriuret Pep Total Protein Albumin TSH 4.060 Urine Color Urine Appearance Urine pH Ur Specific [place] Urine Protein Urine Glucose (UA) Urine Ketones Ur Blood (Man) Urine Nitrate Urine Bilirubin Urine Urobilinogen Leukocyte Esterase Rfl Urine RBC Urine WBC Ur Squamous Epith Cells Urine Bacteria Urine Casts Quality VTE Prophylaxis VTE prophylaxis: mechanical ordered and pharmacologic ordered
[2024-10-22] MEDS: CALCIUM CARBONATE (OSCAL) 500 MG TABLET PO ×2 (12:18→16:52)
[2024-10-22] MEDS: GLYCOPYRROLATE INHALATION ×2 (13:32→20:47)
[2024-10-22] MEDS: BUDESONIDE INHALATION ×2 (13:32→20:47)
[2024-10-22] MEDS: FORMOTEROL INHALATION ×2 (13:32→20:47)
[2024-10-22] MEDS: APALUTAMIDE 60 MG BY MOUTH (17:04)
[2024-10-22] MEDS: NICOTINE (*PBKC) 21 MG PATCH 1 PATCH TOPICAL (20:25)
[2024-10-22] MEDS: TAMSULOSIN HCL 0.4 MG CAPSULE PO (21:28)
[2024-10-23] VITALS (15 sets, daily range): BP systolic 101–112; BP diastolic 48–60; PULSE 68–94; RESP 16–20; TEMP 37.1–37.4; O2SAT 92–95
[2024-10-23 05:00] LABS: Basophils Absolute Auto 0.1 K/mm3 (0.0-0.1); Basophils Percent Auto 1.6 % (0.2-1.2); Eosinophils Absolute Auto 0.1 K/mm3 (0-0.3); Hematocrit 23.3 % (42.0-52.0); Hemoglobin 7.1 g/dL (14.0-18.0); Immature Granulocyte Absolute 0.16 K/mm3 (0.00-0.031); Immature Granulocyte Percent A 5.2 % (0-0.5); Immature Platelet Fraction Pct 5.7 % (0.9-11.2); Lymphocytes Absolute Auto 1.88 K/mm3 (0.9-3.2); Lymphocytes Percent Auto 61.4 % (18.3-44.2); Mean Corpuscular HGB Conc 30.5 g/dl (32-36); Mean Corpuscular Hemoglobin 33.5 pg (26-34); Mean Corpuscular Volume 109.9 fl (80-100); Mean Platelet Volume 11.2 fl (7.4-10.4); Monocytes Absolute Auto 0.4 K/mm3 (0.1-0.6); Monocytes Percent Auto 13.7 % (2.6-8.5); Neutrophils Absolute Auto 0.5 K/mm3 (1.3-6.7); Neutrophils Percent Auto 16.1 % (45.5-73.1); Nucleated Red Blood Cells Perc 9.8 % (0.0-0.2); Platelet Count Result 134 k/mm3 (150-375); Red Blood Count 2.12 M/mm3 (4.6-6.20); Red Cell Distribution Width 20.8 % (11.5-14.5); White Blood Count 3.1 K/mm3 (4.5-10.0)
[2024-10-23 05:19] LABS: Alanine Aminotransferase 11 U/L (6-50); Albumin Level 2.9 g/dL (3.5-5.1); Alkaline Phosphatase 158 U/L (38-126); Anion Gap -1 mmol/L (4-12); Aspartate Amino Transferase 20 U/L (17-59); Bilirubin,Total 0.4 mg/dL (0.2-1.3); Blood Urea Nitrogen 20 mg/dL (9-20); Carbon Dioxide 31 mmol/L (22-30); Chloride 106 mmol/L (98-107); Estimated CRCL calculation 102 ml/min; Estimated Glomerular Filt Rate > 60; Glucose 94 mg/dL (65-110); Potassium 4.8 mmol/L (3.4-5.0); Sodium 136 mmol/L (137-145)
[2024-10-23] MEDS: LEVOTHYROXINE SODIUM 25 MCG TABLET PO (05:37)
[2024-10-23 05:44] LABS: Anisocytosis 1+; Platelet Estimate Adequate (Adequate)
[2024-10-23 05:45] LABS: Schistocytes None Seen
--- NOTE | 2024-10-23 07:43 | P.PNIM_ITS ---
Progress Note: A&P Assessment and Plan (1) CHF (congestive heart failure): Code(s): I50.9 - Heart failure, unspecified Status: Acute Assessment and Plan: C/o mild SOB and BLE edema upon admission to ED. -->Pt reports no relief with daily 20mg lasix PO nor 20mg lasix BID (increased per PCP), probable D/C with increase 80 mg IV Lasix given in ED IV Lasix 40mg b.i.d., reports today that his legs have gone down significantly, 1+ BLE, slightly bigger on the LLE. Fluid restriction Heart healthy diet US Doppler duplex BLE: WDL Blood cultures pending Echocardiogram: grade I diastolic dysfunction, EF 55-60%, volume overload, Right ventricular chamber dimension is severely enlarged, Severe pulmonary hypertension, estimated pulmonary arterial systolic pressure is 80 mmHg, There is moderate to severe tricuspid valve regurgitation. -Sleep link scheduled for tonight -In need of outpatient cross country coach, he does not currently see one. Pt concerned by this due to the cost. Will ask care coordination reassess. -Pending PT/OT status -Probable D/C with increase is lasix (2) Pneumonia: Code(s): J18.9 - Pneumonia, unspecified organism Status: Acute Assessment and Plan: Continue Rocephin and azithromycin ->Likely switch to orals 10/24 No IV fluid d/t pulmonary edema (3) COPD (chronic obstructive pulmonary disease): Code(s): J44.9 - Chronic obstructive pulmonary disease, unspecified Status: Acute Assessment and Plan: Possible exacerbation - DuoNebs - Holding off on these due to pt wanting to use own Breztri - Steroids: IV steroids followed by daily oral prednisone 40mg - Home medications: Pt to start taking his home Breztri today with pharm lety, refuses Chiqui. 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 - confirmed on CXR Continue to trend daily labs, appears to be chronic for pt -F/u with PCP & onc upon D/C (5) Hypocalcemia: Code(s): E83.51 - Hypocalcemia Status: Acute Assessment and Plan: Corrected calcium 6.7 in ED 2 g IV calcium gluconate given in ED/new admit BMP 10/23 yielding Ca of 7.0, (corrected score of 7.9) started PO calcium TID yesterday, will continue Continue to trend AM lab, probable D/C with suppl, follow-up with PCP (6) Hypothyroidism: Code(s): E03.9 - Hypothyroidism, unspecified Status: Acute Assessment and Plan: TSH WDL Continue home levothyroxine (7) Prostate cancer: Code(s): C61 - Malignant neoplasm of prostate Status: Acute Assessment and Plan: Continue Erleada (nightly chemo) and Flomax Chronic Quinn Leukopenic/neutropenic, continue to trend, probable due to active infection/chronic Continues to deny pain at this time (8) Social environment related disease: Code(s): R69 - Illness, unspecified Status: Acute Assessment and Plan: Pt with limited medical outpatient visits due to funding, transportation, etc. -Pt actively seeing oncologist but reports he does not often f/u with his PCP due to monetary and transportation issues. -Pt is in need of outpatient cardiology but declines because he cannot afford it -Care coordination following and is going reassess to provide resources for transportation, meals on wheels/food garn[employer], PCP listings, medical supply, and respiratory services Plan Plan for D/C (hopeful for 10/24): Back to baseline of 2L NC satting 94% and higher (Home O2 eval at D/C), sleep study tonight s/p echo results, pending normalization of calcium with probable home suppl Time Spent With Patient Time with patient: 15 - 25 minutes Subjective Date/time seen: 10/23/24 1229 Interval history: Pt is a 64-year-old male with past medical history of COPD on 2 have L of oxygen at home, current smoker, and prostate cancer with metastases to the bone (chronic Quinn) that presented to the ED c/o bilateral leg swelling and mild shortness of breath. Patient states that he still smoking. Patient states that his legs have been swelling over the last 2 months with worsening over the last few weeks. Patient states that is making it hard for him to walk. Patient states that he has increased his Lasix (baseline 20mg daily and increased this to BID) but have not helped. CHF managed by PCP. Patient denies nausea vomiting or diarrhea. In ED: leukopenia of 2.1, hemoglobin of 7.3, platelets of 113, sodium of 133, hand gap 1, BUN of 24, calcium of 6.1, alkaline phos of 190, BNP of 5028, albumin of 3.3. UA shows leukocyte esterase 1+, wbc's of 6-10, and 4+ bacteria. Chest x-ray shows bilateral pneumonia. Lower extremity Dopplers negative for DVT. Upon examination today patient continues to deny SOB, but does remain on 3 L of oxygen which is increased from his baseline dose at home of 2 L, when in his room, I titrated his O2 down to 2L and let nursing know. Re-assessment on this, pt is stable on 2L at 95%. Patient reports that he is not here for his breathing, and that he would like to continue with his home Breztri and albuterol inhalers, which were ordered 10/22 and has been stable on since. Patient states that he is only here for his legs which seem to be getting better per his report, same today me today upon exam, BLE 1+. Updated him on echocardiogram results being abnormal and the need for a sleep link tonight as well as an outpatient cards appt. Pt reports that he is unable to afford cardiologic care. Pt also updated on calcium levels and the need for probable D/C with a supplement. Patient agreeable with plan and being reassessed by care coordination for resources. Pt currently under care of Dr. Caldwell (onc) and takes nightly chemo pills. Of note, pt reports that he is in need of a portable O2 tank for travel to and from provider offices but also reports that he cannot afford O2 services at home, care coordination to offer resources to him about DME equipment, transportation, meals on wheels/food bank, and PCP list. I will also order a home O2 test on day of discharge, which I am hopeful will be tomorrow. Review of Systems Review of Systems: 12 systems were reviewed and are negativ e except for as per HPI. Integumentary/Breasts: Comments: BLE edema Exam Const: General: comfortable and no acute distress HENMT: Face/Nose/Sinus: Normal nares present Mouth: Yes moist mucous membranes Eyes: General: appearance normal, both eyes and all related structures Sclera: sclerae normal Neck: Neck: supple and no JVD Carotids: no bruits Resp: Auscultation: wheezes expiratory wheezes (mild) and throughout Other: on 2L NC, baseline Cardio: Rate: regular rate Rhythm: regular rhythm GI: Inspection: non-distended Auscultation: normal bowel sounds Urinary Catheter: Urinary Catheter: patent and draining and urine clear Skin: General skin exam: normal color and no rashes or lesions noted Wounds: no wounds Neuro: Speech: normal speech Motor exam (neuro): Normal motor muscle tone present throughout Sensory Exam: normal sensation Extrem: Other: BLE: 1+ edema Psych: Other: Demanding, A&O x4 Objective Data Vital Signs Vital Signs: Vital Signs - 24 hr 10/22/24 08:00 10/22/24 08:00 10/22/24 08:00 Temperature Pulse Rate 86 74 79 Respiratory Rate 18 Blood Pressure Pulse Oximetry 94 Oxygen Delivery Nasal Cannula Oxygen Flow Rate 3 Fraction of Inspired Oxygen 10/22/24 08:08 10/22/24 12:00 10/22/24 14:00 Temperature 98.3 F Pulse Rate 75 86 Respiratory Rate 18 Blood Pressure 104/65 Pulse Oximetry 95 94 Oxygen Delivery Nasal Cannula Oxygen Flow Rate 3 Fraction of Inspired Oxygen 32 10/22/24 20:00 10/22/24 20:00 10/22/24 20:47 Temperature Pulse Rate 80 79 Respiratory Rate 16 Blood Pressure Pulse Oximetry 95 Oxygen Delivery Nasal Cannula Oxygen Flow Rate 3 Fraction of Inspired Oxygen 10/22/24 21:01 10/22/24 22:35 10/23/24 00:00 Temperature 98.6 F Pulse Rate 79 78 Respiratory Rate 16 Blood Pressure 95/54 L Pulse Oximetry 95 95 Oxygen Delivery Nasal Cannula Oxygen Flow Rate 3 Fraction of Inspired Oxygen 32 10/23/24 04:00 10/23/24 06:00 Temperature 98.9 F Pulse Rate 70 68 Respiratory Rate 16 Blood Pressure 106/60 Pulse Oximetry 94 Oxygen Delivery Oxygen Flow Rate Fraction of Inspired Oxygen Intake/Output Intake/Output: Intake & Output 10/20/24 10/21/24 10/22/24 10/23/24 23:59 23:59 23:59 23:59 Intake Total 570 1560 500 Output Total 2800 2450 1600 Balance -2230 -890 -1100 Meds/Results Medications: Active Medications Generic Name Dose Route Start Last Admin Trade Name Freq PRN Reason Stop Dose Admin Acetaminophen 650 mg 10/21/24 15:49 Acetaminophen 325 Mg Tablet PO Q4H PRN Mild Pain (1-3) or Fever Albuterol 2 puff 10/21/24 15:29 10/21/24 15:51 Albuterol Sulfate (*Sp) Aerosol 1 Puff INHALATION 2 puff Q4HRT PRN Administration shortness of breath or wheezing Albuterol/Ipratropium 3 ml 10/22/24 11:15 Ipratropium 0.5 Mg/Albuterol Sulfate 2.5 Mg Ampul.Neb 3 Ml INHALATION Q6HRT PRN Shortness Of Breath Or Wheezing Calcium Carbonate 500 mg 10/22/24 12:00 10/22/24 16:52 Calcium Carbonate (Oscal) 500 Mg Tablet PO 500 mg TIDWM NEIL Administration Furosemide 40 mg 10/22/24 09:00 10/22/24 16:52 Furosemide Inj 40 Mg/4 Ml Vial IV PUSH 40 mg BID NEIL Administration Guaifenesin 1,200 mg 10/22/24 09:00 10/22/24 21:28 Guaifenesin 12 Hr 600 Mg Tabcr PO 1,200 mg Q12HR NEIL Administration Heparin Sodium (Porcine) 5,000 units 10/21/24 21:00 10/22/24 21:28 Heparin Sodium 5,000 Units/Ml Vial SUB-Q 5,000 units Q12HR NEIL Administration Azithromycin 500 mg in 250 mls @ 250 mls/hr 10/22/24 09:00 10/22/24 13:31 Zithromax IVPB Infused QAM NEIL Infusion Ceftriaxone Sodium 1 gm in 50 mls @ 100 mls/hr 10/22/24 14:00 10/22/24 13:55 Rocephin 1 Gm/Ns 50 Ml IVPB Infused Q24H NEIL Infusion Levothyroxine Sodium 25 mcg 10/22/24 06:30 10/23/24 05:37 Levothyroxine Sodium 25 Mcg Tablet PO 25 mcg DAILY@0630 NEIL Administration Nicotine 1 patch 10/21/24 20:25 10/22/24 20:25 Nicotine (*Pbkc) 21 Mg Patch TOPICAL 1 patch Q24H NEIL Administration Erleada 60mg Tablet 0 mg 10/22/24 18:00 10/22/24 17:04 *Use Home Supply* BY MOUTH 11/21/24 17:59 240 mg QPM NEIL Administration Breztri 160mcg 2 each 10/22/24 12:00 10/22/24 20:47 Inhaler *Use Home INHALATION 11/21/24 11:59 2 each Supply* Q12HRT NEIL Administration Oxycodone HCl 5 mg 10/21/24 23:00 10/22/24 21:33 Oxycodone Hcl (*Crx) 5 Mg Tab Ir PO 5 mg Q8H PRN Administration Pain Rated 7-10 Perflutren Lipid Microsphere 0 ml 10/21/24 15:54 Perflutren Lipid Microspheres 1.5 Ml Vial Diluted To 10 Ml Total Volume IV PUSH 10/24/24 15:55 ONCE PRN adequate visualization Protocol Prednisone 40 mg 10/22/24 08:00 10/22/24 08:20 Prednisone 20 Mg Tablet PO 10/27/24 07:59 40 mg DAILY@0800 NEIL Administration Tamsulosin HCl 0.4 mg 10/21/24 21:00 10/22/24 21:28 Tamsulosin Hcl 0.4 Mg Capsule PO 0.4 mg HS NEIL Administration Radiology Results: ITS Impressions Venous Doppler Study 10/21/24 11:55 IMPRESSION: 1: No lower extremity deep venous thrombosis. Chest X-Ray 10/21/24 11:56 Impression: 1: Patchy bilateral pneumonia. 2: Patchy sclerosis of the bones, consistent with metastatic disease. Labs Labs: Laboratory Results - last 24 hr 10/23/24 04:43 WBC 3.1 L RBC 2.12 L Hgb 7.1 L Hct 23.3 L MCV 109.9 H MCH 33.5 MCHC 30.5 L RDW 20.8 H Plt Count 134 L MPV 11.2 H Immature Gran % (Auto) 5.2 H Neut % (Auto) 16.1 L Lymph % (Auto) 61.4 H Culberson % (Auto) 13.7 H Eos % (Auto) 2.0 Baso % (Auto) 1.6 H Lymph # (Auto) 1.88 [place]on # (Auto) 0.4 Eos # (Auto) 0.1 Baso # (Auto) 0.1 Abs Immat Gran (auto) 0.16 H Absolute Neuts (auto) 0.5 L Absolute Nucleated RBC 0.300 H Band Neutrophils % Not Reportable Nucleated RBC % 9.8 H Platelet Estimate Adequate % Immature Plt Fraction 5.7 Anisocytosis 1+ Schistocytes None seen Sodium 136 L Potassium 4.8 Chloride 106 Carbon Dioxide 31 H Anion Gap -1 L BUN 20 Creatinine 0.62 L Estim Creat Clear Calc 102 Estimated GFR > 60 Glucose 94 Calcium 7.0 L Total Bilirubin 0.4 AST 20 ALT 11 Alkaline Phosphatase 158 H Total Protein 6.0 L Albumin 2.9 L Quality VTE Prophylaxis VTE prophylaxis: mechanical ordered and pharmacologic ordered
[2024-10-23] MEDS: BUDESONIDE INHALATION ×2 (09:25→21:10)
[2024-10-23] MEDS: GLYCOPYRROLATE INHALATION ×2 (09:25→21:10)
[2024-10-23] MEDS: FORMOTEROL INHALATION ×2 (09:25→21:10)
[2024-10-23] MEDS: guaiFENesin 12 HR 600 MG TABCR 1200 MG PO ×2 (09:27→21:13)
[2024-10-23] MEDS: AZITHROMYCIN 500 MG/NS 250 ML 500 MG/250 ML BAG 250 MG IVPB (09:27)
[2024-10-23] MEDS: CALCIUM CARBONATE (OSCAL) 500 MG TABLET PO ×3 (09:27→16:58)
[2024-10-23] MEDS: predniSONE 20 MG TABLET 40 MG PO (09:27)
[2024-10-23] MEDS: FUROSEMIDE INJ 40 MG/4 ML VIAL IV PUSH ×2 (09:28→16:58)
[2024-10-23] MEDS: HEPARIN SODIUM 5,000 UNITS/ML VIAL 5000 UNITS SUB-Q ×2 (09:28→21:14)
[2024-10-23] MEDS: IPRATROPIUM 0.5 MG/ALBUTEROL SULFATE 2.5 MG AMPUL.NEB 3 ML INHALATION (14:33)
[2024-10-23] MEDS: APALUTAMIDE 60 MG BY MOUTH (17:01)
[2024-10-23] MEDS: TAMSULOSIN HCL 0.4 MG CAPSULE PO (21:13)
[2024-10-23] MEDS: NICOTINE (*PBKC) 21 MG PATCH 1 PATCH TOPICAL (21:18)
[2024-10-23] MEDS: oxyCODONE HCL (*CRX) 5 MG TAB IR PO (21:25)
[2024-10-24] VITALS (7 sets, daily range): PULSE 74–85; RESP 16; O2SAT 92–97
[2024-10-24 05:17] LABS: Hematocrit 22.9 % (42.0-52.0); Mean Corpuscular HGB Conc 30.6 g/dl (32-36); Mean Platelet Volume 11.1 fl (7.4-10.4); Platelet Count Result 127 k/mm3 (150-375); Red Blood Count 2.12 M/mm3 (4.6-6.20); White Blood Count 4.1 K/mm3 (4.5-10.0)
[2024-10-24 05:33] LABS: Alanine Aminotransferase 11 U/L (6-50); Albumin Level 2.8 g/dL (3.5-5.1); Alkaline Phosphatase 156 U/L (38-126); Anion Gap -1 mmol/L (4-12); Aspartate Amino Transferase 18 U/L (17-59); Bilirubin,Total 0.4 mg/dL (0.2-1.3); Blood Urea Nitrogen 19 mg/dL (9-20); Calcium 7.9 mg/dL (8.4-10.2); Carbon Dioxide 36 mmol/L (22-30); Chloride 105 mmol/L (98-107); Estimated CRCL calculation 96 ml/min; Estimated Glomerular Filt Rate > 60; Glucose 103 mg/dL (65-110); Potassium 4.2 mmol/L (3.4-5.0); Sodium 140 mmol/L (137-145)
[2024-10-24] MEDS: LEVOTHYROXINE SODIUM 25 MCG TABLET PO (05:44)
[2024-10-24] MEDS: oxyCODONE HCL (*CRX) 5 MG TAB IR PO (05:45)
[2024-10-24 06:21] LABS: Anisocytosis 1+; Band Neutrophils Percent 3 % (0-6); Eosinophils Absolute Manual 0.04 K/mm3 (0.02-0.50); Eosinophils Percent Manual 1 % (0-4); Lymphocytes Absolute Manual 2.33 K/mm3 (1.1-4.5); Monocytes Absolute Manual 0.32 K/mm3 (0.1-0.90); Monocytes Percent Manual 8 % (3-9); Myelocytes Percent 1 %; Neutrophils Absolute Manual 1.35 K/mm3 (1.3-6.7); Neutrophils Percent Manual 30 % (46-73); Nucleated Red Blood Cells 5 %; Platelet Estimate Decreased (Adequate); Total Cells Counted 100
[2024-10-24 06:22] LABS: Microcytosis 1+ (NORMAL); Poikilocytosis 1+; Polychromasia 1+; Schistocytes Rare
[2024-10-24 06:23] LABS: Rouleaux 1+
[2024-10-24] MEDS: GLYCOPYRROLATE INHALATION (08:33)
[2024-10-24] MEDS: FORMOTEROL INHALATION (08:33)
[2024-10-24] MEDS: BUDESONIDE INHALATION (08:33)
[2024-10-24 08:36] LABS: Vitamin D 25 Hydroxy < 12.8 ng/mL
[2024-10-24] MEDS: predniSONE 20 MG TABLET 40 MG PO (08:41)
[2024-10-24] MEDS: CALCIUM CARBONATE (OSCAL) 500 MG TABLET PO ×2 (08:41→11:54)
[2024-10-24] MEDS: guaiFENesin 12 HR 600 MG TABCR 1200 MG PO (08:41)
[2024-10-24] MEDS: levoFLOXacin 750 MG TABLET PO (08:41)
[2024-10-24] MEDS: FUROSEMIDE INJ 40 MG/4 ML VIAL IV PUSH (08:42)
[2024-10-24] MEDS: HEPARIN SODIUM 5,000 UNITS/ML VIAL 5000 UNITS SUB-Q (08:42)
--- NOTE | 2024-10-24 10:13 | P.CDI_ITS ---
CDI Query Clarification Request 1)Please specify type and acuity of heart failure if known. * Acute * Chronic * Acute on Chronic * Unknown * Systolic * Diastolic * Combined Systolic and Diastolic * Unknown 2) Clarification request - UTI has been documented, chronic indwelling huang catheter documented. Please clarify if UTI is: * due to/associated with chronic indwelling huang catheter * not due to/associated with chronic indwelling huang catheter * unable to determine The medical chart reflects the following: Pt is a 64-year-old male with past medical history of COPD on 2 have L of oxygen at home, current smoker, and prostate cancer with metastases to the bone (chronic Huang) that presented to the ED c/o bilateral leg swelling and mild shortness of breath. Patient states that he still smoking. Patient states that his legs have been swelling over the last 2 months with worsening over the last few weeks. Patient states that is making it hard for him to walk. Patient states that he has increased his Lasix (baseline 20mg daily and increased this to BID) but have not helped. CHF managed by PCP. Patient denies nausea vomiting or diarrhea. In ED: leukopenia of 2.1, hemoglobin of 7.3, platelets of 113, sodium of 133, hand gap 1, BUN of 24, calcium of 6.1, alkaline phos of 190, BNP of 5028, albumin of 3.3. UA shows leukocyte esterase 1+, wbc's of 6-10, and 4+ bacteria. Chest x-ray shows bilateral pneumonia. Lower extremity Dopplers negative for DVT. Upon examination today patient continues to deny SOB, but does remain on 3 L of oxygen which is increased from his baseline dose at home of 2 L, when in his room, I titrated his O2 down to 2L and let nursing know. Re-assessment on this, pt is stable on 2L at 95%. Patient reports that he is not here for his breathing, and that he would like to continue with his home Breztri and albuterol inhalers, which were ordered 10/22 and has been stable on since. Patient states that he is only here for his legs which seem to be getting better per his report, same today me today upon exam, BLE 1+. Updated him on echocardiogram results being abnormal and the need for a sleep link tonight as well as an outpatient cards appt. Pt reports that he is unable to afford cardiologic care. Pt also updated on calcium levels and the need for probable D/C with a supplement. Patient agreeable with plan and being reassessed by care coordination for resources. Pt currently under care of Dr. Caldwell (onc) and takes nightly chemo pills. Of note, pt reports that he is in need of a portable O2 tank for travel to and from provider offices but also reports that he cannot afford O2 services at home, care coordination to offer resources to him about DME equipment, transportation, meals on wheels/food bank, and PCP list. I will also order a home O2 test on day of discharge, which I am hopeful will be tomorrow. (1) CHF (congestive heart failure): Code(s): I50.9 - Heart failure, unspecified Status: Acute Assessment and Plan: C/o mild SOB and BLE edema upon admission to ED. -->Pt reports no relief with daily 20mg lasix PO nor 20mg lasix BID (increased per PCP), probable D/C with increase 80 mg IV Lasix given in ED IV Lasix 40mg b.i.d., reports today that his legs have gone down significantly, 1+ BLE, slightly bigger on the LLE. Fluid restriction Heart healthy diet US Doppler duplex BLE: WDL Blood cultures pending Echocardiogram: grade I diastolic dysfunction, EF 55-60%, volume overload, Right ventricular chamber dimension is severely enlarged, Severe pulmonary hypertension, estimated pulmonary arterial systolic pressure is 80 mmHg, There is moderate to severe tricuspid valve regurgitation. -Sleep link scheduled for tonight -In need of outpatient corporate events director, he does not currently see one. Pt concerned by this due to the cost. Will ask care coordination reassess. -Pending PT/OT status -Probable D/C with increase is lasix Urine culture resulted positive with pseudomonas aeruginosa -QTc in real time via tele is 421 -Ordered Levaquin to cover UTI and PNA, D/C azithro & ceftriaxone (was on for PNA) <Kinza Waldrop RN - Last Filed: 10/24/24 10:16> 1)Please specify type and acuity of heart failure if known. * Acute on Chronic * Diastolic 2) Clarification request - UTI has been documented, chronic indwelling huang catheter documented. Please clarify if UTI is: * due to/associated with chronic indwelling huang catheter * not due to/associated with chronic indwelling huang catheter * unable to determine The medical chart reflects the following: Pt is a 64-year-old male with past medical history of COPD on 2 have L of oxygen at home, current smoker, and prostate cancer with metastases to the bone (chronic Huang) that presented to the ED c/o bilateral leg swelling and mild shortness of breath. Patient states that he still smoking. Patient states that his legs have been swelling over the last 2 months with worsening over the last few weeks. Patient states that is making it hard for him to walk. Patient states that he has increased his Lasix (baseline 20mg daily and increased this to BID) but have not helped. CHF managed by PCP. Patient denies nausea vomiting or diarrhea. In ED: leukopenia of 2.1, hemoglobin of 7.3, platelets of 113, sodium of 133, hand gap 1, BUN of 24, calcium of 6.1, alkaline phos of 190, BNP of 5028, albumin of 3.3. UA shows leukocyte esterase 1+, wbc's of 6-10, and 4+ bacteria. Chest x-ray shows bilateral pneumonia. Lower extremity Dopplers negative for DVT. Upon examination today patient continues to deny SOB, but does remain on 3 L of oxygen which is increased from his baseline dose at home of 2 L, when in his room, I titrated his O2 down to 2L and let nursing know. Re-assessment on this, pt is stable on 2L at 95%. Patient reports that he is not here for his breathing, and that he would like to continue with his home Breztri and albuterol inhalers, which were ordered 10/22 and has been stable on since. Patient states that he is only here for his legs which seem to be getting better per his report, same today me today upon exam, BLE 1+. Updated him on echocardiogram results being abnormal and the need for a sleep link tonight as well as an outpatient cards appt. Pt reports that he is unable to afford cardiologic care. Pt also updated on calcium levels and the need for probable D/C with a supplement. Patient agreeable with plan and being reassessed by care coordination for resources. Pt currently under care of Dr. Caldwell (onc) and takes nightly chemo pills. Of note, pt reports that he is in need of a portable O2 tank for travel to and from provider offices but also reports that he cannot afford O2 services at home, care coordination to offer resources to him about DME equipment, transportation, meals on wheels/food bank, and PCP list. I will also order a home O2 test on day of discharge, which I am hopeful will be tomorrow. (1) CHF (congestive heart failure): Code(s): I50.9 - Heart failure, unspecified Status: Acute Assessment and Plan: C/o mild SOB and BLE edema upon admission to ED. -->Pt reports no relief with daily 20mg lasix PO nor 20mg lasix BID (increased per PCP), probable D/C with increase 80 mg IV Lasix given in ED IV Lasix 40mg b.i.d., reports today that his legs have gone down significantly, 1+ BLE, slightly bigger on the LLE. Fluid restriction Heart healthy diet US Doppler duplex BLE: WDL Blood cultures pending Echocardiogram: grade I diastolic dysfunction, EF 55-60%, volume overload, Right ventricular chamber dimension is severely enlarged, Severe pulmonary hypertension, estimated pulmonary arterial systolic pressure is 80 mmHg, There is moderate to severe tricuspid valve regurgitation. -Sleep link scheduled for tonight -In need of outpatient corporate events director, he does not currently see one. Pt concerned by this due to the cost. Will ask care coordination reassess. -Pending PT/OT status -Probable D/C with increase is lasix Urine culture resulted positive with pseudomonas aeruginosa -QTc in real time via tele is 421 -Ordered Levaquin to cover UTI and PNA, D/C azithro & ceftriaxone (was on for PNA) <Dina Singer APRN - Last Filed: 10/24/24 12:27>
--- NOTE | 2024-10-24 11:01 | P.DS_ITS ---
DS: Admitting Diagnosis Discharge Date 10/24/2024 Admitting Diagnosis PNA, BLE edema, chf exac DS: Discharge Diagnosis Discharge Diagnosis (1) CHF (congestive heart failure): Code(s): I50.9 - Heart failure, unspecified Status: Acute Assessment and Plan: C/o mild SOB and BLE edema upon admission to ED. -->Pt reports no relief with daily 20mg lasix PO nor 20mg lasix BID (increased per PCP), probable D/C with increase 80 mg IV Lasix given in ED IV Lasix 40mg b.i.d., reports today that his legs have gone down significantly, 1+ BLE, slightly bigger on the LLE. Fluid restriction Heart healthy diet US Doppler duplex BLE: WDL Blood cultures pending, prelim reading negative, will f/u Echocardiogram: grade I diastolic dysfunction, EF 55-60%, volume overload, Right ventricular chamber dimension is severely enlarged, Severe pulmonary hypertension, estimated pulmonary arterial systolic pressure is 80 mmHg, There is moderate to severe tricuspid valve regurgitation. -Sleep link unremarkable -In need of outpatient emergency worker, he does not currently see one. Pt concerned by this due to the cost. -PT/OT status completed, independent -D/C with increase is Lasix from 20mg BID to 40mg BID (2) Pneumonia: Code(s): J18.9 - Pneumonia, unspecified organism Status: Acute Assessment and Plan: Originally on Rocephin and azithromycin ->Switched to orals 10/24, Levaquin 750mg daily, will D/C with remaining No IV fluid d/t pulmonary edema (3) COPD (chronic obstructive pulmonary disease): Code(s): J44.9 - Chronic obstructive pulmonary disease, unspecified Status: Acute Assessment and Plan: Possible exacerbation - DuoNebs - Holding off on these due to pt wanting to use own Breztri - Steroids: IV steroids followed by daily oral prednisone 40mg - Home medications: Pt to start taking his home Breztri today with pharm lety, refuses Trelegy. 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 - confirmed on CXR Continue to trend daily labs, appears to be chronic for pt -F/u with PCP & onc upon D/C (5) Hypocalcemia: Code(s): E83.51 - Hypocalcemia Status: Acute Assessment and Plan: Corrected calcium 6.7 in ED 2 g IV calcium gluconate given in ED/new admit BMP 10/24 yielding Ca of 7.9, (corrected score of 8.9) was on oral Ca while inpt -D/C with suppl, follow-up with PCP (6) Hypothyroidism: Code(s): E03.9 - Hypothyroidism, unspecified Status: Acute Assessment and Plan: TSH WDL Continue home levothyroxine (7) Prostate cancer: Code(s): C61 - Malignant neoplasm of prostate Status: Acute Assessment and Plan: Continue Erleada (nightly chemo) and Flomax Chronic Quinn Leukopenic/neutropenic, continue to trend, probable due to active infection/chronic Continues to deny pain at this time Urine culture resulted with Pseudomonas aeruginosa - started on Levaquin 750mg daily today, will continue at D/C (8) Social environment related disease: Code(s): R69 - Illness, unspecified Status: Acute Assessment and Plan: Pt with limited medical outpatient visits due to funding, transportation, etc. -Pt actively seeing oncologist but reports he does not often f/u with his PCP due to monetary and transportation issues. -Pt is in need of outpatient cardiology but declines because he cannot afford it -Care coordination following and is going reassess to provide resources for transportation, meals on wheels/food garnica, PCP listings, medical supply, and respiratory services (9) Vitamin D deficiency: Code(s): E55.9 - Vitamin D deficiency, unspecified Status: Acute Assessment and Plan: <12.8 via lab, given 125mg while inpt today prior to D/C -Rx cholecalc suppl for D/C, weekly dose Plan D/C with cards f/u per echo, vitamin D and calcium rx suppl, lasix increased to 40mg BID, and strict f/u plan with PCP for lab work, etc. DS: Summary Hospital Course Reason for hospitalization: PNA/CHF exac Hospital Course: Pt is a 64-year-old male with past medical history of COPD on 2 have L of oxygen at home, current smoker, and prostate cancer with metastases to the bone (chronic Quinn) that presented to the ED c/o bilateral leg swelling and mild shortness of breath. Patient states that he still smoking. Patient states that his legs have been swelling over the last 2 months with worsening over the last few weeks. Patient states that is making it hard for him to walk. Patient states that he has increased his Lasix (baseline 20mg daily and increased this to BID) but have not helped, pt to be D/C home with lasix 40mg BID with prompt f/u with PCP and/or emergency worker. CHF managed by PCP. Patient denies nausea vomiting or diarrhea. In ED: leukopenia of 2.1, hemoglobin of 7.3, platelets of 113, sodium of 133, hand gap 1, BUN of 24, calcium of 6.1, alkaline phos of 190, BNP of 5028, albumin of 3.3. UA shows leukocyte esterase 1+, wbc's of 6-10, and 4+ bacteria. Chest x-ray shows bilateral pneumonia. Lower extremity Dopplers negative for DVT. Pt was using 3L early in his admission but was titrated down to his baseline of 2L NC, pt was on his home Breztri treatments and albuterol inhaler PRN. Pt continued to report no SOB and believes that his legs were going down in size. Pt underwent echocardiogram while inpt and results were abnormal and he is need of a f/u with [facility], gave him this referral at D/C. Sleep link ordered due to increased pulmonary htn. Pt also low on calcium and vitamin D levels and the need for probable D/C with a supplement for both. Patient agreeable with plan and being reassessed by care coordination for resources. Pt currently under care of Dr. Caldwell (onc) and takes nightly chemo pills. Of note, pt reports that he is in need of a portable O2 tank for travel to and from provider offices but also reports that he cannot afford O2 services at home, care coordination to offer resources to him about DME equipment, transportation, meals on wheels/food bank, and PCP list. Pt to continue home O2 use, home o2 test was not performed today as pt left before test was performed. Status at Discharge Cognitive/behavioral status at discharge: Stable Time Spent with Patient Time attestation: Total time spent providing and/or coordinating discharge services: Exam Resp: Other: on 2L NC, baseline DS: Data Data Completed and Pending Completed studies during hospitalization: Echo, sleep link, BLE duplex US, CXR Pending studies at discharge: Final results of blood cultures Labs on day of discharge: Labs from last 24 hours 10/24/24 10/24/24 04:39 04:38 WBC 4.1 L RBC 2.12 L Hgb 7.0 L Hct 22.9 L MCV 108.0 H MCH 33.0 MCHC 30.6 L RDW 21.0 H Plt Count 127 L MPV 11.1 H Immature Gran % (Auto) Not Reportable Neut % (Auto) Not Reportable Lymph % (Auto) Not Reportable [place] % (Auto) Not Reportable Eos % (Auto) Not Reportable Baso % (Auto) Not Reportable Lymph # (Auto) Not Reportable [place] # (Auto) Not Reportable Eos # (Auto) Not Reportable Baso # (Auto) Not Reportable Abs Immat Gran (auto) Not Reportable Absolute Neuts (auto) Not Reportable Absolute Nucleated RBC Not Reportable Total Counted 100 Neutrophils % (Manual) 30 L Band Neutrophils % 3 Lymphocytes % (Manual) 57.0 H Monocytes % (Manual) 8 Eosinophils % (Manual) 1 Myelocytes % 1 Nucleated RBC % Not Reportable Abs Neuts (Manual) 1.35 Abs Lymphs (Manual) 2.33 Abs Monocytes (Manual) 0.32 Absolute Eos (Manual) 0.04 Nucleated RBCs 5 Platelet Estimate Decreased Polychromasia 1+ Poikilocytosis 1+ Anisocytosis 1+ Microcytosis 1+ Rouleaux 1+ Schistocytes Rare Sodium 140 Potassium 4.2 Chloride 105 Carbon Dioxide 36 H Anion Gap -1 L BUN 19 Creatinine 0.66 L Estim Creat Clear Calc 96 Estimated GFR > 60 Glucose 103 Calcium 7.9 L Total Bilirubin 0.4 AST 18 ALT 11 Alkaline Phosphatase 156 H Total Protein 6.0 L Albumin 2.8 L Vitamin D 25-Hydroxy < 12.8 Preliminary micro results at discharge 10/21/24 13:30 Blood Culture - Preliminary Blood 10/21/24 13:30 Blood Culture - Preliminary Blood Discharge Plan Discharge Attending physician on discharge: Dina Singer Discharging Clinician: Dina Singer Patient Disposition: Home Activity: october shower Diet: heart healthy Patient Language: [place] Citizen Discharge Medications: New ergocalciferol (vitamin D2) 1,250 mcg (50,000 unit) capsule 1,250 mcg PO WEEKLY Qty: 8 3RF calcium carbonate [Oyster Shell Calcium 500] 500 mg calcium (1,250 mg) Tablet 1,000 mg PO DAILY Qty: 180 3RF levofloxacin 750 mg tablet 750 mg PO DAILY Qty: 6 0RF Continued prednisone 5 mg tablet 5 mg PO BIDWM tamsulosin 0.4 mg capsule 0.4 mg PO HS Erleada 60 mg tablet 240 mg PO QPM nicotine 21 mg/24 hr patch 24 hour 1 patch topical Q24H levothyroxine 25 mcg tablet 25 mcg PO DAILY albuterol sulfate 90 mcg/actuation HFA aerosol inhaler 2 inh INHALATION Q4H PRN (Reason: shortness of breath or wheezing) oxycodone 10 mg tablet 10 mg PO Q8H Breztri Aerosphere 160-9-4.8 mcg/actuation HFA aerosol inhaler 2 inh INHALATION BID Changed furosemide 20 mg tablet 40 mg PO BID Qty: 60 1RF Date of admission: 10/22/24 09:32 Primary Care Provider: Canelo*Jaxon Admitting Provider: Ced Garcia Attending physician on admission: Ced Garcia Condition: Improved Quality VTE Prophylaxis VTE prophylaxis: mechanical ordered and pharmacologic ordered Hospitalist MIPS Heart Failure (Exclusion) Patient has history of Heart Transplant or Left Ventricular Assistive Device?: Yes IF YES, STOP HERE Heart Failure (Qualifier) Patient has current or prior documentation of LVEF less than or equal to 40%, or mod/servere depressed LVSF?: No IF NO, STOP HERE
[2024-10-24] MEDS: CHOLECALCIFEROL 5,000 UNITS TABLET 5000 UNITS PO (11:54)
--- NOTE | 2024-10-27 07:45 | PC.NURSE ---
Blood cx are negative.
== END 2024-10-24 12:30 | disposition home or self-care (01) | DRG 291 ==
LOC: ANHED 12:57 → ANH2MED 14:10
PROVIDERS: Nurse Practitioner Gerontology; Admitting Provider Internal Medicine; Emergency Provider Emergency Medicine; PCP Internal Medicine
DX: I50.43 Acute on chronic combined systolic (congestive) and diastolic (congestive) heart failure (principal); J18.9 Pneumonia, unspecified organism; C79.51 Secondary malignant neoplasm of bone; J44.0 Chronic obstructive pulmonary disease with (acute) lower respiratory infection; J44.1 Chronic obstructive pulmonary disease with (acute) exacerbation; N39.0 Urinary tract infection, site not specified; C61 Malignant neoplasm of prostate; B96.5 Pseudomonas (aeruginosa) (mallei) (pseudomallei) as the cause of diseases classified elsewhere; E03.9 Hypothyroidism, unspecified; D69.6 Thrombocytopenia, unspecified; E83.51 Hypocalcemia; F17.210 Nicotine dependence, cigarettes, uncomplicated; Z99.81 Dependence on supplemental oxygen; Z91.190 Patient's noncompliance with other medical treatment and regimen due to financial hardship; Z91.198 Patient's noncompliance with other medical treatment and regimen for other reason
CPT/HCPCS: 36415; 71045; 80048; 80053; 81001; 82306; 83735; 83880; 84100; 84443; 84484; 85025; 85055; 85610; 85730; 87040; 87086; 87186; 93005; 93306; 93970; 94640; 96365; 96366; 96367; 96375; 97161; 97165; 99285; A9270; G0378; J0456; J0613; J0696; J1644; J1938; J2919; J7512